=== PATIENT | female | born 1945 | race Caucasian/White ===

== ENCOUNTER → 2018-09-21 | Outpatient (CLI) | payer MEDICARE ==
--- NOTE | 2018-09-29 08:58 | MM ---
Reason for exam: screening (asymptomatic). Last mammogram was performed 1 year and 4 months ago. History: Patient is postmenopausal. Physical Findings: A clinical breast exam by your physician is recommended on an annual basis and results should be correlated with mammographic findings. MG 3D Screening Mammo W/Cad Bilateral CC and MLO view(s) were taken. Prior study comparison: May 19, 2017, mammogram, performed at [facility]. May 27, 2016, mammogram, performed at [facility]. The breast tissue is heterogeneously dense. This may lower the sensitivity of mammography. There are benign appearing round linear calcifications bilaterally, greater in the left breast. There is chronic nodularity in the left breast. There is no discrete abnormality. ASSESSMENT: Benign, BI-RAD 2 RECOMMENDATION: Routine screening mammogram of both breasts in 1 year.
== END ==
LOC: RADMAMWWP 13:20
PROVIDERS: ATTEND Family Medicine
DX: Z12.31 Encounter for screening mammogram for malignant neoplasm of breast (principal)
CPT/HCPCS: 77063; 77067

== ENCOUNTER 2020-05-10 08:02 | Inpatient (IN) | payer MEDICARE ==
[2020-05-10] MEDS ORDERED: KETOROLAC 15 MG/ML 1 ML VIAL IVP STA (08:22)
[2020-05-10] MEDS ORDERED: SODIUM CHLORIDE 0.9% 1,000 ML IV STA ×2 (08:22→11:04)
--- NOTE | 2020-05-10 08:40 | ED ---
Abdominal Pain HPI - General Chief Complaint: Abdominal Pain Stated Complaint: Abd pain,kidney stone, UTI Time Seen by Provider: 05/10/20 08:02 Source: patient, EMS, RN notes reviewed, old records reviewed Mode of arrival: EMS Limitations: no limitations - History of Present Illness Initial Comments: This is a 74-year-old female who was transferred from [facility] where she initially presented with complaints of severe abdominal pain with nausea and diarrhea after having a colonoscopy done the previous day. Patient states she had crampy pain and may getting intermittently worse since the procedure. She has had nausea vomiting states the cramps are all over her abdomen. She did have workup here was consistent with a CAT scan lab work. She did have evidence of dehydration leukocytosis also CAT scan showed evidence of a kidney stone in the renal pelvis on the left which appears be nonobstructing there was however left-sided hydronephrosis also some thinning of the upper pole left kidney consistent with either scarring or chronic pyelonephritis. Additionally the urine was nitrite positive. Patient was given numerous pain medication without success and was transferred here for further evaluation. MD Complaint: abdominal pain - Related Data Home Medications Medication Instructions Recorded Confirmed Cholecalciferol [Vitamin D3 (25 1,000 unit PO DAILY 05/10/20 05/10/20 Mcg = 1000 Iu)] Levothyroxine Sodium [Synthroid] 137 mcg PO DAILY 05/10/20 05/10/20 Lisinopril [Zestril] 10 mg PO DAILY 05/10/20 05/10/20 Simvastatin 40 mg PO HS 05/10/20 05/10/20 Triamcinolone 0.1% Ointment 1 applic TOPICAL BID PRN 05/10/20 05/10/20 [Kenalog 0.1% Ointment] Venlafaxine HCl ER [Effexor Xr] 150 mg PO DAILY 05/10/20 05/10/20 polyethylene glycoL 3350 [Miralax] 17 gm PO DAILY PRN 05/10/20 05/10/20 Allergies Allergy/AdvReac Type Severity Reaction Status Date / Time Penicillins Allergy Unknown Verified 05/10/20 08:44 Sulfa (Sulfonamide Allergy Unknown Verified 05/10/20 08:44 Antibiotics) Review of Systems ROS Statement: Those systems with pertinent positive or pertinent negative responses have been documented in the HPI. ROS Other: All systems not noted in ROS Statement are negative. Past Medical History Past Medical History: Hyperlipidemia, Hypertension History of Any Multi-Drug Resistant Organisms: None Reported Past Surgical History: Joint Replacement, Orthopedic Surgery Additional Past Surgical History / Comment(s): left overy removed Past Psychological History: Anxiety Smoking Status: Former smoker Past Alcohol Use History: None Reported Past Drug Use History: None Reported General Exam - General Exam Comments Initial Comments: This is a well-developed well-nourished awake alert oriented 3 female Limitations: no limitations General appearance: alert, anxious, in distress Head exam: Present: atraumatic, normocephalic, normal inspection Eye exam: Present: normal appearance, PERRL, EOMI. Absent: scleral icterus, conjunctival injection, periorbital swelling ENT exam: Present: mucous membranes dry Neck exam: Present: normal inspection. Absent: tenderness, meningismus, lymphadenopathy Respiratory exam: Present: normal lung sounds bilaterally. Absent: respiratory distress, wheezes, rales, rhonchi, stridor Cardiovascular Exam: Present: regular rate, normal rhythm, normal heart sounds. Absent: systolic murmur, diastolic murmur, rubs, gallop, clicks GI/Abdominal exam: Present: soft, tenderness (Mild tenderness no guarding rebound masses or bruits), normal bowel sounds. Absent: distended, guarding, rebound, rigid Rectal exam: Present: deferred Extremities exam: Present: normal inspection, full ROM, normal capillary refill. Absent: tenderness, pedal edema, joint swelling, calf tenderness Back exam: Present: normal inspection Neurological exam: Present: alert, oriented X3, CN II-XII intact Psychiatric exam: Present: normal affect, normal mood Skin exam: Present: warm, dry, intact, normal color. Absent: rash Course Vital Signs 05/10/20 05/10/20 05/10/20 08:12 09:10 10:07 Temperature 98.5 F Pulse Rate 88 104 H 99 Respiratory 20 18 18 Rate Blood Pressure 195/99 187/78 176/72 O2 Sat by Pulse 99 98 98 Oximetry 05/10/20 11:03 Temperature Pulse Rate 117 H Respiratory 18 Rate Blood Pressure 148/86 O2 Sat by Pulse 96 Oximetry - Reevaluation(s) Reevaluation #1: 05/10/20 11:33 Reevaluation patient reveals her still have pain no abdominal exam is nonspecific mild tenderness no focal guarding rebound masses or bruits heart and lungs were clear. 05/10/20 11:33 The patient did receive IV antibiotics at the sending facility as well as fluids patient get additional fluids. The lactic acid is improving. Medical Decision Making - Medical Decision Making I did discuss findings with the patient and with Dr. Perkins patient will be admitted with consultation by GI as well as neurology. Dr. Patel is notified - Lab Data Result diagrams: 05/10/20 08:49 05/10/20 08:49 Lab Results 05/10/20 05/10/20 05/10/20 Range/Units 08:49 08:49 08:49 WBC 13.6 H (3.8-10.6) k/uL RBC 4.64 (3.80-5.40) m/uL Hgb 13.8 (11.4-16.0) gm/dL Hct 42.5 (34.0-46.0) % MCV 91.5 (80.0-100.0) fL MCH 29.8 (25.0-35.0) pg MCHC 32.6 (31.0-37.0) g/dL RDW 13.6 (11.5-15.5) % Plt Count 295 (150-450) k/uL Neutrophils % 88 % Lymphocytes % 4 % Monocytes % 5 % Eosinophils % 1 % Basophils % 0 % Neutrophils # 12.1 H (1.3-7.7) k/uL Lymphocytes # 0.6 L (1.0-4.8) k/uL Monocytes # 0.7 (0-1.0) k/uL Eosinophils # 0.2 (0-0.7) k/uL Basophils # 0.0 (0-0.2) k/uL Sodium 137 (137-145) mmol/L Potassium 5.0 (3.5-5.1) mmol/L Chloride 105 (98-107) mmol/L Carbon Dioxide 23 (22-30) mmol/L Anion Gap 9 mmol/L BUN 20 H (7-17) mg/dL Creatinine 0.64 (0.52-1.04) mg/dL Est GFR (CKD-EPI)AfAm >90 (>60 ml/min/1.73 sqM) Est GFR (CKD-EPI)NonAf 90 (>60 ml/min/1.73 sqM) Glucose 159 H (74-99) mg/dL Lactic Ac Sepsis Rflx Plasma Lactic Acid Wes 3.6 H* (0.7-2.0) mmol/L Calcium 8.9 (8.4-10.2) mg/dL Total Bilirubin 0.8 (0.2-1.3) mg/dL AST 63 H (14-36) U/L ALT 24 (4-34) U/L Alkaline Phosphatase 54 (38-126) U/L Creatine Kinase 436 H (30-135) U/L Troponin I (0.000-0.034) ng/mL Total Protein 7.2 (6.3-8.2) g/dL Albumin 3.8 (3.5-5.0) g/dL Lipase 140 (23-300) U/L 05/10/20 05/10/20 Range/Units 08:49 09:32 WBC (3.8-10.6) k/uL RBC (3.80-5.40) m/uL Hgb (11.4-16.0) gm/dL Hct (34.0-46.0) % MCV (80.0-100.0) fL MCH (25.0-35.0) pg MCHC (31.0-37.0) g/dL RDW (11.5-15.5) % Plt Count (150-450) k/uL Neutrophils % % Lymphocytes % % Monocytes % % Eosinophils % % Basophils % % Neutrophils # (1.3-7.7) k/uL Lymphocytes # (1.0-4.8) k/uL Monocytes # (0-1.0) k/uL Eosinophils # (0-0.7) k/uL Basophils # (0-0.2) k/uL Sodium (137-145) mmol/L Potassium (3.5-5.1) mmol/L Chloride (98-107) mmol/L Carbon Dioxide (22-30) mmol/L Anion Gap mmol/L BUN (7-17) mg/dL Creatinine (0.52-1.04) mg/dL Est GFR (CKD-EPI)AfAm (>60 ml/min/1.73 sqM) Est GFR (CKD-EPI)NonAf (>60 ml/min/1.73 sqM) Glucose (74-99) mg/dL Lactic Ac Sepsis Rflx Y Plasma Lactic Acid Wes (0.7-2.0) mmol/L Calcium (8.4-10.2) mg/dL Total Bilirubin (0.2-1.3) mg/dL AST (14-36) U/L ALT (4-34) U/L Alkaline Phosphatase (38-126) U/L Creatine Kinase (30-135) U/L Troponin I <0.012 (0.000-0.034) ng/mL Total Protein (6.3-8.2) g/dL Albumin (3.5-5.0) g/dL Lipase (23-300) U/L - EKG Data -: EKG Interpreted by Me EKG shows normal: sinus rhythm EKG Comments: Says tachycardia rate of 111. Interval 140 QRS duration 74 QT since QTC 340/[address]-T wave changes - Radiology Data Radiology results: report reviewed (Imaging shows evidence of the left renal calculus as well as nonspecific abdominal gas report doesn't suggest ileus), image reviewed Critical Care Time Critical Care Time: Yes Total Critical Care Time: 37 Critical Care Time: The critical care time which included initial presentation with history physical labs x-rays multiple reevaluation patient responsive therapy review of old materials that were present with the patient from the sending facility. Discussed with the admitting physician admission orders and documentation the above Disposition Clinical Impression: Abdominal pain, Urinary tract infection, Sepsis, Dehydration, Ileus, Kidney stone on left side Disposition: ADMITTED IP TO THIS HOSP Condition: Fair Referrals: Dorian Yan MD [Primary Care Provider] - 1-2 days
[2020-05-10] MEDS ORDERED: HYDROmorphone 1 MG/ML 1 ML SYRINGE IVP STA ×2 (09:08→10:58)
[2020-05-10] MEDS ORDERED: LORazepam 2 MG/ML INJ IV STA (09:08)
[2020-05-10 09:11] LABS: Basophils % (A) 0 %; Eosinophils # (A) 0.2 k/uL (0-0.7); Eosinophils % (A) 1 %; HCT 42.5 % (34.0-46.0); HGB 13.8 gm/dL (11.4-16.0); Lymphocytes # (A) 0.6 k/uL (1.0-4.8); Lymphocytes % (A) 4 %; MCH 29.8 pg (25.0-35.0); MCHC 32.6 g/dL (31.0-37.0); MCV 91.5 fL (80.0-100.0); Mean Platelet Volume 6.8; Monocytes # (A) 0.7 k/uL (0-1.0); Monocytes % (A) 5 %; Neutrophils # (A) 12.1 k/uL (1.3-7.7); Neutrophils % (A) 88 %; Platelet Count 295 k/uL (150-450); RBC 4.64 m/uL (3.80-5.40); RDW 13.6 % (11.5-15.5); WBC 13.6 k/uL (3.8-10.6)
--- NOTE | 2020-05-10 09:14 | XR ---
EXAMINATION TYPE: XR KUB DATE OF EXAM: 05/10/2020 COMPARISON: NONE HISTORY: Pain TECHNIQUE: Single supine KUB image of the abdomen is obtained FINDINGS: Distended small bowel left hemiabdomen measuring up to 3 cm with scattered air-fluid levels seen. Gas and fecal material is seen in non-distended colon. No convincing evidence for pneumoperitoneum. Left renal calculus measuring 8.2 mm. The lung bases are clear. The osseous structures are intact. IMPRESSION: 1. Nonspecific nonobstructive bowel gas pattern. 2. Left renal calculus measuring 8.2mm.
[2020-05-10 09:20] LABS: ALT 24 U/L (4-34); AST 63 U/L (14-36); African American GFR (CKD) >90 (>60 ml/min/1.73 sqM); Albumin 3.8 g/dL (3.5-5.0); Alkaline Phosphatase 54 U/L (38-126); Anion Gap 9 mmol/L; Blood Urea Nitrogen 20 mg/dL (7-17); Calcium 8.9 mg/dL (8.4-10.2); Carbon Dioxide 23 mmol/L (22-30); Chloride 105 mmol/L (98-107); Creatine Kinase 436 U/L (30-135); Glucose 159 mg/dL (74-99); Non-African American GFR(CKD) 90 (>60 ml/min/1.73 sqM); Sodium 137 mmol/L (137-145); Total Bilirubin 0.8 mg/dL (0.2-1.3); Total Protein 7.2 g/dL (6.3-8.2)
[2020-05-10] MEDS ORDERED: ONDANSETRON 4 MG/2 ML VIAL IVP PRN (11:53)
[2020-05-10] MEDS ORDERED: NALOXONE 0.4 MG/ML 1 ML VIAL IV PRN (11:53)
[2020-05-10] MEDS: HYDROmorphone 0.5 MG/0.5 ML SYRINGE IVP PRN ×2 (13:41→16:22)
[2020-05-10] MEDS: ENOXAPARIN 40 MG/0.4 ML SYRINGE SQ SCH (13:47)
--- NOTE | 2020-05-10 14:44 | P.HPIM ---
History of Present Illness H&P Date: 05/10/20 Chief Complaint: Abdominal pain History of presenting complaint: This is a pleasant 74-year-old patient of Dr. Dorian Yan. Chronic stable medical conditions include hypertension, hyperlipidemia, depression, hypothyroid. For 3 days patient been having increasing diffuse abdominal pain. Pain started before patient had undergone a scheduled [place] Apparently results unremarkable. Pain continued to get worse. When she got home she is feeling okay she did eat some food pain became worse she stopped eating. She's had nausea vomiting yesterday some diarrhea. No fever no chills. Computed tomography scan of the abdomen showing left hydronephrosis with renal pelvic stone. No dilatation of the ureter. Still having significant pain in the ER. Review of systems: GEN.: Tired EYES: None HEENT: None NECK: None RESPIRATORY: None CARDIOVASCULAR: None GASTROINTESTINAL: As above GENITOURINARY: None MUSCULOSKELETAL: Some joint pains LYMPHATICS: None HEMATOLOGICAL: None PSYCHIATRY: None NEUROLOGICAL: None Past medical history to include: Hypertension, hyperlipidemia, depression, hypothyroid Social history: Lives alone. Smoked for about 30 years stopped in 1999. Was a heavy smoker. Alcohol occasional. Physical examination: VITAL SIGNS: 98.5, 88, 187/78, 98% room air GENERAL:. BMI 40.7, laying in bed a bit uncomfortable. EYES: Pupils equal. Conjunctiva normal. HEENT: External appearance of nose and ears normal, oral cavity grossly normal. NECK: JVD not raised; masses not palpable. HEART: First and second heart sounds are normal; no edema. LUNGS: Respiratory rate normal; clear to auscultation. ABDOMEN: Soft, diffuse tenderness, no guarding rigidity, liver spleen not palpable, no masses palpable. PSYCH: Alert and oriented x3; mood and affect anxiousl. MUSCULAR skeletal: Evidence of OA NEUROLOGICAL: Cranial nerves grossly intact; no facial asymmetry, power and sensation grossly intact. LYMPHATICS: No lymph nodes palpable in the axilla and neck INVESTIGATIONS, reviewed in the clinical context: White count 13.6 hemoglobin 13.8 platelets 295 potassium 5 creatinine 0.64 lactic acid 3.6 Abdominal x-ray film personally reviewed by me shows dilatation of the small bowel with some air-fluid level. No free air noted Investigations from [facility]: Computed tomography scan of the abdomen-fatty liver, hydronephrosis, 1 point to send the stone in the left renal pelvis, sigmoid diverticulosis UA positive for nitrate request his bacteria Assessment: -Acute ileus predominantly appears to be involving the small bowel. Patient's had nausea vomiting at home currently also nauseated also had loose stools. Low-grade ileitis is possible -Left hydronephrosis, could be acute from the renal pelvic stone, no dilatation of ureter -Essential hypertension -Hyperlipidemia -Depression otherwise specified -Hypothyroid -Morbid obesity BMI 40.7 -Acute UTI with cystitis Plan: Patient started on IV ceftriaxone. IV fluids. Made nothing by mouth. Except for by mouth medications. Consultation made to GI, general surgery, urology. Lovenox for DVT prophylaxis. Because patient patient been having nausea vomiting will use a NG tube. 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 History of Any Multi-Drug Resistant Organisms: None Reported Past Surgical History: Joint Replacement Additional Past Surgical History / Comment(s): Colonoscopy with last on 05/08/20, bilateral total knees, left overy removed d/t cyst, bilateral eye cataract remov als/lens implants, R eye multiple surgeries for retinal tears Additional Past Anesthesia/Blood Transfusion Reaction / Comment(s): Difficulty getting to sleep Smoking Status: Former smoker - Past Family History Mother Family Medical History: No Reported History Additional Family Medical History / Comment(s): Mother did not go to the doctor much. Father Family Medical History: Vascular Disorder Additional Family Medical History / Comment(s): Father in his early 50s of a ruptured thoracic aneurysm. Medications and Allergies Home Medications Medication Instructions Recorded Confirmed Type Cholecalciferol [Vitamin D3 (25 1,000 unit PO DAILY 05/10/20 05/10/20 History Mcg = 1000 Iu)] Levothyroxine Sodium [Synthroid] 137 mcg PO DAILY 05/10/20 05/10/20 History Lisinopril [Zestril] 10 mg PO DAILY 05/10/20 05/10/20 History Simvastatin 40 mg PO HS 05/10/20 05/10/20 History Triamcinolone 0.1% Ointment 1 applic TOPICAL BID PRN 05/10/20 05/10/20 History [Kenalog 0.1% Ointment] Venlafaxine HCl ER [Effexor Xr] 150 mg PO DAILY 05/10/20 05/10/20 History polyethylene glycoL 3350 [Miralax] 17 gm PO DAILY PRN 05/10/20 05/10/20 History Allergies Allergy/AdvReac Type Severity Reaction Status Date / Time Penicillins Allergy Unknown Verified 05/10/20 08:44 Sulfa (Sulfonamide Allergy Unknown Verified 05/10/20 08:44 Antibiotics) Physical Exam Vitals: Vital Signs Temp Pulse Resp BP Pulse Ox 05/10/20 12:49 98.3 F 113 H 18 167/86 98 05/10/20 11:03 117 H 18 148/86 96 05/10/20 10:07 99 18 176/72 98 05/10/20 09:10 104 H 18 187/78 98 05/10/20 08:12 98.5 F 88 20 195/99 99 Intake and Output 05/09/20 05/10/20 05/10/20 22:59 06:59 14:59 Other: Weight 104.326 kg Results CBC & Chem 7: 05/10/20 08:49 05/10/20 08:49 Labs: Abnormal Lab Results - Last 24 Hours (Table) 05/10/20 05/10/20 05/10/20 Range/Units 08:49 08:49 08:49 WBC 13.6 H (3.8-10.6) k/uL Neutrophils # 12.1 H (1.3-7.7) k/uL Lymphocytes # 0.6 L (1.0-4.8) k/uL BUN 20 H (7-17) mg/dL Glucose 159 H (74-99) mg/dL Plasma Lactic Acid Wes 3.6 H* (0.7-2.0) mmol/L AST 63 H (14-36) U/L Creatine Kinase 436 H (30-135) U/L Thrombosis Risk Factor Assmnt - Choose All That Apply Any of the Below Risk Factors Present?: Yes Each Factor Represents 1 point: Obesity (BMI >25) Other Risk Factors: Yes Each Risk Factor Represents 2 Points: Age 61-74 years Other congenital or acquired thrombophilia - If yes, enter type in comment: No Thrombosis Risk Factor Assessment Total Risk Factor Score: 3 Thrombosis Risk Factor Assessment Level: Moderate Risk
--- NOTE | 2020-05-10 16:14 | P.GSCN ---
History of Present Illness Consult date: 05/10/20 Reason for Consult: Left renal calculus and hydronephrosis History of present illness: The patient is a 74-year-old female transferred from [facility] earlier today for evaluation of abdominal pain. The patient had undergone elective co lonoscopy on 05/09. She says that immediately following the procedure she developed diffuse abdominal pain coupled with nausea, vomiting and diarrhea. She has had no fever but she says she has had chills. She has not noted any change in her normal voiding pattern which is every 3-4 hours during the day and once at night. She denies any dysuria or gross hematuria. She has no previous history of urolithiasis. She says her pain is present diffusely in the abdomen and is not lateralized to either side. She has no significant flank pain. Computed tomography scan with IV contrast performed at [facility] identified a 13 x 8 mm calculus in the left renal pelvis. There was dilation of the left renal pelvis without dilation of the left ureter. The left kidney functioned promptly. The patient has no previous imaging of her kidneys for comparison. The patient's white blood count upon her arrival to the emergency room today was 13,600. Her lactate was 3.6 and has risen to 4.1. BUN/creatinine were 20/0.64. Urinalysis performed at [facility] apparently suggested a urinary tract infection and the patient is currently receiving Rocephin. Review of Systems - Constitutional Reports anorexia, Reports chills, Denies fever - Cardiovascular Denies chest pain, Denies shortness of breath - Respiratory Denies cough - Gastrointestinal Reports as per HPI - Genitourinary Genitourinary: Reports as per HPI Past Medical History Past Medical History: Eye Disorder, Hyperlipidemia, Hypertension, Thyroid Disorder Additional Past Medical History / Comment(s): Chronic constipation, R eye mutliple surgeries for retinal tears-vision poor, hypothyroid, osteoporosis. History of Any Multi-Drug Resistant Organisms: None Reported Past Surgical History: Joint Replacement ( Bilateral total knee arthroplasty) Additional Past Surgical History / Comment(s): Colonoscopy with last on 05/08/20, bilateral total knees, left overy removed d/t cyst, bilateral eye cataract removals/lens implants, R eye multiple surgeries for retinal tears Additional Past Anesthesia/Blood Transfusion Reaction / Comm: Difficulty getting to sleep Smoking Status: Former smoker - Past Family History Mother Family Medical History: No Reported History Additional Family Medical History / Comment(s): Mother did not go to the doctor much. Father Family Medical History: Vascular Disorder Additional Family Medical History / Comment(s): Father in his early 50s of a ruptured thoracic aneurysm. Medications and Allergies Home Medications Medication Instructions Recorded Confirmed Type Cholecalciferol [Vitamin D3 (25 1,000 unit PO DAILY 05/10/20 05/10/20 History Mcg = 1000 Iu)] Levothyroxine Sodium [Synthroid] 137 mcg PO DAILY 05/10/20 05/10/20 History Lisinopril [Zestril] 10 mg PO DAILY 05/10/20 05/10/20 History Simvastatin 40 mg PO HS 05/10/20 05/10/20 History Triamcinolone 0.1% Ointment 1 applic TOPICAL BID PRN 05/10/20 05/10/20 History [Kenalog 0.1% Ointment] Venlafaxine HCl ER [Effexor Xr] 150 mg PO DAILY 05/10/20 05/10/20 History polyethylene glycoL 3350 [Miralax] 17 gm PO DAILY PRN 05/10/20 05/10/20 History Allergies Allergy/AdvReac Type Severity Reaction Status Date / Time Penicillins Allergy Unknown Verified 05/10/20 08:44 Sulfa (Sulfonamide Allergy Unknown Verified 05/10/20 08:44 Antibiotics) Surgical - Exam Vital Signs Temp Pulse Resp BP Pulse Ox 98.5 F 88 20 195/99 99 05/10/20 08:12 05/10/20 08:12 05/10/20 08:12 05/10/20 08:12 05/10/20 08:12 - General well developed, well nourished, moderate pain, obese - ENT no hearing loss - Neck no masses, no lymphadectomy - Respiratory normal respiratory effort - Abdomen Abdomen: tender (Diffuse), no organomegaly Hernia: none Results - Labs 05/10/20 08:49 05/10/20 08:49 Abnormal Lab Results - Last 24 Hours (Table) 05/10/20 05/10/20 05/10/20 Range/Units 08:49 08:49 08:49 WBC 13.6 H (3.8-10.6) k/uL Neutrophils # 12.1 H (1.3-7.7) k/uL Lymphocytes # 0.6 L (1.0-4.8) k/uL BUN 20 H (7-17) mg/dL Glucose 159 H (74-99) mg/dL Plasma Lactic Acid Wes 3.6 H* (0.7-2.0) mmol/L AST 63 H (14-36) U/L Creatine Kinase 436 H (30-135) U/L 05/10/20 Range/Units 14:28 WBC (3.8-10.6) k/uL Neutrophils # (1.3-7.7) k/uL Lymphocytes # (1.0-4.8) k/uL BUN (7-17) mg/dL Glucose (74-99) mg/dL Plasma Lactic Acid Wes 4.1 H* (0.7-2.0) mmol/L AST (14-36) U/L Creatine Kinase (30-135) U/L Diabetes panel 05/10/20 Range/Units 08:49 Sodium 137 (137-145) mmol/L Potassium 5.0 (3.5-5.1) mmol/L Chloride 105 (98-107) mmol/L Carbon Dioxide 23 (22-30) mmol/L BUN 20 H (7-17) mg/dL Creatinine 0.64 (0.52-1.04) mg/dL Glucose 159 H (74-99) mg/dL Calcium 8.9 (8.4-10.2) mg/dL AST 63 H (14-36) U/L ALT 24 (4-34) U/L Alkaline Phosphatase 54 (38-126) U/L Total Protein 7.2 (6.3-8.2) g/dL Albumin 3.8 (3.5-5.0) g/dL Calcium panel 05/10/20 Range/Units 08:49 Calcium 8.9 (8.4-10.2) mg/dL Albumin 3.8 (3.5-5.0) g/dL Pituitary panel 05/10/20 Range/Units 08:49 Sodium 137 (137-145) mmol/L Potassium 5.0 (3.5-5.1) mmol/L Chloride 105 (98-107) mmol/L Carbon Dioxide 23 (22-30) mmol/L BUN 20 H (7-17) mg/dL Creatinine 0.64 (0.52-1.04) mg/dL Glucose 159 H (74-99) mg/dL Calcium 8.9 (8.4-10.2) mg/dL Adrenal panel 05/10/20 Range/Units 08:49 Sodium 137 (137-145) mmol/L Potassium 5.0 (3.5-5.1) mmol/L Chloride 105 (98-107) mmol/L Carbon Dioxide 23 (22-30) mmol/L BUN 20 H (7-17) mg/dL Creatinine 0.64 (0.52-1.04) mg/dL Glucose 159 H (74-99) mg/dL Calcium 8.9 (8.4-10.2) mg/dL Total Bilirubin 0.8 (0.2-1.3) mg/dL AST 63 H (14-36) U/L ALT 24 (4-34) U/L Alkaline Phosphatase 54 (38-126) U/L Total Protein 7.2 (6.3-8.2) g/dL Albumin 3.8 (3.5-5.0) g/dL - Imaging CT scan - abdomen: image reviewed Assessment and Plan (1) Kidney stone on left side Narrative/Plan: I personally reviewed the patient's computed tomography scan. She has a 13 x 8 mm calculus present in the left renal pelvis but the calculus is not located at the ureteropelvic junction and the kidney appears to function promptly. It is unlikely that the calculus or the hydronephrosis is the source of her diffuse abdominal pain. The patient does not have symptoms of a urinary tract infection and it would be unlikely that a urinary tract infection would cause her diffuse abdominal pain. The patient recently underwent colonoscopy and it is possible that she could have had a microperforation during the colonoscopy however no gross intra-abdominal air was noted on the computed tomography scan. General surgery consultation is pending. Treatment of the patient's left renal calculus is elective and will be deferred until the source for her abdominal pain has been clarified. Current Visit: Yes Status: Acute Code(s): N20.0 - CALCULUS OF KIDNEY SNOMED Code(s): 26713628
[2020-05-10] MEDS: HYDROmorphone 1 MG/ML 1 ML SYRINGE IVP PRN ×2 (17:54→21:43)
[2020-05-10] MEDS: KETOROLAC 15 MG/ML 1 ML VIAL IVP SCH (17:55)
[2020-05-10] MEDS: SODIUM CHLORIDE 0.9% 1,000 ML IV SCH (19:10)
[2020-05-10] MEDS: ACETAMINOPHEN IV (For NPO) 1,000 MG in EMPTY BAG 1 BAG IVPB SCH (19:11)
--- NOTE | 2020-05-10 20:34 | CT ---
EXAMINATION TYPE: CT abdomen pelvis w con DATE OF EXAM: 05/10/2020 COMPARISON: [facility] CT abdomen pelvis 05/09/2020. HISTORY: abdominal pain post colonoscopy. Colonoscopy 05/08/2020. Patient reports no biopsies were kayden en. CT DLP: 1437.4 mGycm Automated exposure control for dose reduction was used. TECHNIQUE: Helical acquisition of images was performed from the lung bases through the pelvis. CONTRAST: Performed with rectal contrast and with IV Contrast, patient injected with 100 mL of Isovue 300. FINDINGS: LUNG BASES: Bibasilar airspace opacities and paraseptal emphysematous change. LIVER: Fatty liver. BILIARY SYSTEM: Excreted layering contrast within the gallbladder. No intrahepatic or extrahepatic bi liary ductal dilatation. PANCREAS: Normal. SPLEEN: Too small to characterize hypodensity of the spleen, and redemonstrated hyperdensity near the splenic hilum which may represent tiny hemangioma. ADRENALS: Normal. KIDNEYS: Normal right kidney. Left kidney demonstrates a 14 mm stone within the renal pelvis, with ob struction and dilatation of the lower pole collecting system, redemonstrated from 05/09/2020. Left ruth al upper pole cortical scarring. There is a left upper pole perinephric simple fluid collection versu s cyst also redemonstrated from 05/09/2020. BOWEL: Rectal tube, with rectal contrast seen throughout the colon. There are diverticular changes o f the rectosigmoid colon, with a small amount of right pelvic free fluid adjacent to the distal sigmo id colon (201:79). There is no evidence of bowel obstruction. Within the mid upper abdomen there is a short segment of small bowel with minimal wall thickening (202:39, 201:47). No significant adjacent inflammatory change. PERITONEUM: No free air is visualized. Small right pelvic free fluid adjacent to the distal sigmoid colon. ADENOPATHY: No lymphadenopathy. PELVIS: Nondistended urinary bladder. Uterus and adnexa unremarkable. VASCULATURE: No abdominal aortic aneurysm. There is moderate calcified atherosclerotic disease. Ther e is eccentric mural thrombus versus noncalcified atherosclerotic disease of the upper abdominal aort a above the origin of the celiac axis. Portal venous phase of contrast limits arterial evaluation. Th e origins of the celiac artery, superior mesenteric artery, and inferior mesenteric artery are patent with contrast opacification. There is somewhat abrupt cut off of contrast opacification of the proxi mal to mid superior mesenteric artery (201:39-42), which appears similar to 05/09/2020 CT comparison. MUSCULOSKELETAL: Degenerative changes of the spine. Thoracic spine hemangioma incompletely visualize d. IMPRESSION: 1. Rectosigmoid colon diverticulosis, with small amount of the right pelvic free fluid adjacent to th e distal sigmoid. Findings may represent microperforation or inflammation status post 05/08/2020 colon oscopy. No pneumoperitoneum. 2. Portal venous phase of contrast limits evaluation of the mesenteric arteries. There is a somewhat abrupt cut off of contrast opacification of the proximal to mid superior mesenteric artery which appe ars similar to 05/09/[address] comparison, despite differences in contrast timing. Therefore fin dings may represent thrombus within the superior mesenteric artery. While there is a short segment of small bowel mild wall thickening in the mid upper abdomen, there is not long segment involvement or perienteric inflammatory change within the distribution of the superior mesenteric artery to suggest significant ischemic change. Findings are somewhat discordant. 3. Left renal pelvis 14 mm calculus, with mild obstruction of the lower pole collecting system. 4. Fatty liver. Dr. Maddison Nails discussed findings with Dr. Deniz Amato via the phone on today at 7:40 PM and 8:00 PM, and results were acknowledged.
--- NOTE | 2020-05-10 21:02 | P.GSCN ---
History of Present Illness Consult date: 05/10/20 Reason for Consult: Abdominal pain History of present illness: 74-year-old female presents to the hospital as a transfer from [place] earlier today. Patient apparently had a colonoscopy electively for screening purposes on Friday at [facility]. Patient states she woke up with the pain that she is currently now experiencing. She went back to the emergency department yesterday with this discomfort. Pain is described as diffuse. Crampy at times. Associated with nausea and anorexia. No fevers. She has had some flatus and a small amount of liquid stools. Patient was found to have leukocytosis at [facility]. CAT scan performed showing no obvious perforation. She was transferred here for further evaluation. Consultation to myself, GI, urology was placed. Patient had a left kidney stone with some obstruction of the lower pelvis. Patient was found to have an elevated lactic acid. She is tachycardic. Patient has described her pain as being 10 out of 10. She has not experienced pain like this previously. Patient was initially seen around 5 PM with her family at the bedside. Options were reviewed at that time. We decided to proceed with a repeat CAT scan abdomen and pelvis with rectal contrast and IV contrast. Those films and the films from [facility] have been reviewed with our on-call radiologist. The patient has a small amount of fluid adjacent to the sigmoid colon. No pneumoperitoneum or contrast extravasation is seen. I did question radiology as to the contrast present within the mesenteric vasculature. This was not a angiogram study and therefore the timing of the contrast in the mesenteric vasculature is not optimal. There is an area of the mid to proximal SMA were the enhancement seems somewhat diminished however. There is no significant inflammatory changes in the mesentery or small bowel loops. No pneumatosis is seen. Patient was reexamined 20 minutes ago. Patient says she is having less pain currently. She says she found a comfortable position and is mainly only having pain with movement. Patient's lactic acid is being repeated currently. Review of Systems The patient denies any acute changes in vision or hearing, no dysphagia or odynophagia, no chest pain or shortness of breath, no dysuria or hematuria, no headache, no runny nose, no rectal bleeding or melena, no unexplained weight loss Past Medical History Past Medical History: Eye Disorder, Hyperlipidemia, Hypertension, Thyroid Disorder Additional Past Medical History / Comment(s): Chronic constipation, R eye mutliple surgeries for retinal tears-vision poor, hypothyroid, osteoporosis. History of Any Multi-Drug Resistant Organisms: None Reported Past Surgical History: Joint Replacement ( Bilateral total knee arthroplasty) Additional Past Surgical History / Comment(s): Colonoscopy with last on 05/08/20, bilateral total knees, left overy removed d/t cyst, bilateral eye cataract removals/lens implants, R eye multiple surgeries for retinal tears Additional Past Anesthesia/Blood Transfusion Reaction / Comm: Difficulty getting to sleep Smoking Status: Former smoker - Past Family History Mother Family Medical History: No Reported History Additional Family Medical History / Comment(s): Mother did not go to the doctor much. Father Family Medical History: Vascular Disorder Additional Family Medical History / Comment(s): Father in his early 50s of a ruptured thoracic aneurysm. Medications and Allergies Home Medications Medication Instructions Recorded Confirmed Type Cholecalciferol [Vitamin D3 (25 1,000 unit PO DAILY 05/10/20 05/10/20 History Mcg = 1000 Iu)] Levothyroxine Sodium [Synthroid] 137 mcg PO DAILY 05/10/20 05/10/20 History Lisinopril [Zestril] 10 mg PO DAILY 05/10/20 05/10/20 History Simvastatin 40 mg PO HS 05/10/20 05/10/20 History Triamcinolone 0.1% Ointment 1 applic TOPICAL BID PRN 05/10/20 05/10/20 History [Kenalog 0.1% Ointment] Venlafaxine HCl ER [Effexor Xr] 150 mg PO DAILY 05/10/20 05/10/20 History polyethylene glycoL 3350 [Miralax] 17 gm PO DAILY PRN 05/10/20 05/10/20 History Allergies Allergy/AdvReac Type Severity Reaction Status Date / Time Penicillins Allergy Unknown Verified 05/10/20 08:44 Sulfa (Sulfonamide Allergy Unknown Verified 05/10/20 08:44 Antibiotics) Surgical - Exam Vital Signs Temp Pulse Resp BP Pulse Ox 98.5 F 88 20 195/99 99 05/10/20 08:12 05/10/20 08:12 05/10/20 08:12 05/10/20 08:12 05/10/20 08:12 Physical exam: General: Well-developed, well-nourished in distress related to discomfort HEENT: Normocephalic, sclerae nonicteric Abdomen: Nondistended, mild to moderate diffuse tenderness, no rebound or guarding Extremities: No edema Neuro: Alert and oriented Results - Labs 05/10/20 08:49 05/10/20 08:49 Abnormal Lab Results - Last 24 Hours (Table) 05/10/20 05/10/20 05/10/20 Range/Units 08:49 08:49 08:49 WBC 13.6 H (3.8-10.6) k/uL Neutrophils # 12.1 H (1.3-7.7) k/uL Lymphocytes # 0.6 L (1.0-4.8) k/uL BUN 20 H (7-17) mg/dL Glucose 159 H (74-99) mg/dL Plasma Lactic Acid Wes 3.6 H* (0.7-2.0) mmol/L AST 63 H (14-36) U/L Creatine Kinase 436 H (30-135) U/L 05/10/20 05/10/20 Range/Units 14:28 17:39 WBC (3.8-10.6) k/uL Neutrophils # (1.3-7.7) k/uL Lymphocytes # (1.0-4.8) k/uL BUN (7-17) mg/dL Glucose (74-99) mg/dL Plasma Lactic Acid Wes 4.1 H* 3.8 H* (0.7-2.0) mmol/L AST (14-36) U/L Creatine Kinase (30-135) U/L Diabetes panel 05/10/20 Range/Units 08:49 Sodium 137 (137-145) mmol/L Potassium 5.0 (3.5-5.1) mmol/L Chloride 105 (98-107) mmol/L Carbon Dioxide 23 (22-30) mmol/L BUN 20 H (7-17) mg/dL Creatinine 0.64 (0.52-1.04) mg/dL Glucose 159 H (74-99) mg/dL Calcium 8.9 (8.4-10.2) mg/dL AST 63 H (14-36) U/L ALT 24 (4-34) U/L Alkaline Phosphatase 54 (38-126) U/L Total Protein 7.2 (6.3-8.2) g/dL Albumin 3.8 (3.5-5.0) g/dL Calcium panel 05/10/20 Range/Units 08:49 Calcium 8.9 (8.4-10.2) mg/dL Albumin 3.8 (3.5-5.0) g/dL Pituitary panel 05/10/20 Range/Units 08:49 Sodium 137 (137-145) mmol/L Potassium 5.0 (3.5-5.1) mmol/L Chloride 105 (98-107) mmol/L Carbon Dioxide 23 (22-30) mmol/L BUN 20 H (7-17) mg/dL Creatinine 0.64 (0.52-1.04) mg/dL Glucose 159 H (74-99) mg/dL Calcium 8.9 (8.4-10.2) mg/dL Adrenal panel 05/10/20 Range/Units 08:49 Sodium 137 (137-145) mmol/L Potassium 5.0 (3.5-5.1) mmol/L Chloride 105 (98-107) mmol/L Carbon Dioxide 23 (22-30) mmol/L BUN 20 H (7-17) mg/dL Creatinine 0.64 (0.52-1.04) mg/dL Glucose 159 H (74-99) mg/dL Calcium 8.9 (8.4-10.2) mg/dL Total Bilirubin 0.8 (0.2-1.3) mg/dL AST 63 H (14-36) U/L ALT 24 (4-34) U/L Alkaline Phosphatase 54 (38-126) U/L Total Protein 7.2 (6.3-8.2) g/dL Albumin 3.8 (3.5-5.0) g/dL Assessment and Plan (1) Abdominal pain Narrative/Plan: 74-year-old female with diffuse abdominal pain that was present after colonoscopy performed Friday. 2 separate CAT scans reviewed in detail. Clinical scenario discussed in detail with the patient and her family. I spoke to the patient's daughter twice after she went home. After reviewing films with radiology I did place a consult to vascular surgery. I spoke with the vascular surgeon system consultant. She was able to visualize the patient's films from home. No definite arterial occlusion seen given the contrast phase. Given the patient's history of pain that began over 48 hours ago immediately following colonoscopy and the lack of inflammatory changes of the ileum and cecum SMA occlusion remains quite low. Will treat this patient as a microperforation with close observation, bowel rest, and broad-spectrum antibiotics. If the patient's clinical condition deteriorates would proceed with exploratory laparotomy. Option of exploratory laparotomy or diagnostic laparoscopy was discussed with both the patient and her family even at this time given the pain she was experiencing earlier this afternoon. Overall yield given the second CAT scan results remains low however and they are comfortable with observation at this time. Prognosis remains guarded. Current Visit: Yes Status: Acute Code(s): R10.9 - UNSPECIFIED ABDOMINAL PAIN SNOMED Code(s): 43925411
[2020-05-10 23:12] LABS: Appearance,Urine Clear (Clear); Bilirubin,Urine Negative (Negative); Blood,Urine Moderate (Negative); Color,Urine Yellow; Glucose,Urine (UA) Negative (Negative); Hyaline Casts,Urine 1 /lpf (0-2); Ketones,Urine Negative (Negative); Leukocyte Esterase,Urine Large (Negative); Mucus,Urine Rare /hpf; Nitrite,Urine Negative (Negative); Protein,Urine Trace (Negative); RBC,Urine 21 /hpf (0-5); Specific Gravity,Urine >1.050 (1.001-1.035); Squamous Epithelial Cell,Urine 1 /hpf (0-4); Urobilinogen,Urine <2.0 mg/dL (<2.0); WBC,Urine 52 /hpf (0-5)
[2020-05-11] MEDS: KETOROLAC 15 MG/ML 1 ML VIAL IVP SCH ×4 (00:06→17:56)
[2020-05-11] MEDS: ACETAMINOPHEN IV (For NPO) 1,000 MG in EMPTY BAG 1 BAG IVPB SCH ×3 (00:12→13:00)
[2020-05-11] MEDS: metroNIDAZOLE-NS PMX 500 MG in SALINE 1 100ML.BAG IVPB SCH ×3 (00:34→17:52)
[2020-05-11] MEDS: SODIUM CHLORIDE 0.9% 1,000 ML IV SCH ×3 (01:50→17:54)
[2020-05-11] MEDS: HYDROmorphone 1 MG/ML 1 ML SYRINGE IVP PRN ×4 (01:50→13:03)
[2020-05-11] MEDS: LEVOTHYROXINE 137 MCG TAB PO SCH (05:43)
[2020-05-11 06:53] LABS: HCT 39.4 % (34.0-46.0); MCH 30.8 pg (25.0-35.0); MCHC 33.1 g/dL (31.0-37.0); MCV 93.3 fL (80.0-100.0); Mean Platelet Volume 6.7; Platelet Count 250 k/uL (150-450); RBC 4.22 m/uL (3.80-5.40); RDW 13.7 % (11.5-15.5); WBC 11.7 k/uL (3.8-10.6)
[2020-05-11 07:19] LABS: Band Neutrophils % 16 %; Lymphocytes # (M) 0.82 k/uL (1.0-4.8); Metamyelocytes # (M) 0.12 k/uL (0); Metamyelocytes % 1 %; Monocytes # (M) 0.59 k/uL (0-1.0); Neutrophils % (M) 72 %; Nucleated Red Blood Cells 0 /100 WBC (0-0); Total Cells Counted 200
[2020-05-11] MEDS: PANTOPRAZOLE 40 MG/10 ML VIAL IV SCH (07:36)
--- NOTE | 2020-05-11 08:00 | P.PN ---
Subjective Progress Note Date: 05/11/20 Principal diagnosis: Abdominal pain Patient's lactic acid went from 2.1-2.7 and then down to normal this morning at 1.9. Her white blood cell count also slightly improved at 11. She does have 16% bands however on the CBC. Patient does state her pain has improved somewhat. Still having difficulty with increased discomfort with any movement. Patient remains slightly tachycardic. No fevers. Blood pressure stable. She did have 1 bloody stool last night. Patient states pain remains diffuse. No appetite. Objective - Vital Signs Vital signs: Vital Signs Temp 99.7 F H 05/11/20 07:00 Pulse 111 H 05/11/20 07:00 Resp 16 05/11/20 07:00 BP 112/63 05/11/20 07:00 Pulse Ox 92 L 05/11/20 07:00 Intake & Output 05/10/20 05/11/20 05/11/20 18:59 06:59 18:59 Intake Total 1040 Balance 1040 Weight 104.326 kg Intake: Intake, IV Titration 1040 Amount Sodium Chloride 0.9% 1, 1040 000 ml @ 130 mls/hr IV . Q7H42M [facility] Rx#:[id number] Other: Voiding Method Bedside Commode # Bowel Movements 1 - Exam Abdomen: Soft, slightly distended, diffuse tenderness noted, voluntary guarding present - Labs CBC & Chem 7: 05/11/20 06:23 05/10/20 08:49 Labs: Abnormal Lab Results - Last 24 Hours (Table) 05/10/20 05/10/20 05/10/20 Range/Units 08:49 08:49 08:49 WBC 13.6 H (3.8-10.6) k/uL Neutrophils # 12.1 H (1.3-7.7) k/uL Neutrophils # (Manual) (1.3-7.7) k/uL Lymphocytes # 0.6 L (1.0-4.8) k/uL Lymphocytes # (Manual) (1.0-4.8) k/uL Metamyelocytes # (Man) (0) k/uL BUN 20 H (7-17) mg/dL Glucose 159 H (74-99) mg/dL Plasma Lactic Acid Wes (0.7-2.0) mmol/L AST 63 H (14-36) U/L Creatine Kinase 436 H (30-135) U/L Ur Specific [place] >1.050 H (1.001-1.035) Urine Protein Trace H (Negative) Urine Blood Moderate H (Negative) Ur Leukocyte Esterase Large H (Negative) Urine RBC 21 H (0-5) /hpf Urine WBC 52 H (0-5) /hpf Urine Mucus Rare H (None) /hpf 05/10/20 05/10/20 05/10/20 Range/Units 08:49 14:28 17:39 WBC (3.8-10.6) k/uL Neutrophils # (1.3-7.7) k/uL Neutrophils # (Manual) (1.3-7.7) k/uL Lymphocytes # (1.0-4.8) k/uL Lymphocytes # (Manual) (1.0-4.8) k/uL Metamyelocytes # (Man) (0) k/uL BUN (7-17) mg/dL Glucose (74-99) mg/dL Plasma Lactic Acid Wes 3.6 H* 4.1 H* 3.8 H* (0.7-2.0) mmol/L AST (14-36) U/L Creatine Kinase (30-135) U/L Ur Specific [place] (1.001-1.035) Urine Protein (Negative) Urine Blood (Negative) Ur Leukocyte Esterase (Negative) Urine RBC (0-5) /hpf Urine WBC (0-5) /hpf Urine Mucus (None) /hpf 05/10/20 05/10/20 05/11/20 Range/Units 20:46 23:38 06:23 WBC 11.7 H (3.8-10.6) k/uL Neutrophils # (1.3-7.7) k/uL Neutrophils # (Manual) 10.20 H (1.3-7.7) k/uL Lymphocytes # (1.0-4.8) k/uL Lymphocytes # (Manual) 0.82 L (1.0-4.8) k/uL Metamyelocytes # (Man) 0.12 H (0) k/uL BUN (7-17) mg/dL Glucose (74-99) mg/dL Plasma Lactic Acid Wes 2.1 H* 2.7 H* (0.7-2.0) mmol/L AST (14-36) U/L Creatine Kinase (30-135) U/L Ur Specific [place] (1.001-1.035) Urine Protein (Negative) Urine Blood (Negative) Ur Leukocyte Esterase (Negative) Urine RBC (0-5) /hpf Urine WBC (0-5) /hpf Urine Mucus (None) /hpf Microbiology - Last 24 Hours (Table) 05/10/20 08:49 Urine Culture - Preliminary Urine,Catheterized Assessment and Plan (1) Abdominal pain Narrative/Plan: 74-year-old female with persistent abdominal pain post-colonoscopy 3 days ago. Options reviewed with the patient and her family. She has improved slightly wit h bowel rest, IV antibiotics and conservative therapy however the patient's pain and tenderness persist. Discuss case in detail with the patient and also her daughter by phone. We'll proceed with diagnostic laparoscopy at this time. Possible need for laparotomy with without bowel resection/ostomy reviewed. Risks of bleeding, infection, conversion, abscess, peritonitis, hernia, respiratory and cardiac failure reviewed. They understand and wish to proceed. Current Visit: Yes Status: Acute Code(s): R10.9 - UNSPECIFIED ABDOMINAL PAIN SNOMED Code(s): 12671461
[2020-05-11] MEDS ORDERED: cefTRIAXone IN SWFI 1,000 MG/10 ML SYRINGE IVP SCH (09:00)
--- NOTE | 2020-05-11 09:34 | P.GSCN ---
History of Present Illness Consult date: 05/11/20 History of present illness: Patient is a 74-year-old female I was initially notified about by Dr. Amato yesterday evening. She presented initially for a screening colonoscopy on Friday and [facility]. At that time she woke up with the pain she continued to have. She was subsequently transferred over to [facility] with this same diffuse discomfort. Crampy with nausea and anorexia. She denies any fevers per review of the records and vitals. At the time of telephone conversation with the general surgeon, I was able to review labs and imaging. The computed tomography scan was performed with IV and rectal contrast although there is some degree of arterial phase noted. I do not see any significant areas of thrombus through the mesenteric vessels. There is a mural thrombus in the proximal portion of the aorta just proximal to the celiac artery that appears smooth in nature without any evidence of ulcerations. There does not appear to be any significant pneumatosis or bowel thickening that would confirm bowel ischemia. Again at this point there is no evidence of thrombus in the large main vessels of the mesentery. It is hard to discern fully if there is any abnormalities distally, but again given the full picture at this time is thought that this would be less likely on the differential diagnosis. At the time of his agreed with the general surgeon that going forward with conservative care, bowel rest, IV fluids and antibiotics with close monitoring would be the best course currently. Discussed that if there was worsening or other issues, a CT angiogram of the abdomen and pelvis would be warranted This morning upon evaluation of the patient, her labs have significantly improved, there are some bands, the white count is almost normal, the lactic acid is normalized. She did have one episode of a bloody bowel movement through the evening. Clinically she still does have abdominal pain although states it is slightly improved from previous. Again she confirms that this is the same pain she has had since waking up from her procedure. Again the patient was discussed with Dr. Amato who is planning using the patient for diagnostic laparoscopy for further evaluation. Review of Systems 14 point review systems performed. Pertinent positives and negatives per the HPI Past Medical History Past Medical History: Eye Disorder, Hyperlipidemia, Hypertension, Thyroid Disorder Additional Past Medical History / Comment(s): Chronic constipation, R eye mutliple surgeries for retinal tears-vision poor, hypothyroid, osteoporosis. History of Any Multi-Drug Resistant Organisms: None Reported Past Surgical History: Joint Replacement ( Bilateral total knee arthroplasty) Additional Past Surgical History / Comment(s): Colonoscopy with last on 05/08/20, bilateral total knees, left overy removed d/t cyst, bilateral eye cataract removals/lens implants, R eye multiple surgeries for retinal tears Additional Past Anesthesia/Blood Transfusion Reaction / Comm: Difficulty getting to sleep Smoking Status: Former smoker - Past Family History Mother Family Medical History: No Reported History Additional Family Medical History / Comment(s): Mother did not go to the doctor much. Father Family Medical History: Vascular Disorder Additional Family Medical History / Comment(s): Father in his early 50s of a ruptured thoracic aneurysm. Medications and Allergies Home Medications Medication Instructions Recorded Confirmed Type Cholecalciferol [Vitamin D3 (25 1,000 unit PO DAILY 05/10/20 05/10/20 History Mcg = 1000 Iu)] Levothyroxine Sodium [Synthroid] 137 mcg PO DAILY 05/10/20 05/10/20 History Lisinopril [Zestril] 10 mg PO DAILY 05/10/20 05/10/20 History Simvastatin 40 mg PO HS 05/10/20 05/10/20 History Triamcinolone 0.1% Ointment 1 applic TOPICAL BID PRN 05/10/20 05/10/20 History [Kenalog 0.1% Ointment] Venlafaxine HCl ER [Effexor Xr] 150 mg PO DAILY 05/10/20 05/10/20 History polyethylene glycoL 3350 [Miralax] 17 gm PO DAILY PRN 05/10/20 05/10/20 History Allergies Allergy/AdvReac Type Severity Reaction Status Date / Time Penicillins Allergy Unknown Verified 05/10/20 08:44 Sulfa (Sulfonamide Allergy Unknown Verified 05/10/20 08:44 Antibiotics) Surgical - Exam Vital Signs Temp Pulse Resp BP Pulse Ox 98.5 F 88 20 195/99 99 05/10/20 08:12 05/10/20 08:12 05/10/20 08:12 05/10/20 08:12 05/10/20 08:12 Gen. is a pleasant and cooperative obese female in mild abdominal distress. HEENT is normocephalic atraumatic. Neck is supple. Trachea is midline. Heart is regular at this time. Lungs are clear bilaterally. Abdomen is distended. Moderate voluntary and involuntary guarding. Positive bowel sounds. Extremities no clubbing, cyanosis or edema. Palpable radial and femoral pulses bilaterally. Anxious. Cranial nerves II through XII grossly intact Results Computed tomography scan labs are reviewed. No obvious area of large mesenteric vessel thrombus, mural thrombus noted in the proximal aorta with smooth edges. No evidence of ulcerations. - Labs 05/11/20 06:23 05/10/20 08:49 Abnormal Lab Results - Last 24 Hours (Table) 05/10/20 05/10/20 05/10/20 Range/Units 08:49 08:49 08:49 WBC (3.8-10.6) k/uL Neutrophils # (Manual) (1.3-7.7) k/uL Lymphocytes # (Manual) (1.0-4.8) k/uL Metamyelocytes # (Man) (0) k/uL BUN 20 H (7-17) mg/dL Glucose 159 H (74-99) mg/dL Plasma Lactic Acid Wes 3.6 H* (0.7-2.0) mmol/L AST 63 H (14-36) U/L Creatine Kinase 436 H (30-135) U/L Ur Specific [place] >1.050 H (1.001-1.035) Urine Protein Trace H (Negative) Urine Blood Moderate H (Negative) Ur Leukocyte Esterase Large H (Negative) Urine RBC 21 H (0-5) /hpf Urine WBC 52 H (0-5) /hpf Urine Mucus Rare H (None) /hpf 05/10/20 05/10/20 05/10/20 Range/Units 14:28 17:39 20:46 WBC (3.8-10.6) k/uL Neutrophils # (Manual) (1.3-7.7) k/uL Lymphocytes # (Manual) (1.0-4.8) k/uL Metamyelocytes # (Man) (0) k/uL BUN (7-17) mg/dL Glucose (74-99) mg/dL Plasma Lactic Acid Wes 4.1 H* 3.8 H* 2.1 H* (0.7-2.0) mmol/L AST (14-36) U/L Creatine Kinase (30-135) U/L Ur Specific [place] (1.001-1.035) Urine Protein (Negative) Urine Blood (Negative) Ur Leukocyte Esterase (Negative) Urine RBC (0-5) /hpf Urine WBC (0-5) /hpf Urine Mucus (None) /hpf 05/10/20 05/11/20 Range/Units 23:38 06:23 WBC 11.7 H (3.8-10.6) k/uL Neutrophils # (Manual) 10.20 H (1.3-7.7) k/uL Lymphocytes # (Manual) 0.82 L (1.0-4.8) k/uL Metamyelocytes # (Man) 0.12 H (0) k/uL BUN (7-17) mg/dL Glucose (74-99) mg/dL Plasma Lactic Acid Wes 2.7 H* (0.7-2.0) mmol/L AST (14-36) U/L Creatine Kinase (30-135) U/L Ur Specific [place] (1.001-1.035) Urine Protein (Negative) Urine Blood (Negative) Ur Leukocyte Esterase (Negative) Urine RBC (0-5) /hpf Urine WBC (0-5) /hpf Urine Mucus (None) /hpf Microbiology - Last 24 Hours (Table) 05/10/20 08:49 Urine Culture - Preliminary Urine,Catheterized Diabetes panel 05/10/20 Range/Units 08:49 Sodium 137 (137-145) mmol/L Potassium 5.0 (3.5-5.1) mmol/L Chloride 105 (98-107) mmol/L Carbon Dioxide 23 (22-30) mmol/L BUN 20 H (7-17) mg/dL Creatinine 0.64 (0.52-1.04) mg/dL Glucose 159 H (74-99) mg/dL Calcium 8.9 (8.4-10.2) mg/dL AST 63 H (14-36) U/L ALT 24 (4-34) U/L Alkaline Phosphatase 54 (38-126) U/L Total Protein 7.2 (6.3-8.2) g/dL Albumin 3.8 (3.5-5.0) g/dL Calcium panel 05/10/20 Range/Units 08:49 Calcium 8.9 (8.4-10.2) mg/dL Albumin 3.8 (3.5-5.0) g/dL Pituitary panel 05/10/20 Range/Units 08:49 Sodium 137 (137-145) mmol/L Potassium 5.0 (3.5-5.1) mmol/L Chloride 105 (98-107) mmol/L Carbon Dioxide 23 (22-30) mmol/L BUN 20 H (7-17) mg/dL Creatinine 0.64 (0.52-1.04) mg/dL Glucose 159 H (74-99) mg/dL Calcium 8.9 (8.4-10.2) mg/dL Adrenal panel 05/10/20 Range/Units 08:49 Sodium 137 (137-145) mmol/L Potassium 5.0 (3.5-5.1) mmol/L Chloride 105 (98-107) mmol/L Carbon Dioxide 23 (22-30) mmol/L BUN 20 H (7-17) mg/dL Creatinine 0.64 (0.52-1.04) mg/dL Glucose 159 H (74-99) mg/dL Calcium 8.9 (8.4-10.2) mg/dL Total Bilirubin 0.8 (0.2-1.3) mg/dL AST 63 H (14-36) U/L ALT 24 (4-34) U/L Alkaline Phosphatase 54 (38-126) U/L Total Protein 7.2 (6.3-8.2) g/dL Albumin 3.8 (3.5-5.0) g/dL Assessment and Plan Assessment: #1 abdominal pain #2 recent colonoscopy #3 questionable mesenteric ischemia #4 aortic mural thrombus #5 lactic acidosis resolved Plan: At this point I continue to believe there is no significant mesenteric arterial occlusion, I would question whether the patient had a transient small vessel ischemic colitis following her colonoscopy. Agree with Dr. Amato's plan going forward, we will be available for evaluation intraoperatively if necessary. Continue to trend labs and abdominal exams.
[2020-05-11 09:50] LABS: African American GFR (CKD) 100.3 (60.0-200.0); Anion Gap 10.8 mmol/L (4.00-12.00); Carbon Dioxide 22.2 mmol/L (21.6-31.8); Non-African American GFR(CKD) 86.6 (60.0-200.0); Potassium 4.3 mmol/L (3.5-5.5)
[2020-05-11] MEDS: VENLAFAXINE HCL ER 150 MG CAP PO SCH (11:27)
[2020-05-11] MEDS ORDERED: IV FLUID CONTINUATION 1,000 ML IV ONE (13:20)
[2020-05-11] MEDS ORDERED: ONDANSETRON 4 MG/2 ML VIAL IVP ONE (13:20)
[2020-05-11] MEDS: ENOXAPARIN 40 MG/0.4 ML SYRINGE SQ SCH ×2 (13:59→14:05)
[2020-05-11] MEDS ORDERED: SUCCINYLCHOLINE CHLORIDE VIAL 200 MG/10 ML VIAL IV ONE (14:19)
[2020-05-11] MEDS ORDERED: SODIUM CHLORIDE 0.9% 100 ML BAG ONE (14:19)
[2020-05-11] MEDS ORDERED: PROPOFOL 10 MG/ML 20 ML VIAL IV ONE (14:19)
[2020-05-11] MEDS ORDERED: PHENYLEPHRINE-0.9% NACL SYG 1 MG/10 ML SYRINGE ONE (14:19)
[2020-05-11] MEDS ORDERED: ROCURONIUM 10 MG/ML (10 ML VIAL) IV ONE (14:19)
[2020-05-11] MEDS ORDERED: fentaNYL (PF) 50 MCG/ML 2 ML AMP ONE (14:19)
[2020-05-11] MEDS ORDERED: MIDAZOLAM 2 MG/2 ML VIAL ONE (14:19)
[2020-05-11] MEDS ORDERED: LIDOCAINE 1% INJ 10MG/ML (20 ML MDV) ONE (14:19)
[2020-05-11] MEDS ORDERED: ceFAZolin 1,000 MG VIAL ONE (14:19)
[2020-05-11] MEDS ORDERED: BUPIVACAINE (PF) 0.25% 30 ML VIAL SQ ONE (14:45)
[2020-05-11 16:51] LABS: ABG Base Excess -5.2 mmol/L; ABG HCO3 21 mmol/L (21-25); ABG Oxygen Saturation 93.4 % (94-97); ABG PCO2 40 mmHg (35-45); ABG PH 7.33 (7.35-7.45); ABG PO2 70 mmHg (83-108); ABG TCO2 22 mmol/L (19-24)
[2020-05-11 16:52] LABS: Allen Test Performed? no
[2020-05-11] MEDS ORDERED: HYDROmorphone 0.5 MG/0.5 ML SYRINGE IVP ONE ×2 (16:54→17:09)
[2020-05-11] MEDS ORDERED: ACETAMINOPHEN IV (For NPO) 1,000 MG in EMPTY BAG 1 BAG IVPB ONE (17:00)
--- NOTE | 2020-05-11 17:06 | P.OP ---
Date of Procedure: 05/11/20 Procedure(s) Performed: PREOPERATIVE DIAGNOSIS: Abdominal pain POSTOPERATIVE DIAGNOSIS: Ischemic small bowel PROCEDURE: Diagnostic laparoscopy, small bowel resection SURGEON: Lima EBL: 25 mL ANESTHESIA: General COMPLICATIONS: None OPERATIVE PROCEDURE: Patient place in the operative table in the supine posi tion. The patient was placed under general anesthesia. Newell catheter was placed. Abdomen was prepped and draped sterilely. A 5 mm trocar was used to enter the peritoneal cavity in the left upper quadrant. 2 additional 5 mm trochars were placed under direct visualization in the left mid and left lower quadrant. The patient had omentum that was adherent to the abdominal wall in the pelvis. This was able to be lysed using the LigaSure device. The omentum was then swept superiorly. What I could visualize of the sigmoid colon and cecum appeared viable. There was a cloudy serous fluid in the abdominal cavity. As I inspected the small bowel initially it had a viable appearance however as we started to inspect the bowel proximally I encountered a segment that had ischemic changes. At that point I converted to a laparotomy. A midline incision was created extending from the infra umbilical location superiorly. The subcutaneous fat and fascia was divided using electrocautery. The fluid was evacuated. The small bowel was inspected. The patient had evidence of small bowel ischemia primarily involving a portion of the distal jejunum. There was no gross perforation however there was evidence of full-thickness necrosis in a patchy manner. Proximal and distal to this as we were inspecting the bowel that had a somewhat ischemic appearance. Intraoperatively the Doppler was utilized. There was a pulse proximally in the SMA. It was difficult to identify a transition point along the mesentery. The proximal and mid jejunum loops had audible Doppler signal and the mid to distal ileum likewise had an audible Doppler signal. A site was chosen proximal and distal to the ischemic segment where the bowel clinically appeared pink in color for division. The linear 75 stapler was fired at these 2 sites. The mesentery was divided using the LigaSure device. I measured the piece that was removed. The length of the piece of bowel that was excised was 48 inches. I then measured the length of bowel from the ligament of Treitz to the ileocecal valve that was left in place and this was 58 inches. The duodenum was not measured in length. During the procedure I did review this case with Dr. Newell from vascular surgery. Given the subacute nature it was felt that embolectomy would not have value at this time. The 2 portions of bowel were reexamined and again had a viable appearance. A [id number] anastomosis took place at that time by excising the antimesenteric staple line. The defect was closed using a TX 60 device. A 3-0 GI crotch stitch was placed. A 3-0 GI silk stitch was placed seromuscular over the TX 60 stapler line. The abdomen was copiously irrigated. The midline fascia was then reapproximated using 2 separate double-stranded #1 PDS sutures. The skin was closed with lena leaving 2 gaps for Aquacel silver handy. Sterile dressings were applied. DISPOSITION: Stable to recovery room Following the procedure had a long discussion with the patient's daughter who was present here today. We discussed the intraoperative findings. At this point I favor transfer to a larger hospital where we would have full vascular and interventional radiology support. Further workup as to the etiology is necessary at this time. Patient may benefit from further imaging of the mesenteric vasculature. Transcatheter vasodilator treatment may also be of some benefit. Patient's daughter is agreeable for transfer to or [facility]. The patient's son lives in that area. We will keep the patient's family aware of our transfer plans. High risk nature of these findings reviewed. Guarded prognosis.
[2020-05-11 17:37] LABS: Glucose,Whole Blood 126 mg/dL (75-99)
--- NOTE | 2020-05-11 17:38 | P.PN ---
Progress Note - Text Progress Note Date: 05/11/20 Chief Complaint: Abdominal pain History of presenting complaint: This is a pleasant 74-year-old patient of Dr. Dorian Yan. Chronic stable medical conditions include hypertension, hyperlipidemia, depression, hypothyroid. For 3 days patient been having increasing diffuse abdominal pain. Pain started before patient had undergone a scheduled coloscopy [place]. Apparently results unremarkable. Pain continued to get worse. When she got home she is feeling okay she did eat some food pain became worse she stopped eating. She's had nausea vomiting yesterday some diarrhea. No fever no chills. Computed tomography scan of the abdomen showing left hydronephrosis with renal pelvic stone. No dilatation of the ureter. Still having significant pain in the ER. Today-yesterday evening I spoke to Dr. Brooks, about patient's acute abdomen. So the patient this morning. Going down to the OR. Abdominal pain still present. Significantly tender. Nothing by mouth. Review of systems: Was done for constitutional, cardiovascular, GI, pulmonary. relevant finding as above Active Medications Enoxaparin Sodium (Enoxaparin 40 Mg/0.4 Ml Syringe) 40 mg SQ DAILY [facility] Last Admin: 05/11/20 14:05 Dose: Not Given Documented by: Hydromorphone HCl (Hydromorphone 1 Mg/Ml 1 Ml Syringe) 1 mg IVP Q2H PRN PRN Reason: Pain Last Admin: 05/11/20 13:03 Dose: 1 mg Documented by: Ceftriaxone Sodium 2 gm/ (Sodium Chloride) 50 mls @ 100 mls/hr IVPB Q24HR [facility] Last Admin: 05/11/20 11:40 Dose: 100 mls/hr Documented by: Sodium Chloride (Saline 0.9%) 1,000 mls @ 130 mls/hr IV .Q7H42M [facility] Last Admin: 05/11/20 11:40 Dose: 130 mls/hr Documented by: Metronidazole 500 mg/ IV (Solution) 100 mls @ 100 mls/hr IVPB Q8HR [facility] Last Admin: 05/11/20 07:35 Dose: 100 mls/hr Documented by: Acetaminophen 1,000 mg/ IV (Solution) 100 mls @ 400 mls/hr IVPB ONCE ONE Stop: 05/11/20 17:14 Ketorolac Tromethamine (Ketorolac 15 Mg/Ml 1 Ml Vial) 15 mg IVP Q6HR [facility] Stop: 05/15/20 18:01 Last Admin: 05/11/20 11:39 Dose: 15 mg Documented by: Levothyroxine Sodium (Levothyroxine 137 Mcg Tab) 137 mcg PO 0630 [facility] Last Admin: 05/11/20 05:43 Dose: 137 mcg Documented by: Naloxone HCl (Naloxone 0.4 Mg/Ml 1 Ml Vial) 0.2 mg IV Q2M PRN PRN Reason: Opioid Reversal Ondansetron HCl (Ondansetron 4 Mg/2 Ml Vial) 4 mg IVP Q8HR PRN PRN Reason: Nausea And Vomiting Last Admin: 05/11/20 07:36 Dose: 4 mg Documented by: Pantoprazole Sodium (Pantoprazole 40 Mg/10 Ml Vial) 40 mg IV DAILY [facility] Last Admin: 05/11/20 07:36 Dose: 40 mg Documented by: Venlafaxine HCl (Venlafaxine Hcl Er 150 Mg Cap) 150 mg PO DAILY [facility] Last Admin: 05/11/20 11:27 Dose: Not Given Documented by: Physical examination: VITAL SIGNS: 99.7, 111, 16, 112/63, 92% room air GENERAL:. laying in bed uncomfortable. EYES: Pupils equal. Conjunctiva normal. NECK: JVD not raised; masses not palpable. HEART: First and second heart sounds are normal; no edema. LUNGS: Respiratory rate normal; clear to auscultation. ABDOMEN: Soft, diffuse tenderness, no guarding rigidity, liver spleen not palpable, no masses palpable. PSYCH: Alert and oriented x3; mood and affect anxious MUSCULAR skeletal: Evidence of OA INVESTIGATIONS, reviewed in the clinical context: White count 11.7 hemoglobin 13 potassium 4.3 creatinine 0.7 Previous testing White count 13.6 hemoglobin 13.8 platelets 295 potassium 5 creatinine 0.64 lactic acid 3.6 Abdominal x-ray film personally reviewed by me shows dilatation of the small bowel with some air-fluid level. No free air noted Investigations from [facility]: Computed tomography scan of the abdomen-fatty liver, hydronephrosis, 1 point to send the stone in the left renal pelvis, sigmoid diverticulosis UA positive for nitrate request his bacteria Assessment: -Acute abdomen-tender, no obvious guarding rigidity. Patient going down to the OR this afternoon. -Left hydronephrosis, could be acute from the renal pelvic stone, no dilatation of ureter -Essential hypertension -Hyperlipidemia -Depression otherwise specified -Hypothyroid -Morbid obesity BMI 40.7 -Acute UTI with cystitis Plan: Continue IV ceftriaxone. IV fluids. nothing by mouth. Awaiting surgery to [facility]. Discussed with the patient.
[2020-05-11 18:53] LABS: Basophils % (A) 0 %; Eosinophils # (A) 0.1 k/uL (0-0.7); Eosinophils % (A) 1 %; HCT 40.3 % (34.0-46.0); HGB 12.6 gm/dL (11.4-16.0); Hypochromasia Slight; Lymphocytes # (A) 0.6 k/uL (1.0-4.8); Lymphocytes % (A) 6 %; MCH 29.3 pg (25.0-35.0); MCHC 31.2 g/dL (31.0-37.0); MCV 93.7 fL (80.0-100.0); Mean Platelet Volume 6.6; Monocytes # (A) 0.5 k/uL (0-1.0); Monocytes % (A) 6 %; Neutrophils # (A) 8.2 k/uL (1.3-7.7); Neutrophils % (A) 86 %; Platelet Count 234 k/uL (150-450); RDW 13.9 % (11.5-15.5); WBC 9.5 k/uL (3.8-10.6)
[2020-05-11 18:57] LABS: ALT 23 U/L (4-34); AST 56 U/L (14-36); African American GFR (CKD) >90 (>60 ml/min/1.73 sqM); Albumin 2.6 g/dL (3.5-5.0); Alkaline Phosphatase 44 U/L (38-126); Anion Gap 7 mmol/L; Blood Urea Nitrogen 22 mg/dL (7-17); Calcium 7.5 mg/dL (8.4-10.2); Carbon Dioxide 19 mmol/L (22-30); Chloride 110 mmol/L (98-107); Glucose 116 mg/dL (74-99); Magnesium 1.4 mg/dL (1.6-2.3); Non-African American GFR(CKD) 80 (>60 ml/min/1.73 sqM); Phosphorus 3.8 mg/dL (2.5-4.5); Potassium 4.5 mmol/L (3.5-5.1); Sodium 136 mmol/L (137-145); Total Bilirubin 0.5 mg/dL (0.2-1.3); Total Protein 5.3 g/dL (6.3-8.2)
[2020-05-11] MEDS ORDERED: HEPARIN SODIUM,PORCINE 5,000 UNIT/ML 1 ML VIAL IV PRN (22:24)
[2020-05-11] MEDS ORDERED: HEPARIN SOD,PORK IN 0.45% NACL 25,000 UNIT in 0.45% NACL 1 250ML.BAG IV SCH (22:30)
[2020-05-11 23:36] LABS: Glucose,Whole Blood 95 mg/dL (75-99)
[2020-05-12 00:10] LABS: INR 1.2 (<1.2); Partial Thromboplastin Time 25.4 sec (22.0-30.0); Prothrombin Time 12.2 sec (9.0-12.0)
[2020-05-12] MEDS: KETOROLAC 15 MG/ML 1 ML VIAL IVP SCH ×3 (00:15→11:47)
[2020-05-12] MEDS: HYDROmorphone 1 MG/ML 1 ML SYRINGE IVP PRN ×2 (00:17→05:44)
[2020-05-12] MEDS: metroNIDAZOLE-NS PMX 500 MG in SALINE 1 100ML.BAG IVPB SCH ×2 (00:42→08:09)
[2020-05-12] MEDS: SODIUM CHLORIDE 0.9% 1,000 ML IV SCH ×2 (02:17→08:08)
[2020-05-12 05:32] LABS: HCT 37.6 % (34.0-46.0); HGB 11.7 gm/dL (11.4-16.0); MCH 28.8 pg (25.0-35.0); MCHC 31.1 g/dL (31.0-37.0); MCV 92.5 fL (80.0-100.0); Platelet Count 219 k/uL (150-450); RBC 4.07 m/uL (3.80-5.40); RDW 13.7 % (11.5-15.5); WBC 10.1 k/uL (3.8-10.6)
[2020-05-12 05:41] LABS: ALT 18 U/L (4-34); AST 54 U/L (14-36); African American GFR (CKD) >90 (>60 ml/min/1.73 sqM); Albumin 2.3 g/dL (3.5-5.0); Alkaline Phosphatase 30 U/L (38-126); Anion Gap 8 mmol/L; Blood Urea Nitrogen 23 mg/dL (7-17); Calcium 6.9 mg/dL (8.4-10.2); Carbon Dioxide 22 mmol/L (22-30); Chloride 109 mmol/L (98-107); Glucose 84 mg/dL (74-99); Non-African American GFR(CKD) 88 (>60 ml/min/1.73 sqM); Sodium 139 mmol/L (137-145); Total Bilirubin 0.7 mg/dL (0.2-1.3)
[2020-05-12 05:45] LABS: Potassium 4.9 mmol/L (3.5-5.1)
[2020-05-12 06:02] LABS: Band Neutrophils % 20 %; Lymphocytes # (M) 1.72 k/uL (1.0-4.8); Monocytes # (M) 0.91 k/uL (0-1.0); Neutrophils % (M) 52 %; Nucleated Red Blood Cells 0 /100 WBC (0-0); Total Cells Counted 200
--- NOTE | 2020-05-12 07:10 | XR ---
EXAMINATION TYPE: XR chest 1V portable DATE OF EXAM: 05/12/2020 CLINICAL HISTORY: Status post recent exploratory laparotomy with weakness. TECHNIQUE: Single AP portable upright view of the chest is obtained. COMPARISON: None FINDINGS: Low lung volumes with left greater than right bibasilar opacities and perihilar opacities. Small to tiny left greater than right pleural effusions. Nasogastric tube projects below diaphragm. Osseous structures are intact. Cardiac silhouette size within normal limits. Right-sided tracheal dev iation noted suggesting ectatic aortic knob. IMPRESSION: Low lung volumes with left greater than right bibasilar acute infiltrate and/or atelectas is and small to tiny left greater than right bilateral pleural effusions. Mild to moderate central pe rihilar edema and/or infiltrates. Suspect fluid overload state. Progress study advised.
[2020-05-12] MEDS: LEVOTHYROXINE 137 MCG TAB PO SCH (07:16)
[2020-05-12] MEDS: VENLAFAXINE HCL ER 150 MG CAP PO SCH (08:09)
[2020-05-12] MEDS: PANTOPRAZOLE 40 MG/10 ML VIAL IV SCH (08:09)
[2020-05-12 08:10] VITALS: TEMP 98.2
--- NOTE | 2020-05-12 08:57 | P.PN ---
Subjective Progress Note Date: 05/12/20 Principal diagnosis: Abdominal pain Patient did well overnight. Patient was on a nonrebreather when she went to the ICU yesterday evening. I did speak to the transfer team at [facility] and we decided to postpone transfer until this morning because of her respiratory status. The patient actually was able to get on 10 L last night without difficulty. Pulse ox this morning 98%. Denies shortness of breath. Says her pain from preop is improved. White blood cell count is 10.1. Lactic acid normal. She is on a heparin drip. Her lactic acid was repeated yesterday evening and was normal as well. Objective - Vital Signs Vital signs: Vital Signs Temp 98.2 F 05/12/20 08:00 Pulse 93 05/12/20 08:00 Resp 20 05/12/20 08:00 BP 124/67 05/12/20 08:00 Pulse Ox 98 05/12/20 08:00 Intake & Output 05/11/20 05/12/20 05/12/20 18:59 06:59 18:59 Intake Total 875 1560 342.28 Output Total 200 1095 240 Balance 675 465 102.28 Weight 113.5 kg Intake: IV 875 1560 280 Sodium Chloride 0.9% 1, 1560 130 000 ml @ 130 mls/hr IV . Q7H42M [facility] Rx#:[id number] cefTRIAXone 2 gm In 50 Sodium Chloride 0.9% 50 ml @ 100 mls/hr IVPB Q24HR [facility] Rx#:[id number]-NS PMX 500 100 mg In Saline 1 100ml.bag @ 100 mls/hr IVPB Q8HR [facility] Rx#:[id number] Intake, IV Titration 62.28 Amount Heparin Sod,Pork in 0.45% 62.28 NaCl 25,000 unit In 0.45 % NaCl 1 250ml.bag @ 9 UNITS/KG/HR 9.389 mls/hr IV .Q24H [facility] Rx#: [id number] Output: Gastric Drainage 100 150 Urine 150 995 90 Estimated Blood Loss 50 Other: Voiding Method Indwelling Catheter # Bowel Movements 1 - Exam Abdomen: Soft, mild distention, dressing clean and dry, mild tenderness - Labs CBC & Chem 7: 05/12/20 05:15 05/12/20 05:15 Labs: Abnormal Lab Results - Last 24 Hours (Table) 05/11/20 05/11/20 05/11/20 Range/Units 06:23 16:41 17:35 Neutrophils # (1.3-7.7) k/uL Lymphocytes # (1.0-4.8) k/uL PT (9.0-12.0) sec INR (<1.2) APTT (22.0-30.0) sec ABG pH 7.33 L (7.35-7.45) ABG pO2 70 L (83-108) mmHg ABG O2 Saturation 93.4 L (94-97) % Sodium (137-145) mmol/L Chloride (98-107) mmol/L Carbon Dioxide (22-30) mmol/L BUN (7-17) mg/dL BUN/Creatinine Ratio 30.00 H (12.00-20.00) Ratio Glucose 123 H (70-110) mg/dL POC Glucose (mg/dL) 126 H (75-99) mg/dL Calcium 8.0 L (8.7-10.3) mg/dL Magnesium (1.6-2.3) mg/dL AST (14-36) U/L Alkaline Phosphatase (38-126) U/L Total Protein (6.3-8.2) g/dL Albumin (3.5-5.0) g/dL 05/11/20 05/11/20 05/11/20 Range/Units 18:15 18:16 22:35 Neutrophils # 8.2 H (1.3-7.7) k/uL Lymphocytes # 0.6 L (1.0-4.8) k/uL PT 12.2 H (9.0-12.0) sec INR 1.2 H (<1.2) APTT (22.0-30.0) sec ABG pH (7.35-7.45) ABG pO2 (83-108) mmHg ABG O2 Saturation (94-97) % Sodium 136 L (137-145) mmol/L Chloride 110 H (98-107) mmol/L Carbon Dioxide 19 L (22-30) mmol/L BUN 22 H (7-17) mg/dL BUN/Creatinine Ratio (12.00-20.00) Ratio Glucose 116 H (70-110) mg/dL POC Glucose (mg/dL) (75-99) mg/dL Calcium 7.5 L (8.7-10.3) mg/dL Magnesium 1.4 L (1.6-2.3) mg/dL AST 56 H (14-36) U/L Alkaline Phosphatase (38-126) U/L Total Protein 5.3 L (6.3-8.2) g/dL Albumin 2.6 L (3.5-5.0) g/dL 05/12/20 05/12/20 Range/Units 05:15 05:15 Neutrophils # (1.3-7.7) k/uL Lymphocytes # (1.0-4.8) k/uL PT (9.0-12.0) sec INR (<1.2) APTT 19.6 L (22.0-30.0) sec ABG pH (7.35-7.45) ABG pO2 (83-108) mmHg ABG O2 Saturation (94-97) % Sodium (137-145) mmol/L Chloride 109 H (98-107) mmol/L Carbon Dioxide (22-30) mmol/L BUN 23 H (7-17) mg/dL BUN/Creatinine Ratio (12.00-20.00) Ratio Glucose (70-110) mg/dL POC Glucose (mg/dL) (75-99) mg/dL Calcium 6.9 L (8.7-10.3) mg/dL Magnesium (1.6-2.3) mg/dL AST 54 H (14-36) U/L Alkaline Phosphatase 30 L (38-126) U/L Total Protein 5.0 L (6.3-8.2) g/dL Albumin 2.3 L (3.5-5.0) g/dL Microbiology - Last 24 Hours (Table) 05/10/20 08:49 Urine Culture - Preliminary Urine,Catheterized Assessment and Plan (1) Abdominal pain Narrative/Plan: Patient overall doing well at this time. Need for further workup of the patient's suspected embolic event discussed with patient in detail. She had artery discussed this with her daughter yesterday evening. Patient is agreeable for transfer. Spoke to the transfer team at [facility] who are making appropriate arrangements. Current Visit: Yes Status: Acute Code(s): R10.9 - UNSPECIFIED ABDOMINAL PAIN SNOMED Code(s): 21979995
[2020-05-12 11:50] VITALS: BP 144/82; PULSE 96; RESP 23
--- NOTE | 2020-05-12 21:43 | P.DS ---
Providers Date of admission: 05/10/20 11:53 Expected date of discharge: 05/12/20 Attending physician: Mamadou Perkins Consults: 05/10/20 11:54 Consult Physician Routine Consulting Provider: Keenan Patel Consult Reason/Comments: Kidney stone Do you want consulting provider notified?: Already Contacted Consult Physician Routine Consulting Provider: Dana Patton Consult Reason/Comments: Abdominal pain status post colonoscopy Do you want consulting provider notified?: Yes 05/10/20 14:34 Consult Physician Routine Consulting Provider: Deniz Amato Consult Reason/Comments: Acute abdominal pain Do you want consulting provider notified?: Yes 05/10/20 21:29 Consult Physician Routine Consulting Provider: Luz Marina Newell Consult Reason/Comments: abd pain, r/o ischemic bowel Do you want consulting provider notified?: Already Contacted Primary care physician: Dorian Yan [facility] Hospital Course: Chief Complaint: Abdominal pain History of presenting complaint: This is a pleasant 74-year-old patient of Dr. Dorian Yan. Chronic stable medical conditions include hypertension, hyperlipidemia, depression, hypothyroid. For 3 days patient been having increasing diffuse abdominal pain. Pain started before patient had undergone a scheduled coloscopy up [place]. Apparently results unremarkable. Pain continued to get worse. When she got home she is feeling okay she did eat some food pain became worse she stopped eating. She's had nausea vomiting yesterday some diarrhea. No fever no chills. Computed tomography scan of the abdomen showing left hydronephrosis with renal pelvic stone. No dilatation of the ureter. Still having significant pain in the ER. Patient was taken to the operating room-was found to have small bowel ischemia primarily involving the portion of the distal jejunum. Full-thickness necrosis was noted in a patchy manner. Also area proximal and distal to it also had some ischemic appearance. Small bowel resection was carried out. Initially patient requiring a BiPAP because of hypoxia. Transferred to ICU overnight. Today-patient doing better. Dr. Galdamez spoke to the team at [facility] patient accepted that for further intervention. She may benefit from further mesenteric imaging. - intervention accordingly. Patient be transferred for higher level of care. Consultation: Dr. Galdamez until surgery Dr. Newell from vascular surgery Dr. Patel from urology Physical examination: VITAL SIGNS: 98.2, 93, 20, 124/67, 97% on nasal cannula Resting in bed INVESTIGATIONS, reviewed in the clinical context: White count 10.1 hemoglobin 11.7 creatinine 0.68 Previous testing White count 13.6 hemoglobin 13.8 platelets 295 potassium 5 creatinine 0.64 lactic acid 3.6 Abdominal x-ray film personally reviewed by me shows dilatation of the small bowel with some air-fluid level. No free air noted Investigations from [facility]: Computed tomography scan of the abdomen-fatty liver, hydronephrosis, 1 point to send the stone in the left renal pelvis, sigmoid diverticulosis UA positive for nitrate request his bacteria Assessment: -Small bowel ischemia with resection -Left hydronephrosis, could be acute from the renal pelvic stone, no dilatation of ureter -Essential hypertension -Hyperlipidemia -Depression otherwise specified -Hypothyroid -Morbid obesity BMI 40.7 -Acute UTI with cystitis Disposition [facility], [facility] Patient Condition at Discharge: Undetermined Plan - Discharge Summary Discharge Rx Participant: No New Discharge Prescriptions: No Action Triamcinolone 0.1% Ointment [Kenalog 0.1% Ointment] 1 applic TOPICAL BID PRN PRN Reason: Skin Irritation Cholecalciferol [Vitamin D3 (25 Mcg = 1000 Iu)] 1,000 unit PO DAILY polyethylene glycoL 3350 [Miralax] 17 gm PO DAILY PRN PRN Reason: Constipation Venlafaxine HCl ER [Effexor Xr] 150 mg PO DAILY Simvastatin 40 mg PO HS Lisinopril [Zestril] 10 mg PO DAILY Levothyroxine Sodium [Synthroid] 137 mcg PO DAILY Discharge Medication List Cholecalciferol [Vitamin D3 (25 Mcg = 1000 Iu)] 1,000 unit PO DAILY 05/10/20 [History] Levothyroxine Sodium [Synthroid] 137 mcg PO DAILY 05/10/20 [History] Lisinopril [Zestril] 10 mg PO DAILY 05/10/20 [History] Simvastatin 40 mg PO HS 05/10/20 [History] Triamcinolone 0.1% Ointment [Kenalog 0.1% Ointment] 1 applic TOPICAL BID PRN 05/10/20 [History] Venlafaxine HCl ER [Effexor Xr] 150 mg PO DAILY 05/10/20 [History] polyethylene glycoL 3350 [Miralax] 17 gm PO DAILY PRN 05/10/20 [History] Follow up Appointment(s)/Referral(s): Dorian Yan MD [Primary Care Provider] - 1-2 days Discharge Disposition: OTHER INSTITUTION NOT DEFINED
--- NOTE | 2020-05-14 08:46 | CDI ---
Documentation Clarification Form Date: 05/14/20 From: Anabelle Givens CCS Phone: If you have a question about this query, please contact Teodora Herndon, Oil Distributor at [phone] between 8am and 5pm. Admit Date: 05/10/20 Discharge Date: 05/12/20 Patient Name: Elsa Sylvester Visit Number: [id number] ATTENTION: The Clinical Documentation Specialists (CDI) and [facility] Coding Staff appreciate your assistance in clarifying documentation. Please respond to the clarification below the line at the bottom and electronically sign. The CDI & [facility] Coding staff will review the response and follow-up if needed. Please note: Queries are made part of the Legal Health Record. If you have any questions, please contact the author of this message via ITS. Dear Dr. Perkins, The diagnosis sepsis was documented in the ED notes, but is not noted in subsequent documentation. History/Risk Factors: HTN, Ischemic bowel, Pyonephrosis, Morbid obesity BMI 40 Clinical Indicators: Tachycardia, Elevated WBC, Acidosis Vitals: Temp 98.5 BP 195/99, RR 20, GA 104, O2 Sat 98 Labs: WBC 13.6, 11.7, 9.5- Neutrophils 12.1, 10.2- Lactic Acid 3.6, 4.1, 3.8 Op Note: Ischemic small bowel-Small bowel resection Treatment: Rocephin 2,000 mg IVP Q 24HR, Rocephin 2 gm IVPB Q34hr Please clarify if the sepsis was Present/active this admission Treated and resolved this admission Ruled out Other, please specify Clinically unable to determine sepsis, possibly present, POA MTDD
--- NOTE | 2020-05-17 12:39 | CDI ---
Documentation Clarification Form Date: 05/17/20 From: Anabelle Givens CCS Phone: If you have a question about this query, please contact Teodora Herndon, Agent Broker at [phone] between 8am and 5pm. Admit Date: 05/10/20 Discharge Date:05/12/20 Patient Name: Elsa Sylvester Visit Number: [id number] ATTENTION: The Clinical Documentation Specialists (CDI) and [facility] Coding Staff appreciate your assistance in clarifying documentation. Please respond to the clarification below the line at the bottom and electronically sign. The CDI & [facility] Coding staff will review the response and follow-up if needed. Please note: Queries are made part of the Legal Health Record. If you have any questions, please contact the author of this message via ITS. Dear Dr. Perkins, The patient presented with the sepsis, UTI, ischemic bowel. History/Risk Factors: Cystitis, Morbid obesity BMI 44, HTN Clinical Indicators: Tachycardia, Acidosis, Elevated WBC WBC: 13.6, 11.7 Lactic acid: 3.6, 4.1, 3.8 Blood cultures: None Vitals signs on admission: BP 195/99, RR 20, [place] 104, Temp 98.5, O2 Sat 99 Treatment: Bowel resection, Rocephin 20gm IVPB Q24HR In your professional opinion, please clarify the etiology of sepsis if known: Condition Sepsis due to Cystitis Sepsis due to ischemic bowel Sepsis due to Other, please specify Unable to determine Sepsis due to possible cystitis and ischemic bowel MTDD
== END 2020-05-12 12:16 | disposition short-term general hospital (02) | DRG 853 ==
LOC: EC 08:02 → 4SSUR 11:53 → 2SICU 05-11 17:01
PROVIDERS: ADMIT Hospitalist; ATTEND Hospitalist
PROC: 0D9670Z Drainage of Stomach with Drainage Device, Via Natural or Artificial Opening (ICD-10-PCS; 2020-05-10)
PROC: 0DBA0ZZ Excision of Jejunum, Open Approach (ICD-10-PCS; principal; 2020-05-11 09:40)
DX: A41.9 Sepsis, unspecified organism (principal); K55.021 Focal (segmental) acute infarction of small intestine; E87.2 Acidosis; I74.09 Other arterial embolism and thrombosis of abdominal aorta; N13.6 Pyonephrosis; Z68.41 Body mass index [BMI] 40.0-44.9, adult; Z20.828 Contact with and (suspected) exposure to other viral communicable diseases; E66.01 Morbid (severe) obesity due to excess calories; E86.0 Dehydration; I10 Essential (primary) hypertension; E78.5 Hyperlipidemia, unspecified; F41.9 Anxiety disorder, unspecified; F32.9 Major depressive disorder, single episode, unspecified; E03.9 Hypothyroidism, unspecified; K57.30 Diverticulosis of large intestine without perforation or abscess without bleeding; M81.0 Age-related osteoporosis without current pathological fracture; K59.09 Other constipation; R63.0 Anorexia; R09.02 Hypoxemia; Z79.890 Hormone replacement therapy; Z79.899 Other long term (current) drug therapy; Z96.653 Presence of artificial knee joint, bilateral; Z87.891 Personal history of nicotine dependence; Z90.721 Acquired absence of ovaries, unilateral; Z98.42 Cataract extraction status, left eye; Z98.41 Cataract extraction status, right eye; Z96.1 Presence of intraocular lens; Z98.890 Other specified postprocedural states; Z88.0 Allergy status to penicillin; Z88.2 Allergy status to sulfonamides; Z82.49 Family history of ischemic heart disease and other diseases of the circulatory system
CPT/HCPCS: 36415; 36600; 71045; 74018; 74177; 80048; 80053; 81001; 82550; 82805; 83605; 83690; 83735; 84100; 84484; 85025; 85610; 85730; 87077; 87086; 87186; 87635; 88307; 93005; 96361; 96374; 96375; 96376; 99291

== ENCOUNTER 2020-07-28 14:19 | Inpatient (IN) | payer MEDICARE ==
[2020-07-28] MEDS ORDERED: SODIUM CHLORIDE 0.9% 1,000 ML IV STA ×2 (15:00)
--- NOTE | 2020-07-28 15:07 | ED ---
Dizziness HPI - General Chief Complaint: Dizziness Stated Complaint: Low Blood Pressure Time Seen by Provider: 07/28/20 14:37 Source: patient, RN notes reviewed Mode of arrival: ambulatory Limitations: no limitations - History of Present Illness Initial Comments: This is a 74-year-old female who was brought in by family today because of low blood pressure and weakness. She apparently is been fighting us for last 4 days. Found have blood pressure 60s over 40s today. She's had decreased oral intake. She was admitted to [facility] recently just discharged on the . No reports of fevers chills nausea vomiting sweats no melena. No dysuria hematuria. She did have surgery in May of this year for what sounds to be ischemic bowel her family. She has had decreased appetite since that time the patient was on lisinopril but taken off earlier this week. MD Complaint: dizziness, lightheadedness, other - Related Data Home Medications Medication Instructions Recorded Confirmed Cholecalciferol [Vitamin D3 (25 1,000 unit PO DAILY 05/10/20 07/28/20 Mcg = 1000 Iu)] Levothyroxine Sodium [Synthroid] 137 mcg PO DAILY 05/10/20 07/28/20 Simvastatin 40 mg PO HS 05/10/20 07/28/20 Venlafaxine HCl ER [Effexor Xr] 150 mg PO DAILY 05/10/20 07/28/20 Albuterol Sulfate [Albuterol 1 puff PO RT-Q4H PRN 07/28/20 07/28/20 Sulfate Hfa] Apixaban [Eliquis] 5 mg PO BID 07/28/20 07/28/20 Aspirin EC [Ecotrin Low Dose] 81 mg PO DAILY 07/28/20 07/28/20 Calcium Carbonate 500 mg PO DAILY 07/28/20 07/28/20 Ferrous Sulfate [Feosol] 325 mg PO DAILY 07/28/20 07/28/20 Gabapentin 300 mg PO BID 07/28/20 07/28/20 Loperamide [Imodium] 2 mg PO QID PRN 07/28/20 07/28/20 Loratadine 10 mg PO DAILY 07/28/20 07/28/20 Magnesium Oxide 400 mg PO BID 07/28/20 07/28/20 Melatonin 3 mg PO HS 07/28/20 07/28/20 Pantoprazole Sodium 40 mg PO DAILY 07/28/20 07/28/20 Simethicone Chew [Mylicon Chew] 80 mg PO QID PRN 07/28/20 07/28/20 ondansetron HCL [Zofran] 8 mg PO Q8HR PRN 07/28/20 07/28/20 Allergies Allergy/AdvReac Type Severity Reaction Status Date / Time Penicillins Allergy Unknown Verified 07/28/20 16:04 Sulfa (Sulfonamide Allergy Unknown Verified 07/28/20 16:04 Antibiotics) Review of Systems ROS Statement: Those systems with pertinent positive or pertinent negative responses have been documented in the HPI. ROS Other: All systems not noted in ROS Statement are negative. 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 History of Any Multi-Drug Resistant Organisms: None Reported Past Surgical History: Joint Replacement Additional Past Surgical History / Comment(s): Colonoscopy with last on 05/08/20, bilateral total knees, left overy removed d/t cyst, bilateral eye cataract removals/lens implants, R eye multiple surgeries for retinal tears, bowel resection. Additional Past Anesthesia/Blood Transfusion Reaction / Comment(s): Difficulty getting to sleep Past Psychological History: Anxiety, Depression Smoking Status: Former smoker Past Alcohol Use History: Rare Past Drug Use History: None Reported - Past Family History Mother Family Medical History: No Reported History Additional Family Medical History / Comment(s): Mother did not go to the doctor much. Father Family Medical History: Vascular Disorder Additional Family Medical History / Comment(s): Father in his early 50s of a ruptured thoracic aneurysm. General Exam - General Exam Comments Initial Comments: This a well-developed well-nourished awake alert oriented 3 female Limitations: no limitations General appearance: alert, in no apparent distress Head exam: Present: atraumatic, normocephalic, normal inspection Eye exam: Present: normal appearance, PERRL, EOMI. Absent: scleral icterus, co njunctival injection, periorbital swelling ENT exam: Present: mucous membranes dry Neck exam: Present: normal inspection, full ROM, other (No stridor JVD or bruits). Absent: tenderness, meningismus, lymphadenopathy Respiratory exam: Present: normal lung sounds bilaterally. Absent: respiratory distress, wheezes, rales, rhonchi, stridor Cardiovascular Exam: Present: regular rate, normal rhythm, normal heart sounds. Absent: systolic murmur, diastolic murmur, rubs, gallop, clicks GI/Abdominal exam: Present: soft, normal bowel sounds, other (Well-healed surgical scars). Absent: distended, tenderness, guarding, rebound, rigid, bruit, pulsatile mass Extremities exam: Present: normal inspection, full ROM, normal capillary refill, pedal edema (Peripheral edema noted bilaterally there is ecchymosis seen over the left and right forearms from previous IV starts.). Absent: tenderness, joint swelling, calf tenderness Back exam: Present: normal inspection Neurological exam: Present: alert, oriented X3, CN II-XII intact Psychiatric exam: Present: normal affect, normal mood Skin exam: Present: warm, dry, intact. Absent: rash Course Vital Signs 07/28/20 07/28/20 07/28/20 14:21 15:40 17:00 Temperature 97.8 F Pulse Rate 68 83 96 Respiratory 18 16 16 Rate Blood Pressure 68/47 72/39 74/58 O2 Sat by Pulse 93 L 97 99 Oximetry Procedures - Central Line Placement Right SC Consent Obtained: verbal consent, emergent situation Patient Placed on Monitor/Pulse Ox: Yes MD Prep: mask, gown, gloves Central Line Prep: Chlorhexidine scrub Local Anesthesia Used: Lidocaine 1% Amount of Anesthesia Used (mls): 4 Ultrasound Used for Placement: No Central Line Lumen Inserted: triple Bloods Obtained for Lab: No Central Line Position: good blood return, all ports aspirated, flushed, capped, sutured in place with 3-0 nylon Dressing Applied: Tegaderm, sterile gauze/tape Post Procedure X-Ray: tip of catheter in good position Patient Tolerated Procedure: well Complications: none Medical Decision Making - Medical Decision Making Patient did require central venous access as no peripheral IV was available. He did demonstrate evidence of dehydration and hypotension and symptomatic dizziness. He was gas was elevated likely on the basis of dehydration. - Lab Data Result diagrams: 07/28/20 15:05 07/28/20 15:05 Lab Results 07/28/20 07/28/20 07/28/20 Range/Units 15:05 15:05 15:05 WBC 8.1 (3.8-10.6) k/uL RBC 4.91 (3.80-5.40) m/uL Hgb 13.4 (11.4-16.0) gm/dL Hct 44.2 (34.0-46.0) % MCV 90.1 (80.0-100.0) fL MCH 27.3 (25.0-35.0) pg MCHC 30.3 L (31.0-37.0) g/dL RDW 17.1 H (11.5-15.5) % Plt Count 570 H (150-450) k/uL MPV 7.5 Neutrophils % 60 % Lymphocytes % 34 % Monocytes % 3 % Eosinophils % 2 % Basophils % 0 % Neutrophils # 4.9 (1.3-7.7) k/uL Lymphocytes # 2.8 (1.0-4.8) k/uL Monocytes # 0.2 (0-1.0) k/uL Eosinophils # 0.1 (0-0.7) k/uL Basophils # 0.0 (0-0.2) k/uL Anisocytosis Slight D-Dimer 0.20 (<0.60) mg/L FEU Sodium 130 L (137-145) mmol/L Potassium 4.7 (3.5-5.1) mmol/L Chloride 107 (98-107) mmol/L Carbon Dioxide 19 L (22-30) mmol/L Anion Gap 4 mmol/L BUN 21 H (7-17) mg/dL Creatinine 1.01 (0.52-1.04) mg/dL Est GFR (CKD-EPI)AfAm 64 (>60 ml/min/1.73 sqM) Est GFR (CKD-EPI)NonAf 56 (>60 ml/min/1.73 sqM) Glucose 81 (74-99) mg/dL Plasma Lactic Acid Wes (0.7-2.0) mmol/L Calcium 7.7 L (8.4-10.2) mg/dL Total Bilirubin 0.3 (0.2-1.3) mg/dL AST 38 H (14-36) U/L ALT 32 (4-34) U/L Alkaline Phosphatase 164 H (38-126) U/L Creatine Kinase <20 L (30-135) U/L Total Protein 4.0 L (6.3-8.2) g/dL Albumin 1.5 L (3.5-5.0) g/dL Lipase 15 L (23-300) U/L 12/25/20 Range/Units 15:05 WBC (3.8-10.6) k/uL RBC (3.80-5.40) m/uL Hgb (11.4-16.0) gm/dL Hct (34.0-46.0) % MCV (80.0-100.0) fL MCH (25.0-35.0) pg MCHC (31.0-37.0) g/dL RDW (11.5-15.5) % Plt Count (150-450) k/uL MPV Neutrophils % % Lymphocytes % % Monocytes % % Eosinophils % % Basophils % % Neutrophils # (1.3-7.7) k/uL Lymphocytes # (1.0-4.8) k/uL Monocytes # (0-1.0) k/uL Eosinophils # (0-0.7) k/uL Basophils # (0-0.2) k/uL Anisocytosis D-Dimer (<0.60) mg/L FEU Sodium (137-145) mmol/L Potassium (3.5-5.1) mmol/L Chloride (98-107) mmol/L Carbon Dioxide (22-30) mmol/L Anion Gap mmol/L BUN (7-17) mg/dL Creatinine (0.52-1.04) mg/dL Est GFR (CKD-EPI)AfAm (>60 ml/min/1.73 sqM) Est GFR (CKD-EPI)NonAf (>60 ml/min/1.73 sqM) Glucose (74-99) mg/dL Plasma Lactic Acid Wes 3.2 H* (0.7-2.0) mmol/L Calcium (8.4-10.2) mg/dL Total Bilirubin (0.2-1.3) mg/dL AST (14-36) U/L ALT (4-34) U/L Alkaline Phosphatase (38-126) U/L Creatine Kinase (30-135) U/L Total Protein (6.3-8.2) g/dL Albumin (3.5-5.0) g/dL Lipase (23-300) U/L - EKG Data -: EKG Interpreted by Me EKG shows normal: sinus rhythm EKG Comments: Sinus rhythm 88 appear of 01 48 QRS duration 74 QT since QTC 360/445 nonspecific T-wave configuration - Radiology Data Radiology results: report reviewed (G reviewed no acute findings central line in good edition), image reviewed Critical Care Time Critical Care Time: Yes Total Critical Care Time: 35 Critical Care Time: 35 minutes of critical care time which includes initial presentation with history physical labs x-rays discussed with family and patient several occasions this is not included the time for central venous access. Discussed with the admitting physician admission orders documentation the above Disposition Clinical Impression: Orthostatic hypotension, Dehydration, Hypotensive episode, Failure to thrive Disposition: ADMITTED IP TO THIS [facility] Condition: Fair Referrals: Dorian Yan MD [Primary Care Provider] - 1-2 days
[2020-07-28 15:21] LABS: Anisocytosis Slight; Basophils % (A) 0 %; Eosinophils # (A) 0.1 k/uL (0-0.7); Eosinophils % (A) 2 %; HCT 44.2 % (34.0-46.0); HGB 13.4 gm/dL (11.4-16.0); Lymphocytes # (A) 2.8 k/uL (1.0-4.8); Lymphocytes % (A) 34 %; MCH 27.3 pg (25.0-35.0); MCHC 30.3 g/dL (31.0-37.0); MCV 90.1 fL (80.0-100.0); Mean Platelet Volume 7.5; Monocytes # (A) 0.2 k/uL (0-1.0); Monocytes % (A) 3 %; Neutrophils # (A) 4.9 k/uL (1.3-7.7); Neutrophils % (A) 60 %; Platelet Count 570 k/uL (150-450); RBC 4.91 m/uL (3.80-5.40); RDW 17.1 % (11.5-15.5); WBC 8.1 k/uL (3.8-10.6)
[2020-07-28 15:30] LABS: ALT 32 U/L (4-34); AST 38 U/L (14-36); African American GFR (CKD) 64 (>60 ml/min/1.73 sqM); Albumin 1.5 g/dL (3.5-5.0); Alkaline Phosphatase 164 U/L (38-126); Anion Gap 4 mmol/L; Blood Urea Nitrogen 21 mg/dL (7-17); Calcium 7.7 mg/dL (8.4-10.2); Carbon Dioxide 19 mmol/L (22-30); Chloride 107 mmol/L (98-107); Creatine Kinase <20 U/L (30-135); Glucose 81 mg/dL (74-99); Lipase 15 U/L (23-300); Non-African American GFR(CKD) 56 (>60 ml/min/1.73 sqM); Potassium 4.7 mmol/L (3.5-5.1); Sodium 130 mmol/L (137-145); Total Bilirubin 0.3 mg/dL (0.2-1.3)
[2020-07-28] MEDS ORDERED: LORazepam 1 MG TAB PO STA (15:31)
--- NOTE | 2020-07-28 15:52 | XR ---
EXAM: XR Chest, 1 View CLINICAL HISTORY: ITS.REASON XR Reason: Hypertension TECHNIQUE: Frontal view of the chest. COMPARISON: Chest radiograph on 05/12/2020 FINDINGS: Hardware: None. Lungs/pleura: Elevation of the right hemidiaphragm. Right lower lung opacity likely represents atelectasis. No other focal consolidation. No pleural effusion or pneumothorax. Heart/mediastinum: Normal. No cardiomegaly. Soft tissues: Unremarkable. Bones: No acute fracture. Degenerative changes of the spine. Upper abdomen: Normal. IMPRESSION: Elevation of the right hemidiaphragm with right basilar atelectasis. No other focal consolidation.
[2020-07-28] MEDS ORDERED: NALOXONE 0.4 MG/ML 1 ML VIAL IV PRN (17:07)
--- NOTE | 2020-07-28 17:07 | ED ---
Medical Decision Making - Lab Data Result diagrams: 07/28/20 15:05 07/28/20 15:05 Lab Results 07/28/20 07/28/20 07/28/20 Range/Units 15:05 15:05 15:05 WBC 8.1 (3.8-10.6) k/uL RBC 4.91 (3.80-5.40) m/uL Hgb 13.4 (11.4-16.0) gm/dL Hct 44.2 (34.0-46.0) % MCV 90.1 (80.0-100.0) fL MCH 27.3 (25.0-35.0) pg MCHC 30.3 L (31.0-37.0) g/dL RDW 17.1 H (11.5-15.5) % Plt Count 570 H (150-450) k/uL MPV 7.5 Neutrophils % 60 % Lymphocytes % 34 % Monocytes % 3 % Eosinophils % 2 % Basophils % 0 % Neutrophils # 4.9 (1.3-7.7) k/uL Lymphocytes # 2.8 (1.0-4.8) k/uL Monocytes # 0.2 (0-1.0) k/uL Eosinophils # 0.1 (0-0.7) k/uL Basophils # 0.0 (0-0.2) k/uL Anisocytosis Slight D-Dimer 0.20 (<0.60) mg/L FEU Sodium 130 L (137-145) mmol/L Potassium 4.7 (3.5-5.1) mmol/L Chloride 107 (98-107) mmol/L Carbon Dioxide 19 L (22-30) mmol/L Anion Gap 4 mmol/L BUN 21 H (7-17) mg/dL Creatinine 1.01 (0.52-1.04) mg/dL Est GFR (CKD-EPI)AfAm 64 (>60 ml/min/1.73 sqM) Est GFR (CKD-EPI)NonAf 56 (>60 ml/min/1.73 sqM) Glucose 81 (74-99) mg/dL Plasma Lactic Acid Wes (0.7-2.0) mmol/L Calcium 7.7 L (8.4-10.2) mg/dL Total Bilirubin 0.3 (0.2-1.3) mg/dL AST 38 H (14-36) U/L ALT 32 (4-34) U/L Alkaline Phosphatase 164 H (38-126) U/L Creatine Kinase <20 L (30-135) U/L Total Protein 4.0 L (6.3-8.2) g/dL Albumin 1.5 L (3.5-5.0) g/dL Lipase 15 L (23-300) U/L 12/25/20 Range/Units 15:05 WBC (3.8-10.6) k/uL RBC (3.80-5.40) m/uL Hgb (11.4-16.0) gm/dL Hct (34.0-46.0) % MCV (80.0-100.0) fL MCH (25.0-35.0) pg MCHC (31.0-37.0) g/dL RDW (11.5-15.5) % Plt Count (150-450) k/uL MPV Neutrophils % % Lymphocytes % % Monocytes % % Eosinophils % % Basophils % % Neutrophils # (1.3-7.7) k/uL Lymphocytes # (1.0-4.8) k/uL Monocytes # (0-1.0) k/uL Eosinophils # (0-0.7) k/uL Basophils # (0-0.2) k/uL Anisocytosis D-Dimer (<0.60) mg/L FEU Sodium (137-145) mmol/L Potassium (3.5-5.1) mmol/L Chloride (98-107) mmol/L Carbon Dioxide (22-30) mmol/L Anion Gap mmol/L BUN (7-17) mg/dL Creatinine (0.52-1.04) mg/dL Est GFR (CKD-EPI)AfAm (>60 ml/min/1.73 sqM) Est GFR (CKD-EPI)NonAf (>60 ml/min/1.73 sqM) Glucose (74-99) mg/dL Plasma Lactic Acid Wes 3.2 H* (0.7-2.0) mmol/L Calcium (8.4-10.2) mg/dL Total Bilirubin (0.2-1.3) mg/dL AST (14-36) U/L ALT (4-34) U/L Alkaline Phosphatase (38-126) U/L Creatine Kinase (30-135) U/L Total Protein (6.3-8.2) g/dL Albumin (3.5-5.0) g/dL Lipase (23-300) U/L Disposition Clinical Impression: Orthostatic hypotension, Dehydration, Hypotensive episode, Failure to thrive, Lactic acidosis Disposition: ADMITTED IP TO THIS [facility] Condition: Fair Referrals: Dorian Yan MD [Primary Care Provider] - 1-2 days
[2020-07-28] MEDS ORDERED: ALBUTEROL NEBULIZED 2.5 MG/3 ML INHALATION PRN (17:09)
[2020-07-28] MEDS ORDERED: SIMETHICONE 80 MG CHEWABLE PO PRN (17:09)
--- NOTE | 2020-07-28 17:17 | XR ---
EXAM: XR Chest, 1 View CLINICAL HISTORY: ITS.REASON XR Reason: Right subclavian TECHNIQUE: Frontal view of the chest. COMPARISON: Chest radiograph on 07/28/2020 at 1534 hrs. FINDINGS: Hardware: Right subclavian central venous catheter terminates in the region of the SVC. Lungs/pleura: Elevation of the right hemidiaphragm. Right basilar opacity likely represents atelectasis. Prominent lung markings in the right lung may be secondary to technique versus crowding of bronchovascular structures. No focal consolidation. No pleural effusion or pneumothorax. Heart/mediastinum: Normal. No cardiomegaly. Soft tissues: Unremarkable. Bones: No acute fracture. Degenerative changes of the spine. Upper abdomen: Normal. IMPRESSION: 1. Right subclavian central venous catheter terminates in the region of the SVC. 2. Elevation of the right hemidiaphragm. Right basilar opacity likely represents atelectasis. Prominent lung markings in the right lung may be secondary to technique versus crowding of bronchovascular structures. No focal consolidation.
[2020-07-28 19:58] LABS: Appearance,Urine Cloudy (Clear); Bacteria,Urine Rare /hpf; Bilirubin,Urine Negative (Negative); Blood,Urine Moderate (Negative); Color,Urine Yellow; Glucose,Urine (UA) Negative (Negative); Hyaline Casts,Urine 4 /lpf (0-2); Ketones,Urine Negative (Negative); Leukocyte Esterase,Urine Negative (Negative); Mucus,Urine Rare /hpf; Nitrite,Urine Negative (Negative); Protein,Urine Trace (Negative); RBC,Urine >182 /hpf (0-5); Specific Gravity,Urine 1.024 (1.001-1.035); Squamous Epithelial Cell,Urine 6 /hpf (0-4); Urobilinogen,Urine <2.0 mg/dL (<2.0); WBC,Urine 5 /hpf (0-5)
[2020-07-28] MEDS: GABAPENTIN 300 MG CAP PO SCH (20:07)
[2020-07-28] MEDS: MAGNESIUM OXIDE 400 MG TAB PO SCH (20:07)
[2020-07-28] MEDS: MELATONIN 3 MG TABLET PO SCH (20:07)
[2020-07-28] MEDS: APIXABAN 5 MG TAB PO SCH (20:07)
[2020-07-28] MEDS: ATORVASTATIN 20 MG TAB PO SCH (20:07)
[2020-07-29] MEDS: PANTOPRAZOLE 40 MG TABLET PO SCH (06:12)
[2020-07-29] MEDS: LEVOTHYROXINE 137 MCG TAB PO SCH (06:12)
[2020-07-29] MEDS: FERROUS SULFATE 325 MG TAB PO SCH (08:20)
[2020-07-29] MEDS: MAGNESIUM OXIDE 400 MG TAB PO SCH ×2 (08:20→21:15)
[2020-07-29] MEDS: APIXABAN 5 MG TAB PO SCH ×2 (08:20→21:16)
[2020-07-29] MEDS: LORATADINE 10 MG TAB PO SCH (08:20)
[2020-07-29] MEDS: CHOLECALCIFEROL 1,000 UNIT TAB PO SCH (08:20)
[2020-07-29] MEDS: GABAPENTIN 300 MG CAP PO SCH ×2 (08:20→21:15)
[2020-07-29] MEDS: ASPIRIN 81 MG PO SCH (08:20)
[2020-07-29] MEDS: CALCIUM CARB-VIT D 500MG-200UN 1 EACH TAB PO SCH (08:20)
[2020-07-29] MEDS: LOPERAMIDE 2 MG CAP PO PRN ×4 (10:12→23:03)
[2020-07-29] MEDS: VENLAFAXINE HCL ER 150 MG CAP PO SCH (10:12)
[2020-07-29] MEDS: ATORVASTATIN 20 MG TAB PO SCH (21:15)
[2020-07-29] MEDS: MELATONIN 3 MG TABLET PO SCH (21:15)
[2020-07-30] MEDS: LEVOTHYROXINE 137 MCG TAB PO SCH (06:45)
[2020-07-30] MEDS: PANTOPRAZOLE 40 MG TABLET PO SCH (06:45)
[2020-07-30] MEDS: LOPERAMIDE 2 MG CAP PO PRN ×4 (08:35→20:31)
[2020-07-30] MEDS: CHOLECALCIFEROL 1,000 UNIT TAB PO SCH (08:35)
[2020-07-30] MEDS: ASPIRIN 81 MG PO SCH (08:35)
[2020-07-30] MEDS: APIXABAN 5 MG TAB PO SCH ×2 (08:35→20:31)
[2020-07-30] MEDS: LORATADINE 10 MG TAB PO SCH (08:36)
[2020-07-30] MEDS: VENLAFAXINE HCL ER 150 MG CAP PO SCH (08:36)
[2020-07-30] MEDS: CALCIUM CARB-VIT D 500MG-200UN 1 EACH TAB PO SCH (08:36)
[2020-07-30] MEDS: MAGNESIUM OXIDE 400 MG TAB PO SCH ×2 (08:36→20:31)
[2020-07-30] MEDS: FERROUS SULFATE 325 MG TAB PO SCH (08:36)
[2020-07-30] MEDS: GABAPENTIN 300 MG CAP PO SCH ×2 (08:36→20:31)
[2020-07-30 12:21] LABS: Anisocytosis Slight; HCT 37.7 % (34.0-46.0); HGB 12.2 gm/dL (11.4-16.0); MCH 28.9 pg (25.0-35.0); MCHC 32.4 g/dL (31.0-37.0); MCV 89.1 fL (80.0-100.0); Mean Platelet Volume 6.6; Platelet Count 468 k/uL (150-450); RBC 4.23 m/uL (3.80-5.40); RDW 17.1 % (11.5-15.5); WBC 7.7 k/uL (3.8-10.6)
[2020-07-30 12:29] LABS: ALT 29 U/L (4-34); AST 35 U/L (14-36); African American GFR (CKD) >90 (>60 ml/min/1.73 sqM); Albumin 1.2 g/dL (3.5-5.0); Alkaline Phosphatase 131 U/L (38-126); Anion Gap 2 mmol/L; Blood Urea Nitrogen 14 mg/dL (7-17); Calcium 6.9 mg/dL (8.4-10.2); Carbon Dioxide 18 mmol/L (22-30); Chloride 112 mmol/L (98-107); Glucose 115 mg/dL (74-99); Magnesium 1.7 mg/dL (1.6-2.3); Non-African American GFR(CKD) 82 (>60 ml/min/1.73 sqM); Potassium 3.9 mmol/L (3.5-5.1); Sodium 132 mmol/L (137-145); Total Bilirubin 0.2 mg/dL (0.2-1.3); Total Protein 3.2 g/dL (6.3-8.2)
--- NOTE | 2020-07-30 19:40 | CONS ---
CONSULTATION DATE OF SERVICE: July 30, 2020. REASON FOR CONSULTATION: Acute diarrhea and abdominal pain. HISTORY OF PRESENT ILLNESS: The patient is a 74-year-old pleasant white female who came to the emergency room because of fatigue, weakness, hypertension apparently, for the last 3 or 4 days duration. Reason we are consulted because of severe diarrhea that started yesterday morning. The patient states that she had at least 10 episodes of loose watery bowel movements with no blood or mucus in the stool. She had some cramping lower abdominal pain. She reports no nausea, vomiting. No fever, chills, or night sweats. She was recently diagnosed with upper respiratory infection and was treated with Zithromax 5 days ago. She had prolonged hospitalization in May of this year at which time she had acute small-bowel ischemia for which she underwent small bowel resection by Dr. Amato on May 10. Following that, she was transferred to [facility] and subsequently to rehab therapy. The patient also history of atrial fibrillation on Eliquis. She normally has 1 or 2 bowel movements daily. No blood or mucus in the stool. No rectal bleeding. PAST MEDICAL HISTORY: Significant for hypertension, hyperlipidemia, atrial fibrillation, on Eliquis, hypothyroidism, COPD, anxiety and depression. MEDICATIONS: Medications at home include: Vitamin D3, Eliquis, Synthroid, Effexor, simvastatin, albuterol, aspirin, calcium carbonate, Feosol, gabapentin, Imodium, loratadine, magnesium oxide, pantoprazole, and Zofran. ALLERGIES: To PENICILLIN AND SULFA. PAST SURGICAL HISTORY: Small bowel resection in May of 2020, bilateral total knee arthroscopies, left ovary surgery, right eye surgery. FAMILY HISTORY: Unremarkable. REVIEW OF SYSTEMS: CARDIOPULMONARY: No chest pain or shortness of breath. GENITOURINARY: No dysuria or hematuria. MUSCULOSKELETAL unremarkable. Skin unremarkable. Endocrine unremarkable. Psychiatric unremarkable. NEUROLOGY: Unremarkable. ENT/VISION: Unremarkable. CONSTITUTIONAL: No recent weight loss. No fever, chills, night sweats. FAMILY HISTORY: Mother unremarkable. Father diagnosed ruptured abdominal aortic aneurysm. PHYSICAL EXAMINATION: She appears comfortable. No apparent distress. Vital signs stable. Blood pressure is 133/82, pulse rate 86 per minute and afebrile. HEENT examination unremarkable. Conjunctivae pink. Sclerae anicteric. Oral cavity no lesions. Neck no JVD. No lymph node enlargement. CHEST was clear to auscultation. HEART: Regular rate and rhythm. ABDOMEN: Soft, it was nontender, nondistended. Bowel sounds are positive. No organomegaly. Extremities: No pedal edema. Skin: No rashes. Neuro: She is alert and oriented x3. No focal deficits. LABS: Done yesterday WBC 8.1, hemoglobin 13.4, platelets 570. Today hemoglobin is 12.2. AST and ALT are 38 and 32 respectively. T-bilirubin normal. Alkaline phosphatase 164. Lipase is normal. C-difficile toxin pending. IMPRESSION: 1. Acute onset of diarrhea for the last 24 hours duration. The patient recently took antibiotics with Zithromax a week ago. She had a prolonged hospitalization for 6 weeks in May of this year at which time she had a small bowel resection for acute small-bowel ischemia. Subsequently underwent rehab therapy. At this time possibility of infectious colitis needs to be considered. Rule out C difficile colitis. 2. History of hypertension and hyperlipidemia. 3. Atrial fibrillation on Eliquis. 4. History of anxiety and depression. 5. History of hypothyroidism. RECOMMENDATIONS: 1. Obtain stool studies for C difficile toxin and cultures. 2. Start on clear liquid diet and advance as tolerated. 3. Repeat labs in the morning. 4. Symptomatic supportive care. 5. We will follow with you closely. Thank you for this consultation. MMJUNIORL / JULIANNEN: [id number] /
[2020-07-30] MEDS: ATORVASTATIN 20 MG TAB PO SCH (20:31)
[2020-07-30] MEDS: MELATONIN 3 MG TABLET PO SCH (20:31)
[2020-07-31] MEDS: LEVOTHYROXINE 137 MCG TAB PO SCH (06:58)
[2020-07-31] MEDS: PANTOPRAZOLE 40 MG TABLET PO SCH (06:59)
[2020-07-31] MEDS: APIXABAN 5 MG TAB PO SCH ×2 (08:14→20:43)
[2020-07-31] MEDS: MAGNESIUM OXIDE 400 MG TAB PO SCH ×2 (08:14→20:44)
[2020-07-31] MEDS: LOPERAMIDE 2 MG CAP PO PRN ×4 (08:14→17:16)
[2020-07-31] MEDS: CALCIUM CARB-VIT D 500MG-200UN 1 EACH TAB PO SCH (08:14)
[2020-07-31] MEDS: ASPIRIN 81 MG PO SCH (08:14)
[2020-07-31] MEDS: VENLAFAXINE HCL ER 150 MG CAP PO SCH (08:14)
[2020-07-31] MEDS: GABAPENTIN 300 MG CAP PO SCH ×2 (08:14→20:44)
[2020-07-31] MEDS: CHOLECALCIFEROL 1,000 UNIT TAB PO SCH (08:14)
[2020-07-31] MEDS: FERROUS SULFATE 325 MG TAB PO SCH (08:14)
[2020-07-31] MEDS: LORATADINE 10 MG TAB PO SCH (08:14)
[2020-07-31] MEDS: IOPAMIDOL CONTRAST (ORAL USE) VIAL PO PRN ×2 (14:00→14:55)
--- NOTE | 2020-07-31 16:07 | P.PN ---
Subjective Progress Note Date: 07/31/20 Principal diagnosis: Acute diarrhea Patient is seen lying in bed reporting that her bowel movements are improving with less diarrhea today. She feels that Imodium is helping. No abdominal pain, and patient is tolerating a diet. Objective - Vital Signs Vital signs: Vital Signs Temp 97.6 F 07/31/20 11:16 Pulse 98 07/31/20 11:16 Resp 18 07/31/20 11:16 BP 123/76 07/31/20 11:16 Pulse Ox 99 07/31/20 11:16 Intake & Output 07/30/20 07/31/20 07/31/20 18:59 06:59 18:59 Intake Total 1200 480 Output Total 300 Balance 900 480 Weight 108 kg Intake: Oral 1200 480 Output: Urine 300 Other: Voiding Method Bedside Commode Bedside Commode Bedside Commode # Voids 1 1 # Bowel Movements 3 1 10 - Exam On physical examination, patient appears comfortable in no apparent distress. HEAD: Normocephalic, atraumatic. EYES: No scleral icterus. No conjunctival injection. MOUTH: No lesions, tongue midline. NECK: Trachea midline, no gross abnormalities. ABDOMEN: Soft, obese and nontender. Bowel sounds are positive. No organomegaly. No guarding or rigidity. EXTREMITIES: No pedal edema. SKIN: No rashes, no jaundice. NEUROLOGIC: Alert and oriented x3. No focal deficits. - Labs CBC & Chem 7: 07/30/20 12:14 07/30/20 12:14 Labs: Abnormal Lab Results - Last 24 Hours (Table) 07/30/20 Range/Units 13:20 Stool Lactoferrin POSITIVE A (NEGATIVE) Microbiology - Last 24 Hours (Table) 07/30/20 13:20 Stool Culture - Preliminary Stool Assessment and Plan (1) Diarrhea Narrative/Plan: 74-year-old female with multiple medical comorbidities who presented to the hospital with complaints of diarrhea. She had reported recent use of malinda thromycin and a prolonged hospitalization in May at which time she had a small bowel resection due to ischemia. Testing for Clostridium difficile has been negative with stool cultures pending. All movements improved with antidiarrheal. Current Visit: Yes Status: Acute Code(s): R19.7 - DIARRHEA, UNSPECIFIED SNOMED Code(s): 23832757 Plan: Supportive care EIA testing for Clostridium difficile toxin negative Stool cultures pending Okay to advance diet to low fiber, low lactose as tolerated Continue to monitor CBC, BMP Continue treatment with Imodium, if diarrhea persists can consider addition of cholestyramine Thank you for allowing us to participate in the care of the patient
--- NOTE | 2020-07-31 16:39 | CT ---
EXAMINATION TYPE: CT abdomen pelvis wo/w con DATE OF EXAM: 07/31/2020 COMPARISON: 05/10/2020 HISTORY: 74-year-old female unspecified anemia TECHNIQUE: Contiguous axial scanning of the abdomen and pelvis before and after administration of 100 ml Isovue 300 IV contrast. Delayed images through the kidneys and coronal/sagittal reconstructions performed. CT DLP: 3200.8 mGycm Automated exposure control for dose reduction was used. FINDINGS: Heart normal size with LAD coronary artery calcifications. Small 1.1 cm anterior pericardial effusion new from 05/10/2020. Small right and trace left pleural effusions are also new. Prominent volume loss and consolidation po sterior basilar right lower lobe. Correlation should be made to exclude pneumonia. Liver borderline enlarged at 17.7 cm with severe hepatic steatosis. Portal venous system is patent. N o biliary ductal dilatation. Gallbladder is collapsed. Adrenal glands, right kidney, and pancreas appear within normal limits. 1.2 cm calculus remains within the left renal pelvis. Exophytic cyst lateral upper pole left kidney m easures 4.8 x 2.8 cm. Multiple cortical defects in the upper pole suggests sequela of prior vascular or infectious insults. New linear to wedge-shaped hypoenhancement within the upper pole of the spleen measuring 2.9 x 1.0 cm could reflect splenic injury versus area of splenic infarct and should be correlated clinically. Anasarca change with flank edema. Trace ascites along the left paracolic gutter. No free air. Stable 7 mm rich hepatic lymph node. No mesenteric or retroperitoneal lymphadenopathy seen. Numerous soft tissue nodules within the anterior subcutaneous adipose of the mid and lower abdomen gagnon ggesting subcutaneous injections. There seems to be a staple line involving the ileum along the mid lower abdomen. Small bowel is patul ous at this level, likely surgical sequela. However, there is approximately 20 cm long segment of ter марина ileum that shows moderate circumferential wall thickening and adjacent mesenteric edema. Appendix not discretely visualized. Oral contrast progressed to the rectum. Sigmoid diverticulosis wi thout pericolic inflammatory change. Bladder is collapsed. Uterus anteverted. Right ovary is visualized. Left ovary not clearly seen. Mild to moderate cul-de-sac free fluid. Additional presacral edema. Bones: Degenerative change of the hips. Hypertrophic facet arthropathy mid to lower lumbar spine. Sup erior endplate Schmorl's node of L1. Fatty matrix hemangioma within T7 vertebral body. IMPRESSION: 1. THERE SEEMS TO BE A STAPLE LINE FROM INTERVAL RESECTION AND REANASTOMOSIS OF THE ILEUM AT THE MID LOWER ABDOMEN. THE SMALL BOWEL CALIBER IS DILATED HERE, LIKELY CHRONIC POSTSURGICAL SEQUELA. NO EVIDE NCE FOR BOWEL OBSTRUCTION. 2. HOWEVER, THE DISTAL 20 CM OF TERMINAL ILEUM WHICH EXTENDS FROM THIS LEVEL SHOWS MODERATE CIRCUMFER ENTIAL WALL THICKENING WITH ADJACENT MESENTERIC EDEMA. NONSPECIFIC INFECTIOUS, INFLAMMATORY, OR ISCHE JAYRO ENTERITIS IS SUGGESTED. NO PNEUMATOSIS OR FREE AIR. 3. FLUID OVERLOAD STATE/THIRD SPACING WITH A SMALL RIGHT AND TRACE LEFT EFFUSIONS, SMALL PERICARDIAL EFFUSION, TRACE ABDOMINAL ASCITES, AND MILD TO MODERATE PELVIC ASCITES. GENERALIZED ANASARCA CHANGE. ALL NEW FROM 05/10/2020. 4. POSTERIOR RIGHT BASILAR OPACITY LIKELY ATELECTASIS. CORRELATE TO EXCLUDE UNDERLYING PNEUMONIA. 5. NEW WEDGE-SHAPED DEFECT WITHIN THE POSTERIOR ASPECT OF THE SPLEEN. FINDINGS SUGGEST AN AREA OF SPL ENIC INFARCT. SPLENIC INJURY/LACERATION UNLIKELY IN THE ABSENCE OF TRAUMA. CLINICALLY CORRELATE. 6. SEVERE HEPATIC STEATOSIS. SIGMOID DIVERTICULOSIS.
--- NOTE | 2020-07-31 19:22 | P.HPIM ---
History of Present Illness H&P Date: 07/29/20 Chief Complaint: Generalized weakness along with hypertension This is a 74-year-old morbidly obese female patient was brought into emergency department due to progressive generalized weakness also hypertension the symptoms have been going on for 45 days, lately her blood pressure was in 60s, she has poor appetite, by mouth intake was minimal, it appears that patient was at [facility] discharge in July 26, family noted no significant improvement is slow progressive worsening along with lower extremity edema, she is status post surgery for ischemic bowel in May, her past medical history significant for hypothyroidism, dyslipidemia, COPD, chronic anemia, neuropathy, peptic ulcer disease, her labs were significant for hyponatremia with a sodium of 1:30, CO2 is low at 19, BUN/creatinine normal, lactic acid is 1, she has moderate blood with RBCs WBC however leukocyte history is negative along with nitrate, C. difficile is negative, a shunt admitted into the hospital with consultation from GI, her chest x-ray unremarkable, stable right-sided subclavia n central venous catheter, elevated right hemidiaphragm noted, Review of Systems All systems: negative Past Medical History Past Medical History: Eye Disorder, Hyperlipidemia, Hypertension, Thyroid Disorder Additional Past Medical History / Comment(s): Chronic constipation, R eye mutliple surgeries for retinal tears-vision poor, hypothyroid, osteoporosis. Pt reports blood clot in bowel after surgery History of Any Multi-Drug Resistant Organisms: None Reported Past Surgical History: Joint Replacement Additional Past Surgical History / Comment(s): Colonoscopy with last on 05/08/20, bilateral total knees, left overy removed d/t cyst, bilateral eye cataract removals/lens implants, R eye multiple surgeries for retinal tears, bowel resection. Additional Past Anesthesia/Blood Transfusion Reaction / Comment(s): Difficulty getting to sleep, states she can be combative after surgery Past Psychological History: Anxiety, Depression Additional Psychological History / Comment(s): Pt resides alone. She is independent. Smoking Status: Former smoker Past Alcohol Use History: Rare Additional Past Alcohol Use History / Comment(s): Pt started smoking as a teen and quit in 1999. She was a heavy smoker. Past Drug Use History: None Reported - Past Family History Mother Family Medical History: No Reported History Additional Family Medical History / Comment(s): Mother did not go to the doctor much. Father Family Medical History: Vascular Disorder Additional Family Medical History / Comment(s): Father in his early 50s of a ruptured thoracic aneurysm. Medications and Allergies Home Medications Medication Instructions Recorded Confirmed Type Cholecalciferol [Vitamin D3 (25 1,000 unit PO DAILY 05/10/20 07/28/20 History Mcg = 1000 Iu)] Levothyroxine Sodium [Synthroid] 137 mcg PO DAILY 05/10/20 07/28/20 History Simvastatin 40 mg PO HS 05/10/20 07/28/20 History Venlafaxine HCl ER [Effexor Xr] 150 mg PO DAILY 05/10/20 07/28/20 History Albuterol Sulfate [Albuterol 1 puff PO RT-Q4H PRN 07/28/20 07/28/20 History Sulfate Hfa] Apixaban [Eliquis] 5 mg PO BID 07/28/20 07/28/20 History Aspirin EC [Ecotrin Low Dose] 81 mg PO DAILY 07/28/20 07/28/20 History Calcium Carbonate 500 mg PO DAILY 07/28/20 07/28/20 History Ferrous Sulfate [Feosol] 325 mg PO DAILY 07/28/20 07/28/20 History Gabapentin 300 mg PO BID 07/28/20 07/28/20 History Loperamide [Imodium] 2 mg PO QID PRN 07/28/20 07/28/20 History Loratadine 10 mg PO DAILY 07/28/20 07/28/20 History Magnesium Oxide 400 mg PO BID 07/28/20 07/28/20 History Melatonin 3 mg PO HS 07/28/20 07/28/20 History Pantoprazole Sodium 40 mg PO DAILY 07/28/20 07/28/20 History Simethicone Chew [Mylicon Chew] 80 mg PO QID PRN 07/28/20 07/28/20 History ondansetron HCL [Zofran] 8 mg PO Q8HR PRN 07/28/20 07/28/20 History Allergies Allergy/AdvReac Type Severity Reaction Status Date / Time Penicillins Allergy Unknown Verified 07/28/20 16:04 Sulfa (Sulfonamide Allergy Unknown Verified 07/28/20 16:04 Antibiotics) Physical Exam Vitals: Vital Signs Temp Pulse Pulse Resp BP BP Pulse Ox 07/29/20 11:00 97.3 F L 77 18 125/86 98 07/29/20 08:14 97.6 F 92 16 91/64 98 07/29/20 03:22 98.2 F 87 18 86/64 97 07/29/20 01:54 18 07/28/20 23:23 97.8 F 86 18 91/64 95 07/28/20 21:09 90/60 07/28/20 19:30 97.5 F L 87 18 96/58 96 07/28/20 19:06 91/61 07/28/20 19:03 91 20 124/80 93 L 07/28/20 18:31 97.8 F 83 18 82/47 97 07/28/20 18:30 83 18 82/47 97 07/28/20 17:39 80 18 88/47 95 07/28/20 17:00 96 16 74/58 99 07/28/20 15:40 83 16 72/39 97 07/28/20 14:21 97.8 F 68 18 68/47 93 L Intake and Output 07/28/20 07/29/20 07/29/20 22:59 06:59 14:59 Intake Total 420 Balance 420 Intake: Oral 420 Other: Voiding Method Bedside Commode # Voids 1 1 # Bowel Movements 1 Weight 96.162 kg 104 kg - Constitutional General appearance: disheveled, morbidly obese - EENT Eyes: PERRLA Ears: bilateral: normal - Neck Carotids: bilateral: upstroke normal Thyroid: bilateral: normal size - Respiratory Respiratory: bilateral: diminished - Cardiovascular Rhythm: regular Heart sounds: normal: S1, S2 - Gastrointestinal General gastrointestinal: normal bowel sounds, soft - Musculoskeletal Musculoskeletal: gait normal, generalized weakness, strength equal bilaterally - Psychiatric Psychiatric: appropriate affect Results CBC & Chem 7: 07/30/20 12:14 07/30/20 12:14 Labs: Abnormal Lab Results - Last 24 Hours (Table) 07/28/20 07/28/20 07/28/20 Range/Units 15:05 15:05 15:05 MCHC 30.3 L (31.0-37.0) g/dL RDW 17.1 H (11.5-15.5) % Plt Count 570 H (150-450) k/uL Sodium 130 L (137-145) mmol/L Carbon Dioxide 19 L (22-30) mmol/L BUN 21 H (7-17) mg/dL Plasma Lactic Acid Wes 3.2 H* (0.7-2.0) mmol/L Calcium 7.7 L (8.4-10.2) mg/dL AST 38 H (14-36) U/L Alkaline Phosphatase 164 H (38-126) U/L Creatine Kinase <20 L (30-135) U/L Total Protein 4.0 L (6.3-8.2) g/dL Albumin 1.5 L (3.5-5.0) g/dL Lipase 15 L (23-300) U/L Urine Appearance (Clear) Urine Protein (Negative) Urine Blood (Negative) Urine RBC (0-5) /hpf Ur Squamous Epith Cells (0-4) /hpf Urine Bacteria (None) /hpf Hyaline Casts (0-2) /lpf Urine Mucus (None) /hpf 12/25/20 Range/Units 19:39 MCHC (31.0-37.0) g/dL RDW (11.5-15.5) % Plt Count (150-450) k/uL Sodium (137-145) mmol/L Carbon Dioxide (22-30) mmol/L BUN (7-17) mg/dL Plasma Lactic Acid Wes (0.7-2.0) mmol/L Calcium (8.4-10.2) mg/dL AST (14-36) U/L Alkaline Phosphatase (38-126) U/L Creatine Kinase (30-135) U/L Total Protein (6.3-8.2) g/dL Albumin (3.5-5.0) g/dL Lipase (23-300) U/L Urine Appearance Cloudy H (Clear) Urine Protein Trace H (Negative) Urine Blood Moderate H (Negative) Urine RBC >182 H (0-5) /hpf Ur Squamous Epith Cells 6 H (0-4) /hpf Urine Bacteria Rare H (None) /hpf Hyaline Casts 4 H (0-2) /lpf Urine Mucus Rare H (None) /hpf Chest x-ray: report reviewed, image reviewed Thrombosis Risk Factor Assmnt - Choose All That Apply Any of the Below Risk Factors Present?: Yes Each Factor Represents 1 point: Medical pt on bed rest, Obesity (BMI >25) Other Risk Factors: Yes Each Risk Factor Represents 2 Points: Age 61-74 years Each Risk Factor Represents 3 Points: History of DVT/PE Other congenital or acquired thrombophilia - If yes, enter type in comment: No Thrombosis Risk Factor Assessment Total Risk Factor Score: 7 Thrombosis Risk Factor Assessment Level: High Risk Assessment and Plan Assessment: Orthostatic hypotension with failure to thrive Ongoing diarrhea Dehydration and volume depleted status Hyponatremia Plan: Overall plan includes gently rehydrate the patient Resume home medications DVT and peptic ulcer disease prophylaxis Consult GI Further recommendations pending plan of care as per clinical response of the patient Time with Patient: Greater than 30
--- NOTE | 2020-07-31 19:28 | P.PN ---
Subjective Progress Note Date: 07/30/20 Principal diagnosis: Orthostatic hypotension with failure to thrive Ongoing diarrhea Dehydration and volume depleted status Hyponatremia Morbid obesity Anasarca Lower extremity edema 07/30/2020, patient seen eval examined during the rounds labs reviewed medications reviewed, denies any chest pain, continued to complain of generalized weakness, GI service has been following, labs reviewed white cell count is stable with hemoglobin and hematocrit, sodium is slightly improved to 132, GI services have evaluated the patient and recommended for infectious colitis C. difficile colitis, This is a 74-year-old morbidly obese female patient was brought into emergency department due to progressive generalized weakness also hypertension the symptoms have been going on for 45 days, lately her blood pressure was in 60s, she has poor appetite, by mouth intake was minimal, it appears that patient was at [facility] discharge in July 26, family noted no significant improvement is slow progressive worsening along with lower extremity edema, she is status post surgery for ischemic bowel in May, her past medical history significant for hypothyroidism, dyslipidemia, COPD, chronic anemia, neuropathy, peptic ulcer disease, her labs were significant for hyponatremia with a sodium of 1:30, CO2 is low at 19, BUN/creatinine normal, lactic acid is 1, she has moderate blood with RBCs WBC however leukocyte history is negative along with nitrate, C. difficile is negative, a shunt admitted into the hospital with consultation from GI, her chest x-ray unremarkable, stable right-sided subclavian central venous catheter, elevated right hemidiaphragm noted Objective - Vital Signs Vital signs: Vital Signs Temp 96.9 F L 07/30/20 11:27 Pulse 77 07/30/20 14:00 Resp 16 07/30/20 14:00 BP 122/82 07/30/20 11:27 Pulse Ox 99 07/30/20 11:27 Intake & Output 07/29/20 07/30/20 07/30/20 18:59 06:59 18:59 Intake Total 900 1080 Output Total 300 Balance 900 780 Weight 107 kg Intake: Oral 900 1080 Output: Urine 300 Other: Voiding Method Bedside Commode Bedside Commode Bedside Commode # Voids 1 1 1 # Bowel Movements 5 1 3 - Exam - Constitutional General appearance: disheveled, morbidly obese - EENT Eyes: PERRLA Ears: bilateral: normal - Neck Carotids: bilateral: upstroke normal Thyroid: bilateral: normal size - Respiratory Respiratory: bilateral: diminished - Cardiovascular Rhythm: regular Heart sounds: normal: S1, S2 - Gastrointestinal General gastrointestinal: normal bowel sounds, soft - Musculoskeletal Musculoskeletal: gait normal, generalized weakness, strength equal bilaterally - Psychiatric Psychiatric: appropriate affect - Labs CBC & Chem 7: 07/30/20 12:14 07/30/20 12:14 Labs: Abnormal Lab Results - Last 24 Hours (Table) 07/30/20 07/30/20 Range/Units 12:14 12:14 RDW 17.1 H (11.5-15.5) % Plt Count 468 H (150-450) k/uL Sodium 132 L (137-145) mmol/L Chloride 112 H (98-107) mmol/L Carbon Dioxide 18 L (22-30) mmol/L Glucose 115 H (74-99) mg/dL Calcium 6.9 L (8.4-10.2) mg/dL Alkaline Phosphatase 131 H (38-126) U/L Total Protein 3.2 L (6.3-8.2) g/dL Albumin 1.2 L (3.5-5.0) g/dL Assessment and Plan Assessment: Orthostatic hypotension with failure to thrive Ongoing diarrhea Dehydration and volume depleted status Hyponatremia Morbid obesity Anasarca Lower extremity edema Plan: Overall plan includes gently rehydrate the patient Continue home medications and requests on hold for now DVT and peptic ulcer disease prophylaxis Consult GI recommendation appreciated and noted Further recommendations pending plan of care as per clinical response of the patient Time with Patient: Greater than 30
--- NOTE | 2020-07-31 19:35 | P.PN ---
Subjective Progress Note Date: 07/31/20 Principal diagnosis: Orthostatic hypotension with failure to thrive Ongoing diarrhea Dehydration and volume depleted status Hyponatremia Morbid obesity Anasarca Lower extremity edema 07/31/2020, patient remains awake and alert, overall blood pressure slightly better, however diarrhea still going on, patient underwent computed tomography scan of the abdominal and pelvis, bilateral atelectasis of the lower lobes noted, thickening of terminal ileum noted with mesenteric edema, ileus-like Petrin 07/30/2020, patient seen eval examined during the rounds labs reviewed medi cations reviewed, denies any chest pain, continued to complain of generalized weakness, GI service has been following, labs reviewed white cell count is stable with hemoglobin and hematocrit, sodium is slightly improved to 132, GI services have evaluated the patient and recommended for infectious colitis C. difficile colitis, This is a 74-year-old morbidly obese female patient was brought into emergency department due to progressive generalized weakness also hypertension the symptoms have been going on for 45 days, lately her blood pressure was in 60s, she has poor appetite, by mouth intake was minimal, it appears that patient was at [facility] discharge in July 26, family noted no significant improvement is slow progressive worsening along with lower extremity edema, she is status post surgery for ischemic bowel in May, her past medical history significant for hypothyroidism, dyslipidemia, COPD, chronic anemia, neuropathy, peptic ulcer disease, her labs were significant for hyponatremia with a sodium of 1:30, CO2 is low at 19, BUN/creatinine normal, lactic acid is 1, she has moderate blood with RBCs WBC however leukocyte history is negative along with nitrate, C. difficile is negative, a shunt admitted into the hospital with consultation from GI, her chest x-ray unremarkable, stable right-sided subclavian central venous catheter, elevated right hemidiaphragm noted Objective - Vital Signs Vital signs: Vital Signs Temp 97.6 F 07/31/20 15:00 Pulse 93 07/31/20 15:00 Resp 16 07/31/20 15:00 BP 136/68 07/31/20 15:00 Pulse Ox 99 07/31/20 15:00 Intake & Output 07/31/20 07/31/20 08/01/20 06:59 18:59 06:59 Intake Total 1196 Balance 1196 Weight 108 kg Intake: Oral 1196 Other: Voiding Method Bedside Commode Bedside Commode # Voids 1 2 # Bowel Movements 1 2 - Exam - Constitutional General appearance: disheveled, morbidly obese - EENT Eyes: PERRLA Ears: bilateral: normal - Neck Carotids: bilateral: upstroke normal Thyroid: bilateral: normal size - Respiratory Respiratory: bilateral: diminished - Cardiovascular Rhythm: regular Heart sounds: normal: S1, S2 - Gastrointestinal General gastrointestinal: normal bowel sounds, soft - Musculoskeletal Musculoskeletal: gait normal, generalized weakness, strength equal bilaterally - Psychiatric Psychiatric: appropriate affect - Labs CBC & Chem 7: 07/30/20 12:14 07/30/20 12:14 Labs: Abnormal Lab Results - Last 24 Hours (Table) 07/30/20 Range/Units 13:20 Stool Lactoferrin POSITIVE A (NEGATIVE) Microbiology - Last 24 Hours (Table) 07/30/20 13:20 Stool Culture - Preliminary Stool Assessment and Plan Assessment: Ileus postoperative Ongoing diarrhea Dehydration and volume depleted status Hyponatremia Morbid obesity Anasarca Lower extremity edema Plan: Consults surgery Overall plan includes gently rehydrate the patient Continue home medications and Eliquis on hold for now DVT and peptic ulcer disease prophylaxis Consult GI recommendation appreciated and noted Further recommendations pending plan of care as per clinical response of the patient Time with Patient: Greater than 30
[2020-07-31] MEDS: ATORVASTATIN 20 MG TAB PO SCH (20:43)
[2020-07-31] MEDS: MELATONIN 3 MG TABLET PO SCH (20:43)
[2020-07-31 21:31] LABS: T4, Free (Free Thyroxine) 0.52 ng/dL (0.78-2.19)
[2020-08-01 06:46] LABS: Albumin 1.2 g/dL (3.5-5.0); Calcium 7.2 mg/dL (8.4-10.2); Potassium 4.3 mmol/L (3.5-5.1); Total Bilirubin 0.2 mg/dL (0.2-1.3); Total Protein 3.2 g/dL (6.3-8.2)
[2020-08-01] MEDS: LEVOTHYROXINE 137 MCG TAB PO SCH (06:51)
[2020-08-01] MEDS: PANTOPRAZOLE 40 MG TABLET PO SCH (06:51)
[2020-08-01 08:23] LABS: Anisocytosis Slight; Basophils # (A) 0.1 k/uL (0-0.2); Basophils % (A) 1 %; Eosinophils # (A) 0.1 k/uL (0-0.7); Eosinophils % (A) 1 %; HCT 40.9 % (34.0-46.0); HGB 12.4 gm/dL (11.4-16.0); Lymphocytes # (A) 3.3 k/uL (1.0-4.8); Lymphocytes % (A) 38 %; MCH 27.6 pg (25.0-35.0); MCHC 30.4 g/dL (31.0-37.0); MCV 90.8 fL (80.0-100.0); Mean Platelet Volume 7.5; Monocytes # (A) 0.4 k/uL (0-1.0); Monocytes % (A) 4 %; Neutrophils # (A) 4.8 k/uL (1.3-7.7); Neutrophils % (A) 56 %; Platelet Count 470 k/uL (150-450); RDW 17.4 % (11.5-15.5); WBC 8.6 k/uL (3.8-10.6)
[2020-08-01] MEDS: GABAPENTIN 300 MG CAP PO SCH ×2 (08:35→20:36)
[2020-08-01] MEDS: CHOLECALCIFEROL 1,000 UNIT TAB PO SCH (08:35)
[2020-08-01] MEDS: VENLAFAXINE HCL ER 150 MG CAP PO SCH (08:35)
[2020-08-01] MEDS: ASPIRIN 81 MG PO SCH (08:35)
[2020-08-01] MEDS: LOPERAMIDE 2 MG CAP PO PRN ×3 (08:35→18:55)
[2020-08-01] MEDS: CALCIUM CARB-VIT D 500MG-200UN 1 EACH TAB PO SCH (08:35)
[2020-08-01] MEDS: MAGNESIUM OXIDE 400 MG TAB PO SCH ×2 (08:35→20:36)
[2020-08-01] MEDS: APIXABAN 5 MG TAB PO SCH ×2 (08:35→20:36)
[2020-08-01] MEDS: LORATADINE 10 MG TAB PO SCH (08:35)
[2020-08-01] MEDS: FERROUS SULFATE 325 MG TAB PO SCH (08:35)
[2020-08-01 10:51] LABS: Poikilocytosis (M) Present
[2020-08-01] MEDS: CHOLESTYRAMINE (WITH SUGAR) 4 GM PACKET PO SCH ×2 (13:36→18:55)
--- NOTE | 2020-08-01 14:08 | P.PN ---
Subjective Progress Note Date: 08/01/20 Principal diagnosis: Orthostatic hypotension with failure to thrive Ongoing diarrhea Dehydration and volume depleted status Hyponatremia Morbid obesity Anasarca Lower extremity edema 08/01/2020, patient seen eval examined during the rounds labs reviewed medications reviewed, care plan discussed, patient is still having intermittent diarrhea, GI service has been following, Imodium is not helping will start Questran 07/31/2020, patient remains awake and alert, overall blood pressure slightly better, however diarrhea still going on, patient underwent computed tomography scan of the abdominal and pelvis, bilateral atelectasis of the lower lobes noted, thickening of terminal ileum noted with mesenteric edema, ileus-like Petrin 07/30/2020, patient seen eval examined during the rounds labs reviewed medications reviewed, denies any chest pain, continued to complain of generalized weakness, GI service has been following, labs reviewed white cell count is stable with hemoglobin and hematocrit, sodium is slightly improved to 132, GI services have evaluated the patient and recommended for infectious colitis C. difficile colitis, This is a 74-year-old morbidly obese female patient was brought into emergency department due to progressive generalized weakness also hypertension the symptoms have been going on for 45 days, lately her blood pressure was in 60s, she has poor appetite, by mouth intake was minimal, it appears that patient was at [facility] discharge in July 26, family noted no significant improvement is slow progressive worsening along with lower extremity edema, she is status post surgery for ischemic bowel in May, her past medical history significant for hypothyroidism, dyslipidemia, COPD, chronic anemia, neuropathy, peptic ulcer disease, her labs were significant for hyponatremia with a sodium of 1:30, CO2 is low at 19, BUN/creatinine normal, lactic acid is 1, she has moderate blood with RBCs WBC however leukocyte history is negative along with nitrate, C. difficile is negative, a shunt admitted into the hospital with co nsultation from GI, her chest x-ray unremarkable, stable right-sided subclavian central venous catheter, elevated right hemidiaphragm noted Objective - Vital Signs Vital signs: Vital Signs Temp 97.9 F 08/01/20 12:00 Pulse 92 08/01/20 12:00 Resp 18 08/01/20 12:00 BP 105/72 08/01/20 12:00 Pulse Ox 99 08/01/20 12:00 Intake & Output 1208/01/20 08/01/20 18:59 06:59 18:59 Intake Total 1196 240 Output Total 760 Balance 1196 -760 240 Weight 114.7 kg Intake: Oral 1196 240 Output: Urine 760 Other: Voiding Method Bedside Commode Bedside Commode # Voids 2 0 # Bowel Movements 2 1 5 - Exam - Constitutional General appearance: disheveled, morbidly obese - EENT Eyes: PERRLA Ears: bilateral: normal - Neck Carotids: bilateral: upstroke normal Thyroid: bilateral: normal size - Respiratory Respiratory: bilateral: diminished - Cardiovascular Rhythm: regular Heart sounds: normal: S1, S2 - Gastrointestinal General gastrointestinal: normal bowel sounds, soft - Musculoskeletal Musculoskeletal: gait normal, generalized weakness, strength equal bilaterally - Psychiatric Psychiatric: appropriate affect - Labs CBC & Chem 7: 08/01/20 05:45 08/01/20 05:45 Labs: Abnormal Lab Results - Last 24 Hours (Table) 07/30/20 08/01/20 08/01/20 Range/Units 12:14 05:45 05:45 MCHC 30.4 L (31.0-37.0) g/dL RDW 17.4 H (11.5-15.5) % Plt Count 470 H (150-450) k/uL Sodium 129 L (137-145) mmol/L Chloride 109 H (98-107) mmol/L Carbon Dioxide 19 L (22-30) mmol/L Calcium 7.2 L (8.4-10.2) mg/dL Alkaline Phosphatase 152 H (38-126) U/L Total Protein 3.2 L (6.3-8.2) g/dL Albumin 1.2 L (3.5-5.0) g/dL TSH 53.100 H (0.465-4.680) mIU/L Free T4 0.52 L (0.78-2.19) ng/dL Assessment and Plan Assessment: Ileus postoperative Ongoing diarrhea Dehydration and volume depleted status Hyponatremia Morbid obesity Anasarca Lower extremity edema Plan: Consider Questran it's okay with GI and surgical services Consults surgery Overall plan includes gently rehydrate the patient Continue home medications and Eliquis on hold for now DVT and peptic ulcer disease prophylaxis Consult GI recommendation appreciated and noted Further recommendations pending plan of care as per clinical response of the patient Time with Patient: Greater than 30
--- NOTE | 2020-08-01 15:00 | P.GSCN ---
History of Present Illness Consult date: 08/01/20 Reason for Consult: Enteritis History of present illness: 74-year-old female known to our service. Patient was hospitalized in May. Underwent exploratory laparotomy and found to have ischemic small bowel. Patient was transferred to [facility]. Vascular surgery took the patient to the operating room and performed an embolectomy. She was hospitalized at [facility] for 6 weeks. She has been back there on 2 separate occasions since discharge. Patient has had issues with intractable diarrhea and subsequent dehydration. Came to the hospital here because of persistent hypotension. GI was consulted. We were also consulted see her. Denies abdominal pain. CAT scan was obtained which demonstrates thickening of the terminal ileum between the ileocecal valve and the anastomotic site. This is likely subacute in nature and probably related to the previous ischemic insult. Patient states her bowel movements can be 10-20 times daily. Often times dark bilious in appearance. Patient is only really been trying Imodium to control her diarrhea. Review of Systems The patient denies any acute changes in vision or hearing, no dysphagia or odynophagia, no chest pain or shortness of breath, no dysuria or hematuria, no headache, no runny nose, no rectal bleeding or melena, no unexplained weight loss Past Medical History Past Medical History: Eye Disorder, Hyperlipidemia, Hypertension, Thyroid Disorder Additional Past Medical History / Comment(s): Chronic constipation, R eye mutliple surgeries for retinal tears-vision poor, hypothyroid, osteoporosis. Pt reports blood clot in bowel after surgery History of Any Multi-Drug Resistant Organisms: None Reported Past Surgical History: Joint Replacement Additional Past Surgical History / Comment(s): Colonoscopy with last on 05/08/20, bilateral total knees, left overy removed d/t cyst, bilateral eye cataract removals/lens implants, R eye multiple surgeries for retinal tears, bowel resection. Additional Past Anesthesia/Blood Transfusion Reaction / Comm: Difficulty getting to sleep, states she can be combative after surgery Past Psychological History: Anxiety, Depression Additional Psychological History / Comment(s): Pt resides alone. She is independent. Smoking Status: Former smoker Past Alcohol Use History: Rare Additional Past Alcohol Use History / Comment(s): Pt started smoking as a teen and quit in 1999. She was a heavy smoker. Past Drug Use History: None Reported - Past Family History Mother Family Medical History: No Reported History Additional Family Medical History / Comment(s): Mother did not go to the doctor much. Father Family Medical History: Vascular Disorder Additional Family Medical History / Comment(s): Father in his early 50s of a ruptured thoracic aneurysm. Medications and Allergies Home Medications Medication Instructions Recorded Confirmed Type Cholecalciferol [Vitamin D3 (25 1,000 unit PO DAILY 05/10/20 07/28/20 History Mcg = 1000 Iu)] Levothyroxine Sodium [Synthroid] 137 mcg PO DAILY 05/10/20 07/28/20 History Simvastatin 40 mg PO HS 05/10/20 07/28/20 History Venlafaxine HCl ER [Effexor Xr] 150 mg PO DAILY 05/10/20 07/28/20 History Albuterol Sulfate [Albuterol 1 puff PO RT-Q4H PRN 07/28/20 07/28/20 History Sulfate Hfa] Apixaban [Eliquis] 5 mg PO BID 07/28/20 07/28/20 History Aspirin EC [Ecotrin Low Dose] 81 mg PO DAILY 07/28/20 07/28/20 History Calcium Carbonate 500 mg PO DAILY 07/28/20 07/28/20 History Ferrous Sulfate [Feosol] 325 mg PO DAILY 07/28/20 07/28/20 History Gabapentin 300 mg PO BID 07/28/20 07/28/20 History Loperamide [Imodium] 2 mg PO QID PRN 07/28/20 07/28/20 History Loratadine 10 mg PO DAILY 07/28/20 07/28/20 History Magnesium Oxide 400 mg PO BID 07/28/20 07/28/20 History Melatonin 3 mg PO HS 07/28/20 07/28/20 History Pantoprazole Sodium 40 mg PO DAILY 07/28/20 07/28/20 History Simethicone Chew [Mylicon Chew] 80 mg PO QID PRN 07/28/20 07/28/20 History ondansetron HCL [Zofran] 8 mg PO Q8HR PRN 07/28/20 07/28/20 History Allergies Allergy/AdvReac Type Severity Reaction Status Date / Time Penicillins Allergy Unknown Verified 07/28/20 16:04 Sulfa (Sulfonamide Allergy Unknown Verified 07/28/20 16:04 Antibiotics) Surgical - Exam Vital Signs Temp Pulse Resp BP Pulse Ox 97.8 F 68 18 68/47 93 L 07/28/20 14:21 07/28/20 14:21 07/28/20 14:21 07/28/20 14:21 07/28/20 14:21 Physical exam: General: Well-developed, well-nourished HEENT: Normocephalic, sclerae nonicteric Abdomen: Nontender, nondistended, incision well healed Extremities: No edema Neuro: Alert and oriented Results - Labs 08/01/20 05:45 08/01/20 05:45 Abnormal Lab Results - Last 24 Hours (Table) 07/30/20 08/01/20 08/01/20 Range/Units 12:14 05:45 05:45 MCHC 30.4 L (31.0-37.0) g/dL RDW 17.4 H (11.5-15.5) % Plt Count 470 H (150-450) k/uL Sodium 129 L (137-145) mmol/L Chloride 109 H (98-107) mmol/L Carbon Dioxide 19 L (22-30) mmol/L Calcium 7.2 L (8.4-10.2) mg/dL Alkaline Phosphatase 152 H (38-126) U/L Total Protein 3.2 L (6.3-8.2) g/dL Albumin 1.2 L (3.5-5.0) g/dL TSH 53.100 H (0.465-4.680) mIU/L Free T4 0.52 L (0.78-2.19) ng/dL Diabetes panel 08/01/20 Range/Units 05:45 Sodium 129 L (137-145) mmol/L Potassium 4.3 (3.5-5.1) mmol/L Chloride 109 H (98-107) mmol/L Carbon Dioxide 19 L (22-30) mmol/L BUN 14 (7-17) mg/dL Creatinine 0.79 (0.52-1.04) mg/dL Glucose 75 (74-99) mg/dL Calcium 7.2 L (8.4-10.2) mg/dL AST 35 (14-36) U/L ALT 27 (4-34) U/L Alkaline Phosphatase 152 H (38-126) U/L Total Protein 3.2 L (6.3-8.2) g/dL Albumin 1.2 L (3.5-5.0) g/dL Thyroid panel 07/30/20 Range/Units 12:14 TSH 53.100 H (0.465-4.680) mIU/L Calcium panel 08/01/20 Range/Units 05:45 Calcium 7.2 L (8.4-10.2) mg/dL Albumin 1.2 L (3.5-5.0) g/dL Pituitary panel 07/30/20 08/01/20 Range/Units 12:14 05:45 Sodium 129 L (137-145) mmol/L Potassium 4.3 (3.5-5.1) mmol/L Chloride 109 H (98-107) mmol/L Carbon Dioxide 19 L (22-30) mmol/L BUN 14 (7-17) mg/dL Creatinine 0.79 (0.52-1.04) mg/dL Glucose 75 (74-99) mg/dL Calcium 7.2 L (8.4-10.2) mg/dL TSH 53.100 H (0.465-4.680) mIU/L Adrenal panel 08/01/20 Range/Units 05:45 Sodium 129 L (137-145) mmol/L Potassium 4.3 (3.5-5.1) mmol/L Chloride 109 H (98-107) mmol/L Carbon Dioxide 19 L (22-30) mmol/L BUN 14 (7-17) mg/dL Creatinine 0.79 (0.52-1.04) mg/dL Glucose 75 (74-99) mg/dL Calcium 7.2 L (8.4-10.2) mg/dL Total Bilirubin 0.2 (0.2-1.3) mg/dL AST 35 (14-36) U/L ALT 27 (4-34) U/L Alkaline Phosphatase 152 H (38-126) U/L Total Protein 3.2 L (6.3-8.2) g/dL Albumin 1.2 L (3.5-5.0) g/dL Assessment and Plan (1) Enteritis Narrative/Plan: 74-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 Recent CAT scan noted. Patient remains on anticoagulation. Doubt new episode of ischemia currently. CAT scan findings likely subacute. Will try to obtain previous CAT scan reports from [facility]. Patient states she has had numerous CAT scans at [facility] in the last few months. We will add codeine 15 mg every 8 hours orally to try to decreased nohemi l motility. Will follow. Current Visit: Yes Status: Acute Code(s): K52.9 - NONINFECTIVE GASTROENTERITIS AND COLITIS, UNSPECIFIED SNOMED Code(s): 34869402
[2020-08-01 15:15] LABS: Cholesterol 53 mg/dL (<200); Creatine Kinase <20 U/L (30-135); HDL Cholesterol 28 mg/dL (40-60); LDL Cholesterol,Calculated 9 mg/dL (0-99); Triglycerides 81 mg/dL (<150)
[2020-08-01 15:33] LABS: T4, Free (Free Thyroxine) 0.52 ng/dL (0.78-2.19)
--- NOTE | 2020-08-01 15:59 | P.PN ---
Subjective Progress Note Date: 08/01/20 Principal diagnosis: Acute diarrhea Patient is seen lying in bed reporting that bowel movements were more frequent today and loose. She is otherwise tolerated diet with no abdominal pain. Objective - Vital Signs Vital signs: Vital Signs Temp 97.9 F 08/01/20 12:00 Pulse 92 08/01/20 12:00 Resp 18 08/01/20 12:00 BP 105/72 08/01/20 12:00 Pulse Ox 99 08/01/20 12:00 Intake & Output 07/31/20 08/01/20 08/01/20 18:59 06:59 18:59 Intake Total 1196 240 Output Total 760 Balance 1196 -760 240 Weight 114.7 kg Intake: Oral 1196 240 Output: Urine 760 Other: Voiding Method Bedside Commode Bedside Commode # Voids 2 0 # Bowel Movements 2 1 5 - Exam On physical examination, patient appears comfortable in no apparent distress. HEAD: Normocephalic, atraumatic. EYES: No scleral icterus. No conjunctival injection. MOUTH: No lesions, tongue midline. NECK: Trachea midline, no gross abnormalities. ABDOMEN: Soft, obese and nontender. Bowel sounds are positive. No organomegaly. No guarding or rigidity. EXTREMITIES: No pedal edema. SKIN: No rashes, no jaundice. NEUROLOGIC: Alert and oriented x3. No focal deficits. - Labs CBC & Chem 7: 08/01/20 05:45 08/01/20 05:45 Labs: Abnormal Lab Results - Last 24 Hours (Table) 07/30/20 08/01/20 08/01/20 Range/Units 12:14 05:45 05:45 MCHC 30.4 L (31.0-37.0) g/dL RDW 17.4 H (11.5-15.5) % Plt Count 470 H (150-450) k/uL Sodium 129 L (137-145) mmol/L Chloride 109 H (98-107) mmol/L Carbon Dioxide 19 L (22-30) mmol/L Calcium 7.2 L (8.4-10.2) mg/dL Alkaline Phosphatase 152 H (38-126) U/L Total Protein 3.2 L (6.3-8.2) g/dL Albumin 1.2 L (3.5-5.0) g/dL TSH 53.100 H (0.465-4.680) mIU/L Free T4 0.52 L (0.78-2.19) ng/dL Assessment and Plan (1) Diarrhea Narrative/Plan: 74-year-old female with multiple medical comorbidities who presented to the hospital with complaints of diarrhea. She had reported recent use of azithromycin and a prolonged hospitalization in May at which time she had a small bowel resection due to ischemia. Testing for Clostridium difficile has been negative with stool cultures pending. Patient was seen today and again is reporting diarrhea, surgical service evaluated the patient didn't feel that this is likely secondary to short gut syndrome and hematocrit codeine. Current Visit: Yes Status: Acute Code(s): R19.7 - DIARRHEA, UNSPECIFIED SNOMED Code(s): 03014583 Plan: Supportive care EIA testing for Clostridium difficile toxin negative Stool cultures pending Okay to advance diet to low fiber, low lactose as tolerated Continue to monitor CBC, BMP Surgical service consulted, recommendation is for codeine with suspected short gut syndrome Continue other treatment with Imodium and cholestyramine Thank you for allowing us to participate in the care of the patient
[2020-08-01] MEDS: CODEINE 30 MG TAB PO SCH ×2 (16:31→23:29)
[2020-08-01] MEDS: ATORVASTATIN 20 MG TAB PO SCH (20:36)
[2020-08-01] MEDS: MELATONIN 3 MG TABLET PO SCH (20:36)
[2020-08-02 06:14] LABS: ALT 28 U/L (4-34); AST 35 U/L (14-36); African American GFR (CKD) >90 (>60 ml/min/1.73 sqM); Albumin 1.2 g/dL (3.5-5.0); Alkaline Phosphatase 158 U/L (38-126); Anion Gap -1 mmol/L; Blood Urea Nitrogen 14 mg/dL (7-17); Calcium 6.9 mg/dL (8.4-10.2); Carbon Dioxide 21 mmol/L (22-30); Chloride 108 mmol/L (98-107); Glucose 76 mg/dL (74-99); Non-African American GFR(CKD) 88 (>60 ml/min/1.73 sqM); Potassium 4.3 mmol/L (3.5-5.1); Sodium 128 mmol/L (137-145); Total Bilirubin 0.3 mg/dL (0.2-1.3); Total Protein 3.1 g/dL (6.3-8.2)
[2020-08-02] MEDS: LEVOTHYROXINE 137 MCG TAB PO SCH (06:59)
[2020-08-02] MEDS: PANTOPRAZOLE 40 MG TABLET PO SCH (06:59)
[2020-08-02] MEDS: CALCIUM CARB-VIT D 500MG-200UN 1 EACH TAB PO SCH (07:50)
[2020-08-02] MEDS: CHOLESTYRAMINE (WITH SUGAR) 4 GM PACKET PO SCH ×2 (07:50→14:49)
[2020-08-02] MEDS: GABAPENTIN 300 MG CAP PO SCH ×2 (07:57→21:27)
[2020-08-02] MEDS: LORATADINE 10 MG TAB PO SCH (07:57)
[2020-08-02] MEDS: ASPIRIN 81 MG PO SCH (07:57)
[2020-08-02] MEDS: CODEINE 30 MG TAB PO SCH ×2 (07:57→15:18)
[2020-08-02] MEDS: APIXABAN 5 MG TAB PO SCH ×2 (07:58→21:27)
[2020-08-02] MEDS: MAGNESIUM OXIDE 400 MG TAB PO SCH ×2 (07:58→21:27)
[2020-08-02] MEDS: CHOLECALCIFEROL 1,000 UNIT TAB PO SCH (07:58)
[2020-08-02] MEDS: FERROUS SULFATE 325 MG TAB PO SCH (07:58)
[2020-08-02] MEDS: LOPERAMIDE 2 MG CAP PO PRN ×2 (08:01→15:19)
[2020-08-02] MEDS: VENLAFAXINE HCL ER 150 MG CAP PO SCH (08:01)
[2020-08-02 10:20] LABS: % Iron Saturation 38.68 (12.00-45.00); Iron 41 ug/dL (50-170); Total Iron Binding Capacity 106 ug/dL (228-460)
--- NOTE | 2020-08-02 12:19 | CDI ---
Documentation Clarification Form Date: 08/02/2020 12:07:54 PM From: Fatoumata Ward CCS, CCDS Admit Date: 07/28/2020 05:07:00 PM Patient Name: Elsa Sylvester Visit Number: [id number] Discharge Date: ATTENTION: The Clinical Documentation Specialists (CDI) and [facility] Coding Staff appreciate your assistance in clarifying documentation. Please respond to the clarification below the line at the bottom and electronically sign. The CDI & [facility] Coding staff will review the response and follow-up if needed. Please note: Queries are made part of the Legal Health Record. If you have any questions, please contact the author of this message via ITS. Dr. Dana Patton: Atrial Fibrillation is documented in the GI consult: "Atrial fibrillation on Eliquis." Cardiology is not consulted and Atrial Fibrillation is not documented elsewhere in the record. History/Risk Factors: Bowel resection for ischemic bowel in May, Chronic Constipation, Hypertension, Hypothyroidism, Hyperlipidemia, COPD, Chronic anemia nos, Peptic Ulcer Disease, Osteoarthritis, Former Smoker. Clinical Indicators: Presented to the ED on 07/28 with Dizziness, weakness & low BP (60s over 40s), decreased oral intake. Recently discharged on 07/26 from [facility]. Admitted with Dehydration & Orthostatic hypotension & Failure to Thrive. 07/28 VS: T 97.8, P 68 - 83 - 96 - 83; R 18, BP 68/47 - 88/47; PO 93 RA - 97 RA BMI: 44.7 07/28 EKG: R 88 nsr, nonspecific T wave abnormality Treatment 07/28: Central Line placed in ED, IV fluid bolus 1,000 mls @ 999 mls/hr q1, IV fluid 1,000 mls @ 130 mls/hr q7, po Eliquis. Cardiology is not consulted. In your professional opinion, can you please clarify the type of Atrial Fibrillation, if known? Atrial Fibrillation is ruled out Atrial Fibrillation specified as: Chronic/Permanent Paroxysmal Persistent Other, please specify Unable to determine (Last Revision: November 2017) A fib was ruled out Nayely MTDD
[2020-08-02 13:27] VITALS: BMI 44.7
--- NOTE | 2020-08-02 15:16 | P.PN ---
Subjective Progress Note Date: 08/02/20 Principal diagnosis: Orthostatic hypotension with failure to thrive Ongoing diarrhea Dehydration and volume depleted status Hyponatremia Morbid obesity Anasarca Lower extremity edema 08/02/2020, patient seen eval examined during the rounds diarrhea slightly better now, Questran has been refused by the patient, as it was causing some abdominal discomfort surgical services and evaluated the patient GI has been following, 08/01/2020, patient seen eval examined during the rounds labs reviewed medications reviewed, care plan discussed, patient is still having intermittent diarrhea, GI service has been following, Imodium is not helping will start Questran 07/31/2020, patient remains awake and alert, overall blood pressure slightly better, however diarrhea still going on, patient underwent computed tomography scan of the abdominal and pelvis, bilateral atelectasis of the lower lobes noted, thickening of terminal ileum noted with mesenteric edema, ileus-like Petrin 07/30/2020, patient seen eval examined during the rounds labs reviewed medications reviewed, denies any chest pain, continued to complain of generalized weakness, GI service has been following, labs reviewed white cell count is stable with hemoglobin and hematocrit, sodium is slightly improved to 132, GI services have evaluated the patient and recommended for infectious colitis C. 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 difficile is negative, a shunt admitted into the hospital with consultation from GI, her chest x-ray unremarkable, stable right-sided subclavian central venous catheter, elevated right hemidiaphragm noted Objective - Vital Signs Vital signs: Vital Signs Temp 96.9 F L 08/02/20 12:00 Pulse 89 08/02/20 12:00 Resp 18 12/30/20 12:00 BP 106/75 08/02/20 12:00 Pulse Ox 96 08/02/20 12:00 Intake & Output 08/01/20 08/02/20 08/02/20 18:59 06:59 18:59 Intake Total 480 Balance 480 Weight 114.5 kg 114.5 kg Intake: Oral 480 Other: Voiding Method Bedside Commode # Voids 1 # Bowel Movements 5 1 - Exam - Constitutional General appearance: disheveled, morbidly obese - EENT Eyes: PERRLA Ears: bilateral: normal - Neck Carotids: bilateral: upstroke normal Thyroid: bilateral: normal size - Respiratory Respiratory: bilateral: diminished - Cardiovascular Rhythm: regular Heart sounds: normal: S1, S2 - Gastrointestinal General gastrointestinal: normal bowel sounds, soft - Musculoskeletal Musculoskeletal: gait normal, generalized weakness, strength equal bilaterally - Psychiatric Psychiatric: appropriate affect - Labs CBC & Chem 7: 08/01/20 05:45 08/02/20 05:50 Labs: Abnormal Lab Results - Last 24 Hours (Table) 08/01/20 08/02/20 Range/Units 05:45 05:50 Sodium 128 L (137-145) mmol/L Chloride 108 H (98-107) mmol/L Carbon Dioxide 21 L (22-30) mmol/L Calcium 6.9 L (8.4-10.2) mg/dL Iron 41 L (50-170) ug/dL TIBC 106 L (228-460) ug/dL Alkaline Phosphatase 158 H (38-126) U/L Creatine Kinase <20 L (30-135) U/L Total Protein 3.1 L (6.3-8.2) g/dL Albumin 1.2 L (3.5-5.0) g/dL HDL Cholesterol 28 L (40-60) mg/dL TSH 47.500 H (0.465-4.680) mIU/L Free T4 0.52 L (0.78-2.19) ng/dL Microbiology - Last 24 Hours (Table) 07/30/20 13:20 Stool Culture - Preliminary Stool Assessment and Plan Assessment: Ileus postoperative Ongoing diarrhea Dehydration and volume depleted status Hyponatremia Morbid obesity Anasarca Lower extremity edema Plan: Observe off of Questran Consults surgery Overall plan includes gently rehydrate the patient Continue home medications and Eliquis on hold for now DVT and peptic ulcer disease prophylaxis Consult GI recommendation appreciated and noted Further recommendations pending plan of care as per clinical response of the patient Time with Patient: Greater than 30
--- NOTE | 2020-08-02 18:50 | P.PN ---
Subjective Progress Note Date: 08/02/20 Principal diagnosis: Enteritis Patient doing well today. Has only had 1 bowel movement that she says appeared more firm. No abdominal pain. Tolerating diet. Objective - Vital Signs Vital signs: Vital Signs Temp 97.7 F 08/02/20 15:25 Pulse 90 08/02/20 15:25 Resp 18 08/02/20 15:25 BP 107/66 08/02/20 15:25 Pulse Ox 96 08/02/20 15:25 Intake & Output 08/01/20 08/02/20 08/02/20 18:59 06:59 18:59 Intake Total 480 458 Balance 480 458 Weight 114.5 kg 114.5 kg Intake: Oral 480 458 Other: Voiding Method Bedside Commode # Voids 2 # Bowel Movements 5 1 - Exam Abdomen: Soft, nondistended, nontender, incision clean and dry - Labs CBC & Chem 7: 08/01/20 05:45 08/02/20 05:50 Labs: Abnormal Lab Results - Last 24 Hours (Table) 08/01/20 08/02/20 Range/Units 05:45 05:50 Sodium 128 L (137-145) mmol/L Chloride 108 H (98-107) mmol/L Carbon Dioxide 21 L (22-30) mmol/L Calcium 6.9 L (8.4-10.2) mg/dL Iron 41 L (50-170) ug/dL TIBC 106 L (228-460) ug/dL Alkaline Phosphatase 158 H (38-126) U/L Total Protein 3.1 L (6.3-8.2) g/dL Albumin 1.2 L (3.5-5.0) g/dL Microbiology - Last 24 Hours (Table) 07/30/20 13:20 Stool Culture - Final Stool Assessment and Plan (1) Enteritis Narrative/Plan: Overall patient seems improved at this time. I reviewed the recent CAT scan reports from which were actually from May. Even at that time localized enteritis involving the terminal ileum was appreciated. This is not in acute enteritis. Will review recent CAT scan findings from [place]. Continue oral codeine to slow intestinal flow. Current Visit: Yes Status: Acute Code(s): K52.9 - NONINFECTIVE GASTROENTERITIS AND COLITIS, UNSPECIFIED SNOMED Code(s): 56082575
[2020-08-02] MEDS: ATORVASTATIN 20 MG TAB PO SCH (21:27)
[2020-08-02] MEDS: MELATONIN 3 MG TABLET PO SCH (21:27)
[2020-08-03] MEDS: CODEINE 30 MG TAB PO SCH ×4 (00:09→23:06)
[2020-08-03] MEDS: LEVOTHYROXINE 137 MCG TAB PO SCH (06:37)
[2020-08-03] MEDS: PANTOPRAZOLE 40 MG TABLET PO SCH (06:37)
[2020-08-03] MEDS: ASPIRIN 81 MG PO SCH (08:12)
[2020-08-03] MEDS: FERROUS SULFATE 325 MG TAB PO SCH (08:12)
[2020-08-03] MEDS: LORATADINE 10 MG TAB PO SCH (08:12)
[2020-08-03] MEDS: VENLAFAXINE HCL ER 150 MG CAP PO SCH (08:12)
[2020-08-03] MEDS: MAGNESIUM OXIDE 400 MG TAB PO SCH ×2 (08:12→20:15)
[2020-08-03] MEDS: CHOLECALCIFEROL 1,000 UNIT TAB PO SCH (08:12)
[2020-08-03] MEDS: APIXABAN 5 MG TAB PO SCH ×2 (08:12→20:15)
[2020-08-03] MEDS: GABAPENTIN 300 MG CAP PO SCH ×2 (08:12→20:15)
[2020-08-03] MEDS: CHOLESTYRAMINE (WITH SUGAR) 4 GM PACKET PO SCH ×2 (08:13→17:21)
--- NOTE | 2020-08-03 10:42 | P.PN ---
Subjective Progress Note Date: 08/03/20 Principal diagnosis: Enteritis Patient doing well today. Denies pain. Tolerating diet. No diarrhea at this time. Objective - Vital Signs Vital signs: Vital Signs Temp 97.8 F 08/03/20 08:00 Pulse 95 08/03/20 08:00 Resp 18 08/03/20 08:00 BP 119/86 08/03/20 08:00 Pulse Ox 97 08/03/20 08:00 Intake & Output 08/02/20 08/03/20 08/03/20 18:59 06:59 18:59 Intake Total 458 120 Balance 458 120 Weight 114.5 kg 109.5 kg Intake: Oral 458 120 Other: Voiding Method Bedside Commode # Voids 2 1 # Bowel Movements 1 - Exam Abdomen: Soft, nontender, nondistended, incision clean and dry - Labs CBC & Chem 7: 08/01/20 05:45 08/02/20 05:50 Labs: Microbiology - Last 24 Hours (Table) 07/30/20 13:20 Stool Culture - Final Stool Assessment and Plan (1) Enteritis Narrative/Plan: Patient doing fairly well. Continue diet as tolerated. Will review CAT scan from [place] once obtained. Patient doing well enough for discharge from my point of view at this point. Continue codeine post-discharge. Current Visit: Yes Status: Acute Code(s): K52.9 - NONINFECTIVE GASTROENTERITIS AND COLITIS, UNSPECIFIED SNOMED Code(s): 66233977
--- NOTE | 2020-08-03 13:16 | P.PN ---
Subjective Progress Note Date: 08/02/20 Principal diagnosis: Acute diarrhea Patient is seen lying in bed today reporting that bowel movements are much improved. Only one bowel movement today. She denies any signs or symptoms of bleeding. She is tolerating a diet. Objective - Vital Signs Vital signs: Vital Signs Temp 97.7 F 08/02/20 15:25 Pulse 90 08/02/20 15:25 Resp 18 08/02/20 15:25 BP 107/66 08/02/20 15:25 Pulse Ox 96 08/02/20 15:25 Intake & Output 08/02/20 08/02/20 08/03/20 06:59 18:59 06:59 Intake Total 458 Balance 458 Weight 114.5 kg 114.5 kg Intake: Oral 458 Other: Voiding Method Bedside Commode # Voids 2 # Bowel Movements 1 - Exam On physical examination, patient appears comfortable in no apparent distress. HEAD: Normocephalic, atraumatic. EYES: No scleral icterus. No conjunctival injection. MOUTH: No lesions, tongue midline. NECK: Trachea midline, no gross abnormalities. ABDOMEN: Soft, obese and nontender. Bowel sounds are positive. No organomegaly. No guarding or rigidity. EXTREMITIES: No pedal edema. SKIN: No rashes, no jaundice. NEUROLOGIC: Alert and oriented x3. No focal deficits. - Labs CBC & Chem 7: 08/01/20 05:45 08/02/20 05:50 Labs: Abnormal Lab Results - Last 24 Hours (Table) 08/01/20 08/02/20 Range/Units 05:45 05:50 Sodium 128 L (137-145) mmol/L Chloride 108 H (98-107) mmol/L Carbon Dioxide 21 L (22-30) mmol/L Calcium 6.9 L (8.4-10.2) mg/dL Iron 41 L (50-170) ug/dL TIBC 106 L (228-460) ug/dL Alkaline Phosphatase 158 H (38-126) U/L Total Protein 3.1 L (6.3-8.2) g/dL Albumin 1.2 L (3.5-5.0) g/dL Microbiology - Last 24 Hours (Table) 07/30/20 13:20 Stool Culture - Final Stool Assessment and Plan (1) Diarrhea Narrative/Plan: 74-year-old female with multiple medical comorbidities who presented to the hospital with complaints of diarrhea. She had reported recent use of azithromycin and a prolonged hospitalization in May at which time she had a small bowel resection due to ischemia. Testing for Clostridium difficile has been negative with stool cultures pending. Patient was seen today and again is reporting diarrhea, surgical service evaluated the patient didn't feel that this is likely secondary to short gut syndrome and hematocrit codeine. Current Visit: Yes Status: Acute Code(s): R19.7 - DIARRHEA, UNSPECIFIED SNOMED Code(s): 31926463 Plan: Supportive care EIA testing for Clostridium difficile toxin negative Okay to advance diet to low fiber, low lactose as tolerated Continue to monitor CBC, BMP Surgical service consulted, recommendation is for codeine with suspected short gut syndrome, with patient subsequently reporting improvement bowel movements Continue other treatment with Imodium and cholestyramine Thank you for allowing us to participate in the care of the patient
--- NOTE | 2020-08-03 15:23 | P.DS ---
Providers Date of admission: 07/28/20 17:07 Expected date of discharge: 08/03/20 Attending physician: Alex Davila Consults: 07/30/20 00:10 Consult Physician Routine Consulting Provider: Gallito Che Consult Reason/Comments: Diarrhea, hx of ischemic bowel with resection Do you want consulting provider notified?: Yes, Notify in am 07/31/20 19:58 Consult Physician Routine Consulting Provider: Sandoval Boggs Consult Reason/Comments: Ileus Do you want consulting provider notified?: Yes Primary care physician: Dorian Yan [facility] Course: 08/03/2020, patient's diarrhea significantly improved, no more loose stool has been noted, patient has been tolerating well sitting upright no more dizziness lightheadedness have been seen, hemodynamic status stable, swelling in the lower extremity is present discussed with her at length about keeping the legs up sooner gravity not cause accumulation of fluids in the legs, patient has been advised to follow with primary care provider and wishes to go home she has plenty of help available at home 08/02/2020, patient seen eval examined during the rounds diarrhea slightly better now, Questran has been refused by the patient, as it was causing some abdominal discomfort surgical services and evaluated the patient GI has been following, 08/01/2020, patient seen eval examined during the rounds labs reviewed medications reviewed, care plan discussed, patient is still having intermittent diarrhea, GI service has been following, Imodium is not helping will start Questran 07/31/2020, patient remains awake and alert, overall blood pressure slightly better, however diarrhea still going on, patient underwent computed tomography scan of the abdominal and pelvis, bilateral atelectasis of the lower lobes noted, thickening of terminal ileum noted with mesenteric edema, ileus-like Petrin 07/30/2020, patient seen eval examined during the rounds labs reviewed medications reviewed, denies any chest pain, continued to complain of generalized weakness, GI service has been following, labs reviewed white cell count is stable with hemoglobin and hematocrit, sodium is slightly improved to 132, GI services have evaluated the patient and recommended for infectious colitis C. difficile colitis, This is a 74-year-old morbidly obese female patient was brought into emergency department due to progressive generalized weakness also hypertension the symptoms have been going on for 45 days, lately her blood pressure was in 60s, she has poor appetite, by mouth intake was minimal, it appears that patient was at [facility] discharge in July 26, family noted no significant improvement is slow progressive worsening along with lower extremity edema, she is status post surgery for ischemic bowel in May, her past medical history significant for hypothyroidism, dyslipidemia, COPD, chronic anemia, neuropathy, peptic ulcer disease, her labs were significant for hyponatremia with a sodium of 1:30, CO2 is low at 19, BUN/creatinine normal, lactic acid is 1, she has moderate blood with RBCs WBC however leukocyte history is negative along with nitrate, C. difficile is negative, a shunt admitted into the hospital with con sultation from GI, her chest x-ray unremarkable, stable right-sided subclavian central venous catheter, elevated right hemidiaphragm noted Assessment: Ileus postoperative Ongoing diarrhea Dehydration and volume depleted status Hyponatremia Morbid obesity Anasarca Lower extremity edema Patient Condition at Discharge: Fair Plan - Discharge Summary Discharge Rx Participant: No New Discharge Prescriptions: Continue Cholecalciferol [Vitamin D3 (25 Mcg = 1000 Iu)] 1,000 unit PO DAILY Venlafaxine HCl ER [Effexor XR] 150 mg PO DAILY Simvastatin 40 mg PO HS Levothyroxine Sodium [Synthroid] 137 mcg PO DAILY ondansetron HCL [Zofran] 8 mg PO Q8HR PRN PRN Reason: Nausea And Vomiting Simethicone Chew [Mylicon Chew] 80 mg PO QID PRN PRN Reason: Gi Upset Pantoprazole Sodium 40 mg PO DAILY Melatonin 3 mg PO HS Magnesium Oxide 400 mg PO BID Loratadine 10 mg PO DAILY Loperamide [Imodium] 2 mg PO QID PRN PRN Reason: Diarrhea Gabapentin 300 mg PO BID Ferrous Sulfate [Iron (65 MG Elemental)] 325 mg PO DAILY Calcium Carbonate 500 mg PO DAILY Apixaban [Eliquis] 5 mg PO BID Aspirin EC [Ecotrin Low Dose] 81 mg PO DAILY Albuterol Sulfate [Albuterol Sulfate Hfa] 1 puff PO RT-Q4H PRN PRN Reason: Shortness Of Breath Discharge Medication List Cholecalciferol [Vitamin D3 (25 Mcg = 1000 Iu)] 1,000 unit PO DAILY 05/10/20 [History] Levothyroxine Sodium [Synthroid] 137 mcg PO DAILY 05/10/20 [History] Simvastatin 40 mg PO HS 05/10/20 [History] Venlafaxine HCl ER [Effexor XR] 150 mg PO DAILY 05/10/20 [History] Albuterol Sulfate [Albuterol Sulfate Hfa] 1 puff PO RT-Q4H PRN 07/28/20 [History] Apixaban [Eliquis] 5 mg PO BID 07/28/20 [History] Aspirin EC [Ecotrin Low Dose] 81 mg PO DAILY 07/28/20 [History] Calcium Carbonate 500 mg PO DAILY 07/28/20 [History] Ferrous Sulfate [Iron (65 MG Elemental)] 325 mg PO DAILY 07/28/20 [History] Gabapentin 300 mg PO BID 07/28/20 [History] Loperamide [Imodium] 2 mg PO QID PRN 07/28/20 [History] Loratadine 10 mg PO DAILY 07/28/20 [History] Magnesium Oxide 400 mg PO BID 07/28/20 [History] Melatonin 3 mg PO HS 07/28/20 [History] Pantoprazole Sodium 40 mg PO DAILY 07/28/20 [History] Simethicone Chew [Mylicon Chew] 80 mg PO QID PRN 07/28/20 [History] ondansetron HCL [Zofran] 8 mg PO Q8HR PRN 07/28/20 [History] Follow up Appointment(s)/Referral(s): Dorian Yan MD [Primary Care Provider] - 1-2 days [facility] [NON-STAFF] - Patient Instructions/Handouts: Dehydration (DC) Discharge Disposition: HOME SELF-CARE
[2020-08-03] MEDS: MELATONIN 3 MG TABLET PO SCH (20:15)
[2020-08-03] MEDS: ATORVASTATIN 20 MG TAB PO SCH (20:15)
--- NOTE | 2020-08-03 22:02 | P.PN ---
Subjective Progress Note Date: 08/03/20 Principal diagnosis: Acute diarrhea Patient is seen sitting bedside today. She continues to report bowel movements are improved with no bowel movements yet today. She is tolerating diet. No abdominal pain.. Objective - Vital Signs Vital signs: Vital Signs Temp 97.9 F 08/03/20 12:00 Pulse 79 08/03/20 12:00 Resp 18 08/03/20 12:00 BP 105/78 08/03/20 12:00 Pulse Ox 99 08/03/20 12:00 Intake & Output 08/02/20 08/03/20 08/03/20 18:59 06:59 18:59 Intake Total 458 120 Balance 458 120 Weight 114.5 kg 109.5 kg Intake: Oral 458 120 Other: Voiding Method Bedside Commode # Voids 2 1 # Bowel Movements 1 - Exam On physical examination, patient appears comfortable in no apparent distress. HEAD: Normocephalic, atraumatic. EYES: No scleral icterus. No conjunctival injection. MOUTH: No lesions, tongue midline. NECK: Trachea midline, no gross abnormalities. ABDOMEN: Soft, obese and nontender. Bowel sounds are positive. No organomegaly. No guarding or rigidity. EXTREMITIES: No pedal edema. SKIN: No rashes, no jaundice. NEUROLOGIC: Alert and oriented x3. No focal deficits. - Labs CBC & Chem 7: 08/01/20 05:45 08/02/20 05:50 Labs: Microbiology - Last 24 Hours (Table) 07/30/20 13:20 Stool Culture - Final Stool Assessment and Plan (1) Diarrhea Narrative/Plan: 74-year-old female with multiple medical comorbidities who presented to the hospital with complaints of diarrhea. She had reported recent use of azithromycin and a prolonged hospitalization in May at which time she had a small bowel resection due to ischemia. Testing for Clostridium difficile has b een negative with stool cultures pending. Patient was seen today and again is reporting diarrhea, surgical service evaluated the patient didn't feel that this is likely secondary to short gut syndrome and added codeine which has been successful in improving diarrhea. Current Visit: Yes Status: Acute Code(s): R19.7 - DIARRHEA, UNSPECIFIED SNOMED Code(s): 88932663 Plan: Supportive care EIA testing for Clostridium difficile toxin negative Okay to advance diet to low fiber, low lactose as tolerated Continue to monitor CBC, BMP Surgical service consulted, recommendation is for codeine with suspected short gut syndrome, with patient subsequently reporting improvement bowel movements Continue other treatment with Imodium and cholestyramine Thank you for allowing us to participate in the care of the patient
[2020-08-04] MEDS: LEVOTHYROXINE 137 MCG TAB PO SCH (06:34)
[2020-08-04] MEDS: PANTOPRAZOLE 40 MG TABLET PO SCH (06:34)
[2020-08-04] MEDS: APIXABAN 5 MG TAB PO SCH ×2 (08:59→20:40)
[2020-08-04] MEDS: VENLAFAXINE HCL ER 150 MG CAP PO SCH (08:59)
[2020-08-04] MEDS: ONDANSETRON 4 MG TAB PO PRN (08:59)
[2020-08-04] MEDS: LORATADINE 10 MG TAB PO SCH (08:59)
[2020-08-04] MEDS: FERROUS SULFATE 325 MG TAB PO SCH ×2 (08:59→12:19)
[2020-08-04] MEDS: ASPIRIN 81 MG PO SCH (08:59)
[2020-08-04] MEDS: GABAPENTIN 300 MG CAP PO SCH ×2 (09:00→20:40)
[2020-08-04] MEDS: CODEINE 30 MG TAB PO SCH ×3 (09:00→23:36)
[2020-08-04] MEDS: MAGNESIUM OXIDE 400 MG TAB PO SCH ×3 (09:00→20:40)
[2020-08-04] MEDS: CHOLECALCIFEROL 1,000 UNIT TAB PO SCH ×2 (09:00→12:19)
[2020-08-04] MEDS: CHOLESTYRAMINE (WITH SUGAR) 4 GM PACKET PO SCH ×2 (09:10→16:48)
--- NOTE | 2020-08-04 09:47 | P.PN ---
Subjective Progress Note Date: 08/04/20 Principal diagnosis: Enteritis Patient doing well today. No bowel movement today. Tolerating diet. No pain. Patient states she is going home. Objective - Vital Signs Vital signs: Vital Signs Temp 98.3 F 08/04/20 08:56 Pulse 98 08/04/20 08:56 Resp 16 08/04/20 08:56 BP 135/85 08/04/20 08:56 Pulse Ox 96 08/04/20 08:56 Intake & Output 08/03/20 08/04/20 08/04/20 18:59 06:59 18:59 Intake Total 120 540 236 Output Total 750 Balance 120 -210 236 Weight 114.6 kg Intake: Oral 120 540 236 Output: Urine 750 Other: Voiding Method Bedside Commode # Voids 1 1 # Bowel Movements 1 - Exam Abdomen: Soft, nondistended, nontender - Labs CBC & Chem 7: 08/01/20 05:45 08/02/20 05:50 Labs: Microbiology - Last 24 Hours (Table) 07/30/20 13:20 Stool Culture - Final Stool Assessment and Plan (1) Enteritis Narrative/Plan: Overall patient improving. Continue codeine post discharge for decreasing bowel transit. Recommend follow-up with her [facility] surgeon post discharge. Current Visit: Yes Status: Acute Code(s): K52.9 - NONINFECTIVE GASTROENTERITIS AND COLITIS, UNSPECIFIED SNOMED Code(s): 14081978
--- NOTE | 2020-08-04 16:02 | P.PN ---
Subjective Progress Note Date: 08/04/20 Principal diagnosis: Orthostatic hypotension with failure to thrive Ongoing diarrhea Dehydration and volume depleted status Hyponatremia Morbid obesity Anasarca Lower extremity edema 08/04/2019, patient seen and evaluated examined during the rounds labs reviewed medications reviewed patient was discharged yesterday but family did not take home as they are uncomfortable and refused, patient resting comfortably hemodynamic status stable, she is on room air afebrile saturation 96% last checked blood pressure 135/85, labs are not done today last were stable renal functions slight upper natremia has been noted, C. diff was negative GI and general surgery has signed off, we'll discuss with the family 08/03/2020, referred to discharge note and evaluation 08/02/2020, patient seen eval examined during the rounds diarrhea slightly better now, Questran has been refused by the patient, as it was causing some abdominal discomfort surgical services and evaluated the patient GI has been following, 08/01/2020, patient seen eval examined during the rounds labs reviewed m edications reviewed, care plan discussed, patient is still having intermittent diarrhea, GI service has been following, Imodium is not helping will start Questran 07/31/2020, patient remains awake and alert, overall blood pressure slightly better, however diarrhea still going on, patient underwent computed tomography scan of the abdominal and pelvis, bilateral atelectasis of the lower lobes noted , thickening of terminal ileum noted with mesenteric edema, ileus-like Petrin 07/30/2020, patient seen eval examined during the rounds labs reviewed medications reviewed, denies any chest pain, continued to complain of generalized weakness, GI service has been following, labs reviewed white cell co unt is stable with hemoglobin and hematocrit, sodium is slightly improved to 132, GI services have evaluated the patient and recommended for infectious colitis C. 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 difficile is negative, a shunt admitted into the hospital with consultation from GI, her chest x-ray unremarkable, stable right-sided subclavian central venous catheter, elevated right hemidiaphragm noted Objective - Vital Signs Vital signs: Vital Signs Temp 97.7 F 08/04/20 15:17 Pulse 98 08/04/20 15:17 Resp 16 08/04/20 15:17 BP 135/79 08/04/20 15:17 Pulse Ox 96 08/04/20 15:17 Intake & Output 08/03/20 08/04/20 08/04/20 18:59 06:59 18:59 Intake Total 120 540 476 Output Total 750 Balance 120 -210 476 Weight 114.6 kg Intake: Oral 120 540 476 Output: Urine 750 Other: Voiding Method Bedside Commode Bedside Commode # Voids 1 1 # Bowel Movements 1 - Exam - Constitutional General appearance: disheveled, morbidly obese - EENT Eyes: PERRLA Ears: bilateral: normal - Neck Carotids: bilateral: upstroke normal Thyroid: bilateral: normal size - Respiratory Respiratory: bilateral: diminished - Cardiovascular Rhythm: regular Heart sounds: normal: S1, S2 - Gastrointestinal General gastrointestinal: normal bowel sounds, soft - Musculoskeletal Musculoskeletal: gait normal, generalized weakness, strength equal bilaterally - Psychiatric Psychiatric: appropriate affect - Labs CBC & Chem 7: 08/01/20 05:45 08/02/20 05:50 Assessment and Plan Assessment: Ileus postoperative Ongoing diarrhea, resolved Dehydration and volume depleted status Hyponatremia, stable, repeat labs tomorrow Morbid obesity Anasarca Lower extremity edema Plan: Observe off of Questran Continue codeine Appreciated input from surgery Overall plan includes gently rehydrate the patient Continue home medications and Eliquis, we'll resume DVT and peptic ulcer disease prophylaxis Consult GI recommendation appreciated and noted Further recommendations pending plan of care as per clinical response of the patient Time with Patient: Greater than 30
[2020-08-04] MEDS: MELATONIN 3 MG TABLET PO SCH (20:40)
[2020-08-04] MEDS: ATORVASTATIN 20 MG TAB PO SCH (20:40)
[2020-08-05] MEDS: LEVOTHYROXINE 137 MCG TAB PO SCH (06:35)
[2020-08-05] MEDS: PANTOPRAZOLE 40 MG TABLET PO SCH (06:35)
[2020-08-05 06:59] LABS: Anisocytosis Slight; Basophils % (A) 1 %; Eosinophils # (A) 0.1 k/uL (0-0.7); Eosinophils % (A) 2 %; HCT 37.2 % (34.0-46.0); HGB 11.6 gm/dL (11.4-16.0); Lymphocytes # (A) 2.7 k/uL (1.0-4.8); Lymphocytes % (A) 36 %; MCH 27.7 pg (25.0-35.0); MCV 89.3 fL (80.0-100.0); Mean Platelet Volume 6.3; Monocytes # (A) 0.3 k/uL (0-1.0); Monocytes % (A) 4 %; Neutrophils # (A) 4.2 k/uL (1.3-7.7); Neutrophils % (A) 56 %; Platelet Count 392 k/uL (150-450); RBC 4.17 m/uL (3.80-5.40); RDW 17.4 % (11.5-15.5); WBC 7.4 k/uL (3.8-10.6)
[2020-08-05 07:08] LABS: ALT 26 U/L (4-34); AST 34 U/L (14-36); African American GFR (CKD) >90 (>60 ml/min/1.73 sqM); Albumin 1.3 g/dL (3.5-5.0); Alkaline Phosphatase 175 U/L (38-126); Anion Gap -2 mmol/L; Blood Urea Nitrogen 15 mg/dL (7-17); Carbon Dioxide 24 mmol/L (22-30); Chloride 105 mmol/L (98-107); Glucose 79 mg/dL (74-99); Non-African American GFR(CKD) 90 (>60 ml/min/1.73 sqM); Potassium 4.4 mmol/L (3.5-5.1); Sodium 127 mmol/L (137-145); Total Bilirubin 0.2 mg/dL (0.2-1.3); Total Protein 3.2 g/dL (6.3-8.2)
[2020-08-05] MEDS: GABAPENTIN 300 MG CAP PO SCH ×2 (08:14→20:24)
[2020-08-05] MEDS: ASPIRIN 81 MG PO SCH (08:14)
[2020-08-05] MEDS: APIXABAN 5 MG TAB PO SCH ×2 (08:14→20:24)
[2020-08-05] MEDS: VENLAFAXINE HCL ER 150 MG CAP PO SCH (08:14)
[2020-08-05] MEDS: LORATADINE 10 MG TAB PO SCH (08:14)
[2020-08-05] MEDS: CHOLESTYRAMINE (WITH SUGAR) 4 GM PACKET PO SCH ×2 (08:15→15:47)
--- NOTE | 2020-08-05 08:34 | P.PN ---
Subjective Progress Note Date: 08/05/20 Principal diagnosis: Enteritis Patient is still hospitalized. Apparently the family was encouraging her to go to rehab but the patient refuses. She was stating she may be going home today. Ironically the patient now has not had a bowel movement in the last 3 days. She is having some crampy abdominal discomfort. She still would like to go home. No nausea or vomiting. Tolerating diet. Objective - Vital Signs Vital signs: Vital Signs Temp 97.5 F L 08/05/20 08:04 Pulse 85 08/05/20 08:04 Resp 16 08/05/20 08:04 BP 109/52 08/05/20 08:04 Pulse Ox 95 08/05/20 08:04 Intake & Output 08/04/20 08/05/20 08/05/20 18:59 06:59 18:59 Intake Total 726 240 Balance 726 240 Weight 110.6 kg Intake: Oral 726 240 Other: Voiding Method Bedside Commode Toilet # Voids 1 2 - Exam Abdomen: Soft, nondistended, nontender - Labs CBC & Chem 7: 08/05/20 06:53 08/05/20 06:53 Labs: Abnormal Lab Results - Last 24 Hours (Table) 08/05/20 08/05/20 Range/Units 06:53 06:53 RDW 17.4 H (11.5-15.5) % Sodium 127 L (137-145) mmol/L Calcium 7.0 L (8.4-10.2) mg/dL Alkaline Phosphatase 175 H (38-126) U/L Total Protein 3.2 L (6.3-8.2) g/dL Albumin 1.3 L (3.5-5.0) g/dL Assessment and Plan (1) Enteritis Narrative/Plan: Patient having decreased bowel function. Possibly related to codeine. We will hold the codeine for now. Ambulate in the halls. Possible discharge later today if bowel function resumes. Current Visit: Yes Status: Acute Code(s): K52.9 - NONINFECTIVE GASTROENTERITIS AND COLITIS, UNSPECIFIED SNOMED Code(s): 68241958
[2020-08-05] MEDS: MAGNESIUM OXIDE 400 MG TAB PO SCH ×2 (13:11→20:24)
[2020-08-05] MEDS: CHOLECALCIFEROL 1,000 UNIT TAB PO SCH (13:11)
[2020-08-05] MEDS: FERROUS SULFATE 325 MG TAB PO SCH (13:11)
--- NOTE | 2020-08-05 14:34 | P.PN ---
Subjective Progress Note Date: 08/05/20 Principal diagnosis: Orthostatic hypotension with failure to thrive Ongoing diarrhea Dehydration and volume depleted status Hyponatremia Morbid obesity Anasarca Lower extremity edema 08/05/2019, patient has constipation, overall doing well denies any chest pain hemodynamics is stable, patient likely will be discharged home as not a considered for rehab placement 08/04/2019, patient seen and evaluated examined during the rounds labs reviewed medications reviewed patient was discharged yesterday but family did not take home as they are uncomfortable and refused, patient resting comfortably hemodynamic status stable, she is on room air afebrile saturation 96% last ch ecked blood pressure 135/85, labs are not done today last were stable renal functions slight upper natremia has been noted, C. diff was negative GI and general surgery has signed off, we'll discuss with the family 08/03/2020, referred to discharge note and evaluation 08/02/2020, patient seen eval examined during the rounds diarrhea slightly better now, Questran has been refused by the patient, as it was causing some abdominal discomfort surgical services and evaluated the patient GI has been kristin jiménez, 08/01/2020, patient seen eval examined during the rounds labs reviewed medications reviewed, care plan discussed, patient is still having intermittent diarrhea, GI service has been following, Imodium is not helping will start Questran 07/31/2020, patient remains awake and alert, overall blood pressure slightly better, however diarrhea still going on, patient underwent computed tomography scan of the abdominal and pelvis, bilateral atelectasis of the lower lobes noted, thickening of terminal ileum noted with mesenteric edema, ileus-like Petrin 07/30/2020, patient seen eval examined during the rounds labs reviewed medications reviewed, denies any chest pain, continued to complain of generalized weakness, GI service has been following, labs reviewed white cell count is stable with hemoglobin and hematocrit, sodium is slightly improved to 132, GI services have evaluated the patient and recommended for infectious colitis C. 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 difficile is negative, a shunt admitted into the hospital with c onsultation from GI, her chest x-ray unremarkable, stable right-sided subclavian central venous catheter, elevated right hemidiaphragm noted Objective - Vital Signs Vital signs: Vital Signs Temp 97.5 F L 08/05/20 08:04 Pulse 98 08/05/20 11:30 Resp 16 08/05/20 11:30 BP 125/78 08/05/20 11:30 Pulse Ox 99 08/05/20 11:30 Intake & Output 08/04/20 08/05/20 08/05/20 18:59 06:59 18:59 Intake Total 726 360 Balance 726 360 Weight 110.6 kg Intake: Oral 726 360 Other: Voiding Method Bedside Commode Toilet Toilet # Voids 1 2 2 - Exam - Constitutional General appearance: disheveled, morbidly obese - EENT Eyes: PERRLA Ears: bilateral: normal - Neck Carotids: bilateral: upstroke normal Thyroid: bilateral: normal size - Respiratory Respiratory: bilateral: diminished - Cardiovascular Rhythm: regular Heart sounds: normal: S1, S2 - Gastrointestinal General gastrointestinal: normal bowel sounds, soft - Musculoskeletal Musculoskeletal: gait normal, generalized weakness, strength equal bilaterally - Psychiatric Psychiatric: appropriate affect - Labs CBC & Chem 7: 08/05/20 06:53 08/05/20 06:53 Labs: Abnormal Lab Results - Last 24 Hours (Table) 08/05/20 08/05/20 Range/Units 06:53 06:53 RDW 17.4 H (11.5-15.5) % Sodium 127 L (137-145) mmol/L Calcium 7.0 L (8.4-10.2) mg/dL Alkaline Phosphatase 175 H (38-126) U/L Total Protein 3.2 L (6.3-8.2) g/dL Albumin 1.3 L (3.5-5.0) g/dL Assessment and Plan Assessment: Ileus postoperative Ongoing diarrhea, resolved Dehydration and volume depleted status Hyponatremia, stable, repeat labs tomorrow Morbid obesity Anasarca Lower extremity edema Plan: Observe off of Questran Continue codeine Appreciated input from surgery Overall plan includes gently rehydrate the patient Continue home medications and Eliquis, we'll resume DVT and peptic ulcer disease prophylaxis Consult GI recommendation appreciated and noted Further recommendations pending plan of care as per clinical response of the patient Time with Patient: Greater than 30
[2020-08-05] MEDS: LOPERAMIDE 2 MG CAP PO PRN ×2 (14:48→22:12)
[2020-08-05] MEDS: MELATONIN 3 MG TABLET PO SCH (20:24)
[2020-08-05] MEDS: ATORVASTATIN 20 MG TAB PO SCH (20:24)
[2020-08-06] MEDS: LEVOTHYROXINE 137 MCG TAB PO SCH (06:31)
[2020-08-06] MEDS: ASPIRIN 81 MG PO SCH (07:49)
[2020-08-06] MEDS: GABAPENTIN 300 MG CAP PO SCH ×2 (07:49→20:25)
[2020-08-06] MEDS: VENLAFAXINE HCL ER 150 MG CAP PO SCH (07:49)
[2020-08-06] MEDS: FERROUS SULFATE 325 MG TAB PO SCH (07:50)
[2020-08-06] MEDS: MAGNESIUM OXIDE 400 MG TAB PO SCH ×2 (07:50→20:25)
[2020-08-06] MEDS: PANTOPRAZOLE 40 MG TABLET PO SCH (07:50)
[2020-08-06] MEDS: LORATADINE 10 MG TAB PO SCH (07:50)
[2020-08-06] MEDS: APIXABAN 5 MG TAB PO SCH ×2 (07:50→20:25)
[2020-08-06] MEDS: CHOLECALCIFEROL 1,000 UNIT TAB PO SCH (07:50)
[2020-08-06 09:46] LABS: Anisocytosis Slight; Basophils % (A) 0 %; Eosinophils # (A) 0.1 k/uL (0-0.7); Eosinophils % (A) 1 %; HCT 36.8 % (34.0-46.0); HGB 11.1 gm/dL (11.4-16.0); Lymphocytes % (A) 26 %; MCH 26.9 pg (25.0-35.0); MCHC 30.1 g/dL (31.0-37.0); MCV 89.4 fL (80.0-100.0); Mean Platelet Volume 6.7; Monocytes # (A) 0.3 k/uL (0-1.0); Monocytes % (A) 4 %; Neutrophils # (A) 5.2 k/uL (1.3-7.7); Neutrophils % (A) 68 %; Platelet Count 387 k/uL (150-450); RBC 4.11 m/uL (3.80-5.40); RDW 17.6 % (11.5-15.5); WBC 7.6 k/uL (3.8-10.6)
--- NOTE | 2020-08-06 10:57 | P.PN ---
Subjective Progress Note Date: 08/06/20 Principal diagnosis: Enteritis Patient had return of bowel function yesterday with multiple loose stools in the afternoon. More formed bowel movement this morning. Patient more concerned about swelling in the upper extremities and lower extremities with some weeping of serous fluid from previous IV sites in her arm. Objective - Vital Signs Vital signs: Vital Signs Temp 97.5 F L 08/06/20 08:00 Pulse 78 08/06/20 08:00 Resp 16 08/06/20 08:00 BP 90/73 08/06/20 08:00 Pulse Ox 98 08/06/20 08:00 Intake & Output 08/05/20 08/06/20 08/06/20 18:59 06:59 18:59 Intake Total 730 Balance 730 Intake: Oral 730 Other: Voiding Method Toilet Toilet # Voids 2 1 1 # Bowel Movements 4 1 1 - Exam Abdomen: Soft, nondistended, nontender - Labs CBC & Chem 7: 08/06/20 07:53 08/05/20 06:53 Labs: Abnormal Lab Results - Last 24 Hours (Table) 08/06/20 Range/Units 07:53 Hgb 11.1 L (11.4-16.0) gm/dL MCHC 30.1 L (31.0-37.0) g/dL RDW 17.6 H (11.5-15.5) % Assessment and Plan (1) Enteritis Narrative/Plan: Patient doing better at this time. Continue diet as tolerated. May resume codeine on an as-needed basis for short gut syndrome. Discharge per primary service once edema improved. I will be out of town after today. We will sign off at this point. Please consult service if necessary. Current Visit: Yes Status: Acute Code(s): K52.9 - NONINFECTIVE GASTROENTERITIS AND COLITIS, UNSPECIFIED SNOMED Code(s): 14337316
--- NOTE | 2020-08-06 15:39 | P.PN ---
Subjective Progress Note Date: 08/06/20 Principal diagnosis: Orthostatic hypotension with failure to thrive Ongoing diarrhea Dehydration and volume depleted status Hyponatremia Morbid obesity Anasarca Lower extremity edema 08/06/2020, patient seen eval examined during the rounds labs reviewed medications reviewed, patient continued to have significant edematous status, we'll consult nephrology for diuresis, 08/05/2020, patient has constipation, overall doing well denies any chest pain hemodynamics is stable, patient likely will be discharged home as not a considered for rehab placement 08/04/2020, patient seen and evaluated examined during the rounds labs reviewed medications reviewed patient was discharged yesterday but family did not take home as they are uncomfortable and refused, patient resting comfortably hemodynamic status stable, she is on room air afebrile saturation 96% last checked blood pressure 135/85, labs are not done today last were stable renal functions slight upper natremia has been noted, C. diff was negative GI and general surgery has signed off, we'll discuss with the family 08/03/2020, referred to discharge note and evaluation 08/02/2020, patient seen eval examined during the rounds diarrhea slightly better now, Questran has been refused by the patient, as it was causing some abdominal discomfort surgical services and evaluated the patient GI has been following, 08/01/2020, patient seen eval examined during the rounds labs reviewed medications reviewed, care plan discussed, patient is still having intermittent diarrhea, GI service has been following, Imodium is not helping will start Questran 07/31/2020, patient remains awake and alert, overall blood pressure slightly better, however diarrhea still going on, patient underwent computed tomography scan of the abdominal and pelvis, bilateral atelectasis of the lower lobes noted, thickening of terminal ileum noted with mesenteric edema, ileus-like Petrin 07/30/2020, patient seen eval examined during the rounds labs reviewed medications reviewed, denies any chest pain, continued to complain of generali zed weakness, GI service has been following, labs reviewed white cell count is stable with hemoglobin and hematocrit, sodium is slightly improved to 132, GI services have evaluated the patient and recommended for infectious colitis C. 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 difficile is negative, a shunt admitted into the hospital with consultation from GI, her chest x-ray unremarkable, stable right-sided subclavian central venous catheter, elevated right hemidiaphragm noted Objective - Vital Signs Vital signs: Vital Signs Temp 97.9 F 08/06/20 15:20 Pulse 95 08/06/20 15:20 Resp 18 08/06/20 15:20 BP 109/78 08/06/20 15:20 Pulse Ox 98 08/06/20 15:20 Intake & Output 08/05/20 08/06/20 08/06/20 18:59 06:59 18:59 Intake Total 730 Balance 730 Intake: Oral 730 Other: Voiding Method Toilet Toilet Toilet # Voids 2 1 1 # Bowel Movements 4 1 1 - Exam - Constitutional General appearance: disheveled, morbidly obese - EENT Eyes: PERRLA Ears: bilateral: normal - Neck Carotids: bilateral: upstroke normal Thyroid: bilateral: normal size - Respiratory Respiratory: bilateral: diminished - Cardiovascular Rhythm: regular Heart sounds: normal: S1, S2 - Gastrointestinal General gastrointestinal: normal bowel sounds, soft - Musculoskeletal Musculoskeletal: gait normal, generalized weakness, strength equal bilaterally - Psychiatric Psychiatric: appropriate affect - Labs CBC & Chem 7: 08/06/20 07:53 08/05/20 06:53 Labs: Abnormal Lab Results - Last 24 Hours (Table) 08/06/20 Range/Units 07:53 Hgb 11.1 L (11.4-16.0) gm/dL MCHC 30.1 L (31.0-37.0) g/dL RDW 17.6 H (11.5-15.5) % Assessment and Plan Assessment: Anasarca and diffuse edematous status Ileus postoperative Ongoing diarrhea, resolved Dehydration and volume depleted status Hyponatremia, stable, repeat labs tomorrow Morbid obesity Anasarca Lower extremity edema Plan: Observe off of Questran Consult nephrology for possibly Zaroxolyn trial or Lasix strip Continue codeine Appreciated input from surgery Overall plan includes gently rehydrate the patient Continue home medications and Eliquis, we'll resume DVT and peptic ulcer disease prophylaxis Consult GI recommendation appreciated and noted Further recommendations pending plan of care as per clinical response of the patient Time with Patient: Greater than 30
[2020-08-06] MEDS: CHOLESTYRAMINE (WITH SUGAR) 4 GM PACKET PO SCH (16:24)
[2020-08-06 17:24] LABS: African American GFR (CKD) 112.1 (60.0-200.0); Non-African American GFR(CKD) 96.7 (60.0-200.0); Potassium 3.9 mmol/L (3.5-5.5)
[2020-08-06] MEDS: MELATONIN 3 MG TABLET PO SCH (20:25)
[2020-08-06] MEDS: ATORVASTATIN 20 MG TAB PO SCH (20:25)
[2020-08-07] MEDS: LEVOTHYROXINE 137 MCG TAB PO SCH (06:56)
[2020-08-07] MEDS: FERROUS SULFATE 325 MG TAB PO SCH (08:21)
[2020-08-07] MEDS: MAGNESIUM OXIDE 400 MG TAB PO SCH ×2 (08:21→21:06)
[2020-08-07] MEDS: PANTOPRAZOLE 40 MG TABLET PO SCH (08:21)
[2020-08-07] MEDS: ASPIRIN 81 MG PO SCH (08:21)
[2020-08-07] MEDS: VENLAFAXINE HCL ER 150 MG CAP PO SCH (08:21)
[2020-08-07] MEDS: LORATADINE 10 MG TAB PO SCH (08:22)
[2020-08-07] MEDS: CHOLECALCIFEROL 1,000 UNIT TAB PO SCH (08:22)
[2020-08-07] MEDS: APIXABAN 5 MG TAB PO SCH ×2 (08:22→21:06)
[2020-08-07] MEDS: CHOLESTYRAMINE (WITH SUGAR) 4 GM PACKET PO SCH ×2 (08:22→17:13)
[2020-08-07] MEDS: GABAPENTIN 300 MG CAP PO SCH ×2 (08:22→21:07)
[2020-08-07] MEDS: CODEINE 30 MG TAB PO SCH (08:27)
[2020-08-07 09:09] LABS: Calcium 6.1 mg/dL (8.7-10.3)
--- NOTE | 2020-08-07 12:09 | P.PN ---
Subjective Progress Note Date: 08/07/20 CHIEF COMPLAINT: Enteritis HISTORY OF PRESENT ILLNESS: Patient reports that she is having bowel movements. They are more formed. She denies any abdominal pain. Patient has had swelling in the upper and lower extremities. Nephrology currently on consult regarding patient's edema. She is afebrile. She is tolerating carb consistent diet PHYSICAL EXAM: VITAL SIGNS: Reviewed. GENERAL: Well-developed in no acute distress. HEENT: No sclera icterus. Extraocular movements grossly intact. Moist buccal mucosa. Head is atraumatic, normocephalic. ABDOMEN: Soft. Nondistended. Nontender. NEUROLOGIC: Alert and oriented. Cranial nerves II through XII grossly intact. ASSESSMENT: 1. Enteritis improving PLAN: -No surgical intervention planned -Continue current diet -May resume codeine on an as-needed basis for short gut syndrome [employer] note has been reviewed by physician. Signing provider agrees with the documented findings, assessment, and plan of care. Objective - Vital Signs Vital signs: Vital Signs Temp 98.4 F 08/07/20 08:00 Pulse 97 08/07/20 08:00 Resp 16 08/07/20 08:00 BP 131/84 08/07/20 08:00 Pulse Ox 97 08/07/20 08:00 Intake & Output 08/06/20 08/07/20 08/07/20 18:59 06:59 18:59 Intake Total 240 Balance 240 Intake: Oral 240 Other: Voiding Method Toilet Toilet # Voids 4 2 # Bowel Movements 1 2 - Labs CBC & Chem 7: 08/06/20 07:53 08/06/20 09:30 Labs: Abnormal Lab Results - Last 24 Hours (Table) 08/06/20 Range/Units 09:30 Chloride 110 H (96-109) mmol/L Carbon Dioxide 21.0 L (21.6-31.8) mmol/L Creatinine 0.5 L (0.6-1.5) mg/dL BUN/Creatinine Ratio 30.00 H (12.00-20.00) Ratio Calcium 6.1 L* (8.7-10.3) mg/dL
--- NOTE | 2020-08-07 13:05 | P.NPCON ---
History of Present Illness - Reason for Consult hyponatremia - History of Present Illness Reason for consultation: Hyponatremia History of present illness: Patient is a 74-year-old female seen in renal consultation for hyponatremia. Patient's sodium level has been in the range of 120 732 this admission. Today it is up to 135. Patient presented to the hospital on 07/28/2020 due to low blood pressure and weakness. Her blood pressure was in the systolic 60s initially on admission. Her oral intake was poor prior to admission. Prior to this admission she was admitted at [facility] and was discharged on 07/26/2020. Patient did undergo partial bowel resection in May 2020 at [facility]. Patient's albumin level is noted to be severely low at 1.3 as of 08/05/2020. Renal function is at baseline. She denies any history of renal disease. Denies chest pain or shortness of breath. Oral intake is slowly improving. She has been voiding. No hematuria or dysuria. Denies regular use of nonsteroidals. Trace proteinuria on UA. Vital signs are stable. General: The patient appeared well nourished and normally developed. HEENT: Head exam is unremarkable. Neck is without jugular venous distension. LUNGS: Breath sounds decreased. HEART: Rate and Rhythm are regular. ABDOMEN: Soft, nontender. Obese. EXTREMITITES: 2+ edema. 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 Pt reports blood clot in bowel after surgery History of Any Multi-Drug Resistant Organisms: None Reported Past Surgical History: Joint Replacement Additional Past Surgical History / Comment(s): Colonoscopy with last on 05/08/20, bilateral total knees, left overy removed d/t cyst, bilateral eye cataract removals/lens implants, R eye multiple surgeries for retinal tears, bowel resection. Additional Past Anesthesia/Blood Transfusion Reaction / Comment(s): Difficulty getting to sleep, states she can be combative after surgery Past Psychological History: Anxiety, Depression Additional Psychological History / Comment(s): Pt resides alone. She is independent. Smoking Status: Former smoker Past Alcohol Use History: Rare Additional Past Alcohol Use History / Comment(s): Pt started smoking as a teen and quit in 1999. She was a heavy smoker. Past Drug Use History: None Reported - Past Family History Mother Family Medical History: No Reported History Additional Family Medical History / Comment(s): Mother did not go to the doctor much. Father Family Medical History: Vascular Disorder Additional Family Medical History / Comment(s): Father in his early 50s of a ruptured thoracic aneurysm. Medications and Allergies Home Medications Medication Instructions Recorded Confirmed Type Cholecalciferol [Vitamin D3 (25 1,000 unit PO DAILY 05/10/20 07/28/20 History Mcg = 1000 Iu)] Levothyroxine Sodium [Synthroid] 137 mcg PO DAILY 05/10/20 07/28/20 History Simvastatin 40 mg PO HS 05/10/20 07/28/20 History Venlafaxine HCl ER [Effexor XR] 150 mg PO DAILY 05/10/20 07/28/20 History Albuterol Sulfate [Albuterol 1 puff PO RT-Q4H PRN 07/28/20 07/28/20 History Sulfate Hfa] Apixaban [Eliquis] 5 mg PO BID 07/28/20 07/28/20 History Aspirin EC [Ecotrin Low Dose] 81 mg PO DAILY 07/28/20 07/28/20 History Calcium Carbonate 500 mg PO DAILY 07/28/20 07/28/20 History Ferrous Sulfate [Iron (65 MG 325 mg PO DAILY 07/28/20 07/28/20 History Elemental)] Gabapentin 300 mg PO BID 07/28/20 07/28/20 History Loperamide [Imodium] 2 mg PO QID PRN 07/28/20 07/28/20 History Loratadine 10 mg PO DAILY 07/28/20 07/28/20 History Magnesium Oxide 400 mg PO BID 07/28/20 07/28/20 History Melatonin 3 mg PO HS 07/28/20 07/28/20 History Pantoprazole Sodium 40 mg PO DAILY 07/28/20 07/28/20 History Simethicone Chew [Mylicon Chew] 80 mg PO QID PRN 07/28/20 07/28/20 History ondansetron HCL [Zofran] 8 mg PO Q8HR PRN 07/28/20 07/28/20 History Codeine Sulfate 15 mg PO Q8HR PRN 30 Days #90 tab 08/04/20 Rx Allergies Allergy/AdvReac Type Severity Reaction Status Date / Time Penicillins Allergy Unknown Verified 07/28/20 16:04 Sulfa (Sulfonamide Allergy Unknown Verified 07/28/20 16:04 Antibiotics) Physical Exam Vitals: Vital Signs Temp Pulse Resp BP Pulse Ox 08/07/20 08:00 98.4 F 97 16 131/84 97 08/07/20 01:55 98.5 F 103 H 18 110/71 97 08/06/20 20:00 18 08/06/20 19:08 98.3 F 88 18 147/80 93 L 08/06/20 15:20 97.9 F 95 18 109/78 98 Intake and Output 08/06/20 08/07/20 08/07/20 22:59 06:59 14:59 Intake Total 240 Balance 240 Intake: Oral 240 Other: Voiding Method Toilet # Voids 1 2 # Bowel Movements 2 Results - Lab Results Most recent lab results Calcium 6.1 mg/dL (8.7-10.3) L* 08/06/20 09:30 Magnesium 1.7 mg/dL (1.6-2.3) 07/30/20 12:14 08/06/20 07:53 08/06/20 09:30 Assessment and Plan Plan: Assessment: 1. Hypervolemic hyponatremia. Better. 2. Volume overload with severe hypoalbuminemia leading to third spacing. 3. Hypocalcemia secondary to hypoalbuminemia. Corrected calcium near normal. Ionized calcium normal. 4. Status post partial bowel resection and May 2020 at [facility]. Plan: 25 g IV albumin twice a day x 4 total doses. Lasix 60 mg twice a day to be given 1 hour after albumin infusion. 1200 mL fluid restriction. Encouraged oral intake, particularly protein. Ensure 3 times a day. Quantify proteinuria. Check serologies. Thank you for the consultation. I will continue to follow the patient with you during her hospital stay.
[2020-08-07 13:15] LABS: ALT 26 U/L (4-34); AST 35 U/L (14-36); African American GFR (CKD) >90 (>60 ml/min/1.73 sqM); Albumin 1.3 g/dL (3.5-5.0); Albumin/Globulin Ratio 0.7; Alkaline Phosphatase 175 U/L (38-126); Anion Gap -2 mmol/L; Blood Urea Nitrogen 16 mg/dL (7-17); Calcium 7.1 mg/dL (8.4-10.2); Carbon Dioxide 23 mmol/L (22-30); Chloride 107 mmol/L (98-107); Glucose 98 mg/dL (74-99); Magnesium 1.7 mg/dL (1.6-2.3); Non-African American GFR(CKD) 90 (>60 ml/min/1.73 sqM); Potassium 4.5 mmol/L (3.5-5.1); Sodium 128 mmol/L (137-145); Total Bilirubin 0.3 mg/dL (0.2-1.3); Total Protein 3.3 g/dL (6.3-8.2)
[2020-08-07] MEDS: ALBUMIN HUMAN 25% 50 ML in EMPTY BAG 1 BAG IVPB SCH ×2 (14:08→15:13)
--- NOTE | 2020-08-07 16:28 | P.PN ---
Subjective Progress Note Date: 08/07/20 Principal diagnosis: Orthostatic hypotension with failure to thrive Ongoing diarrhea Dehydration and volume depleted status Hyponatremia Morbid obesity Anasarca Lower extremity edema 08/07/2020, patient seen eval examined during the rounds labs reviewed medications reviewed care plan discussed, patient has been doing well remains on room air breathing comfortably does have generalized anasarca renal services has been consulted for noncirrhotic ascites and anasarca so diuresis can be achieved, they recommended albumin with Lasix now 08/06/2020, patient seen eval examined during the rounds labs reviewed medications reviewed, patient continued to have significant edematous status, we'll consult nephrology for diuresis, 08/05/2020, patient has constipation, overall doing well denies any chest pain hemodynamics is stable, patient likely will be discharged home as not a considered for rehab placement 08/04/2020, patient seen and evaluated examined during the rounds labs reviewed medications reviewed patient was discharged yesterday but family did not take home as they are uncomfortable and refused, patient resting comfortably hemodynamic status stable, she is on room air afebrile saturation 96% last checked blood pressure 135/85, labs are not done today last were stable renal functions slight upper natremia has been noted, C. diff was negative GI and gen eral surgery has signed off, we'll discuss with the family 08/03/2020, referred to discharge note and evaluation 08/02/2020, patient seen eval examined during the rounds diarrhea slightly better now, Questran has been refused by the patient, as it was causing some abdominal discomfort surgical services and evaluated the patient GI has been following, 08/01/2020, patient seen eval examined during the rounds labs reviewed medications reviewed, care plan discussed, patient is still having intermittent diarrhea, GI service has been following, Imodium is not helping will start Questran 07/31/2020, patient remains awake and alert, overall blood pressure slightly better, however diarrhea still going on, patient underwent computed tomography scan of the abdominal and pelvis, bilateral atelectasis of the lower lobes noted, thickening of terminal ileum noted with mesenteric edema, ileus-like P etrin 07/30/2020, patient seen eval examined during the rounds labs reviewed medications reviewed, denies any chest pain, continued to complain of generalized weakness, GI service has been following, labs reviewed white cell count is stable with hemoglobin and hematocrit, sodium is slightly improved to 132, GI services have evaluated the patient and recommended for infectious colitis C. difficile colitis, This is a 74-year-old morbidly obese female patient was brought into emergency department due to progressive generalized weakness also hypertension the symptoms have been going on for 45 days, lately her blood pressure was in 60s, she has poor appetite, by mouth intake was minimal, it appears that patient was at [facility] discharge in July 26, family noted no significant imp rovement is slow progressive worsening along with lower extremity edema, she is status post surgery for ischemic bowel in May, her past medical history significant for hypothyroidism, dyslipidemia, COPD, chronic anemia, neuropathy, peptic ulcer disease, her labs were significant for hyponatremia with a sodium of 1:30, CO2 is low at 19, BUN/creatinine normal, lactic acid is 1, she has moderate blood with RBCs WBC however leukocyte history is negative along with nitrate, C. difficile is negative, a shunt admitted into the hospital with consultation from GI, her chest x-ray unremarkable, stable right-sided subclavian central venous catheter, elevated right hemidiaphragm noted Objective - Vital Signs Vital signs: Vital Signs Temp 98.1 F 08/07/20 14:00 Pulse 94 08/07/20 14:00 Resp 16 08/07/20 14:00 BP 122/83 08/07/20 14:00 Pulse Ox 98 08/07/20 14:00 Intake & Output 08/06/20 08/07/20 08/07/20 18:59 06:59 18:59 Intake Total 240 Balance 240 Intake: Oral 240 Other: Voiding Method Toilet Toilet # Voids 4 2 # Bowel Movements 1 2 - Exam - Constitutional General appearance: disheveled, morbidly obese - EENT Eyes: PERRLA Ears: bilateral: normal - Neck Carotids: bilateral: upstroke normal Thyroid: bilateral: normal size - Respiratory Respiratory: bilateral: diminished - Cardiovascular Rhythm: regular Heart sounds: normal: S1, S2 - Gastrointestinal General gastrointestinal: normal bowel sounds, soft - Musculoskeletal Musculoskeletal: gait normal, generalized weakness, strength equal bilaterally - Psychiatric Psychiatric: appropriate affect - Labs CBC & Chem 7: 08/06/20 07:53 08/07/20 12:38 Labs: Abnormal Lab Results - Last 24 Hours (Table) 08/06/20 08/07/20 Range/Units 09:30 12:38 Sodium 128 L (137-145) mmol/L Chloride 110 H (96-109) mmol/L Carbon Dioxide 21.0 L (21.6-31.8) mmol/L Creatinine 0.5 L (0.6-1.5) mg/dL BUN/Creatinine Ratio 30.00 H (12.00-20.00) Ratio Calcium 6.1 L* 7.1 L (8.7-10.3) mg/dL Alkaline Phosphatase 175 H (38-126) U/L Total Protein 3.3 L (6.3-8.2) g/dL Albumin 1.3 L (3.5-5.0) g/dL Assessment and Plan Assessment: Anasarca and diffuse edematous status Ileus postoperative Ongoing diarrhea, resolved Dehydration and volume depleted status Hyponatremia, stable, repeat labs tomorrow Morbid obesity Anasarca Lower extremity edema Plan: Observe off of Questran Consult nephrology recommendation appreciated Continue codeine Appreciated input from surgery Overall plan includes gently rehydrate the patient Continue home medications and Eliquis, we'll resume DVT and peptic ulcer disease prophylaxis Consult GI recommendation appreciated and noted Further recommendations pending plan of care as per clinical response of the patient Time with Patient: Greater than 30
[2020-08-07] MEDS ORDERED: FUROSEMIDE 10 MG/ML 10 ML VIAL IV ONE (17:00)
[2020-08-07 18:37] LABS: Protein/Creatinine Ratio,Urine 0.208
[2020-08-07] MEDS: MELATONIN 3 MG TABLET PO SCH (21:06)
[2020-08-07] MEDS: ATORVASTATIN 20 MG TAB PO SCH (21:06)
[2020-08-07 23:10] LABS: Hepatitis A Antibody IgM Non-Reactive (Non-Reactive); Hepatitis B Core IgM Non-Reactive (Non-Reactive); Hepatitis B Surface Antigen Non-Reactive (Non-Reactive); Hepatitis C IgG Antibody Non-Reactive (Non-Reactive)
[2020-08-08] MEDS: ALBUMIN HUMAN 25% 50 ML in EMPTY BAG 1 BAG IVPB SCH ×7 (00:08→23:54)
[2020-08-08 00:36] LABS: Anti-DNA, DS unit <1.0 IU/mL; DNA Double-Stranded NEGATIVE (NEGATIVE)
[2020-08-08 02:32] LABS: Creatinine,Urine Random 51.8 mg/dL
[2020-08-08 02:35] LABS: Total Protein,Urine Random 5.1 mg/dL (0.0-13.5)
[2020-08-08] MEDS ORDERED: FUROSEMIDE 10 MG/ML 10 ML VIAL IV ONE ×2 (03:00→12:00)
[2020-08-08] MEDS: LEVOTHYROXINE 137 MCG TAB PO SCH (04:47)
[2020-08-08] MEDS: LORATADINE 10 MG TAB PO SCH (08:23)
[2020-08-08] MEDS: PANTOPRAZOLE 40 MG TABLET PO SCH (08:23)
[2020-08-08] MEDS: CHOLECALCIFEROL 1,000 UNIT TAB PO SCH (08:23)
[2020-08-08] MEDS: GABAPENTIN 300 MG CAP PO SCH ×2 (08:23→21:52)
[2020-08-08] MEDS: VENLAFAXINE HCL ER 150 MG CAP PO SCH (08:23)
[2020-08-08] MEDS: ASPIRIN 81 MG PO SCH (08:23)
[2020-08-08] MEDS: MAGNESIUM OXIDE 400 MG TAB PO SCH ×2 (08:23→21:51)
[2020-08-08] MEDS: FERROUS SULFATE 325 MG TAB PO SCH (08:24)
[2020-08-08] MEDS: APIXABAN 5 MG TAB PO SCH ×2 (08:31→21:51)
[2020-08-08] MEDS: CHOLESTYRAMINE (WITH SUGAR) 4 GM PACKET PO SCH ×2 (08:31→16:37)
--- NOTE | 2020-08-08 10:54 | P.PN ---
Subjective Progress Note Date: 08/08/20 CHIEF COMPLAINT: Enteritis HISTORY OF PRESENT ILLNESS: Patient reports that she is having formed bowel m ovements. She did have some nausea and dizziness yesterday evening. Again reports some nausea this morning. No vomiting. She feels that her overall edema is improving. She was seen by nephrology they have ordered IV Lasix and IV albumin. Patient had volume overload with severe hypoalbuminemia dipping to third spacing. Patient is afebrile. PHYSICAL EXAM: VITAL SIGNS: Reviewed. GENERAL: Well-developed in no acute distress. HEENT: No sclera icterus. Extraocular movements grossly intact. Moist buccal mucosa. Head is atraumatic, normocephalic. ABDOMEN: Soft. Nondistended. Nontender. NEUROLOGIC: Alert and oriented. Cranial nerves II through XII grossly intact. ASSESSMENT: 1. Enteritis improving 2. 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 Signing provider agrees with the documented findings, assessment, and plan of care. Objective - Vital Signs Vital signs: Vital Signs Temp 97.6 F 08/08/20 07:49 Pulse 88 08/08/20 07:49 Resp 16 08/08/20 07:49 BP 120/73 08/08/20 07:49 Pulse Ox 97 08/08/20 07:49 Intake & Output 08/07/20 08/08/20 08/08/20 18:59 06:59 18:59 Output Total 1800 1650 Balance -1800 -1650 Output: Urine 1800 1650 Other: Voiding Method External Catheter External Catheter # Voids 6 2 # Bowel Movements 2 1 - Labs CBC & Chem 7: 08/06/20 07:53 08/07/20 12:38 Labs: Abnormal Lab Results - Last 24 Hours (Table) 08/07/20 08/07/20 Range/Units 12:38 12:38 Sodium 128 L (137-145) mmol/L Calcium 7.1 L (8.4-10.2) mg/dL Alkaline Phosphatase 175 H (38-126) U/L Total Protein 3.3 L (6.3-8.2) g/dL Total Protein (PEP) 3.0 L (6.2-8.2) g/dL Albumin 1.3 L (3.5-5.0) g/dL
--- NOTE | 2020-08-08 11:57 | P.PN ---
Subjective Progress Note Date: 08/08/20 Principal diagnosis: Orthostatic hypotension with failure to thrive Ongoing diarrhea Dehydration and volume depleted status Hyponatremia Morbid obesity Anasarca Lower extremity edema 08/08/2020, patient seen eval examined during the rounds labs reviewed medications reviewed care plan discussed, patient's respiratory status remains stable, diarrhea has improved, however lower extremity edema still there but severity has improved, renal services are following, labs reviewed sodium is 128, renal functions and normal calcium improved to 7.1 now, check another set of labs tomorrow likely will be discharged continue physical therapy 08/07/2020, patient seen eval examined during the rounds labs reviewed medications reviewed care plan discussed, patient has been doing well remains on room air breathing comfortably does have generalized anasarca renal services has been consulted for noncirrhotic ascites and anasarca so diuresis can be achieved, they recommended albumin with Lasix now 08/06/2020, patient seen eval examined during the rounds labs reviewed medications reviewed, patient continued to have significant edematous status, we'll consult nephrology for diuresis, 08/05/2020, patient has constipation, overall doing well denies any chest pain hemodynamics is stable, patient likely will be discharged home as not a considered for rehab placement 08/04/2020, patient seen and evaluated examined during the rounds labs reviewed medications reviewed patient was discharged yesterday but family did not take home as they are uncomfortable and refused, patient resting comfortably hemodynamic status stable, she is on room air afebrile saturation 96% last chec ked blood pressure 135/85, labs are not done today last were stable renal functions slight upper natremia has been noted, C. diff was negative GI and general surgery has signed off, we'll discuss with the family 08/03/2020, referred to discharge note and evaluation 08/02/2020, patient seen eval examined during the rounds diarrhea slightly better now, Questran has been refused by the patient, as it was causing some abdominal discomfort surgical services and evaluated the patient GI has been fol lowing, 08/01/2020, patient seen eval examined during the rounds labs reviewed medications reviewed, care plan discussed, patient is still having intermittent diarrhea, GI service has been following, Imodium is not helping will start Questran 07/31/2020, patient remains awake and alert, overall blood pressure slightly better, however diarrhea still going on, patient underwent computed tomography scan of the abdominal and pelvis, bilateral atelectasis of the lower lobes noted, thickening of terminal ileum noted with mesenteric edema, ileus-like Petrin 07/30/2020, patient seen eval examined during the rounds labs reviewed medications reviewed, denies any chest pain, continued to complain of generalized weakness, GI service has been following, labs reviewed white cell count is stable with hemoglobin and hematocrit, sodium is slightly improved to 132, GI services have evaluated the patient and recommended for infectious colitis C. difficile colitis, This is a 74-year-old morbidly obese female patient was brought into emergency department due to progressive generalized weakness also hypertension the symptoms have been going on for 45 days, lately her blood pressure was in 60s, she has poor appetite, by mouth intake was minimal, it appears that patient was at [facility] discharge in July 26, family noted no significant improvement is slow progressive worsening along with lower extremity edema, she is status post surgery for ischemic bowel in May, her past medical history significant for hypothyroidism, dyslipidemia, COPD, chronic anemia, neuropathy, peptic ulcer disease, her labs were significant for hyponatremia with a sodium of 1:30, CO2 is low at 19, BUN/creatinine normal, lactic acid is 1, she has moderate blood with RBCs WBC however leukocyte history is negative along with nitrate, C. difficile is negative, a shunt admitted into the hospital with con sultation from GI, her chest x-ray unremarkable, stable right-sided subclavian central venous catheter, elevated right hemidiaphragm noted Objective - Vital Signs Vital signs: Vital Signs Temp 97.6 F 08/08/20 07:49 Pulse 88 08/08/20 07:49 Resp 16 08/08/20 07:49 BP 120/73 08/08/20 07:49 Pulse Ox 97 08/08/20 07:49 Intake & Output 08/07/20 08/08/20 08/08/20 18:59 06:59 18:59 Output Total 1800 1650 Balance -1800 -1650 Output: Urine 1800 1650 Other: Voiding Method External Catheter External Catheter # Voids 6 2 # Bowel Movements 2 1 - Exam - Constitutional General appearance: disheveled, morbidly obese - EENT Eyes: PERRLA Ears: bilateral: normal - Neck Carotids: bilateral: upstroke normal Thyroid: bilateral: normal size - Respiratory Respiratory: bilateral: diminished - Cardiovascular Rhythm: regular Heart sounds: normal: S1, S2 - Gastrointestinal General gastrointestinal: normal bowel sounds, soft - Musculoskeletal Musculoskeletal: gait normal, generalized weakness, strength equal bilaterally - Psychiatric Psychiatric: appropriate affect - Labs CBC & Chem 7: 08/06/20 07:53 08/07/20 12:38 Labs: Abnormal Lab Results - Last 24 Hours (Table) 08/07/20 08/07/20 Range/Units 12:38 12:38 Sodium 128 L (137-145) mmol/L Calcium 7.1 L (8.4-10.2) mg/dL Alkaline Phosphatase 175 H (38-126) U/L Total Protein 3.3 L (6.3-8.2) g/dL Total Protein (PEP) 3.0 L (6.2-8.2) g/dL Albumin 1.3 L (3.5-5.0) g/dL Assessment and Plan Assessment: Anasarca and diffuse edematous status Ileus postoperative Ongoing diarrhea, resolved Dehydration and volume depleted status Hyponatremia, stable, repeat labs tomorrow Morbid obesity Anasarca Lower extremity edema Plan: Observe off of Questran Consult nephrology recommendation appreciated Continue codeine as needed Appreciated input from surgery Overall plan includes gently diuresis the patient Continue home medications and Eliquis, DVT and peptic ulcer disease prophylaxis Consult GI recommendation appreciated and noted Further recommendations pending plan of care as per clinical response of the pat ient Time with Patient: Greater than 30
[2020-08-08 13:02] LABS: African American GFR (CKD) 105.5 (60.0-200.0); Albumin 2.3 g/dL (3.80-4.90); Albumin/Globulin Ratio 1.92 (1.60-3.17); Anion Gap 7.5 mmol/L (4.00-12.00); Calcium 7.3 mg/dL (8.7-10.3); Carbon Dioxide 26.5 mmol/L (21.6-31.8); Globulin 1.2 g/dL (1.6-3.3); Magnesium 1.6 mg/dL (1.5-2.4); Non-African American GFR(CKD) 91.1 (60.0-200.0); Phosphorus 4.2 mg/dL (2.4-5.1); Potassium 3.3 mmol/L (3.5-5.5); Total Bilirubin 0.5 mg/dL (0.2-1.2); Total Protein 3.5 g/dL (6.2-8.2)
[2020-08-08 13:49] LABS: Complement C3 82.9 mg/dL (80.0-207.0)
[2020-08-08] MEDS: LOPERAMIDE 2 MG CAP PO PRN (14:15)
--- NOTE | 2020-08-08 14:30 | P.PN ---
Subjective Patient is seen in follow-up for hyponatremia. Sodium level normal today. She is receiving IV albumin and also received IV Lasix the past 3 days. Edema has significantly improved. She's had over 1 L of urine output so far this morning. No chest pain or shortness of breath. Vital signs are stable. General: The patient appeared well nourished and normally developed. HEENT: Head exam is unremarkable. Neck is without jugular venous distension. LUNGS: Breath sounds decreased. HEART: Rate and Rhythm are regular. ABDOMEN: Soft, nontender. EXTREMITITES: 1+ edema. Objective - Vital Signs Vital signs: Vital Signs Temp 97.6 F 08/08/20 07:49 Pulse 88 08/08/20 07:49 Resp 16 08/08/20 07:49 BP 120/73 08/08/20 07:49 Pulse Ox 97 08/08/20 07:49 Intake & Output 08/07/20 08/08/20 08/08/20 18:59 06:59 18:59 Output Total 1800 2450 Balance -1800 -2450 Output: Urine 1800 2450 Other: Voiding Method External Catheter External Catheter # Voids 6 2 # Bowel Movements 2 1 3 - Labs CBC & Chem 7: 08/06/20 07:53 08/08/20 07:00 Labs: Abnormal Lab Results - Last 24 Hours (Table) 08/07/20 08/08/20 Range/Units 12:38 07:00 Potassium 3.3 L (3.5-5.5) mmol/L BUN/Creatinine Ratio 25.00 H (12.00-20.00) Ratio Calcium 7.3 L (8.7-10.3) mg/dL Alkaline Phosphatase 144 H (41-126) U/L Total Protein 3.5 L (6.2-8.2) g/dL Total Protein (PEP) 3.0 L (6.2-8.2) g/dL Albumin 2.30 L (3.80-4.90) g/dL Globulin 1.2 L (1.6-3.3) g/dL Assessment and Plan Plan: Assessment: 1. Hypervolemic hyponatremia. Better. 2. Volume overload with severe hypoalbuminemia leading to third spacing. Better with diuresis. UPC 0.2. 3. Hypocalcemia secondary to hypoalbuminemia. Corrected calcium near normal. Ionized calcium normal. 4. Status post partial bowel resection and May 2020 at [facility]. Plan: 25 g IV albumin twice a day x 4 total doses. improved with diuresis - last dose tonight. S/p IV lasix this morning - hold off on further diuretics today. 1200 mL fluid restriction. Encouraged oral intake, particularly protein. Ensure 3 times a day. F/u pending serologies.
[2020-08-08 14:32] LABS: Albumin 1.08 g/dL (3.80-4.90); Gamma Globulin 0.56 g/dL (0.70-1.50)
[2020-08-08] MEDS ORDERED: ACETAMINOPHEN TAB 325 MG TAB PO PRN (18:47)
[2020-08-08] MEDS: MELATONIN 3 MG TABLET PO SCH (21:51)
[2020-08-08] MEDS: ATORVASTATIN 20 MG TAB PO SCH (21:52)
[2020-08-08] MEDS ORDERED: POTASSIUM CHLORIDE ER 20 MEQ TAB.ER PO STA (23:05)
[2020-08-09] MEDS ORDERED: FUROSEMIDE 10 MG/ML 10 ML VIAL IV ONE
[2020-08-09] MEDS: LEVOTHYROXINE 137 MCG TAB PO SCH (05:46)
[2020-08-09] MEDS: PANTOPRAZOLE 40 MG TABLET PO SCH (08:30)
[2020-08-09] MEDS: ASPIRIN 81 MG PO SCH (08:30)
[2020-08-09] MEDS: CHOLECALCIFEROL 1,000 UNIT TAB PO SCH (08:30)
[2020-08-09] MEDS: GABAPENTIN 300 MG CAP PO SCH ×2 (08:30→20:20)
[2020-08-09] MEDS: APIXABAN 5 MG TAB PO SCH ×2 (08:30→20:20)
[2020-08-09] MEDS: MAGNESIUM OXIDE 400 MG TAB PO SCH ×2 (08:30→20:20)
[2020-08-09] MEDS: VENLAFAXINE HCL ER 150 MG CAP PO SCH (08:31)
[2020-08-09] MEDS: FERROUS SULFATE 325 MG TAB PO SCH (08:31)
[2020-08-09] MEDS: LORATADINE 10 MG TAB PO SCH (08:31)
[2020-08-09] MEDS: ALBUMIN HUMAN 25% 50 ML in EMPTY BAG 1 BAG IVPB SCH (08:31)
--- NOTE | 2020-08-09 10:05 | P.DS ---
Providers Date of admission: 07/28/20 17:07 Expected date of discharge: 08/09/20 Attending physician: Alex Davila Consults: 07/31/20 19:58 Consult Physician Routine Consulting Provider: Sandoval Boggs Consult Reason/Comments: Ileus Do you want consulting provider notified?: Yes 08/06/20 14:24 Consult Physician Routine Consulting Provider: Shima Lovelace Consult Reason/Comments: hyponatremia hypotension edema Do you want consulting provider notified?: Yes Primary care physician: Dorian Yan [facility] Course: 08/09/2020, patient seen eval examined during the rounds labs reviewed medications reviewed care plan discussed, patient has been doing well sitting upright on the bed breathing comfortably swelling has improved significantly patient has received. Days of IV albumin with Lasix as per recommendation of nephrology service she diuresis very well, labs from yesterday is stable except mild hypokalemia she has been given oral potassium due to excessive diuresis, patient diarrhea has improved significantly, reviewed test results of the compliments and hepatitis panel are negative, patient will be discharged home 08/08/2020, patient seen eval examined during the rounds labs reviewed medications reviewed care plan discussed, patient's respiratory status remains stable, diarrhea has improved, however lower extremity edema still there but severity has improved, renal services are following, labs reviewed sodium is 128, renal functions and normal calcium improved to 7.1 now, check another set of labs tomorrow likely will be discharged continue physical therapy 08/07/2020, patient seen eval examined during the rounds labs reviewed medications reviewed care plan discussed, patient has been doing well remains on room air breathing comfortably does have generalized anasarca renal services has been consulted for noncirrhotic ascites and anasarca so diuresis can be achieved, they recommended albumin with Lasix now 08/06/2020, patient seen eval examined during the rounds labs reviewed medications reviewed, patient continued to have significant edematous status, we'll consult nephrology for diuresis, 08/05/2020, patient has constipation, overall doing well denies any chest pain hemodynamics is stable, patient likely will be discharged home as not a considered for rehab placement 08/04/2020, patient seen and evaluated examined during the rounds labs reviewed medications reviewed patient was discharged yesterday but family did not take home as they are uncomfortable and refused, patient resting comfortably hemodynamic status stable, she is on room air afebrile saturation 96% last checked blood pressure 135/85, labs are not done today last were stable renal functions slight upper natremia has been noted, C. diff was negative GI and general surgery has signed off, we'll discuss with the family 08/03/2020, referred to discharge note and evaluation 08/02/2020, patient seen eval examined during the rounds diarrhea slightly better now, Questran has been refused by the patient, as it was causing some abdominal discomfort surgical services and evaluated the patient GI has been following, 08/01/2020, patient seen eval examined during the rounds labs reviewed medications reviewed, care plan discussed, patient is still having intermittent diarrhea, GI service has been following, Imodium is not helping will start Questran 07/31/2020, patient remains awake and alert, overall blood pressure slightly better, however diarrhea still going on, patient underwent computed tomography scan of the abdominal and pelvis, bilateral atelectasis of the lower lobes noted, thickening of terminal ileum noted with mesenteric edema, ileus-like Petrin 07/30/2020, patient seen eval examined during the rounds labs reviewed medications reviewed, denies any chest pain, continued to complain of generalized weakness, GI service has been following, labs reviewed white cell count is stable with hemoglobin and hematocrit, sodium is slightly improved to 132, GI services have evaluated the patient and recommended for infectious colitis C. difficile colitis, This is a 74-year-old morbidly obese female patient was brought into emergency department due to progressive generalized weakness also hypertension the symptoms have been going on for 45 days, lately her blood pressure was in 60s, she has poor appetite, by mouth intake was minimal, it appears that patient was at [facility] discharge in July 26, family noted no significant improvement is slow progressive worsening along with lower extremity edema, she is status post surgery for ischemic bowel in May, her past medical history significant for hypothyroidism, dyslipidemia, COPD, chronic anemia, neuropathy, peptic ulcer disease, her labs were significant for hyponatremia with a sodium of 1:30, CO2 is low at 19, BUN/creatinine normal, lactic acid is 1, she has moderate blood with RBCs WBC however leukocyte history is negative along with nitrate, C. difficile is negative, a shunt admitted into the hospital with consultation from GI, her chest x-ray unremarkable, stable right-sided subclavian central venous catheter, elevated right hemidiaphragm noted Exam - Constitutional General appearance: disheveled, morbidly obese - EENT Eyes: PERRLA Ears: bilateral: normal - Neck Carotids: bilateral: upstroke normal Thyroid: bilateral: normal size - Respiratory Respiratory: bilateral: diminished - Cardiovascular Rhythm: regular Heart sounds: normal: S1, S2 - Gastrointestinal General gastrointestinal: normal bowel sounds, soft - Musculoskeletal Musculoskeletal: gait normal, generalized weakness, strength equal bilaterally - Psychiatric Psychiatric: appropriate affect Assessment: Anasarca and diffuse edematous status Hypokalemia due to diuresis Protein calorie malnourishment Ileus postoperative Ongoing diarrhea, resolved Dehydration and volume depleted status Hyponatremia, stable, repeat labs tomorrow Morbid obesity Anasarca Lower extremity edema Health Concerns: Discharged home with home health to follow Patient Condition at Discharge: Fair Plan - Discharge Summary Discharge Rx Participant: No New Discharge Prescriptions: New Codeine Sulfate 15 mg PO Q8HR PRN 30 Days #90 tab PRN Reason: Pain Continue Cholecalciferol [Vitamin D3 (25 Mcg = 1000 Iu)] 1,000 unit PO DAILY Venlafaxine HCl ER [Effexor XR] 150 mg PO DAILY Simvastatin 40 mg PO HS Levothyroxine Sodium [Synthroid] 137 mcg PO DAILY ondansetron HCL [Zofran] 8 mg PO Q8HR PRN PRN Reason: Nausea And Vomiting Simethicone Chew [Mylicon Chew] 80 mg PO QID PRN PRN Reason: Gi Upset Pantoprazole Sodium 40 mg PO DAILY Melatonin 3 mg PO HS Magnesium Oxide 400 mg PO BID Loratadine 10 mg PO DAILY Loperamide [Imodium] 2 mg PO QID PRN PRN Reason: Diarrhea Gabapentin 300 mg PO BID Ferrous Sulfate [Iron (65 MG Elemental)] 325 mg PO DAILY Calcium Carbonate 500 mg PO DAILY Apixaban [Eliquis] 5 mg PO BID Aspirin EC [Ecotrin Low Dose] 81 mg PO DAILY Albuterol Sulfate [Albuterol Sulfate Hfa] 1 puff PO RT-Q4H PRN PRN Reason: Shortness Of Breath Discharge Medication List Cholecalciferol [Vitamin D3 (25 Mcg = 1000 Iu)] 1,000 unit PO DAILY 05/10/20 [History] Levothyroxine Sodium [Synthroid] 137 mcg PO DAILY 05/10/20 [History] Simvastatin 40 mg PO HS 05/10/20 [History] Venlafaxine HCl ER [Effexor XR] 150 mg PO DAILY 05/10/20 [History] Albuterol Sulfate [Albuterol Sulfate Hfa] 1 puff PO RT-Q4H PRN 07/28/20 [History] Apixaban [Eliquis] 5 mg PO BID 07/28/20 [History] Aspirin EC [Ecotrin Low Dose] 81 mg PO DAILY 07/28/20 [History] Calcium Carbonate 500 mg PO DAILY 07/28/20 [History] Ferrous Sulfate [Iron (65 MG Elemental)] 325 mg PO DAILY 07/28/20 [History] Gabapentin 300 mg PO BID 07/28/20 [History] Loperamide [Imodium] 2 mg PO QID PRN 07/28/20 [History] Loratadine 10 mg PO DAILY 07/28/20 [History] Magnesium Oxide 400 mg PO BID 07/28/20 [History] Melatonin 3 mg PO HS 07/28/20 [History] Pantoprazole Sodium 40 mg PO DAILY 07/28/20 [History] Simethicone Chew [Mylicon Chew] 80 mg PO QID PRN 07/28/20 [History] ondansetron HCL [Zofran] 8 mg PO Q8HR PRN 07/28/20 [History] Codeine Sulfate 15 mg PO Q8HR PRN 30 Days #90 tab 08/04/20 [Rx] Follow up Appointment(s)/Referral(s): Dorian Yan MD [Primary Care Provider] - 1-2 days Residential Home,Health [NON-STAFF] - Patient Instructions/Handouts: Dehydration (DC) Discharge Disposition: HOME SELF-CARE
--- NOTE | 2020-08-09 10:31 | P.PN ---
Subjective Progress Note Date: 08/09/20 CHIEF COMPLAINT: Enteritis HISTORY OF PRESENT ILLNESS: Patient reports that she had for loose bowel move ments yesterday. She denies any nausea or vomiting. She reports that her edema is improving She feels that her overall edema is improving after Lasix and albumin. Patient is afebrile. PHYSICAL EXAM: VITAL SIGNS: Reviewed. GENERAL: Well-developed in no acute distress. HEENT: No sclera icterus. Extraocular movements grossly intact. Moist buccal mucosa. Head is atraumatic, normocephalic. ABDOMEN: Soft. Nondistended. Nontender. NEUROLOGIC: Alert and oriented. Cranial nerves II through XII grossly intact. ASSESSMENT: 1. Enteritis improving 2. 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 Signing provider agrees with the documented findings, assessment, and plan of care. Objective - Vital Signs Vital signs: Vital Signs Temp 97.8 F 08/09/20 08:00 Pulse 88 08/09/20 08:00 Resp 18 08/09/20 08:00 BP 95/59 08/09/20 08:00 Pulse Ox 98 08/09/20 08:00 Intake & Output 08/08/20 08/09/20 08/09/20 18:59 06:59 18:59 Output Total 2450 400 Balance -2450 -400 Output: Urine 2450 400 Other: Voiding Method External Catheter External Catheter # Voids 3 3 # Bowel Movements 3 - Labs CBC & Chem 7: 08/06/20 07:53 08/08/20 07:00 Labs: Abnormal Lab Results - Last 24 Hours (Table) 08/07/20 08/08/20 Range/Units 12:38 07:00 Potassium 3.3 L (3.5-5.5) mmol/L BUN/Creatinine Ratio 25.00 H (12.00-20.00) Ratio Calcium 7.3 L (8.7-10.3) mg/dL Alkaline Phosphatase 144 H (41-126) U/L Total Protein 3.5 L (6.2-8.2) g/dL Albumin 2.30 L (3.80-4.90) g/dL Albumin (PEP) 1.08 L (3.80-4.90) g/dL Globulin 1.2 L (1.6-3.3) g/dL Zqrhf-6-Pbypeoney 0.46 L (0.60-1.00) g/dL Beta Globulins 0.50 L (0.60-1.30) g/dL Gamma Globulins 0.56 L (0.70-1.50) g/dL
--- NOTE | 2020-08-09 10:36 | CDI ---
Documentation Clarification Form Date: 08/09/2020 10:21:26 AM From: Fatoumata Ward CCS, CCDS Admit Date: 07/28/2020 05:07:00 PM Patient Name: Elsa Sylvester Visit Number: [id number] Discharge Date: ATTENTION: The Clinical Documentation Specialists (CDI) and [facility] Coding Staff appreciate your assistance in clarifying documentation. Please respond to the clarification below the line at the bottom and electronically sign. The CDI & [facility] Coding staff will review the response and follow-up if needed. Please note: Queries are made part of the Legal Health Record. If you have any questions, please contact the author of this message via ITS. Dr. Alex Davila: Protein Calorie Malnourishment is documented in the Discharge Summary without further specificity. History/Risk Factors: Morbid Obesity, Hypertension, Hyperlipidemia, Chronic Constipation, Hypothyroid, Osteoporosis, Anxiety, Depression, Bilateral Total Knee Replacements, Bowel Resection May 2020 for bowel ischemia, former smoker. Clinical Indicators: Presented to the ED on 07/28 with Dizziness & low BP. Recently discharged from [facility]. Has had decreased appetite since bowel resection in May this year. Admitted with Orthostatic Hypotension, Dehydration, Hypotensive episode & Failure to Thrive. Labs 07/28: Pl Ct 570^, Na 130*, BUN 21^, Lactic Acid 3.2^^, Calcium 7.7*, AST 38^, Alk Phos 164^, Cr Kinase <20*, Total Protein 4.0*, Albumin 1.5*, Lipase 15*. Nutrition Assessment 07/28: Current BMI: 43.2 Overweight @ 220% IBW Admission Weight 07/28: 104 kg, Weight 1/: 110.6 kg Height: 5 ft 3 in. Nutrition intake: Good, consumed 50-75%. Traffic Or System Dispatcher was not consulted. Treatment 07/28: IV fluid 1,000 mls @ 999 mls/hr q1H, IV fluid 1,000 mls @ 130 mls/hr q7H, po Zofran, Diet: Ensure TID w/meals, Fluid Restriction 1200 mL. In your professional opinion, can you please clarify if these findings signify one of the following conditions? Moderate Protein-Calorie Malnutrition (Last Revision: February 2019) MTDD
[2020-08-09] MEDS: LOPERAMIDE 2 MG CAP PO PRN ×2 (11:44→17:42)
[2020-08-09 11:52] LABS: African American GFR (CKD) 105.5 (60.0-200.0); Albumin 2.6 g/dL (3.80-4.90); Albumin/Globulin Ratio 2.6 (1.60-3.17); Calcium 7.4 mg/dL (8.7-10.3); Magnesium 1.7 mg/dL (1.5-2.4); Non-African American GFR(CKD) 91.1 (60.0-200.0); Potassium 3.4 mmol/L (3.5-5.5); Total Bilirubin 0.6 mg/dL (0.3-1.2); Total Protein 3.6 g/dL (6.2-8.2)
[2020-08-09] MEDS: CHOLESTYRAMINE (WITH SUGAR) 4 GM PACKET PO SCH ×2 (12:32→17:43)
[2020-08-09] MEDS ORDERED: POTASSIUM CHLORIDE ER 20 MEQ TAB.ER PO STA (13:32)
[2020-08-09] MEDS ORDERED: MAGNESIUM SULFATE-D5W PMX 1 GM in DEXTROSE/WATER 1 100ML.BAG IVPB ONE (13:32)
--- NOTE | 2020-08-09 13:33 | P.PN ---
Subjective Patient is seen in follow-up for hyponatremia. Sodium level 143. She has received IV albumin as well as IV Lasix the last 2 days with improvement in her volume status. Edema has significantly improved. Urine output near 3 L in the last 24 hours. She is having loose bowel movements. Vital signs are stable. General: The patient appeared well nourished and normally developed. HEENT: Head exam is unremarkable. Neck is without jugular venous distension. LUNGS: Breath sounds decreased. HEART: Rate and Rhythm are regular. ABDOMEN: Soft, nontender. EXTREMITITES: 1+ edema. Objective - Vital Signs Vital signs: Vital Signs Temp 97.8 F 08/09/20 08:00 Pulse 88 08/09/20 08:00 Resp 18 08/09/20 08:00 BP 95/59 08/09/20 08:00 Pulse Ox 98 08/09/20 08:00 Intake & Output 08/08/20 08/09/20 08/09/20 18:59 06:59 18:59 Output Total 2450 400 Balance -2450 -400 Output: Urine 2450 400 Other: Voiding Method External Catheter External Catheter # Voids 3 3 # Bowel Movements 3 1 - Labs CBC & Chem 7: 08/06/20 07:53 08/09/20 06:40 Labs: Abnormal Lab Results - Last 24 Hours (Table) 08/07/20 08/09/20 Range/Units 12:38 06:40 Potassium 3.4 L (3.5-5.5) mmol/L BUN/Creatinine Ratio 25.00 H (12.00-20.00) Ratio Calcium 7.4 L (8.7-10.3) mg/dL Alkaline Phosphatase 132 H (41-126) U/L Total Protein 3.6 L (6.2-8.2) g/dL Albumin 2.60 L (3.80-4.90) g/dL Albumin (PEP) 1.08 L (3.80-4.90) g/dL Globulin 1.0 L (1.6-3.3) g/dL Qqpvb-6-Vzsrhtlmi 0.46 L (0.60-1.00) g/dL Beta Globulins 0.50 L (0.60-1.30) g/dL Gamma Globulins 0.56 L (0.70-1.50) g/dL Assessment and Plan Plan: Assessment: 1. Hypervolemic hyponatremia. Better. 2. Volume overload with severe hypoalbuminemia leading to third spacing. Better with diuresis. UPC 0.2. Serologies negative so far. 3. Hypocalcemia secondary to hypoalbuminemia. Corrected calcium near normal. Ionized calcium normal. 4. Status post partial bowel resection and May 2020 at [facility]. 5. Diarrhea. Rule out C. diff. 6. Hypokalemia from poor intake and diuresis. Plan: Status post 4 doses of IV albumin. Add Lasix 40 mg IV once daily. Check stool for C. diff. Replace potassium. 40 mEq today. Replace magnesium. 1 g IV today. 1200 mL fluid restriction. Encouraged oral intake, particularly protein. Ensure 3 times a day. F/u pending serologies.
[2020-08-09] MEDS: CODEINE 30 MG TAB PO SCH (15:37)
[2020-08-09] MEDS: FUROSEMIDE 10 MG/ML 4 ML VIAL IV SCH (15:38)
[2020-08-09] MEDS: MELATONIN 3 MG TABLET PO SCH (20:20)
[2020-08-09] MEDS: ATORVASTATIN 20 MG TAB PO SCH (20:20)
[2020-08-10] MEDS: CODEINE 30 MG TAB PO SCH ×3 (00:30→15:15)
[2020-08-10] MEDS: LEVOTHYROXINE 137 MCG TAB PO SCH (05:46)
[2020-08-10 07:19] LABS: African American GFR (CKD) >90 (>60 ml/min/1.73 sqM); Anion Gap 2 mmol/L; Blood Urea Nitrogen 14 mg/dL (7-17); Calcium 7.5 mg/dL (8.4-10.2); Carbon Dioxide 30 mmol/L (22-30); Chloride 105 mmol/L (98-107); Glucose 84 mg/dL (74-99); Magnesium 1.9 mg/dL (1.6-2.3); Non-African American GFR(CKD) >90 (>60 ml/min/1.73 sqM); Potassium 3.2 mmol/L (3.5-5.1); Sodium 137 mmol/L (137-145)
[2020-08-10] MEDS: ALBUMIN HUMAN 25% 50 ML in EMPTY BAG 1 BAG IVPB SCH ×2 (07:36→08:19)
[2020-08-10] MEDS: VENLAFAXINE HCL ER 150 MG CAP PO SCH (07:43)
[2020-08-10] MEDS: GABAPENTIN 300 MG CAP PO SCH ×2 (07:43→21:23)
[2020-08-10] MEDS: LORATADINE 10 MG TAB PO SCH (07:43)
[2020-08-10] MEDS: ASPIRIN 81 MG PO SCH (07:43)
[2020-08-10] MEDS: APIXABAN 5 MG TAB PO SCH ×2 (07:43→21:23)
[2020-08-10] MEDS: CHOLECALCIFEROL 1,000 UNIT TAB PO SCH (07:43)
[2020-08-10] MEDS: PANTOPRAZOLE 40 MG TABLET PO SCH (07:43)
[2020-08-10] MEDS: FUROSEMIDE 10 MG/ML 4 ML VIAL IV SCH (07:43)
[2020-08-10] MEDS: MAGNESIUM OXIDE 400 MG TAB PO SCH ×2 (07:43→21:23)
[2020-08-10] MEDS: FERROUS SULFATE 325 MG TAB PO SCH (07:44)
[2020-08-10] MEDS ORDERED: POTASSIUM CHLORIDE ER 20 MEQ TAB.ER PO STA (08:24)
[2020-08-10] MEDS: CHOLESTYRAMINE (WITH SUGAR) 4 GM PACKET PO SCH ×2 (08:55→17:30)
--- NOTE | 2020-08-10 12:59 | P.PN ---
Subjective Patient is seen in follow-up for hyponatremia and volume overload. Sodium level normal. She has received IV albumin and is also on IV Lasix with improvement in her volume status. Edema has significantly improved. Diarrhea improved. Vital signs are stable. General: The patient appeared well nourished and normally developed. HEENT: Head exam is unremarkable. Neck is without jugular venous distension. LUNGS: Breath sounds decreased. HEART: Rate and Rhythm are regular. ABDOMEN: Soft, nontender. EXTREMITITES: 1+ edema. Objective - Vital Signs Vital signs: Vital Signs Temp 98.4 F 08/10/20 07:39 Pulse 98 08/10/20 07:39 Resp 18 08/10/20 07:39 BP 101/60 08/10/20 07:39 Pulse Ox 97 08/10/20 07:39 Intake & Output 08/09/20 08/10/20 08/10/20 18:59 06:59 18:59 Intake Total 150 120 Output Total 900 1050 1100 Balance -526 -8433 -230 Intake: Intake, IV Titration 150 Amount Albumin Human 25% 50 ml 50 In Empty Bag 1 bag @ 50 mls/hr IVPB Q12HR [facility] Rx# :[id number] Magnesium Sulfate-D5w Pmx 100 1 gm In Dextrose/Water 1 100ml.bag @ 100 mls/hr IVPB ONCE ONE Rx#: [id number] Oral 120 Output: Urine 900 1050 1100 Other: Voiding Method External Catheter External Catheter # Bowel Movements 1 - Labs CBC & Chem 7: 08/06/20 07:53 08/10/20 05:47 Labs: Abnormal Lab Results - Last 24 Hours (Table) 08/10/20 Range/Units 05:47 Potassium 3.2 L (3.5-5.1) mmol/L Calcium 7.5 L (8.4-10.2) mg/dL Assessment and Plan Plan: Assessment: 1. Hypervolemic hyponatremia. Better. 2. Volume overload with severe hypoalbuminemia leading to third spacing. Better with diuresis. UPC 0.2. Serologies negative so far. 3. Hypocalcemia secondary to hypoalbuminemia. Corrected calcium near normal. Ionized calcium normal. 4. Status post partial bowel resection and May 2020 at [facility]. 5. Diarrhea. C. diff negative. 6. Hypokalemia from poor intake and diuresis. Replaced. Plan: Status post 4 doses of IV albumin. Maintain Lasix 40 mg IV once daily. 1200 mL fluid restriction. Encouraged oral intake, particularly protein. Ensure 3 times a day. F/u pending serologies.
--- NOTE | 2020-08-10 13:47 | P.PN ---
Subjective Progress Note Date: 08/10/20 CHIEF COMPLAINT: Enteritis HISTORY OF PRESENT ILLNESS: Patient reports improvement in her diarrhea. Tete reis was started back on her codeine yesterday to help with her diarrhea. Patient has noted improvement. She denies any nausea or vomiting. She reports that her edema is improving She feels that her overall edema is improving after Lasix and albumin. Patient is afebrile. PHYSICAL EXAM: VITAL SIGNS: Reviewed. GENERAL: Well-developed in no acute distress. HEENT: No sclera icterus. Extraocular movements grossly intact. Moist buccal mucosa. Head is atraumatic, normocephalic. ABDOMEN: Soft. Nondistended. Nontender. NEUROLOGIC: Alert and oriented. Cranial nerves II through XII grossly intact. ASSESSMENT: 1. Enteritis improving 2. 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 Signing provider agrees with the documented findings, assessment, and plan of care. Objective - Vital Signs Vital signs: Vital Signs Temp 98.4 F 08/10/20 07:39 Pulse 98 08/10/20 07:39 Resp 18 08/10/20 07:39 BP 101/60 08/10/20 07:39 Pulse Ox 97 08/10/20 07:39 Intake & Output 08/09/20 08/10/20 08/10/20 18:59 06:59 18:59 Intake Total 150 220 Output Total 900 1050 1100 Balance -750 -1050 -880 Intake: Intake, IV Titration 150 Amount Albumin Human 25% 50 ml 50 In Empty Bag 1 bag @ 50 mls/hr IVPB Q12HR [facility] Rx# :[id number] Magnesium Sulfate-D5w Pmx 100 1 gm In Dextrose/Water 1 100ml.bag @ 100 mls/hr IVPB ONCE ONE Rx#: [id number] Oral 220 Output: Urine 900 1050 1100 Other: Voiding Method External Catheter External Catheter # Bowel Movements 1 - Labs CBC & Chem 7: 08/06/20 07:53 08/10/20 05:47 Labs: Abnormal Lab Results - Last 24 Hours (Table) 08/10/20 Range/Units 05:47 Potassium 3.2 L (3.5-5.1) mmol/L Calcium 7.5 L (8.4-10.2) mg/dL
--- NOTE | 2020-08-10 16:29 | P.PN ---
Subjective Progress Note Date: 08/10/20 Principal diagnosis: Orthostatic hypotension with failure to thrive Ongoing diarrhea Dehydration and volume depleted status Hyponatremia Morbid obesity Anasarca Lower extremity edema 08/10/2020, patient seen eval examined during the rounds overall patient has been doing good somewhat frustrated and depressed about the liquid stools patient has been reassured, patient has to liquid stools today noted a significant diarrhea, we'll continue codeine continued to increase activity patient definitely will benefit from ECF placement 08/09/2020, patient seen eval examined during the rounds labs reviewed medications reviewed care plan discussed, patient has been doing well sitting upright on the bed breathing comfortably swelling has improved significantly patient has received. Days of IV albumin with Lasix as per recommendation of nephrology service she diuresis very well, labs from yesterday is stable except mild hypokalemia she has been given oral potassium due to excessive diuresis, patient diarrhea has improved significantly, reviewed test results of the com pliments and hepatitis panel are negative, patient will be discharged home 08/08/2020, patient seen eval examined during the rounds labs reviewed medications reviewed care plan discussed, patient's respiratory status remains stable, diarrhea has improved, however lower extremity edema still there but severity has improved, renal services are following, labs reviewed sodium is 128, renal functions and normal calcium improved to 7.1 now, check another set of labs tomorrow likely will be discharged continue physical therapy 08/07/2020, patient seen eval examined during the rounds labs reviewed medications reviewed care plan discussed, patient has been doing well remains on room air breathing comfortably does have generalized anasarca renal services has been consulted for noncirrhotic ascites and anasarca so diuresis can be achieved, they recommended albumin with Lasix now 08/06/2020, patient seen eval examined during the rounds labs reviewed medications reviewed, patient continued to have significant edematous status, we'll consult nephrology for diuresis, 08/05/2020, patient has constipation, overall doing well denies any chest pain hemodynamics is stable, patient likely will be discharged home as not a considered for rehab placement 08/04/2020, patient seen and evaluated examined during the rounds labs reviewed medications reviewed patient was discharged yesterday but family did not take home as they are uncomfortable and refused, patient resting comfortably hemodynamic status stable, she is on room air afebrile saturation 96% last checked blood pressure 135/85, labs are not done today last were stable renal functions slight upper natremia has been noted, C. diff was negative GI and general surgery has signed off, we'll discuss with the family 08/03/2020, referred to discharge note and evaluation 08/02/2020, patient seen eval examined during the rounds diarrhea slightly better now, Questran has been refused by the patient, as it was causing some abdominal discomfort surgical services and evaluated the patient GI has been following, 08/01/2020, patient seen eval examined during the rounds labs reviewed medications reviewed, care plan discussed, patient is still having intermittent diarrhea, GI service has been following, Imodium is not helping will start Questran 07/31/2020, patient remains awake and alert, overall blood pressure slightly better, however diarrhea still going on, patient underwent computed tomography scan of the abdominal and pelvis, bilateral atelectasis of the lower lobes noted, thickening of terminal ileum noted with mesenteric edema, ileus-like Petrin 07/30/2020, patient seen eval examined during the rounds labs reviewed med ications reviewed, denies any chest pain, continued to complain of generalized weakness, GI service has been following, labs reviewed white cell count is stable with hemoglobin and hematocrit, sodium is slightly improved to 132, GI services have evaluated the patient and recommended for infectious colitis C. 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 difficile is negative, a shunt admitted into the hospital with consultation from GI, her chest x-ray unremarkable, stable right-sided subclavian central venous catheter, elevated right hemidiaphragm noted Objective - Vital Signs Vital signs: Vital Signs Temp 97.5 F L 08/10/20 14:00 Pulse 98 08/10/20 14:00 Resp 18 08/10/20 14:00 BP 132/85 08/10/20 14:00 Pulse Ox 97 08/10/20 14:00 Intake & Output 08/09/20 08/10/20 08/10/20 18:59 06:59 18:59 Intake Total 150 220 Output Total 900 1050 1100 Balance -750 -1050 -880 Intake: Intake, IV Titration 150 Amount Albumin Human 25% 50 ml 50 In Empty Bag 1 bag @ 50 mls/hr IVPB Q12HR RUDOLPH Rx# :[id number] Magnesium Sulfate-D5w Pmx 100 1 gm In Dextrose/Water 1 100ml.bag @ 100 mls/hr IVPB ONCE ONE Rx#: [id number] Oral 220 Output: Urine 900 1050 1100 Other: Voiding Method External Catheter External Catheter # Bowel Movements 1 1 - Exam - Constitutional General appearance: disheveled, morbidly obese - EENT Eyes: PERRLA Ears: bilateral: normal - Neck Carotids: bilateral: upstroke normal Thyroid: bilateral: normal size - Respiratory Respiratory: bilateral: diminished - Cardiovascular Rhythm: regular Heart sounds: normal: S1, S2 - Gastrointestinal General gastrointestinal: normal bowel sounds, soft - Musculoskeletal Musculoskeletal: gait normal, generalized weakness, strength equal bilaterally - Psychiatric Psychiatric: appropriate affect - Labs CBC & Chem 7: 08/06/20 07:53 08/10/20 05:47 Labs: Abnormal Lab Results - Last 24 Hours (Table) 08/10/20 Range/Units 05:47 Potassium 3.2 L (3.5-5.1) mmol/L Calcium 7.5 L (8.4-10.2) mg/dL Assessment and Plan Assessment: Anasarca and diffuse edematous status Ileus postoperative Ongoing diarrhea, resolved Dehydration and volume depleted status Hyponatremia, stable, repeat labs tomorrow Morbid obesity Anasarca Lower extremity edema Plan: Observe off of Questran likely discharge in next 24 hours to ECF Consult nephrology recommendation appreciated Continue codeine as needed Appreciated input from surgery Overall plan includes gently diuresis the patient Continue home medications and Eliquis, DVT and peptic ulcer disease prophylaxis Consult GI recommendation appreciated and noted Further recommendations pending plan of care as per clinical response of the patient Time with Patient: Greater than 30
[2020-08-10 21:22] VITALS: TEMP 97.9
[2020-08-10] MEDS: MELATONIN 3 MG TABLET PO SCH (21:23)
[2020-08-10] MEDS: ATORVASTATIN 20 MG TAB PO SCH (21:23)
[2020-08-11] MEDS: CODEINE 30 MG TAB PO SCH ×3 (00:45→15:31)
[2020-08-11] MEDS: LEVOTHYROXINE 137 MCG TAB PO SCH (05:45)
[2020-08-11 07:56] VITALS: BP 112/75; PULSE 100; RESP 18
[2020-08-11] MEDS: GABAPENTIN 300 MG CAP PO SCH (08:10)
[2020-08-11] MEDS: FUROSEMIDE 10 MG/ML 4 ML VIAL IV SCH (08:10)
[2020-08-11] MEDS: CHOLESTYRAMINE (WITH SUGAR) 4 GM PACKET PO SCH (08:10)
[2020-08-11] MEDS: LORATADINE 10 MG TAB PO SCH (08:10)
[2020-08-11] MEDS: PANTOPRAZOLE 40 MG TABLET PO SCH (08:10)
[2020-08-11] MEDS: CHOLECALCIFEROL 1,000 UNIT TAB PO SCH (08:10)
[2020-08-11] MEDS: ASPIRIN 81 MG PO SCH (08:10)
[2020-08-11] MEDS: FERROUS SULFATE 325 MG TAB PO SCH (08:10)
[2020-08-11] MEDS: MAGNESIUM OXIDE 400 MG TAB PO SCH (08:11)
[2020-08-11] MEDS: APIXABAN 5 MG TAB PO SCH (08:11)
[2020-08-11] MEDS: VENLAFAXINE HCL ER 150 MG CAP PO SCH (08:20)
[2020-08-11] MEDS: ONDANSETRON 4 MG TAB PO PRN (09:55)
[2020-08-11 10:10] LABS: African American GFR (CKD) 105.5 (60.0-200.0); Albumin 2.5 g/dL (3.80-4.90); Albumin/Globulin Ratio 1.92 (1.60-3.17); Anion Gap 9.5 mmol/L (4.00-12.00); BUN/Creat Ratio 26.67 Ratio (12.00-20.00); Calcium 7.6 mg/dL (8.7-10.3); Carbon Dioxide 27.5 mmol/L (21.6-31.8); Globulin 1.3 g/dL (1.6-3.3); Magnesium 1.7 mg/dL (1.5-2.4); Non-African American GFR(CKD) 91.1 (60.0-200.0); Potassium 4.1 mmol/L (3.5-5.5); Total Bilirubin 0.4 mg/dL (0.2-1.2); Total Protein 3.8 g/dL (6.2-8.2)
--- NOTE | 2020-08-11 10:42 | P.DS ---
Providers Date of admission: 07/28/20 17:07 Expected date of discharge: 08/11/20 Attending physician: Alex Davila Consults: 07/31/20 19:58 Consult Physician Routine Consulting Provider: Sandoval Boggs Consult Reason/Comments: Ileus Do you want consulting provider notified?: Yes 08/06/20 14:24 Consult Physician Routine Consulting Provider: Shima Lovelace Consult Reason/Comments: hyponatremia hypotension edema Do you want consulting provider notified?: Yes Primary care physician: Dorian Yan Assessment: Anasarca and diffuse edematous status Hypokalemia due to diuresis Protein calorie malnourishment Ileus postoperative Ongoing diarrhea, resolved Dehydration and volume depleted status Hyponatremia, stable, repeat labs tomorrow Morbid obesity Anasarca Lower extremity edema Health Concerns: Discharged home with home health to follow Patient Condition at Discharge: Fair Plan - Discharge Summary Discharge Rx Participant: No New Discharge Prescriptions: New Codeine Sulfate 15 mg PO Q8HR PRN 30 Days #90 tab PRN Reason: Pain Codeine 15 mg PO Q8HR #14 tab Continue Cholecalciferol [Vitamin D3 (25 Mcg = 1000 Iu)] 1,000 unit PO DAILY Venlafaxine HCl ER [Effexor XR] 150 mg PO DAILY Simvastatin 40 mg PO HS Levothyroxine Sodium [Synthroid] 137 mcg PO DAILY ondansetron HCL [Zofran] 8 mg PO Q8HR PRN PRN Reason: Nausea And Vomiting Simethicone Chew [Mylicon Chew] 80 mg PO QID PRN PRN Reason: Gi Upset Pantoprazole Sodium 40 mg PO DAILY Melatonin 3 mg PO HS Magnesium Oxide 400 mg PO BID Loratadine 10 mg PO DAILY Loperamide [Imodium] 2 mg PO QID PRN PRN Reason: Diarrhea Gabapentin 300 mg PO BID Ferrous Sulfate [Iron (65 MG Elemental)] 325 mg PO DAILY Calcium Carbonate 500 mg PO DAILY Apixaban [Eliquis] 5 mg PO BID Aspirin EC [Ecotrin Low Dose] 81 mg PO DAILY Albuterol Sulfate [Albuterol Sulfate Hfa] 1 puff PO RT-Q4H PRN PRN Reason: Shortness Of Breath Discharge Medication List Cholecalciferol [Vitamin D3 (25 Mcg = 1000 Iu)] 1,000 unit PO DAILY 05/10/20 [History] Levothyroxine Sodium [Synthroid] 137 mcg PO DAILY 10/07/20 [History] Simvastatin 40 mg PO HS 05/10/20 [History] Venlafaxine HCl ER [Effexor XR] 150 mg PO DAILY 05/10/20 [History] Albuterol Sulfate [Albuterol Sulfate Hfa] 1 puff PO RT-Q4H PRN 07/28/20 [History] Apixaban [Eliquis] 5 mg PO BID 07/28/20 [History] Aspirin EC [Ecotrin Low Dose] 81 mg PO DAILY 07/28/20 [History] Calcium Carbonate 500 mg PO DAILY 07/28/20 [History] Ferrous Sulfate [Iron (65 MG Elemental)] 325 mg PO DAILY 07/28/20 [History] Gabapentin 300 mg PO BID 07/28/20 [History] Loperamide [Imodium] 2 mg PO QID PRN 07/28/20 [History] Loratadine 10 mg PO DAILY 07/28/20 [History] Magnesium Oxide 400 mg PO BID 07/28/20 [History] Melatonin 3 mg PO HS 07/28/20 [History] Pantoprazole Sodium 40 mg PO DAILY 07/28/20 [History] Simethicone Chew [Mylicon Chew] 80 mg PO QID PRN 07/28/20 [History] ondansetron HCL [Zofran] 8 mg PO Q8HR PRN 07/28/20 [History] Codeine Sulfate 15 mg PO Q8HR PRN 30 Days #90 tab 08/04/20 [Rx] Codeine 15 mg PO Q8HR #14 tab 08/11/20 [Rx] Follow up Appointment(s)/Referral(s): Dorian Yan MD [Primary Care Provider] - 1-2 days (Please call office to make follow up appointment) [facility] [NON-STAFF] - Patient Instructions/Handouts: Dehydration (DC) Discharge Disposition: HOME WITH HOME HEALTH SERVICES
--- NOTE | 2020-08-11 11:28 | P.PN ---
Subjective Patient is seen in follow-up for hyponatremia and volume overload. Sodium level normal. She has received IV albumin and is also on IV Lasix with improvement in her volume status. Edema has significantly improved. Still has loose stools intermittently. No chest pain or shortness of breath Vital signs are stable. General: The patient appeared well nourished and normally developed. HEENT: Head exam is unremarkable. Neck is without jugular venous distension. LUNGS: Breath sounds decreased. HEART: Rate and Rhythm are regular. ABDOMEN: Soft, nontender. EXTREMITITES: 1+ edema. Objective - Vital Signs Vital signs: Vital Signs Temp 97.9 F 08/11/20 07:55 Pulse 100 08/11/20 07:55 Resp 18 08/11/20 07:55 BP 112/75 08/11/20 07:55 Pulse Ox 97 08/11/20 07:55 Intake & Output 08/10/20 08/11/20 08/11/20 18:59 06:59 18:59 Intake Total 556 Output Total 1100 Balance -544 Intake: Oral 456 Other 100 Output: Urine 1100 Other: Voiding Method External Catheter Toilet # Voids 3 # Bowel Movements 1 - Labs CBC & Chem 7: 08/06/20 07:53 08/11/20 05:30 Labs: Abnormal Lab Results - Last 24 Hours (Table) 08/11/20 Range/Units 05:30 BUN/Creatinine Ratio 26.67 H (12.00-20.00) Ratio Calcium 7.6 L (8.7-10.3) mg/dL Alkaline Phosphatase 147 H (41-126) U/L Total Protein 3.8 L (6.2-8.2) g/dL Albumin 2.50 L (3.80-4.90) g/dL Globulin 1.3 L (1.6-3.3) g/dL Assessment and Plan Plan: Assessment: 1. Hypervolemic hyponatremia. Better. 2. Volume overload with severe hypoalbuminemia leading to third spacing. Better with diuresis. UPC 0.2. Serologies negative so far. 3. Hypocalcemia secondary to hypoalbuminemia. Corrected calcium near normal. Ionized calcium normal. 4. Status post partial bowel resection and May 2020 at [facility]. 5. Diarrhea. C. diff negative. 6. Hypokalemia from poor intake and diuresis. Replaced. Plan: I will change Lasix to torsemide 20 mg once daily upon discharge. Maintenance potassium supplementation. 1200 mL fluid restriction. Encouraged oral intake, particularly protein. Ensure 3 times a day. F/u pending serologies. Plan for discharge today. Patient was advised to monitor her weight closely at home and to call if gains more than 2-3 pounds her edema worsens. Repeat BMP and magnesium level 2-3 days post discharge. She will follow-up with her primary care physician next week and also with us in the next 1 week.
--- NOTE | 2020-08-11 12:22 | P.PN ---
Subjective Progress Note Date: 08/11/20 CHIEF COMPLAINT: Enteritis HISTORY OF PRESENT ILLNESS: Patient reports improvement in her diarrhea. Tete reis was started back on her codeine to help with her diarrhea. Patient has noted improvement. She denies any nausea or vomiting. She reports that her edema is improving She feels that her overall edema is improving after Lasix and albumin. She is up and ambulating the hallway with physical therapy. Patient is afebrile. Potassium 4.1 albumin 2.50 PHYSICAL EXAM: VITAL SIGNS: Reviewed. GENERAL: Well-developed in no acute distress. HEENT: No sclera icterus. Extraocular movements grossly intact. Moist buccal mucosa. Head is atraumatic, normocephalic. ABDOMEN: Soft. Nondistended. Nontender. NEUROLOGIC: Alert and oriented. Cranial nerves II through XII grossly intact. ASSESSMENT: 1. Enteritis improving 2. 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 Signing provider agrees with the documented findings, assessment, and plan of care. Objective - Vital Signs Vital signs: Vital Signs Temp 97.9 F 08/11/20 07:55 Pulse 100 08/11/20 07:55 Resp 18 08/11/20 07:55 BP 112/75 08/11/20 07:55 Pulse Ox 97 08/11/20 07:55 Intake & Output 08/10/20 08/11/20 08/11/20 18:59 06:59 18:59 Intake Total 556 Output Total 1100 Balance -544 Intake: Oral 456 Other 100 Output: Urine 1100 Other: Voiding Method External Catheter Toilet # Voids 3 # Bowel Movements 1 - Labs CBC & Chem 7: 08/06/20 07:53 08/11/20 05:30 Labs: Abnormal Lab Results - Last 24 Hours (Table) 08/11/20 Range/Units 05:30 BUN/Creatinine Ratio 26.67 H (12.00-20.00) Ratio Calcium 7.6 L (8.7-10.3) mg/dL Alkaline Phosphatase 147 H (41-126) U/L Total Protein 3.8 L (6.2-8.2) g/dL Albumin 2.50 L (3.80-4.90) g/dL Globulin 1.3 L (1.6-3.3) g/dL
[2020-08-12] MEDS ORDERED: TORSEMIDE 20 MG TAB PO SCH (09:00)
[2020-08-12] MEDS ORDERED: POTASSIUM CHLORIDE ER 10 MEQ TAB.ER.PRT PO SCH (09:00)
== END 2020-08-11 16:01 | disposition home health service (06) | DRG 392 ==
LOC: EC 14:19 → 3SCARD 17:07 → 4SSUR 08-05 20:37 → 5NMEDONC 08-08 10:33
PROVIDERS: ADMIT Internal Medicine Sleep Medicine; ATTEND Internal Medicine Sleep Medicine
PROC: 02HV33Z Insertion of Infusion Device into Superior Vena Cava, Percutaneous Approach (ICD-10-PCS; principal; 2020-07-28)
DX: K91.2 Postsurgical malabsorption, not elsewhere classified (principal); K56.7 Ileus, unspecified; Z68.41 Body mass index [BMI] 40.0-44.9, adult; E87.1 Hypo-osmolality and hyponatremia; E87.2 Acidosis; J98.11 Atelectasis; K55.9 Vascular disorder of intestine, unspecified; K91.89 Other postprocedural complications and disorders of digestive system; E44.0 Moderate protein-calorie malnutrition; E03.9 Hypothyroidism, unspecified; E66.01 Morbid (severe) obesity due to excess calories; E78.5 Hyperlipidemia, unspecified; E83.51 Hypocalcemia; E86.0 Dehydration; E87.6 Hypokalemia; E87.70 Fluid overload, unspecified; F32.9 Major depressive disorder, single episode, unspecified; F41.9 Anxiety disorder, unspecified; I10 Essential (primary) hypertension; I95.1 Orthostatic hypotension; J44.9 Chronic obstructive pulmonary disease, unspecified; T40.2X5A Adverse effect of other opioids, initial encounter; T50.2X5A Adverse effect of carbonic-anhydrase inhibitors, benzothiadiazides and other diuretics, initial encounter; M81.0 Age-related osteoporosis without current pathological fracture; R62.7 Adult failure to thrive; Z79.01 Long term (current) use of anticoagulants; Z79.82 Long term (current) use of aspirin; Z79.890 Hormone replacement therapy; Z79.899 Other long term (current) drug therapy; Z87.891 Personal history of nicotine dependence; Z98.42 Cataract extraction status, left eye; Z98.41 Cataract extraction status, right eye; Z96.1 Presence of intraocular lens; Z96.653 Presence of artificial knee joint, bilateral; K52.9 Noninfective gastroenteritis and colitis, unspecified; R60.1 Generalized edema; Z60.2 Problems related to living alone; Z90.49 Acquired absence of other specified parts of digestive tract; E88.09 Other disorders of plasma-protein metabolism, not elsewhere classified; Z87.11 Personal history of peptic ulcer disease
CPT/HCPCS: 36415; 36556; 71045; 74178; 80048; 80053; 80061; 80074; 81001; 82330; 82533; 82550; 82570; 82607; 83540; 83550; 83605; 83630; 83690; 83735; 84100; 84156; 84165; 84439; 84443; 85025; 85027; 85379; 86038; 86160; 86162; 86225; 86335; 87045; 87046; 87324; 93005; 96360; 96361; 99291

== ENCOUNTER 2020-08-15 15:20 | Observation (INO) | payer MEDICARE ==
[2020-08-15] MEDS ORDERED: ASPIRIN 325 MG TAB PO STA (15:42)
--- NOTE | 2020-08-15 15:42 | ED ---
General Adult HPI - General Chief complaint: Weakness Stated complaint: CHF Time Seen by Provider: 08/15/20 15:28 Source: patient, family, RN/MD (Dr. Cameron from [facility]), EMS, RN notes reviewed, old records reviewed (Review of records from [facility]) Mode of arrival: EMS Limitations: physical limitation - History of Present Illness Initial comments: Patient is a pleasant 74-year-old female presenting to the emergency department with fatigue and exertional dyspnea. Symptoms have progressively the past few days. Patient saw her doctor and then was transferred to the emergency department and [facility]. Patient there was diagnosed with CHF and also had concern for hypothyroid. TSH was elevated. They did request transfer for cardiology evaluation. Patient states symptoms have been somewhat progressive over the past couple of days. Patient does have leg edema and dyspnea with exertion. Patient has no significant dyspnea at rest. No chest pain. - Related Data Home Medications Medication Instructions Recorded Confirmed Cholecalciferol [Vitamin D3 (25 1,000 unit PO DAILY 05/10/20 07/28/20 Mcg = 1000 Iu)] Levothyroxine Sodium [Synthroid] 137 mcg PO DAILY 05/10/20 07/28/20 Simvastatin 40 mg PO HS 05/10/20 07/28/20 Venlafaxine HCl ER [Effexor XR] 150 mg PO DAILY 05/10/20 07/28/20 Albuterol Sulfate [Albuterol 1 puff PO RT-Q4H PRN 07/28/20 07/28/20 Sulfate Hfa] Apixaban [Eliquis] 5 mg PO BID 07/28/20 07/28/20 Aspirin EC [Ecotrin Low Dose] 81 mg PO DAILY 07/28/20 07/28/20 Calcium Carbonate 500 mg PO DAILY 07/28/20 07/28/20 Ferrous Sulfate [Iron (65 MG 325 mg PO DAILY 07/28/20 07/28/20 Elemental)] Gabapentin 300 mg PO BID 07/28/20 07/28/20 Loperamide [Imodium] 2 mg PO QID PRN 07/28/20 07/28/20 Loratadine 10 mg PO DAILY 07/28/20 07/28/20 Magnesium Oxide 400 mg PO BID 07/28/20 07/28/20 Melatonin 3 mg PO HS 07/28/20 07/28/20 Pantoprazole Sodium 40 mg PO DAILY 07/28/20 07/28/20 Simethicone Chew [Mylicon Chew] 80 mg PO QID PRN 07/28/20 07/28/20 ondansetron HCL [Zofran] 8 mg PO Q8HR PRN 07/28/20 07/28/20 Previous Rx's Medication Instructions Recorded Codeine Sulfate 15 mg PO Q8HR PRN 30 Days #90 tab 08/04/20 Codeine 15 mg PO Q8HR #14 tab 08/11/20 Allergies Allergy/AdvReac Type Severity Reaction Status Date / Time Penicillins Allergy Unknown Verified 08/15/20 15:29 Sulfa (Sulfonamide Allergy Unknown Verified 08/15/20 15:29 Antibiotics) Review of Systems ROS Statement: Those systems with pertinent positive or pertinent negative responses have been documented in the HPI. ROS Other: All systems not noted in ROS Statement are negative. Constitutional: Denies: fever Eyes: Denies: eye pain ENT: Denies: ear pain Respiratory: Reports: as per HPI, dyspnea Cardiovascular: Reports: dyspnea on exertion, edema Endocrine: Reports: fatigue Gastrointestinal: Denies: abdominal pain Genitourinary: Denies: dysuria Musculoskeletal: Denies: back pain Skin: Denies: rash Neurological: Denies: weakness Past Medical History Past Medical History: Eye Disorder, Hyperlipidemia, Hypertension, Thyroid Disorder Additional Past Medical History / Comment(s): Chronic constipation, R eye mutliple surgeries for retinal tears-vision poor, hypothyroid, osteoporosis. Pt reports blood clot in bowel after surgery History of Any Multi-Drug Resistant Organisms: None Reported Past Surgical History: Joint Replacement Additional Past Surgical History / Comment(s): Colonoscopy with last on 05/08/20, bilateral total knees, left overy removed d/t cyst, bilateral eye cataract removals/lens implants, R eye multiple surgeries for retinal tears, bowel resection. Additional Past Anesthesia/Blood Transfusion Reaction / Comment(s): Difficulty getting to sleep, states she can be combative after surgery Past Psychological History: Anxiety, Depression Smoking Status: Former smoker Past Alcohol Use History: Rare Past Drug Use History: None Reported - Past Family History Mother Family Medical History: No Reported History Additional Family Medical History / Comment(s): Mother did not go to the doctor much. Father Family Medical History: Vascular Disorder Additional Family Medical History / Comment(s): Father in his early 50s of a ruptured thoracic aneurysm. General Exam Limitations: physical limitation General appearance: alert, in no apparent distress Head exam: Present: normocephalic Eye exam: Present: normal appearance Neck exam: Present: normal inspection Respiratory exam: Present: normal lung sounds bilaterally Cardiovascular Exam: Present: regular rate, normal rhythm GI/Abdominal exam: Present: soft. Absent: tenderness Extremities exam: Present: pedal edema. Absent: calf tenderness Neurological exam: Present: alert Psychiatric exam: Present: normal affect, normal mood Skin exam: Present: normal color Course Vital Signs 08/15/20 15:22 Temperature 98.5 F Pulse Rate 88 Respiratory 18 Rate Blood Pressure 117/53 O2 Sat by Pulse 96 Oximetry Medical Decision Making - Medical Decision Making Case discussed with Dr. Perkins, who will admit covering for Dr. Yan. Patient aware of plan. Disposition Clinical Impression: CHF (congestive heart failure) Disposition: ADMITTED IP TO THIS HOSP Is patient prescribed a controlled substance at d/c from ED?: No Referrals: Dorian Yan MD [Primary Care Provider] - 1-2 days Decision Time: 15:41
[2020-08-15] MEDS: FUROSEMIDE 10 MG/ML 4 ML VIAL IV SCH (16:01)
[2020-08-15 16:39] LABS: T4, Free (Free Thyroxine) 0.61 ng/dL (0.78-2.19)
[2020-08-15] MEDS: MAGNESIUM OXIDE 400 MG TAB PO SCH (21:47)
[2020-08-15] MEDS: GABAPENTIN 300 MG CAP PO SCH (21:47)
[2020-08-15] MEDS: ATORVASTATIN 20 MG TAB PO SCH (21:47)
[2020-08-15] MEDS: APIXABAN 5 MG TAB PO SCH (21:47)
[2020-08-15] MEDS: MELATONIN 3 MG TABLET PO SCH (21:48)
[2020-08-15] MEDS: LEVOTHYROXINE 137 MCG TAB PO SCH (21:48)
[2020-08-16] MEDS: FUROSEMIDE 10 MG/ML 4 ML VIAL IV SCH ×2 (05:00→16:47)
[2020-08-16] MEDS: LEVOTHYROXINE 137 MCG TAB PO SCH (06:29)
[2020-08-16] MEDS: PANTOPRAZOLE 40 MG TABLET PO SCH (06:30)
[2020-08-16] MEDS: FERROUS SULFATE 325 MG TAB PO SCH (09:16)
[2020-08-16] MEDS: GABAPENTIN 300 MG CAP PO SCH ×2 (09:16→20:10)
[2020-08-16] MEDS: CHOLECALCIFEROL 1,000 UNIT TAB PO SCH (09:16)
[2020-08-16] MEDS: MAGNESIUM OXIDE 400 MG TAB PO SCH ×2 (09:16→20:10)
[2020-08-16] MEDS: APIXABAN 5 MG TAB PO SCH ×2 (09:16→20:10)
[2020-08-16] MEDS: CALCIUM CARBONATE 500 MG CHEWABLE PO SCH (09:16)
[2020-08-16] MEDS: VENLAFAXINE HCL ER 150 MG CAP PO SCH (09:16)
[2020-08-16] MEDS: ASPIRIN 81 MG PO SCH (09:16)
[2020-08-16] MEDS: LORATADINE 10 MG TAB PO SCH (09:16)
[2020-08-16 09:21] LABS: Albumin 2.1 g/dL (3.5-5.0); Calcium 7.6 mg/dL (8.4-10.2); Magnesium 1.7 mg/dL (1.6-2.3); Potassium 3.3 mmol/L (3.5-5.1); Total Bilirubin 0.4 mg/dL (0.2-1.3); Total Protein 4.3 g/dL (6.3-8.2)
[2020-08-16] MEDS ORDERED: POTASSIUM CHLORIDE ER 20 MEQ TAB.ER PO STA (09:35)
--- NOTE | 2020-08-16 09:41 | P.CRDCN ---
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 She does not follow in the office with a inside sales advertising executive. She denies prior history of coronary artery disease. We have been asked to see in consultation for shortness of breath. She was just discharged from the hospital on Friday secondary to his stay for diarrhea and dehydration. She states when she left she was feeling somewhat normal but still had some mild weakness. However in the previous 2 days she has noticed a significant decline in her level of energy. She states just getting dressed in the morning causes her significant shortness of breath and she has to stop frequently times with minor tasks She was following up yesterday with her primary care physician and was noted to be quite short of breath with exertion, significantly fatigued and lower extremity edema. She was sent to the hospital. She initially went to [facility] and was transferred here for further evaluation. Records reviewed from [facility] revealed a chest x-ray r evealing vascular congestion, laboratory data with a white count of 7, hemoglobin 9.9, platelets 410, pro-calcitonin 0.11, sodium 134, potassium 3.6, troponin negative 1, BNP 87 and creatinine 1. Repeat laboratory data obtained this morning reveals a sodium of 135, potassium 3.3, creatinine 0.86, magnesium 1.7 and NT proBNP 332 She was initiated last evening on IV diuretics. She is resting comfortably lying flat in bed. She states she did get up to the restroom twice through the night and does not recall significant dyspnea. She also states she is having ongoing and persistent diarrhea with no real improvement. DIAGNOSTICS EKG reveals sinus mechanism with no acute ST or T wave abnormalities noted. Current cardiac medications include Eliquis 5 mg twice a day, aspirin 81 mg daily and simvastatin 40 mg at bedtime. REVIEW OF SYSTEMS At the time of my exam: CONSTITUTIONAL: Complains of generalized weakness and fatigue. Denies fever or chills. CARDIOVASCULAR: Complains of shortness of breath with activity. Denies chest pain, orthopnea, PND or palpitations. RESPIRATORY: Denies cough. GASTROINTESTINAL: Denies abdominal pain, diarrhea, constipation, nausea or vomiting. MUSCULOSKELETAL: Denies myalgias. NEUROLOGIC: Denies numbness, tingling, headacbe or weakness. ENDOCRINE: Denies fatigue, weight change, polydipsia or polyurina. GENITOURINARY: Denies burning, hematuria or urgency with micturation. HEMATOLOGIC: Denies history of anemia or bleeding. PHYSICAL EXAMINATION Blood pressure 109/77 heart rate 96 afebrile and maintaining oxygen saturation on room air. CONSTITUTIONAL: No apparent distress. HEENT: Head is normocephalic. Pupils are equal, round. Sclerae anicteric. Mucous membranes of the mouth are moist. No JVD. No carotid bruit. CHEST EXAMINATION: Lungs are clear to auscultation. No chest wall tenderness is noted on palpation or with deep breathing. HEART EXAMINATION: Regular rate and rhythm. S1, S2 heard. No murmurs, gallops or rub. ABDOMEN: Soft, nontender. Positive bowel sounds. EXTREMITIES: 2+ peripheral pulses, no lower extremity edema and no calf tenderness. NEUROLOGIC EXAMINATION: Patient is awake, alert and oriented x3. 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 Replace potassium. Obtain 2D echocardiogram and doppler study to assess cardiac structure and function. Increase activity and ambulation as tolerated. Request physical therapy to evaluated and treat. Further recommendations to follow based on clinical course. Nurse Practitioner note has been reviewed, I agree with a documented findings and plan of care. Patient was seen and examined. 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 Pt reports blood clot in bowel after surgery History of Any Multi-Drug Resistant Organisms: None Reported Past Surgical History: Joint Replacement Additional Past Surgical History / Comment(s): Colonoscopy with last on 05/08/20, bilateral total knees, left overy removed d/t cyst, bilateral eye cataract removals/lens implants, R eye multiple surgeries for retinal tears, bowel resection. Additional Past Anesthesia/Blood Transfusion Reaction / Comment(s): Difficulty getting to sleep, states she can be combative after surgery Past Psychological History: Anxiety, Depression Additional Psychological History / Comment(s): Pt resides alone. She is independent. Smoking Status: Former smoker Past Alcohol Use History: Rare Additional Past Alcohol Use History / Comment(s): Pt started smoking as a teen and quit in 1999. She was a heavy smoker. Past Drug Use History: None Reported - Past Family History Mother Family Medical History: No Reported History Additional Family Medical History / Comment(s): Mother did not go to the doctor much. Father Family Medical History: Vascular Disorder Additional Family Medical History / Comment(s): Father in his early 50s of a ruptured thoracic aneurysm. Medications and Allergies Home Medications Medication Instructions Recorded Confirmed Type Cholecalciferol [Vitamin D3 (25 1,000 unit PO DAILY 05/10/20 08/15/20 History Mcg = 1000 Iu)] Levothyroxine Sodium [Synthroid] 137 mcg PO DAILY 05/10/20 08/15/20 History Simvastatin 40 mg PO HS 05/10/20 08/15/20 History Venlafaxine HCl ER [Effexor XR] 150 mg PO DAILY 05/10/20 08/15/20 History Albuterol Sulfate [Albuterol 1 puff PO RT-Q4H PRN 07/28/20 08/15/20 History Sulfate Hfa] Apixaban [Eliquis] 5 mg PO BID 07/28/20 08/15/20 History Aspirin EC [Ecotrin Low Dose] 81 mg PO DAILY 07/28/20 08/15/20 History Calcium Carbonate 500 mg PO DAILY 07/28/20 08/15/20 History Ferrous Sulfate [Iron (65 MG 325 mg PO DAILY 07/28/20 08/15/20 History Elemental)] Gabapentin 300 mg PO BID 07/28/20 08/15/20 History Loperamide [Imodium] 2 mg PO QID PRN 07/28/20 08/15/20 History Loratadine 10 mg PO DAILY 07/28/20 08/15/20 History Magnesium Oxide 400 mg PO BID 07/28/20 08/15/20 History Melatonin 3 mg PO HS 07/28/20 08/15/20 History Pantoprazole Sodium 40 mg PO DAILY 07/28/20 08/15/20 History Simethicone Chew [Mylicon Chew] 80 mg PO QID PRN 07/28/20 08/15/20 History ondansetron HCL [Zofran] 8 mg PO Q8HR PRN 07/28/20 08/15/20 History Allergies Allergy/AdvReac Type Severity Reaction Status Date / Time Penicillins Allergy Unknown Verified 08/15/20 16:13 Sulfa (Sulfonamide Allergy Unknown Verified 08/15/20 16:13 Antibiotics) Physical Exam Vitals: Vital Signs Temp Pulse Pulse Resp BP BP Pulse Ox 08/16/20 08:14 98 F 95 16 96/67 95 08/16/20 02:15 97.3 F L 96 17 109/77 96 08/15/20 21:18 98.2 F 75 18 106/70 97 08/15/20 19:08 85 18 99/67 100 08/15/20 18:02 88 18 101/57 100 08/15/20 16:11 86 18 115/69 100 08/15/20 15:22 98.5 F 88 18 117/53 96 Intake and Output 08/15/20 08/16/20 08/16/20 22:59 06:59 14:59 Output Total 1150 175 Balance -1150 -175 Output: Urine 1150 175 Other: Voiding Method Toilet Toilet Toilet Weight 94.801 kg Results 08/16/20 08:58 Cardiac Enzymes 08/16/20 Range/Units 08:58 AST 34 (14-36) U/L Comprehensive Metabolic Panel 08/16/20 Range/Units 08:58 Sodium 135 L (137-145) mmol/L Potassium 3.3 L (3.5-5.1) mmol/L Chloride 102 (98-107) mmol/L Carbon Dioxide 29 (22-30) mmol/L BUN 25 H (7-17) mg/dL Creatinine 0.86 (0.52-1.04) mg/dL Glucose 120 H (74-99) mg/dL Calcium 7.6 L (8.4-10.2) mg/dL AST 34 (14-36) U/L ALT 29 (4-34) U/L Alkaline Phosphatase 155 H (38-126) U/L Total Protein 4.3 L (6.3-8.2) g/dL Albumin 2.1 L (3.5-5.0) g/dL Current Medications Generic Name Dose Route Start Last Admin Trade Name Freq PRN Reason Stop Dose Admin Apixaban 5 mg 08/15/20 21:00 08/16/20 09:16 Apixaban 5 Mg Tab PO 5 mg BID RUDOLPH Administration Aspirin 81 mg 08/16/20 09:00 08/16/20 09:16 Aspirin 81 Mg PO 81 mg DAILY RUDOLPH Administration Atorvastatin Calcium 20 mg 08/15/20 21:00 08/15/20 21:47 Atorvastatin 20 Mg Tab PO 20 mg HS RUDOLPH Administration Calcium Carbonate/Glycine 500 mg 08/16/20 09:00 08/16/20 09:16 Calcium Carbonate 500 Mg Chewable PO 500 mg DAILY RUDOLPH Administration Cholecalciferol 1,000 unit 08/16/20 09:00 08/16/20 09:16 Cholecalciferol 1,000 Unit Tab PO 1,000 unit DAILY RUDOLPH Administration Ferrous Sulfate 325 mg 08/16/20 09:00 08/16/20 09:16 Ferrous Sulfate 325 Mg Tab PO 325 mg DAILY RUDOLPH Administration Furosemide 40 mg 08/15/20 16:00 08/16/20 05:00 Furosemide 10 Mg/Ml 4 Ml Vial IV 40 mg Q12H RUDOLPH Administration Gabapentin 300 mg 08/15/20 21:00 08/16/20 09:16 Gabapentin 300 Mg Cap PO 300 mg BID RUDOLPH Administration Levothyroxine Sodium 137 mcg 08/15/20 20:30 08/16/20 06:29 Levothyroxine 137 Mcg Tab PO 137 mcg DAILY@0630 RUDOLPH Administration Loratadine 10 mg 08/16/20 09:00 08/16/20 09:16 Loratadine 10 Mg Tab PO 10 mg DAILY RUDOLPH Administration Magnesium Oxide 400 mg 08/15/20 21:00 08/16/20 09:16 Magnesium Oxide 400 Mg Tab PO 400 mg BID RUDOLPH Administration Melatonin 3 mg 08/15/20 21:00 08/15/20 21:48 Melatonin 3 Mg Tablet PO 3 mg HS RUDOLPH Administration Pantoprazole Sodium 40 mg 08/16/20 07:30 08/16/20 06:30 Pantoprazole 40 Mg Tablet PO 40 mg [id number] RUDOLPH Administration Sodium Chloride 10 ml 08/15/20 21:00 08/15/20 21:48 Sodium Chloride 0.9% Flush 10 Ml Syringe IV 10 ml BID RUDOLPH Administration Venlafaxine HCl 150 mg 08/16/20 09:00 08/16/20 09:16 Venlafaxine Hcl Er 150 Mg Cap PO 150 mg DAILY RUDOLPH Administration Intake and Output 08/15/20 08/16/2021 22:59 06:59 14:59 Output Total 1150 175 Balance -1150 -175 Output: Urine 1150 175 Other: Voiding Method Toilet Toilet Toilet Weight 94.801 kg 08/16/20 08:58
--- NOTE | 2020-08-16 10:13 | XR ---
EXAMINATION TYPE: XR chest 2V DATE OF EXAM: 08/16/2020 COMPARISON: 07/28/2020, 08/15/2020 HISTORY: 74-year-old female follow-up diuresis TECHNIQUE: PA and lateral views FINDINGS: The cardiomediastinal silhouette, aorta, and pulmonary vasculature are within normal limits. Some str latisha atelectasis in the lower lungs. No kimberly consolidation or pleural effusion. IMPRESSION: Strandy bibasilar atelectasis.
[2020-08-16] MEDS ORDERED: SIMETHICONE 80 MG CHEWABLE PO PRN (11:02)
[2020-08-16] MEDS ORDERED: ALBUTEROL NEBULIZED 2.5 MG/3 ML INHALATION PRN (11:02)
[2020-08-16] MEDS ORDERED: LOPERAMIDE 2 MG CAP PO PRN (11:02)
[2020-08-16] MEDS ORDERED: ONDANSETRON 4 MG TAB PO PRN (11:02)
[2020-08-16] MEDS ORDERED: ASPIRIN 325 MG TAB PO SCH (12:00)
[2020-08-16] MEDS ORDERED: RX INFO: IV CONTRAST WAS GIVEN 1 EACH MISC MISCELLANE PRN (12:37)
[2020-08-16 13:45] VITALS: BMI 36.5
--- NOTE | 2020-08-16 14:25 | FL ---
EXAMINATION TYPE: FL sniff test without CXR DATE OF EXAM: 08/16/2020 COMPARISON: Radiograph 08/16/2020 HISTORY: 74-year-old female possible right diaphragmatic paralysis, history of bowel resection surger y. TECHNIQUE: Real-time fluoroscopy during quiet breathing, deep inspirations, and sniffing maneuver. Total fluoroscopy time: 1 minute Total images: 8 FINDINGS: There is asymmetric elevation of the right hemidiaphragm. Intermittent slightly delayed movement of t he right hemidiaphragm but with symmetric excursion. Significant maneuver shows no paradoxical moveme nt. IMPRESSION: Elevated right hemidiaphragm with occasional, slightly sluggish movement. However, there is no eviden ce for hemidiaphragmatic paralysis.
--- NOTE | 2020-08-16 15:47 | CT ---
EXAMINATION TYPE: CT angio chest DATE OF EXAM: 08/16/2020 3:41 PM COMPARISON: Chest x-ray earlier today. HISTORY: possible pe CT DLP: 483.2 mGycm Automated exposure control for dose reduction was used. CONTRAST: CTA scan of the thorax is performed with IV Contrast, patient injected with 100 mL of Isovue 370, pul monary embolism protocol. . FINDINGS: LUNGS: Mild dependent atelectasis in the right lower lobe. Mild linear scarring and/or atelectasis in the lower lungs. No suspicious focal consolidation or groundglass opacity. No pleural effusion or pn eumothorax seen bilaterally. No suspicious masses. Elevated right hemidiaphragm redemonstrated. MEDIASTINUM: There is satisfactory enhancement of the pulmonary artery and its branches, there is no CT evidence for pulmonary embolism. There are no greater than 1 cm hilar or mediastinal lymph nodes. Small to tiny pericardial effusion is seen. No cardiomegaly. Satisfactory enhancement of aorta without dissection or aneurysm in the arch or desc ending aorta. Ascending aorta measures up to 3.7 cm in diameter. OTHER: Visualized liver is low dense consistent with diffuse fatty infiltration. Partial visualizati on of low dense lesion laterally at the pole left kidney presumed exophytic thin-walled cyst. IMPRESSION: No CT evidence for acute pulmonary embolism. Chronic changes without suspicious acute pul monary process.
--- NOTE | 2020-08-16 17:00 | ECHOF ---
Referral Reason:sob, weakness MEASUREMENTS -------- HEIGHT: 160.0 cm WEIGHT: 94.8 kg BP: 96/67 RVIDd: 3.8 cm (< 3.3) IVSd: 1.4 cm (0.6 - 1.1) LVIDd: 4.0 cm (3.9 - 5.3) LVPWd: 1.3 cm (0.6 - 1.1) IVSs: 1.7 cm LVIDs: 2.8 cm LVPWs: 1.5 cm LAESV Index (A-L): 25.39 ml/m Ao Diam: 2.9 cm (2.0 - 3.7) AV Cusp: 1.5 cm (1.5 - 2.6) MV EXCURSION: 17.297 mm (> 18.000) MV EF SLOPE: 79 mm/s (70 - 150) EPSS: 0.4 cm MV E Johnny: 0.72 m/s MV DecT: 199 ms MV A Johnny: 1.01 m/s MV E/A Ratio: 0.72 AV maxP.59 mmHg AV meanP.14 mmHg RAP: 5.00 mmHg RVSP: 34.43 mmHg FINDINGS -------- Sinus rhythm. This was a technically adequate study. The left ventricular size is normal. There is moderate concentric left ventricular hypertrophy. O verall left ventricular systolic function is low-normal with, an EF between 50 - 55 %. The right ventricle is mild to moderately enlarged. Normal LA size by volume 22+/-6 ml/m2. The right atrial size is normal. Interatrial and interventricular septum intact. The aortic valve is trileaflet and appears structurally normal. There is no evidence of aortic regu rgitation. There is mild aortic stenosis present. Peak/mean gradient across the Aortic Valve is 2 0.59mmHg / 10.14mmHg. No mitral regurgitation. Mild tricuspid regurgitation present. There is borderline pulmonary artery hypertension. The righ t ventricular systolic pressure, as measured by Doppler, is 34.43mmHg. There is no pulmonic regurgitation present. The aortic root size is normal. IVC Not well visulized. There is no pericardial effusion. CONCLUSIONS -------- 1. The left ventricular size is normal. 2. There is moderate concentric left ventricular hypertrophy. 3. Overall left ventricular systolic function is low-normal with, an EF between 50 - 55 %. 4. The right ventricle is mild to moderately enlarged. 5. There is mild aortic stenosis present. 6. Peak/mean gradient across the Aortic Valve is 20.59mmHg / 10.14mmHg. 7. Mild tricuspid regurgitation present. 8. There is borderline pulmonary artery hypertension. 9. The right ventricular systolic pressure, as measured by Doppler, is 34.43mmHg. [employer] CUTTER: Marlen Mcneil RDCS
[2020-08-16] MEDS: MELATONIN 3 MG TABLET PO SCH (20:10)
[2020-08-16] MEDS: ATORVASTATIN 20 MG TAB PO SCH (20:10)
--- NOTE | 2020-08-16 22:59 | P.HPIM ---
History of Present Illness H&P Date: 08/16/20 Chief Complaint: Tired History of presenting complaint: This is a pleasant 74-year-old patient of Dr. Dorian Yan. Chronic stable medical conditions include hypertension, hyperlipidemia, depression, hypothyroid. Patient is here in April 2020 was found to have small bowel ischemia primarily involving the portion of the distal jejunum. Full-thickness necrosis noted in a patchy manner. Area proximal distal to that also ischemic appearance-small bowel resection was carried out. Patient was then transferred out to [facility]. Dr. Galdamez with the surgical nicotine. Patient thinks a blood clot was removed from the blood supply to the bowels. Patient now presents with progressive no energy for a few days. Last 3 days becoming worse. She is totally depleted. No fever no chills. Decreased appetite. Gets intermittent diarrhea. No bowel pain. No urinary symptoms. Gets short of breath with exertion. Only uses one pillow able to lie flat. Slight edema. Patient initially presented to [facility]. Check stat x- rays showed a very mild congestion. TSH was elevated at 36.8 Review of systems: GEN.: Tired, decreased appetite EYES: None HEENT: None NECK: None RESPIRATORY: Short of breath with exertion CARDIOVASCULAR: No orthopnea, no PND GASTROINTESTINAL: As above GENITOURINARY: None MUSCULOSKELETAL: joint pains LYMPHATICS: None HEMATOLOGICAL: None PSYCHIATRY: None NEUROLOGICAL: None Past medical history to include: Hypertension, hyperlipidemia, depression, hypothyroid, small bowel ischemia, with resection and blood clots removed from blood supply to the small bowel at [facility] Social history: Lives alone. Smoked for about 30 years stopped in 1999. Was a heavy smoker. Alcohol occasional. Physical examination: VITAL SIGNS: 98, 95, 16, 96/67, 95% room air GENERAL:. BMI 36.5, laying in bed, awake. EYES: Pupils equal. Conjunctiva normal. HEENT: External appearance of nose and ears normal, oral cavity grossly normal. NECK: JVD not raised; masses not palpable. HEART: First and second heart sounds are normal; mild edema. LUNGS: Respiratory rate normal; clear to auscultation. ABDOMEN: Soft, no tenderness, no guarding rigidity, liver spleen not palpable, no masses palpable. PSYCH: Alert and oriented x3; mood and affect anxiousl. MUSCULAR skeletal: Evidence of OA INVESTIGATIONS, reviewed in the clinical context: Potassium 3.3 bun 25 creatinine 0.86 free T4 decreased at 0.61, free T3 decr eased at 1.6 TSH [[facility]] equals 36.8 EKG tracing personally reviewed by me-from [facility]: Sinus rhythm, slight T waves and ST segment abnormality 2-D echocardiogram-EF 50-55%, moderate concentric LVH, right ventricle mildly to moderately enlarged, borderline Laura arterial hypertension Chest x-ray film personally reviewed by me-elevated right diaphragm Chest CTA-negative for PE Assessment: -This is a patient has been feeling weak diet panic for a few days. No orthopnea. Slight edema. Short of breath with exertion. Patient checks to x- ray does not show any pulmonary edema. BNP is only 332. Patient to have mild cor pulmonale. -Symptomatic hypothyroid patient is under replaced -Essential hypertension -Hyperlipidemia -Depression otherwise specified -obesity BMI 36.5 -Elevated right diaphragm-SNIFF test was carried out. No paradoxical movement noted. -Pulmonary embolism-ruled out Plan: Patient was placed on IV Lasix in the ER. Has received at least couple doses. . Change to by mouth Lasix in the morning. Repeat BMP, BNP in the morning. Use Mauricio wrap for pulmonary edema. Patient does of Synthroid increased. Care was discussed with the patient. Cardiology was consulted. 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 Pt reports blood clot in bowel after surgery History of Any Multi-Drug Resistant Organisms: None Reported Past Surgical History: Joint Replacement Additional Past Surgical History / Comment(s): Colonoscopy with last on 05/08/20, bilateral total knees, left overy removed d/t cyst, bilateral eye cataract removals/lens implants, R eye multiple surgeries for retinal tears, bowel resec tion. Additional Past Anesthesia/Blood Transfusion Reaction / Comment(s): Difficulty getting to sleep, states she can be combative after surgery Past Psychological History: Anxiety, Depression Additional Psychological History / Comment(s): Pt resides alone. She is independent. Smoking Status: Former smoker Past Alcohol Use History: Rare Additional Past Alcohol Use History / Comment(s): Pt started smoking as a teen and quit in 1999. She was a heavy smoker. Past Drug Use History: None Reported - Past Family History Mother Family Medical History: No Reported History Additional Family Medical History / Comment(s): Mother did not go to the doctor much. Father Family Medical History: Vascular Disorder Additional Family Medical History / Comment(s): Father in his early 50s of a ruptured thoracic aneurysm. Medications and Allergies Home Medications Medication Instructions Recorded Confirmed Type Cholecalciferol [Vitamin D3 (25 1,000 unit PO DAILY 05/10/20 08/15/20 History Mcg = 1000 Iu)] Levothyroxine Sodium [Synthroid] 137 mcg PO DAILY 05/10/20 08/15/20 History Simvastatin 40 mg PO HS 05/10/20 08/15/20 History Venlafaxine HCl ER [Effexor XR] 150 mg PO DAILY 05/10/20 08/15/20 History Albuterol Sulfate [Albuterol 1 puff PO RT-Q4H PRN 07/28/20 08/15/20 History Sulfate Hfa] Apixaban [Eliquis] 5 mg PO BID 07/28/20 08/15/20 History Aspirin EC [Ecotrin Low Dose] 81 mg PO DAILY 07/28/20 08/15/20 History Calcium Carbonate 500 mg PO DAILY 07/28/20 08/15/20 History Ferrous Sulfate [Iron (65 MG 325 mg PO DAILY 07/28/20 08/15/20 History Elemental)] Gabapentin 300 mg PO BID 07/28/20 08/15/20 History Loperamide [Imodium] 2 mg PO QID PRN 07/28/20 08/15/20 History Loratadine 10 mg PO DAILY 07/28/20 08/15/20 History Magnesium Oxide 400 mg PO BID 07/28/20 08/15/20 History Melatonin 3 mg PO HS 07/28/20 08/15/20 History Pantoprazole Sodium 40 mg PO DAILY 07/28/20 08/15/20 History Simethicone Chew [Mylicon Chew] 80 mg PO QID PRN 07/28/20 08/15/20 History ondansetron HCL [Zofran] 8 mg PO Q8HR PRN 07/28/20 08/15/20 History Allergies Allergy/AdvReac Type Severity Reaction Status Date / Time Penicillins Allergy Unknown Verified 08/15/20 16:13 Sulfa (Sulfonamide Allergy Unknown Verified 08/15/20 16:13 Antibiotics) Physical Exam Vitals: Vital Signs Temp Pulse Pulse Resp BP BP Pulse Ox 08/16/20 08:14 98 F 95 16 96/67 95 08/16/20 02:15 97.3 F L 96 17 109/77 96 08/15/20 21:18 98.2 F 75 18 106/70 97 08/15/20 19:08 85 18 99/67 100 08/15/20 18:02 88 18 101/57 100 08/15/20 16:11 86 18 115/69 100 08/15/20 15:22 98.5 F 88 18 117/53 96 Intake and Output 08/15/20 08/16/20 08/16/20 22:59 06:59 14:59 Output Total 1150 175 1 Balance -1150 -175 -1 Output: Urine 1150 175 Urine/Stool Mix 1 Other: Voiding Method Toilet Toilet Toilet Weight 94.801 kg 93.44 kg Results CBC & Chem 7: 08/16/20 08:58 Labs: Abnormal Lab Results - Last 24 Hours (Table) 08/15/20 08/16/20 Range/Units 16:02 08:58 Sodium 135 L (137-145) mmol/L Potassium 3.3 L (3.5-5.1) mmol/L BUN 25 H (7-17) mg/dL Glucose 120 H (74-99) mg/dL Calcium 7.6 L (8.4-10.2) mg/dL Alkaline Phosphatase 155 H (38-126) U/L Total Protein 4.3 L (6.3-8.2) g/dL Albumin 2.1 L (3.5-5.0) g/dL Free T4 0.61 L (0.78-2.19) ng/dL Free T3 pg/mL 1.6 L (2.8-5.3) pg/ml Thrombosis Risk Factor Assmnt - Choose All That Apply Each Factor Represents 1 point: Obesity (BMI >25) Each Risk Factor Represents 2 Points: Age 61-74 years Thrombosis Risk Factor Assessment Total Risk Factor Score: 3 Thrombosis Risk Factor Assessment Level: Moderate Risk
[2020-08-17 00:40] VITALS: RESP 18
[2020-08-17] MEDS ORDERED: LEVOTHYROXINE 75 MCG TAB PO SCH (06:30)
[2020-08-17] MEDS: PANTOPRAZOLE 40 MG TABLET PO SCH (06:33)
[2020-08-17] MEDS ORDERED: FUROSEMIDE 10 MG/ML 10 ML VIAL IV STA (08:13)
[2020-08-17] MEDS ORDERED: FUROSEMIDE 40 MG TAB PO SCH (09:00)
[2020-08-17 09:02] LABS: Calcium 7.8 mg/dL (8.4-10.2); Potassium 4.5 mmol/L (3.5-5.1)
[2020-08-17] MEDS: FERROUS SULFATE 325 MG TAB PO SCH (09:30)
[2020-08-17] MEDS: CHOLECALCIFEROL 1,000 UNIT TAB PO SCH (09:30)
[2020-08-17] MEDS: VENLAFAXINE HCL ER 150 MG CAP PO SCH (09:30)
[2020-08-17] MEDS: ASPIRIN 81 MG PO SCH (09:30)
[2020-08-17] MEDS: CALCIUM CARBONATE 500 MG CHEWABLE PO SCH (09:30)
[2020-08-17] MEDS: LORATADINE 10 MG TAB PO SCH (09:31)
[2020-08-17] MEDS: MAGNESIUM OXIDE 400 MG TAB PO SCH (09:31)
[2020-08-17] MEDS: GABAPENTIN 300 MG CAP PO SCH (09:31)
[2020-08-17] MEDS: APIXABAN 5 MG TAB PO SCH (09:31)
--- NOTE | 2020-08-17 10:20 | P.PN ---
Subjective HISTORY OF PRESENTING ILLNESS This is a pleasant 74-year-old female past medical history significant for skin bowel status post colectomy and embolectomy on long-term anticoagulation, dyslipidemia and obesity. She does not follow in the office with a library associate. She is seen and examined sitting up in bed in no acute distress. She feels better than yesterday in terms of breathing but still weak. She continues to have lower extremity edema. PCP transitioned her to oral diuretics. Echocardiogram reveals preserved LV systolic function with ejection fraction 50-55%, mild to moderate RV enlargement, mild aortic stenosis with a mean gradient of 10 mmHg and mild tricuspid regurgitation. Repeat chest x-ray yesterday revealed strandy bibasilar atelectasis. CT angios of the chest was negative for PE, chronic changes without suspicious acute pulmonary process. Aorta measuring 3.7 cm in diameter with no dissection or aneurysm and the arch or descending aorta. Blood pressure 113/76 heart rate 88 afebrile maintaining oxygen saturation on room air. Laboratory data reviewed, sodium 134, potassium 4.5, creatinine 0.86. 24-hr urine output is 2750 and her weight is down 1 kg since admission. PHYSICAL EXAMINATION CONSTITUTIONAL: No apparent distress. HEENT: Head is normocephalic. Pupils are equal, round. Sclerae anicteric. Mucous membranes of the mouth are moist. No JVD. No carotid bruit. CHEST EXAMINATION: Lungs are clear to auscultation. No chest wall tenderness is noted on palpation or with deep breathing. HEART EXAMINATION: Regular rate and rhythm. S1, S2 heard. No murmurs, gallops or rub. EXTREMITIES: 2+ peripheral pulses, 2+ bilateral lower extremity edema and no calf tenderness. 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 NTproBNP can be falsely decreased in women and obesity. Nurse Practitioner note has been reviewed, I agree with a documented findings and plan of care. Patient was seen and examined. Objective - Vital Signs Vital signs: Vital Signs Temp 97.8 F 08/17/20 04:10 Pulse 88 08/17/20 04:10 Resp 18 08/17/20 04:10 BP 113/76 08/17/20 04:10 Pulse Ox 99 08/17/20 04:10 Intake & Output 08/16/20 08/17/20 08/17/20 18:59 06:59 18:59 Output Total 1 2750 Balance -1 -2750 Weight 93.44 kg 93 kg Output: Urine 2750 Urine/Stool Mix 1 Other: Voiding Method Toilet Toilet # Voids 1 - Labs CBC & Chem 7: 08/17/20 08:32 Labs: Abnormal Lab Results - Last 24 Hours (Table) 08/17/20 Range/Units 08:32 Sodium 134 L (137-145) mmol/L BUN 27 H (7-17) mg/dL Glucose 100 H (74-99) mg/dL Calcium 7.8 L (8.4-10.2) mg/dL
[2020-08-17 11:11] VITALS: BP 124/84; PULSE 98; TEMP 98.5
--- NOTE | 2020-08-17 23:24 | P.DS ---
Providers Date of admission: 08/15/20 16:02 Expected date of discharge: 08/17/20 Attending physician: Mamadou Perkins Consults: 08/15/20 15:42 Consult Physician Routine Consulting Provider: Gasper French Consult Reason/Comments: chf Do you want consulting provider notified?: Yes Primary care physician: Dorian Yan [facility] Course: Chief Complaint: Tired History of presenting complaint: This is a pleasant 74-year-old patient of Dr. Dorian Yan. Chronic stable medical conditions include hypertension, hyperlipidemia, depression, hypothyroid. Patient is here in April 2020 was found to have small bowel ischemia primarily involving the portion of the distal jejunum. Full-thickness necrosis noted in a patchy manner. Area proximal distal to that also ischemic appearance-small bowel resection was carried out. Patient was then transferred out to [facility]. Dr. Galdamez with the surgical nicotine. Patient thinks a blood clot was removed from the blood supply to the bowels. Patient now presents with progressive no energy for a few days. Last 3 days becoming worse. She is totally depleted. No fever no chills. Decreased a ppetite. Gets intermittent diarrhea. No bowel pain. No urinary symptoms. Gets short of breath with exertion. Only uses one pillow able to lie flat. Slight edema. Patient initially presented to [facility]. Check stat x- rays showed a very mild congestion. TSH was elevated at 36.8 Admitted with acute cor pulmonale, uncontrolled hypothyroid, lower extremity edema from Neurontin. Patient was given a trial of Lasix. Not much help. Does of Synthroid was increased. Dose of Neurontin was cutback. Today-care was discussed with Dr. Tovar from cardiology. And the patient. Medication adjusted as above. Patient to repeat TSH in 4 weeks time. Also advised to use Mauricio wraps. Discussion and discharge planning more than 35 minutes Consultation: Dr. Tovar from cardiology Past medical history to include: Hypertension, hyperlipidemia, depression, hypothyroid, small bowel ischemia, with resection and blood clots removed from blood supply to the small bowel at [facility] Social history: Lives alone. Smoked for about 30 years stopped in 1999. Was a heavy smoker. Alcohol occasional. Physical examination: VITAL SIGNS: 98.5, 98, 18, 124/84, 94% room air GENERAL:. BMI 36.5, comfortable EYES: Pupils equal. Conjunctiva normal. HEENT: External appearance of nose and ears normal, oral cavity grossly normal. NECK: JVD not raised; masses not palpable. HEART: First and second heart sounds are normal; edema present LUNGS: Respiratory rate normal; clear to auscultation. ABDOMEN: Soft, no tenderness, no guarding rigidity, liver spleen not palpable, no masses palpable. PSYCH: Alert and oriented x3; mood and affect anxiousl. MUSCULAR skeletal: Evidence of OA INVESTIGATIONS, reviewed in the clinical context: Potassium 3.3 bun 25 creatinine 0.86 free T4 decreased at 0.61, free T3 decreased at 1.6 TSH [[facility]] equals 36.8 EKG tracing personally reviewed by me-from [facility]: Sinus rhythm, slight T waves and ST segment abnormality 2-D echocardiogram-EF 50-55%, moderate concentric LVH, right ventricle mildly to moderately enlarged, borderline pulmonary hypertension Chest x-ray film personally reviewed by me-elevated right diaphragm Chest CTA-negative for PE Assessment: -Acute on chronic cor pulmonale -Symptomatic hypothyroid-under replaced. Dose of Synthroid increased -Lower extremity edema is a combination of cor pulmonale and side effect of Neurontin. Patient advised to use Mauricio wraps, dose of Neurontin cutback. -Essential hypertension -Hyperlipidemia -Depression otherwise specified -obesity BMI 36.5 -Elevated right diaphragm-SNIFF test was negative. No paradoxical movement noted. -Pulmonary embolism-ruled out Disposition: Home Patient Condition at Discharge: Stable Plan - Discharge Summary Discharge Rx Participant: No New Discharge Prescriptions: New Spironolactone [Aldactone] 25 mg PO DAILY #30 tablet Atorvastatin [Lipitor] 20 mg PO HS #30 tab Psyllium Husk 100% [Metamucil Packet] 6 gm PO BID #30 packet Levothyroxine Sodium [Synthroid] 150 mcg PO DAILY #30 tablet Continue Cholecalciferol [Vitamin D3 (25 Mcg = 1000 Iu)] 1,000 unit PO DAILY Venlafaxine HCl ER [Effexor XR] 150 mg PO DAILY ondansetron HCL [Zofran] 8 mg PO Q8HR PRN PRN Reason: Nausea And Vomiting Simethicone Chew [Mylicon Chew] 80 mg PO QID PRN PRN Reason: Gi Upset Pantoprazole Sodium 40 mg PO DAILY Melatonin 3 mg PO HS Magnesium Oxide 400 mg PO BID Loratadine 10 mg PO DAILY Loperamide [Imodium] 2 mg PO QID PRN PRN Reason: Diarrhea Ferrous Sulfate [Iron (65 MG Elemental)] 325 mg PO DAILY Calcium Carbonate 500 mg PO DAILY Apixaban [Eliquis] 5 mg PO BID Aspirin EC [Ecotrin Low Dose] 81 mg PO DAILY Albuterol Sulfate [Albuterol Sulfate Hfa] 1 puff PO RT-Q4H PRN PRN Reason: Shortness Of Breath Changed Gabapentin 300 mg PO HS #0 Discontinued Simvastatin 40 mg PO HS Levothyroxine Sodium [Synthroid] 137 mcg PO DAILY Discharge Medication List Cholecalciferol [Vitamin D3 (25 Mcg = 1000 Iu)] 1,000 unit PO DAILY 05/10/20 [History] Venlafaxine HCl ER [Effexor XR] 150 mg PO DAILY 05/10/20 [History] Albuterol Sulfate [Albuterol Sulfate Hfa] 1 puff PO RT-Q4H PRN 07/28/20 [History] Apixaban [Eliquis] 5 mg PO BID 07/28/20 [History] Aspirin EC [Ecotrin Low Dose] 81 mg PO DAILY 07/28/20 [History] Calcium Carbonate 500 mg PO DAILY 07/28/20 [History] Ferrous Sulfate [Iron (65 MG Elemental)] 325 mg PO DAILY 07/28/20 [History] Loperamide [Imodium] 2 mg PO QID PRN 07/28/20 [History] Loratadine 10 mg PO DAILY 07/28/20 [History] Magnesium Oxide 400 mg PO BID 07/28/20 [History] Melatonin 3 mg PO HS 07/28/20 [History] Pantoprazole Sodium 40 mg PO DAILY 07/28/20 [History] Simethicone Chew [Mylicon Chew] 80 mg PO QID PRN 07/28/20 [History] ondansetron HCL [Zofran] 8 mg PO Q8HR PRN 07/28/20 [History] Atorvastatin [Lipitor] 20 mg PO HS #30 tab 08/17/20 [Rx] Gabapentin 300 mg PO HS #0 08/17/20 [Rx] Levothyroxine Sodium [Synthroid] 150 mcg PO DAILY #30 tablet 08/17/20 [Rx] Psyllium Husk 100% [Metamucil Packet] 6 gm PO BID #30 packet 08/17/20 [Rx] Spironolactone [Aldactone] 25 mg PO DAILY #30 tablet 08/17/20 [Rx] Follow up Appointment(s)/Referral(s): Boubacar Mayers MD [STAFF PHYSICIAN] - 2 Weeks Dorian Yan MD [Primary Care Provider] - 08/21/20 2:30 pm [facility] [NON-STAFF] - 1-2 Days Patient Instructions/Handouts: Heart Failure (DC)
== END 2020-08-17 16:47 ==
LOC: EC 15:20 → 1SOBS 16:02
PROVIDERS: ADMIT Hospitalist; ATTEND Hospitalist
DX: I26.09 Other pulmonary embolism with acute cor pulmonale (principal); I11.0 Hypertensive heart disease with heart failure; I50.31 Acute diastolic (congestive) heart failure; R19.7 Diarrhea, unspecified; E87.6 Hypokalemia; E03.9 Hypothyroidism, unspecified; R60.0 Localized edema; T42.6X5A Adverse effect of other antiepileptic and sedative-hypnotic drugs, initial encounter; E78.5 Hyperlipidemia, unspecified; F32.9 Major depressive disorder, single episode, unspecified; E66.9 Obesity, unspecified; J98.6 Disorders of diaphragm; H54.7 Unspecified visual loss; K59.09 Other constipation; M81.0 Age-related osteoporosis without current pathological fracture; F41.9 Anxiety disorder, unspecified; I08.2 Rheumatic disorders of both aortic and tricuspid valves; J98.11 Atelectasis; Z79.899 Other long term (current) drug therapy; Z79.890 Hormone replacement therapy; Z79.01 Long term (current) use of anticoagulants; Z79.82 Long term (current) use of aspirin; Z88.0 Allergy status to penicillin; Z88.2 Allergy status to sulfonamides; Z98.890 Other specified postprocedural states; Z86.718 Personal history of other venous thrombosis and embolism; Z96.653 Presence of artificial knee joint, bilateral; Z90.721 Acquired absence of ovaries, unilateral; Z98.41 Cataract extraction status, right eye; Z98.42 Cataract extraction status, left eye; Z96.1 Presence of intraocular lens; Z90.49 Acquired absence of other specified parts of digestive tract; Z91.89 Other specified personal risk factors, not elsewhere classified; Z87.891 Personal history of nicotine dependence; Z87.19 Personal history of other diseases of the digestive system; Z68.36 Body mass index [BMI] 36.0-36.9, adult; Z82.49 Family history of ischemic heart disease and other diseases of the circulatory system
CPT/HCPCS: 96376 ×2; 96374; 99285; 36415; 93306; 97116; 97162; 84439; 84481; 83880 ×2; 80053; 80048; 83735; 76000; 71046; 71275; G0378 ×3; J1940 ×3; Q9967

== ENCOUNTER → 2020-09-20 | Outpatient (CLI) | payer MEDICARE ==
--- NOTE | 2020-09-20 21:34 | CT ---
EXAMINATION TYPE: CT angio abdomen pelvis DATE OF EXAM: 09/20/2020 HISTORY: Superior mesenteric artery thrombus COMPARISON: 07/31/2020 CT DLP: 1945.30 mGycm. Automated Exposure Control for Dose Reduction was Utilized. TECHNIQUE: CTA scan of the abdomen and pelvis performed on spiral scan at 5 mm thick sections. Study is performed time for evaluation of the aorta. Three-D reconstructed images from the aorta and [facility] vessels were obtained from the technologist performing a separate computer. Three-D reconstructe d images are reviewed. FINDINGS: CTA: There is some filling defect along the anterior distal descending thoracic aorta. Example image series 5 image 22. The celiac axis is patent and appears abnormal branching. The superior mesenteric artery likewise beth ears normal with contrast into the mesenteric vessels. The inferior mesenteric artery is identified a nd is patent. No thrombus is identified. Small bilateral pleural effusions are present. Some compressive atelectasis present on the right. Harden creas appears with atrophy. There is moderate fatty infiltration of the liver. Spleen appears unremar kable. Adrenal glands are normal. Kidneys are normal without masses or hydronephrosis. There is a esequiel cification within the left renal pelvis. Left renal cyst is present which appears lobulated. The larg er portion has a transverse dimension of 2.7 cm and measures 0 Hounsfield units Inferior vena cava is unremarkable. Vascular calcification is within the aorta and iliac vessels. The re appear be 2 right renal arteries. The left renal artery is patent. Vascular calcifications at the origin of each of these renal vessels. There is prior bowel resection within the mid pelvis. The anastomosis is identified. There is diffuse thickening of the loops of bowel without obvious stenosis. Diverticulosis within the sigmoid colon. Small amount of free fluid is within the pelvis. IMPRESSION: 1. No suspicious superior mesenteric artery thrombus. 2. Diffuse bowel wall thickening near the level of the prior bowel anastomosis. Colitis and ischemic change could be within the differential. Findings were present on 07/31/2020.
== END | disposition home or self-care (01) ==
LOC: RADCTMAIN 14:30
PROVIDERS: ATTEND Surgery Vascular Surgery
DX: R93.3 Abnormal findings on diagnostic imaging of other parts of digestive tract (principal); K55.069 Acute infarction of intestine, part and extent unspecified; Z98.0 Intestinal bypass and anastomosis status
CPT/HCPCS: 74174; Q9967

== ENCOUNTER 2020-09-27 14:35 | Inpatient (IN) | payer MEDICARE ==
[2020-09-27] MEDS ORDERED: IPRATROPIUM 0.5 MG/2.5 ML NEBU INHALATION PRN (20:05)
[2020-09-27] MEDS ORDERED: ALBUTEROL NEBULIZED 2.5 MG/3 ML INHALATION PRN (20:05)
[2020-09-27] MEDS ORDERED: [UNRECOGNIZED DRUG - OTHER] PO SCH (21:00)
[2020-09-27] MEDS: MAGNESIUM OXIDE 400 MG TAB PO SCH (21:33)
[2020-09-27] MEDS: ATORVASTATIN 40 MG TAB PO SCH (21:34)
[2020-09-27] MEDS: MELATONIN 5 MG TABLET PO SCH (21:34)
[2020-09-27] MEDS: APIXABAN 5 MG TAB PO SCH (21:34)
[2020-09-27] MEDS: prednisoLONE ACETATE 1% OPHTH DROPS 5 ML BTL RIGHT EYE SCH (21:34)
[2020-09-27] MEDS: BUMETANIDE 1 MG TAB PO SCH (21:34)
[2020-09-27] MEDS: GABAPENTIN 300 MG CAP PO SCH (21:34)
[2020-09-27] MEDS: CHOLECALCIFEROL 25 MCG (1000 IU) TABLET PO SCH (21:34)
--- NOTE | 2020-09-27 23:20 | P.HPIM ---
History of Present Illness H&P Date: 09/27/20 Chief Complaint: Weak and tired History of presenting complaint: This is a pleasant 74-year-old patient of Dr. Dorian Yan. Resident of [facility]. Chronic stable medical conditions include hypertension, hyperlipidemia, depression, hypothyroid. 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 -small bowel resection was carried out. Patient was then transferred out to [facility]. Patient thinks a blood clot was removed . Readmitted in August of this year, with acute cor pulmonale, uncontrolled hypothyroid. Today patient was sent in from the [facility] following patient having 1 or 2 loose stools a day. Poor appetite. Swelling up. Very weak and tired. Last time patient had walked was about 2 weeks ago. Appetite is rather poor. She is extremely tired. No fever no chills. Review of systems: GEN.: Tired, decreased appetite EYES: None HEENT: None NECK: None RESPIRATORY: None CARDIOVASCULAR: No orthopnea, no PND GASTROINTESTINAL: As above GENITOURINARY: None MUSCULOSKELETAL: Joint and muscle pain LYMPHATICS: None HEMATOLOGICAL: None PSYCHIATRY: None NEUROLOGICAL: None Past medical history to include: Hypertension, hyperlipidemia, depression, hypothyroid, small bowel ischemia, with resection and blood clots removed from blood supply to the small bowel at [facility]. Cor pulmonale. Social history: Currently at [facility]. Smoked for about 30 years stopped in 1999. Was a heavy smok er. Alcohol occasional. Physical examination: VITAL SIGNS: 98.4, 94, 19, 108/75, 100% on 3 L GENERAL:. BMI 37.9, laying in bed, tired, some pitting and some nonpitting edema EYES: Pupils equal. Conjunctiva pale. HEENT: External appearance of nose and ears normal, oral cavity grossly normal. NECK: JVD not raised; masses not palpable. HEART: First and second heart sounds are normal; mild edema. LUNGS: Respiratory rate normal; decreased breath sounds ABDOMEN: Soft, no tenderness, no guarding rigidity, liver spleen not palpable, no masses palpable. PSYCH: Alert and oriented x3; mood and affect tired MUSCULAR skeletal: Evidence of OA INVESTIGATIONS, reviewed in the clinical context: Labs pending 2-D echocardiogram-EF 50-55%, moderate concentric LVH, right ventricle mildly to moderately enlarged, Assessment and plan: -Acute medical debility following her small bowel surgery. Patient having intermittent diarrhea. Poor oral intake. No fever no chills. -chronic cor pulmonale -Hypothyroid, continue Synthroid -Mild malnutrition from decreased oral intake -Essential hypertension -Hyperlipidemia-on Lipitor -Depression otherwise specified, continue Effexor -obesity BMI 37.9 -Chronic Elevated right diaphragm-(SNIFF test was negative. 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 Dietitian. Placed the patient on full liquid diet. Stool for C. diff. Chest x-ray. Stool for ova parasites Past Medical History Past Medical History: Eye Disorder, Hyperlipidemia, Hypertension, Renal Disease, Thyroid Disorder Additional Past Medical History / Comment(s): R eye mutliple surgeries for retinal tears-vision poor, hypothyroid, osteoporosis. Pt reports blood clot in bowel after surgery- received vascular surgical removal at [facility] History of Any Multi-Drug Resistant Organisms: None Reported Past Surgical History: Bowel Resection, Joint Replacement Additional Past Surgical History / Comment(s): Colonoscopy with last on 05/08/20, bilateral total knees, left ovary removed d/t cyst, bilateral eye cataract removals/lens implants, R eye multiple surgeries for retinal tears, bowel resection. Past Anesthesia/Blood Transfusion Reactions: No Reported Reaction Additional Past Anesthesia/Blood Transfusion Reaction / Comment(s): Difficulty getting to sleep, states she can be combative after surgery Past Psychological History: Anxiety, Depression Additional Psychological History / Comment(s): Pt resides alone. She is independent. Smoking Status: Former smoker Past Alcohol Use History: Rare Additional Past Alcohol Use History / Comment(s): Pt started smoking as a teen and quit in 1999. She was a heavy smoker. Past Drug Use History: None Reported - Past Family History Mother Family Medical History: No Reported History Additional Family Medical History / Comment(s): Mother did not go to the doctor much. Father History Unknown: Yes Family Medical History: AFIB, Vascular Disorder Additional Family Medical History / Comment(s): Father in his early 50s of a ruptured thoracic aneurysm. Medications and Allergies Home Medications Medication Instructions Recorded Confirmed Type Cholecalciferol [Vitamin D3 (25 1,000 unit PO BID 05/10/20 09/27/20 History Mcg = 1000 Iu)] Venlafaxine HCl ER [Effexor XR] 150 mg PO DAILY 05/10/20 09/27/20 History Albuterol Sulfate [Albuterol 1 puff PO RT-Q4H PRN 07/28/20 09/27/20 History Sulfate Hfa] Apixaban [Eliquis] 5 mg PO BID 07/28/20 09/27/20 History Aspirin EC [Ecotrin Low Dose] 81 mg PO DAILY 07/28/20 09/27/20 History Calcium Carbonate 500 mg PO DAILY 07/28/20 09/27/20 History Ferrous Sulfate [Iron (65 MG 325 mg PO DAILY 07/28/20 09/27/20 History Elemental)] Loperamide [Imodium] 2 mg PO QID PRN 07/28/20 09/27/20 History Magnesium Oxide 400 mg PO BID 07/28/20 09/27/20 History Pantoprazole Sodium 40 mg PO DAILY 07/28/20 09/27/20 History Simethicone Chew [Mylicon Chew] 80 mg PO Q8H PRN 07/28/20 09/27/20 History ondansetron HCL [Zofran] 8 mg PO Q8HR PRN 07/28/20 09/27/20 History Spironolactone [Aldactone] 25 mg PO DAILY #30 tablet 08/17/20 09/27/20 Rx Acetaminophen [Tylenol Arthritis] 650 mg PO Q4H PRN 09/27/20 09/27/20 History Atorvastatin Calcium [Lipitor] 40 mg PO HS 09/27/20 09/27/20 History Banana Flake Packet 1 packet PO BID 09/27/20 09/27/20 History Bumetanide [Bumex] 1 mg PO BID 09/27/20 09/27/20 History Fluticasone/Vilanterol [Breo 1 puff INHALATION RT-DAILY 09/27/20 09/27/20 History Ellipta 100-25 Mcg Inhaler] Gabapentin 300 mg PO BID 09/27/20 09/27/20 History Ipratropium Nebulized [Atrovent 0.5 mg INHALATION RT-Q6H PRN 09/27/20 09/27/20 History Nebulized 0.2 MG/ML] Levothyroxine Sodium [Synthroid] 200 mcg PO DAILY 09/27/20 09/27/20 History Melatonin 5 mg PO HS 09/27/20 09/27/20 History Multivitamins, Thera [Multivitamin 1 tab PO DAILY 09/27/20 09/27/20 History (formulary)] Potassium Chloride ER [K-Dur 20] 20 meq PO DAILY 09/27/20 09/27/20 History Venlafaxine HCl ER [Effexor Xr] 37.5 mg PO DAILY 09/27/20 09/27/20 History methocarbamoL [Robaxin] 500 mg PO Q6H PRN 09/27/20 09/27/20 History prednisoLONE ACETATE 1% OPHTH 1 drops RIGHT EYE BID 09/27/20 09/27/20 History [Pred Forte 1%] Allergies Allergy/AdvReac Type Severity Reaction Status Date / Time Penicillins Allergy Unknown Verified 09/27/20 18:43 Sulfa (Sulfonamide Allergy Unknown Verified 09/27/20 18:43 Antibiotics) Physical Exam Vitals: Vital Signs Temp Pulse Resp BP Pulse Ox 09/27/20 19:50 98.4 F 94 19 108/75 100 09/27/20 17:26 95 09/27/20 16:56 98 F 81 17 112/71 95 Intake and Output 09/27/20 09/27/20 09/28/20 14:59 22:59 06:59 Other: # Bowel Movements 1 Weight 97.069 kg Thrombosis Risk Factor Assmnt - Choose All That Apply Each Factor Represents 1 point: Hx of IBD, Obesity (BMI >25) Other Risk Factors: Yes Each Risk Factor Represents 2 Points: Age 61-74 years Other congenital or acquired thrombophilia - If yes, enter type in comment: No Thrombosis Risk Factor Assessment Total Risk Factor Score: 4 Thrombosis Risk Factor Assessment Level: Moderate Risk
[2020-09-28] MEDS: LEVOTHYROXINE 100 MCG TAB PO SCH (05:17)
--- NOTE | 2020-09-28 06:59 | XR ---
EXAMINATION TYPE: XR chest 2V DATE OF EXAM: 09/28/2020 COMPARISON: 08/16/2020 HISTORY: Shortness of breath TECHNIQUE: Frontal and lateral views of the chest are obtained. FINDINGS: Scattered senescent parenchymal changes noted. Hyperinflation compatible with COPD. Increased density at the lung bases which may reflect a combination of effusion, atelectasis and/or i nfiltrate. Heart size is stable. Mediastinal structures are stable and grossly unremarkable. No evidence for hilar prominence. Degenerative changes dorsal spine. IMPRESSION: 1. Increased density at the lung bases which may reflect a combination of effusion, atelectasis and/o r infiltrate.
[2020-09-28] MEDS: SYMBICORT 80-4.5 MCG INHALER INHALATION SCH ×2 (07:49→20:57)
[2020-09-28] MEDS: PANTOPRAZOLE 40 MG TABLET PO SCH (08:46)
[2020-09-28] MEDS: FERROUS SULFATE 325 MG TAB PO SCH (08:46)
[2020-09-28] MEDS: VENLAFAXINE HCL ER 37.5 MG CAP PO SCH (08:46)
[2020-09-28] MEDS: MAGNESIUM OXIDE 400 MG TAB PO SCH ×2 (08:46→22:35)
[2020-09-28] MEDS: GABAPENTIN 300 MG CAP PO SCH ×2 (08:46→22:35)
[2020-09-28] MEDS: VENLAFAXINE HCL ER 150 MG CAP PO SCH (08:46)
[2020-09-28] MEDS: POTASSIUM CHLORIDE ER 20 MEQ TAB.ER PO SCH (08:46)
[2020-09-28] MEDS: MULTIVITAMINS, THERA 1 EACH TAB PO SCH (08:46)
[2020-09-28] MEDS: APIXABAN 5 MG TAB PO SCH ×2 (08:46→22:35)
[2020-09-28] MEDS: CHOLECALCIFEROL 25 MCG (1000 IU) TABLET PO SCH ×2 (08:46→22:35)
[2020-09-28] MEDS: CALCIUM CARBONATE 500 MG CHEWABLE PO SCH (08:46)
[2020-09-28] MEDS: ASPIRIN 81 MG PO SCH (08:46)
[2020-09-28] MEDS: SPIRONOLACTONE 25 MG TAB PO SCH (08:46)
[2020-09-28] MEDS: BUMETANIDE 1 MG TAB PO SCH ×2 (08:48→22:35)
[2020-09-28] MEDS: prednisoLONE ACETATE 1% OPHTH DROPS 5 ML BTL RIGHT EYE SCH ×2 (08:57→22:35)
[2020-09-28 13:00] LABS: Anisocytosis Slight; Basophils % (A) 0 %; Eosinophils # (A) 0.1 k/uL (0-0.7); Eosinophils % (A) 1 %; HCT 35.9 % (34.0-46.0); HGB 11.6 gm/dL (11.4-16.0); Lymphocytes # (A) 1.5 k/uL (1.0-4.8); Lymphocytes % (A) 27 %; MCH 30.5 pg (25.0-35.0); MCHC 32.4 g/dL (31.0-37.0); MCV 94.2 fL (80.0-100.0); Mean Platelet Volume 6.7; Monocytes # (A) 0.3 k/uL (0-1.0); Monocytes % (A) 6 %; Neutrophils # (A) 3.7 k/uL (1.3-7.7); Neutrophils % (A) 65 %; Platelet Count 408 k/uL (150-450); RBC 3.82 m/uL (3.80-5.40); RDW 16.5 % (11.5-15.5); WBC 5.7 k/uL (3.8-10.6)
[2020-09-28 13:18] LABS: ALT 53 U/L (4-34); AST 122 U/L (14-36); African American GFR (CKD) >90 (>60 ml/min/1.73 sqM); Albumin 1.3 g/dL (3.5-5.0); Albumin/Globulin Ratio 0.6; Alkaline Phosphatase 348 U/L (38-126); Anion Gap 4 mmol/L; Blood Urea Nitrogen 19 mg/dL (7-17); Calcium 6.8 mg/dL (8.4-10.2); Carbon Dioxide 30 mmol/L (22-30); Chloride 93 mmol/L (98-107); Globulin 2.2 g/dL; Glucose 122 mg/dL (74-99); Non-African American GFR(CKD) 86 (>60 ml/min/1.73 sqM); Potassium 4.3 mmol/L (3.5-5.1); Sodium 127 mmol/L (137-145); Total Bilirubin 0.7 mg/dL (0.2-1.3); Total Protein 3.5 g/dL (6.3-8.2)
--- NOTE | 2020-09-28 19:22 | P.PN ---
Progress Note - Text Progress Note Date: 09/28/20 Chief Complaint: Weak and tired History of presenting complaint: This is a pleasant 74-year-old patient of Dr. Dorian Yan. Resident of [facility]. Chronic stable medical conditions include hypertension, hyperlipidemia, depression, hypothyroid. 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 -small bowel resection was carried out. Patient was then transferred out to [facility]. Patient thinks a blood clot was removed . Readmitted in August of this year, with acute cor pulmonale, uncontrolled hypothyroid. patient was sent in from the [facility] following patient having 1 or 2 loose stools a day. Poor appetite. Swelling up. Very weak and tired. Last time patient had walked was about 2 weeks ago. Appetite is rather poor. She is extremely tired. No fever no chills. Today-oral intake about 75-100% of the full liquid diet. Laying in.. Tired. Review of systems: Was done for constitutional, cardiovascular, GI, pulmonary. relevant finding as above Active Medications Acetaminophen (Acetaminophen Tab 325 Mg Tab) 650 mg PO Q4H PRN PRN Reason: Pain Albuterol Sulfate (Albuterol Nebulized 2.5 Mg/3 Ml) 2.5 mg INHALATION RT-Q4H PRN PRN Reason: Shortness Of Breath Apixaban (Apixaban 5 Mg Tab) 5 mg PO BID [facility] Last Admin: 09/28/20 08:46 Dose: 5 mg Documented by: Aspirin (Aspirin 81 Mg) 81 mg PO DAILY [facility] Last Admin: 09/28/20 08:46 Dose: 81 mg Documented by: Atorvastatin Calcium (Atorvastatin 40 Mg Tab) 40 mg PO HS [facility] Last Admin: 09/27/20 21:34 Dose: 40 mg Documented by: Budesonide/Formoterol Fumarate (Symbicort 80-4.5 Mcg Inhaler) 2 puff INHALATION RT-BID [facility] Last Admin: 09/28/20 07:49 Dose: 2 puff Documented by: Bumetanide (Bumetanide 1 Mg Tab) 1 mg PO BID [facility] Last Admin: 09/28/20 08:48 Dose: 1 mg Documented by: Calcium Carbonate/Glycine (Calcium Carbonate 500 Mg Chewable) 500 mg PO DAILY [facility] Last Admin: 09/28/20 08:46 Dose: 500 mg Documented by: Cholecalciferol (Cholecalciferol 25 Mcg (1000 Iu) Tablet) 25 mcg PO BID [facility] Last Admin: 09/28/20 08:46 Dose: 25 mcg Documented by: Ferrous Sulfate (Ferrous Sulfate 325 Mg Tab) 325 mg PO DAILY [facility] Last Admin: 09/28/20 08:46 Dose: 325 mg Documented by: Gabapentin (Gabapentin 300 Mg Cap) 300 mg PO BID [facility] Last Admin: 09/28/20 08:46 Dose: 300 mg Documented by: Iopamidol (Iopamidol Contrast (Oral Use) Vial) 30 ml PO Q60M PRN PRN Reason: CT Scan Stop: 09/29/20 19:16 Ipratropium [place] (Ipratropium 0.5 Mg/2.5 Ml Nebu) 0.5 mg INHALATION RT-Q6H PRN PRN Reason: Shortness Of Breath Levothyroxine Sodium (Levothyroxine 100 Mcg Tab) 200 mcg PO DAILY@0630 [facility] Last Admin: 09/28/20 05:17 Dose: 200 mcg Documented by: Loperamide HCl (Loperamide 2 Mg Cap) 2 mg PO QID PRN PRN Reason: Diarrhea Magnesium Oxide (Magnesium Oxide 400 Mg Tab) 400 mg PO BID [facility] Last Admin: 09/28/20 08:46 Dose: 400 mg Documented by: Melatonin (Melatonin 5 Mg Tablet) 5 mg PO HS [facility] Last Admin: 09/27/20 21:34 Dose: 5 mg Documented by: Methocarbamol (Methocarbamol 500 Mg Tab) 500 mg PO Q6H PRN PRN Reason: Muscle Spasm Multivitamins (Multivitamins, Thera 1 Each Tab) 1 each PO DAILY [facility] Last Admin: 09/28/20 08:46 Dose: 1 each Documented by: Pantoprazole Sodium (Pantoprazole 40 Mg Tablet) 40 mg PO AC-BRKFST [facility] Last Admin: 09/28/20 08:46 Dose: 40 mg Documented by: Potassium Chloride (Potassium Chloride Er 20 Meq Tab.Er) 20 meq PO DAILY [facility] Last Admin: 09/28/20 08:46 Dose: 20 meq Documented by: Prednisolone Acetate (Prednisolone Acetate 1% Ophth Drops 5 Ml Btl) 1 drops RIGHT EYE BID [facility] Last Admin: 09/28/20 08:57 Dose: 1 drops Documented by: Simethicone (Simethicone 80 Mg Chewable) 80 mg PO Q8H PRN PRN Reason: GAS Spironolactone (Spironolactone 25 Mg Tab) 25 mg PO DAILY [facility] Last Admin: 09/28/20 08:46 Dose: 25 mg Documented by: Venlafaxine HCl (Venlafaxine Hcl Er 37.5 Mg Cap) 37.5 mg PO DAILY [facility] Last Admin: 09/28/20 08:46 Dose: 37.5 mg Documented by: Venlafaxine HCl (Venlafaxine Hcl Er 150 Mg Cap) 150 mg PO DAILY [facility] Last Admin: 09/28/20 08:46 Dose: 150 mg Documented by: Past medical history to include: Hypertension, hyperlipidemia, depression, hypothyroid, small bowel ischemia, with resection and blood clots removed from blood supply to the small bowel at [facility]. Cor pulmonale. Social history: Currently at [facility]. Smoked for about 30 years stopped in 1999. Was a heavy smoker. Alcohol occasional. Physical examination: VITAL SIGNS: 97.1, 97, 16, 103 x 68, 100% on 3 L GENERAL:. BMI 37.9, laying in bed, tired, some pitting and some nonpitting edema EYES: Pupils equal. Conjunctiva pale. HEENT: External appearance of nose and ears normal, oral cavity grossly normal. NECK: JVD not raised; masses not palpable. HEART: First and second heart sounds are normal; mild edema. LUNGS: Respiratory rate normal; decreased breath sounds ABDOMEN: Soft, no tenderness, no guarding rigidity, liver spleen not palpable, no masses palpable. PSYCH: Alert and oriented x3; mood and affect tired MUSCULAR skeletal: Evidence of OA INVESTIGATIONS, reviewed in the clinical context: WBC 5.7 hemoglobin 11.6 platelets. 8 sodium 127 potassium 4.3 creatinine 0.71 AST 122 ALT 53 albumin 1.3 Previous study: [ 08/16/2020] 2-D echocardiogram-EF 50-55%, moderate concentric LVH, right ventricle mildly to moderately enlarged, Assessment and plan: -Acute medical debility following her small bowel surgery. Patient having intermittent diarrhea. Poor oral intake. No fever no chills. -chronic cor pulmonale -Hypothyroid, continue Synthroid -Mild malnutrition from decreased oral intake -Essential hypertension -Hyperlipidemia-on Lipitor -Depression otherwise specified, continue Effexor -obesity BMI 37.9 -Chronic Elevated right diaphragm-(SNIFF test was negative. No paradoxical movement noted.) -COPD in an ex-smoker, continue with bronchodilators GI consultation elevated. Patient has swelling of the upper extremity short of breath, lower extremity. We will do a computed tomography scan of the chest abdomen and pelvis. Also do a liver ultrasound. Patient did tolerate a full liquid diet. Advance to a chopped diet.
[2020-09-28] MEDS: IOPAMIDOL CONTRAST (ORAL USE) VIAL PO PRN ×2 (19:52→20:44)
[2020-09-28] MEDS: LOPERAMIDE 2 MG CAP PO PRN (22:35)
[2020-09-28] MEDS: MELATONIN 5 MG TABLET PO SCH (22:35)
[2020-09-28] MEDS: ATORVASTATIN 40 MG TAB PO SCH (22:35)
--- NOTE | 2020-09-28 23:07 | CT ---
EXAMINATION TYPE: CT ChestAbdPelvis w con DATE OF EXAM: 09/28/2020 COMPARISON: CT abdomen pelvis 09/20/2020. CT chest 08/16/2020 HISTORY: Swelling of arms and legs CT DLP: 1779.4 mGycm Automated exposure control for dose reduction was used. CONTRAST: Performed with IV Contrast, patient injected with 100 mL of Isovue 300. There are moderate bilateral pleural effusions. Heart size is fairly normal. There is mild pericardia l effusion. There is infiltrate and atelectasis at both lung bases. There is no mediastinal adenopath y. Thoracic aorta is intact. The ascending aorta measures 3.7 cm. There is no dissection. There are n o hilar masses. There is diffuse fatty infiltration of the liver. There is a linear defect in the posterior spleen th at could relate to an old injury. Unchanged. There is no evidence of pancreatic mass. The gallbladder is large and measures 4.5 cm. The stomach is intact. The bile ducts are not dilated. There is abdomi nal ascites with fluid accumulation at the spleen and also left paracolic gutter. There is no adrenal mass. Kidneys show satisfactory contrast opacification. There is 1.5 cm calculus in the central left kidney. There is no hydronephrosis. Ureters are not dilated. There is no retroper itoneal adenopathy. Appendix is posterior and medial and appears normal. There are numerous sigmoid d iverticula. There is some presacral edema. There is some retained fecal material in the rectum that m easures 6.2 cm. There is Newell catheter in the bladder. Bladder is almost empty. There is no inguinal hernia. There is no sign of a mechanical bowel obstruction. The thoracic and lumbar vertebra show normal alignment. There is no compression fracture. Bony pelvis is intact. There is T7 hemangioma in the vertebral body. The sternum is intact. The bony pelvis is i ntact. Hip joints are intact. There is subcutaneous edema around the abdomen. IMPRESSION: Bilateral pleural effusions with basilar pulmonary atelectasis and infiltrate. Pleural fluid slightly increased compared to old exam. Pericardial effusion unchanged. Fatty infiltration of the liver unchanged. There is mild abdominal ascites fluid unchanged. Sigmoid diverticulosis without diverticulitis. Recta l fecal impaction is new compared to old exam. No sign of mechanical bowel obstruction. Subcutaneous edema around the abdomen unchanged. Large nonobstructing left renal calculus unchanged.
[2020-09-29] MEDS: LEVOTHYROXINE 100 MCG TAB PO SCH (05:37)
--- NOTE | 2020-09-29 07:02 | P.CONS ---
History of Present Illness - Reason for Consult Consult date: 09/28/20 Diarrhea Requesting physician: Mamadou Perkins - Chief Complaint Not absorbing protein - History of Present Illness 74-year-old female with multiple medical comorbidities including atrial fibrillation on Eliquis, hypothyroidism, depression, hyperlipidemia, hypertension and prior small bowel resection who presented to the hospital due to diarrhea and not absorbing protein as per the patient report. Previously the patient underwent colonoscopy in 05/2020 and subsequently has small bowel ischemia involving the distal jejunum with transferred to [facility] and subsequent small bowel resection. She has been seen in the hospital since that time due to concerns over diarrhea and short bowel syndrome. Previously the patient has been started with Imodium and cholestyramine as well as codeine which is as needed for diarrhea. She underwent CT angiography on 09/20/2020 with no suspicious superior mesenteric artery thrombus noted with diffuse bowel wall thickening near the level of prior bowel anastomosis with findings also present in 07/31/2020. Currently she is reporting loose stools about 1-2 per day but feels that this is improved since presentation to the hospital. No abdominal pain reported. Review of Systems On physical examination, patient appears comfortable in no apparent distress. HEAD: Normocephalic, atraumatic. EYES: No scleral icterus. No conjunctival injection. MOUTH: No lesions, tongue midline. NECK: Trachea midline, no gross abnormalities. CHEST: Clear to auscultation with no wheezing or rhonchi appreciated. HEART: S1-S2 appreciated. ABDOMEN: Soft, obese, nontender. Bowel sounds are positive. No organomegaly. No guarding or rigidity. EXTREMITIES: Bilateral pedal edema. SKIN: No rashes, no jaundice. NEUROLOGIC: Alert and oriented x3. No focal deficits. Past Medical History Past Medical History: Eye Disorder, Hyperlipidemia, Hypertension, Renal Disease, Thyroid Disorder Additional Past Medical History / Comment(s): R eye mutliple surgeries for retinal tears-vision poor, hypothyroid, osteoporosis. Pt reports blood clot in bowel after surgery- received vascular surgical removal at [facility] History of Any Multi-Drug Resistant Organisms: None Reported Past Surgical History: Bowel Resection, Joint Replacement Additional Past Surgical History / Comment(s): Colonoscopy with last on 05/08/20, bilateral total knees, left ovary removed d/t cyst, bilateral eye cataract removals/lens implants, R eye multiple surgeries for retinal tears, bowel resection. Past Anesthesia/Blood Transfusion Reactions: No Reported Reaction Additional Past Anesthesia/Blood Transfusion Reaction / Comm: Difficulty getting to sleep, states she can be combative after surgery Past Psychological History: Anxiety, Depression Additional Psychological History / Comment(s): Pt resides alone. She is independent. Smoking Status: Former smoker Past Alcohol Use History: Rare Additional Past Alcohol Use History / Comment(s): Pt started smoking as a teen and quit in 1999. She was a heavy smoker. Past Drug Use History: None Reported - Past Family History Mother Family Medical History: No Reported History Additional Family Medical History / Comment(s): Mother did not go to the doctor much. Father History Unknown: Yes Family Medical History: AFIB, Vascular Disorder Additional Family Medical History / Comment(s): Father in his early 50s of a ruptured thoracic aneurysm. Medications and Allergies Home Medications Medication Instructions Recorded Confirmed Type Cholecalciferol [Vitamin D3 (25 1,000 unit PO BID 05/10/20 09/27/20 History Mcg = 1000 Iu)] Venlafaxine HCl ER [Effexor XR] 150 mg PO DAILY 05/10/20 09/27/20 History Albuterol Sulfate [Albuterol 1 puff PO RT-Q4H PRN 07/28/20 09/27/20 History Sulfate Hfa] Apixaban [Eliquis] 5 mg PO BID 07/28/20 09/27/20 History Aspirin EC [Ecotrin Low Dose] 81 mg PO DAILY 07/28/20 09/27/20 History Calcium Carbonate 500 mg PO DAILY 07/28/20 09/27/20 History Ferrous Sulfate [Iron (65 MG 325 mg PO DAILY 07/28/20 09/27/20 History Elemental)] Loperamide [Imodium] 2 mg PO QID PRN 07/28/20 09/27/20 History Magnesium Oxide 400 mg PO BID 07/28/20 09/27/20 History Pantoprazole Sodium 40 mg PO DAILY 07/28/20 09/27/20 History Simethicone Chew [Mylicon Chew] 80 mg PO Q8H PRN 07/28/20 09/27/20 History ondansetron HCL [Zofran] 8 mg PO Q8HR PRN 07/28/20 09/27/20 History Spironolactone [Aldactone] 25 mg PO DAILY #30 tablet 08/17/20 09/27/20 Rx Acetaminophen [Tylenol Arthritis] 650 mg PO Q4H PRN 09/27/20 09/27/20 History Atorvastatin Calcium [Lipitor] 40 mg PO HS 09/27/20 09/27/20 History Banana Flake Packet 1 packet PO BID 09/27/20 09/27/20 History Bumetanide [Bumex] 1 mg PO BID 09/27/20 09/27/20 History Fluticasone/Vilanterol [Breo 1 puff INHALATION RT-DAILY 09/27/20 09/27/20 History Ellipta 100-25 Mcg Inhaler] Gabapentin 300 mg PO BID 09/27/20 09/27/20 History Ipratropium Nebulized [Atrovent 0.5 mg INHALATION RT-Q6H PRN 09/27/20 09/27/20 History Nebulized 0.2 MG/ML] Levothyroxine Sodium [Synthroid] 200 mcg PO DAILY 09/27/20 09/27/20 History Melatonin 5 mg PO HS 09/27/20 09/27/20 History Multivitamins, Thera [Multivitamin 1 tab PO DAILY 09/27/20 09/27/20 History (formulary)] Potassium Chloride ER [K-Dur 20] 20 meq PO DAILY 09/27/20 09/27/20 History Venlafaxine HCl ER [Effexor Xr] 37.5 mg PO DAILY 09/27/20 09/27/20 History methocarbamoL [Robaxin] 500 mg PO Q6H PRN 09/27/20 09/27/20 History prednisoLONE ACETATE 1% OPHTH 1 drops RIGHT EYE BID 09/27/20 09/27/20 History [Pred Forte 1%] Allergies Allergy/AdvReac Type Severity Reaction Status Date / Time Penicillins Allergy Unknown Verified 09/27/20 18:43 Sulfa (Sulfonamide Allergy Unknown Verified 09/27/20 18:43 Antibiotics) Physical Exam Vitals: Vital Signs Temp Pulse Resp BP Pulse Ox 09/28/20 14:21 97.5 F L 93 18 105/69 100 09/28/20 07:05 97.1 F L 97 16 103/68 100 09/28/20 02:40 97.5 F L 93 18 112/77 95 09/27/20 19:50 98.4 F 94 19 108/75 100 09/27/20 17:26 95 09/27/20 16:56 98 F 81 17 112/71 95 Intake and Output 09/27/20 09/28/20 09/28/20 22:59 06:59 14:59 Output Total 550 Balance -550 Output: Urine 550 Other: Voiding Method Indwelling Catheter # Bowel Movements 1 Weight 97.069 kg 100.5 kg 100.5 kg On physical examination, patient appears comfortable in no apparent distress. HEAD: Normocephalic, atraumatic. EYES: No scleral icterus. No conjunctival injection. MOUTH: No lesions, tongue midline. NECK: Trachea midline, no gross abnormalities. CHEST: Clear to auscultation with no wheezing or rhonchi appreciated. HEART: Regular rate and rhythm. ABDOMEN: Soft, obese. Bowel sounds are positive. No organomegaly. No guarding or rigidity. EXTREMITIES: Bilateral pedal edema. SKIN: No rashes, no jaundice. NEUROLOGIC: Alert and oriented x3. No focal deficits. Results CBC & Chem 7: 09/28/20 12:49 09/28/20 12:49 Labs: Abnormal Lab Results - Last 24 Hours (Table) 09/28/20 09/28/20 Range/Units 12:49 12:49 RDW 16.5 H (11.5-15.5) % Sodium 127 L (137-145) mmol/L Chloride 93 L (98-107) mmol/L BUN 19 H (7-17) mg/dL Glucose 122 H (74-99) mg/dL Calcium 6.8 L (8.4-10.2) mg/dL AST 122 H (14-36) U/L ALT 53 H (4-34) U/L Alkaline Phosphatase 348 H (38-126) U/L Total Protein 3.5 L (6.3-8.2) g/dL Albumin 1.3 L (3.5-5.0) g/dL CT scan - abdomen: report reviewed Assessment and Plan (1) Diarrhea Narrative/Plan: 74-year-old female with prior small bowel resection secondary to ischemia presenting to the hospital due to diarrhea and "not absorbing high-protein". Patient has been seen for diarrhea in the past and started on treatment with Imodium or Lomotil, Questran and codeine as needed for diarrhea. Currently she is feeling that bowel movements are more formed. Previously she has had stool testing which was always been negative and symptoms of been felt to be secondary to her prior small bowel resection. Current Visit: No Status: Acute Code(s): R19.7 - DIARRHEA, UNSPECIFIED SNOMED Code(s): 46382052 (2) Short bowel syndrome Current Visit: Yes Status: Acute Code(s): K91.2 - POSTSURGICAL MALABSORPTION, NOT ELSEWHERE CLASSIFIED SNOMED Code(s): 48123096 Plan: Supportive care Okay for diet as tolerated Continue Imodium as needed for diarrhea Can reinitiate cholestyramine twice a day or as needed codeine for diarrhea if symptoms persist No plans for endoscopic evaluation at this time Continue other management of medical issues per primary team Thank you for allowing us to participate in the care of the patient
[2020-09-29] MEDS: PANTOPRAZOLE 40 MG TABLET PO SCH (07:36)
[2020-09-29] MEDS: ASPIRIN 81 MG PO SCH (07:36)
[2020-09-29] MEDS: MAGNESIUM OXIDE 400 MG TAB PO SCH ×2 (07:36→20:53)
[2020-09-29] MEDS: VENLAFAXINE HCL ER 150 MG CAP PO SCH (07:36)
[2020-09-29] MEDS: GABAPENTIN 300 MG CAP PO SCH ×2 (07:36→20:53)
[2020-09-29] MEDS: APIXABAN 5 MG TAB PO SCH ×2 (07:36→20:53)
[2020-09-29] MEDS: CHOLECALCIFEROL 25 MCG (1000 IU) TABLET PO SCH ×2 (07:36→20:53)
[2020-09-29] MEDS: SPIRONOLACTONE 25 MG TAB PO SCH (07:36)
[2020-09-29] MEDS: FERROUS SULFATE 325 MG TAB PO SCH (07:37)
[2020-09-29] MEDS: CALCIUM CARBONATE 500 MG CHEWABLE PO SCH (07:37)
[2020-09-29] MEDS: MULTIVITAMINS, THERA 1 EACH TAB PO SCH (07:37)
[2020-09-29] MEDS: POTASSIUM CHLORIDE ER 20 MEQ TAB.ER PO SCH (07:37)
[2020-09-29] MEDS: prednisoLONE ACETATE 1% OPHTH DROPS 5 ML BTL RIGHT EYE SCH ×2 (07:38→20:54)
[2020-09-29] MEDS: VENLAFAXINE HCL ER 37.5 MG CAP PO SCH (07:38)
[2020-09-29] MEDS: BUMETANIDE 1 MG TAB PO SCH ×2 (07:38→20:53)
[2020-09-29] MEDS: SYMBICORT 80-4.5 MCG INHALER INHALATION SCH ×2 (07:43→19:36)
--- NOTE | 2020-09-29 12:14 | P.PN ---
Subjective Progress Note Date: 09/29/20 Principal diagnosis: Diarrhea A 74-year-old female with a prior history of bowel resection who is residing in an [facility] and was sent to the emergency department for concerns for diarrhea and not absorbing protein. The patient is seen and examined lying in bed. She denies any acute changes. She denies any abdominal pain, nausea, or vomiting. States her diarrhea is well controlled. She took Imodium yesterday evening to go for her CAT scan. States at times it is performed, followed by loose stool. Yesterday she underwent a CT of the abdomen which showed bilateral pleural effusion with basilar pulmonary atelectasis and infiltrate. Pleural fluid slightly increased compared to old exam. Pericardial effusion unchanged. Fatty infiltration of the liver unchanged. Mild abdominal ascites fluid unchanged. Sigmoid diverticulosis without diverticulitis. Rectal fecal impaction is new compared to old exam. No sign of mechanical bowel obstruction. Cutaneous edema around the abdomen and a large non-obstructing left renal calculus unchanged. Objective - Vital Signs Vital signs: Vital Signs Temp 97.5 F L 09/29/20 07:48 Pulse 72 09/29/20 08:50 Resp 17 09/29/20 08:50 BP 101/69 09/29/20 07:48 Pulse Ox 98 09/29/20 07:48 Intake & Output 09/28/20 09/29/20 09/29/20 18:59 06:59 18:59 Output Total 450 1200 Balance -450 -1200 Weight 100.5 kg 91.5 kg Output: Urine 450 1200 Other: Voiding Method Indwelling Catheter Indwelling Catheter Indwelling Catheter # Voids 1 - Exam General appearance: The patient is alert, oriented, appears in no acute distress. Obese. HET: Head is normocephalic and atraumatic. Conjunctiva pink. Sclera anicteric. Neck: Supple without lymphadenopathy. Abdomen: Soft, obese, nontender, nondistended with bowel sounds. No guarding or rigidity. Extremities: Normal skin color and turgor. No pedal edema Skin: No rashes, no jaundice Neurological: No focal deficits. Alert and oriented 3. - Labs CBC & Chem 7: 09/28/20 12:49 09/28/20 12:49 Labs: Abnormal Lab Results - Last 24 Hours (Table) 09/28/20 09/28/20 Range/Units 12:49 12:49 RDW 16.5 H (11.5-15.5) % Sodium 127 L (137-145) mmol/L Chloride 93 L (98-107) mmol/L BUN 19 H (7-17) mg/dL Glucose 122 H (74-99) mg/dL Calcium 6.8 L (8.4-10.2) mg/dL AST 122 H (14-36) U/L ALT 53 H (4-34) U/L Alkaline Phosphatase 348 H (38-126) U/L Total Protein 3.5 L (6.3-8.2) g/dL Albumin 1.3 L (3.5-5.0) g/dL Assessment and Plan (1) Diarrhea Narrative/Plan: 74-year-old female with prior small bowel resection secondary to ischemia presenting to the hospital due to diarrhea and "not absorbing high-protein". Patient has been seen for diarrhea in the past and started on treatment with Imodium or Lomotil, Questran and codeine as needed for diarrhea. Currently she is feeling that bowel movements are more formed. Previously she has had stool testing which was always been negative and symptoms of been felt to be secondary to her prior small bowel resection. Current Visit: No Status: Acute Code(s): R19.7 - DIARRHEA, UNSPECIFIED SNOMED Code(s): 12082487 (2) Short bowel syndrome Current Visit: Yes Status: Acute Code(s): K91.2 - POSTSURGICAL MALABSORPTION, NOT ELSEWHERE CLASSIFIED SNOMED Code(s): 33941640 Plan: Supportive care Okay for diet as tolerated Continue Imodium as needed for diarrhea may take 2 tablets at a time, up to 8 tablets a day Can reinitiate cholestyramine twice a day or as needed codeine for diarrhea if symptoms persist No plans for endoscopic evaluation at this time Continue other management of medical issues per primary team Thank you for allowing us to participate in the care of the patient. We'll be no gastroenterology coverage through the weekend, returning on Friday. Dr. Meir Patton I agree with the dictator's note, documented as a scribe by Faith Healy.
[2020-09-29 16:04] LABS: African American GFR (CKD) >90 (>60 ml/min/1.73 sqM); Anion Gap -1 mmol/L; Blood Urea Nitrogen 18 mg/dL (7-17); Calcium 6.6 mg/dL (8.4-10.2); Carbon Dioxide 32 mmol/L (22-30); Chloride 92 mmol/L (98-107); Glucose 85 mg/dL (74-99); Non-African American GFR(CKD) >90 (>60 ml/min/1.73 sqM); Potassium 4.1 mmol/L (3.5-5.1); Sodium 123 mmol/L (137-145)
[2020-09-29] MEDS ORDERED: FUROSEMIDE 10 MG/ML 4 ML VIAL IV STA (16:30)
--- NOTE | 2020-09-29 16:38 | P.PN ---
Subjective Progress Note Date: 09/29/20 History of presenting complaint: This is a pleasant 74-year-old patient of Dr. Dorian Yan. Resident of [facility]. Chronic stable medical conditions include hypertension, hyperlipidemia, depression, hypothyroid. 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 -small bowel resection was carried out. Patient was then transferred out to [facility]. Patient thinks a blood clot was removed . Readmitted in August of this year, with acute cor pulmonale, uncontrolled hypothyroid. patient was sent in from the [facility] following patient having 1 or 2 loose stools a day. Poor appetite. Swelling up. Very weak and tired. Last time patient had walked was about 2 weeks ago. Appetite is rather poor. She is extremely tired. No fever no chills. Today-oral intake about 75-100% of the full liquid diet. Laying in.. Tired. 09/29/2020 Patient is seen and evaluated this morning with no acute overnight issues. Patient continues to eat very little although has been increasing according to per nursing staff. Patient was seen and evaluated by GI recommending continuing with Imodium and Questran as needed if diarrhea persists. Patient has been having less bowel movements per nursing staff and patient. Patient continues to be weak requiring assistance and unable to get up out of the bed with physical therapy today. Patient sodium was found to be 123 today and will be placed on fluid restrictions and given a dose of IV Lasix. Nephrology consulted and pending at this time. Patient continues to have bilateral upper and lower ex tremity swelling and edema noted. Review of systems: Constitutional: Reports fatigue, no reports of fever, or chills Cardiovascular: No reports of chest pain or palpitations Respiratory: No reports of shortness of breath or cough GI: No reports of nausea, vomiting, reports diarrhea, reports poor oral intake : No reports of dysuria or retention, chronic indwelling Newell catheter Neurovascular: reports of weakness All medications have been reviewed Objective - Vital Signs Vital signs: Vital Signs Temp 97.4 F L 09/29/20 13:54 Pulse 84 09/29/20 13:54 Resp 18 09/29/20 13:54 BP 115/78 09/29/20 13:54 Pulse Ox 100 09/29/20 13:54 Intake & Output 09/28/20 09/29/20 09/29/20 18:59 06:59 18:59 Output Total 450 1200 Balance -450 -1200 Weight 100.5 kg 91.5 kg Output: Urine 450 1200 Other: Voiding Method Indwelling Catheter Indwelling Catheter Indwelling Catheter # Voids 1 - Exam GENERAL:. BMI 37.9, laying in bed, tired, pitting edema of lower extremities noted 2+ EYES: Pupils equal. Conjunctiva pale. HEENT: External appearance of nose and ears normal, oral cavity grossly normal. NECK: JVD not raised; masses not palpable. HEART: S1, S2 are muffled LUNGS: Respiratory rate normal; diminished breath sounds bilaterally with some scattered rhonchi noted ABDOMEN: Soft, obese, no tenderness, no guarding rigidity, liver spleen not palpable, no masses palpable. PSYCH: Alert and oriented x3; mood and affect tired MUSCULAR skeletal: Evidence of OA - Labs CBC & Chem 7: 09/28/20 12:49 09/29/20 15:07 Assessment and Plan Assessment: -Acute medical debility following her small bowel surgery. Patient having intermittent diarrhea. Poor oral intake. No fever no chills. -chronic cor pulmonale -Hyponatremia, consult nephrology and patient was given sodium chloride tablets and placed on fluid restrictions and a dose of IV Lasix one-time -Hypothyroid, continue Synthroid -Mild malnutrition from decreased oral intake -Essential hypertension -Hyperlipidemia-on Lipitor -Depression otherwise specified, continue Effexor -obesity BMI 37.9 -Chronic Elevated right diaphragm-(SNIFF test was negative. No paradoxical movement noted.) -COPD in an ex-smoker, continue with bronchodilators Plan: Tinea with current medications. Sodium was 123 and nephrology consult placed. CT chest ordered by Dr. Perkins shows bilateral pleural effusions with basilar pulmonary atelectasis and infiltrate, pleural effusion slightly increased compared to old exam with pre-existing pericardial effusion unchanged, fatty infiltration of the liver unchanged, abdominal ascites unchanged with sigmoid diverticulosis with no evidence of diverticulitis and rectal fecal impaction compared to old exam although patient continues to have bowel movements. No sign of mechanical bowel obstruction, subcutaneous edema around the abdomen unchanged, and continued large nonobstructing left renal calculus also unchanged. Will also consult pulmonary in regards to pleural effusions. Incentive spirometer ordered and will continue to monitor. Will repeat labs.
[2020-09-29] MEDS: ATORVASTATIN 40 MG TAB PO SCH (20:53)
[2020-09-29] MEDS: SODIUM CHLORIDE TAB 1 GM TAB PO SCH (20:53)
[2020-09-29] MEDS: MELATONIN 5 MG TABLET PO SCH (20:53)
[2020-09-29] MEDS ORDERED: SODIUM CHLORIDE 0.9% 1,000 ML IV ONE ×2 (22:00→23:09)
[2020-09-29 22:34] LABS: Anisocytosis Slight; Basophils % (A) 0 %; Eosinophils # (A) 0.1 k/uL (0-0.7); Eosinophils % (A) 2 %; HCT 36.5 % (34.0-46.0); HGB 11.7 gm/dL (11.4-16.0); Lymphocytes # (A) 1.2 k/uL (1.0-4.8); Lymphocytes % (A) 22 %; MCH 30.7 pg (25.0-35.0); MCHC 32.2 g/dL (31.0-37.0); MCV 95.3 fL (80.0-100.0); Mean Platelet Volume 9.2; Monocytes # (A) 0.4 k/uL (0-1.0); Monocytes % (A) 7 %; Neutrophils # (A) 3.8 k/uL (1.3-7.7); Neutrophils % (A) 68 %; Platelet Count 402 k/uL (150-450); RBC 3.83 m/uL (3.80-5.40); RDW 16.6 % (11.5-15.5); WBC 5.6 k/uL (3.8-10.6)
[2020-09-29 23:56] LABS: Anisocytosis Slight; HCT 29.9 % (34.0-46.0); MCH 30.4 pg (25.0-35.0); MCHC 32.7 g/dL (31.0-37.0); MCV 93.2 fL (80.0-100.0); Mean Platelet Volume 6.8; Platelet Count 350 k/uL (150-450); RBC 3.21 m/uL (3.80-5.40); RDW 16.5 % (11.5-15.5); WBC 4.3 k/uL (3.8-10.6)
[2020-09-29] MEDS: ACETAMINOPHEN TAB 325 MG TAB PO PRN (23:57)
[2020-09-30 00:03] LABS: HGB 9.8 gm/dL (11.4-16.0)
[2020-09-30] MEDS: PANTOPRAZOLE 40 MG TABLET PO SCH (06:17)
[2020-09-30] MEDS: LEVOTHYROXINE 100 MCG TAB PO SCH (06:17)
[2020-09-30] MEDS: SYMBICORT 80-4.5 MCG INHALER INHALATION SCH ×2 (07:57→19:18)
--- NOTE | 2020-09-30 09:03 | US ---
EXAMINATION TYPE: US chest DATE OF EXAM: 09/30/2020 COMPARISON: CT 2 days ago CLINICAL HISTORY: Bilateral pleural effusions. TECHNIQUE: Targeted ultrasound of the posterior lower bilateral hemithoraces EXAM MEASUREMENTS: Right Pleural Effusion pocket size: 2.9 cm Not marked due to small size Left Pleural Effusion pocket size: 8.3 cm Left skin surface to fluid distance: 1.9 cm Small to tiny left greater than right pleural effusions seen on images saved correlate with recent CT . Pulmonologists are able to review the images in the patient?s EMR. IMPRESSIONS: As above.
[2020-09-30] MEDS ORDERED: ALBUMIN HUMAN 25% 50 ML in EMPTY BAG 1 BAG IVPB SCH (09:45)
--- NOTE | 2020-09-30 09:47 | P.NPCON ---
History of Present Illness - Reason for Consult hyponatremia - History of Present Illness Reason for consultation: Hyponatremia History of present illness: Patient is a 74-year-old female seen in renal consultation for hyponatremia. Patient's sodium level has a September 28 was 127 and was down to 123 as of yesterday. Patient presented from an extended care facility due to diarrhea and poor oral intake. She is also complaining of swelling in her lower extremities. She feels weak. Oral intake has been poor. Denies drinking excessive amounts of fluids. She is currently maintained on oral Bumex 1 mg twice daily as well as spironolactone. Additionally she is also receiving sodium chloride tablets 1 g twice daily. She denies chest pain or shortness of breath. She is currently on 2 L nasal cannula. Blood pressure is in the systolic 90s to low 100s. She did undergo CAT scan of the chest abdomen and pelvis with IV contrast on September 28 which revealed bilateral pleural effusions as well as pericardial effusion. She was noted to have mild abdominal ascites as well as fatty infiltration of the liver. No hydronephrosis was noted. Chest ultrasound done this morning revealed small pleural effusions. Patient has history of diastolic CHF with mild pulmonary hypertension. Vital signs are stable. General: The patient appeared well nourished and normally developed. HEENT: Head exam is unremarkable. Currently on nasal cannula. LUNGS: Breath sounds decreased. HEART: Rate and Rhythm are regular. ABDOMEN: Soft, nontender. Obese. EXTREMITITES: 2+ edema. Past Medical History Past Medical History: Eye Disorder, Hyperlipidemia, Hypertension, Renal Disease, Thyroid Disorder Additional Past Medical History / Comment(s): R eye mutliple surgeries for retinal tears-vision poor, hypothyroid, osteoporosis. Pt reports blood clot in bowel after surgery- received vascular surgical removal at [facility] History of Any Multi-Drug Resistant Organisms: None Reported Past Surgical History: Bowel Resection, Joint Replacement Additional Past Surgical History / Comment(s): Colonoscopy with last on 05/08/20, bilateral total knees, left ovary removed d/t cyst, bilateral eye cataract removals/lens implants, R eye multiple surgeries for retinal tears, bowel r esection. Past Anesthesia/Blood Transfusion Reactions: No Reported Reaction Additional Past Anesthesia/Blood Transfusion Reaction / Comment(s): Difficulty getting to sleep, states she can be combative after surgery Past Psychological History: Anxiety, Depression Additional Psychological History / Comment(s): Pt resides alone. She is independent. Smoking Status: Former smoker Past Alcohol Use History: Rare Additional Past Alcohol Use History / Comment(s): Pt started smoking as a teen and quit in 1999. She was a heavy smoker. Past Drug Use History: None Reported - Past Family History Mother Family Medical History: No Reported History Additional Family Medical History / Comment(s): Mother did not go to the doctor much. Father History Unknown: Yes Family Medical History: AFIB, Vascular Disorder Additional Family Medical History / Comment(s): Father in his early 50s of a ruptured thoracic aneurysm. Medications and Allergies Home Medications Medication Instructions Recorded Confirmed Type Cholecalciferol [Vitamin D3 (25 1,000 unit PO BID 05/10/20 09/27/20 History Mcg = 1000 Iu)] Albuterol Sulfate [Albuterol 1 puff PO RT-Q4H PRN 07/28/20 09/27/20 History Sulfate Hfa] Apixaban [Eliquis] 5 mg PO BID 07/28/20 09/27/20 History Aspirin EC [Ecotrin Low Dose] 81 mg PO DAILY 07/28/20 09/27/20 History Calcium Carbonate 500 mg PO DAILY 07/28/20 09/27/20 History Ferrous Sulfate [Iron (65 MG 325 mg PO DAILY 07/28/20 09/27/20 History Elemental)] Loperamide [Imodium] 2 mg PO QID PRN 07/28/20 09/27/20 History Magnesium Oxide 400 mg PO BID 07/28/20 09/27/20 History Pantoprazole Sodium 40 mg PO DAILY 07/28/20 09/27/20 History Simethicone Chew [Mylicon Chew] 80 mg PO Q8H PRN 07/28/20 09/27/20 History ondansetron HCL [Zofran] 8 mg PO Q8HR PRN 07/28/20 09/27/20 History Spironolactone [Aldactone] 25 mg PO DAILY #30 tablet 08/17/20 09/27/20 Rx Acetaminophen [Tylenol Arthritis] 650 mg PO Q4H PRN 09/27/20 09/27/20 History Atorvastatin Calcium [Lipitor] 40 mg PO HS 09/27/20 09/27/20 History Banana Flake Packet 1 packet PO BID 09/27/20 09/27/20 History Bumetanide [BUMEX] 1 mg PO BID 09/27/20 09/27/20 History Fluticasone/Vilanterol [Breo 1 puff INHALATION RT-DAILY 09/27/20 09/27/20 History Ellipta 100-25 Mcg Inhaler] Ipratropium Nebulized [Atrovent 0.5 mg INHALATION RT-Q6H PRN 09/27/20 09/27/20 History Nebulized 0.2 MG/ML] Levothyroxine Sodium [Synthroid] 200 mcg PO DAILY 09/27/20 09/27/20 History Melatonin 5 mg PO HS 09/27/20 09/27/20 History Multivitamins, Thera [Multivitamin 1 tab PO DAILY 09/27/20 09/27/20 History (formulary)] Potassium Chloride ER [K-Dur 20] 20 meq PO DAILY 09/27/20 09/27/20 History methocarbamoL [Robaxin] 500 mg PO Q6H PRN 09/27/20 09/27/20 History prednisoLONE ACETATE 1% OPHTH 1 drops RIGHT EYE BID 09/27/20 09/27/20 History [Pred Forte 1%] Gabapentin 300 mg PO BID #12 cap 09/29/20 Rx Venlafaxine HCl ER [Effexor XR] 37.5 mg PO DAILY #10 cap 09/29/20 Rx Venlafaxine HCl ER [Effexor XR] 150 mg PO DAILY #10 cap 09/29/20 Rx Allergies Allergy/AdvReac Type Severity Reaction Status Date / Time Penicillins Allergy Unknown Verified 09/27/20 18:43 Sulfa (Sulfonamide Allergy Unknown Verified 09/27/20 18:43 Antibiotics) Physical Exam Vitals: Vital Signs Temp Pulse Pulse Resp BP BP BP 09/30/20 08:26 97.4 F L 95 18 95/65 09/30/20 05:16 112/60 09/30/20 02:50 97.6 F 91 16 99/57 09/30/20 01:43 85/52 09/30/20 01:05 95/54 09/30/20 00:30 97.4 F L 76 18 88/50 09/30/20 00:24 92 95/57 09/29/20 23:35 91 92/54 09/29/20 22:56 95 85/50 02/26/21 22:25 94/61 09/29/20 22:00 97.3 F L 88 18 85/54 83/54 09/29/20 20:00 98.1 F 97 18 114/78 09/29/20 15:46 09/29/20 13:54 97.4 F L 84 18 115/78 Pulse Ox 09/30/20 08:26 98 09/30/20 05:16 09/30/20 02:50 96 09/30/20 01:43 09/30/20 01:05 09/30/20 00:30 94 L 09/30/20 00:24 09/29/20 23:35 09/29/20 22:56 09/29/20 22:25 09/29/20 22:00 100 09/29/20 20:00 97 09/29/20 15:46 100 09/29/20 13:54 100 Intake and Output 09/29/20 09/30/20 09/30/20 22:59 06:59 14:59 Intake Total 100 Output Total 1900 Balance -1800 Intake: Oral 100 Output: Urine 1900 Other: Voiding Method Indwelling Catheter Indwelling Catheter Weight 83.5 kg Results - Lab Results Most recent lab results Calcium 6.6 mg/dL (8.4-10.2) L 09/29/20 15:07 09/29/20 23:45 09/29/20 15:07 Assessment and Plan Plan: Assessment: 1. Hypervolemic hyponatremia. Sodium level CXXIII as of yesterday. 2. Volume overload. 3. Acute on chronic diastolic CHF. 4. Severe protein calorie malnutrition with albumin of 1.3. 5. Hypocalcemia secondary to hypoalbuminemia. Corrected calcium normal. Plan: Stop sodium chloride tablets due to hypervolemia. 25 g IV albumin twice a day 2 days. 1200 mL fluid restriction. Encouraged oral intake, especially protein. Add ensure 3 times a day. I will change Bumex from oral to IV. Repeat electrolytes in the morning. Check serum and urine osmolality and urine sodium level. Check TSH as well as morning cortisol level. If no improvement in sodium level tomorrow morning, I will give her dose of Samsca. Thank you for the consultation. I will continue to follow the patient with you during her hospital stay.
[2020-09-30] MEDS: GABAPENTIN 300 MG CAP PO SCH ×2 (10:10→20:43)
[2020-09-30] MEDS: ASPIRIN 81 MG PO SCH (10:10)
[2020-09-30] MEDS: CHOLECALCIFEROL 25 MCG (1000 IU) TABLET PO SCH ×2 (10:10→20:43)
[2020-09-30] MEDS: MAGNESIUM OXIDE 400 MG TAB PO SCH ×2 (10:10→20:43)
[2020-09-30] MEDS: FERROUS SULFATE 325 MG TAB PO SCH (10:10)
[2020-09-30] MEDS: CALCIUM CARBONATE 500 MG CHEWABLE PO SCH (10:10)
[2020-09-30] MEDS: prednisoLONE ACETATE 1% OPHTH DROPS 5 ML BTL RIGHT EYE SCH ×2 (10:11→20:54)
[2020-09-30] MEDS: MULTIVITAMINS, THERA 1 EACH TAB PO SCH (10:11)
[2020-09-30 10:44] LABS: African American GFR (CKD) >90 (>60 ml/min/1.73 sqM); Anion Gap 4 mmol/L; Blood Urea Nitrogen 19 mg/dL (7-17); Calcium 6.5 mg/dL (8.4-10.2); Carbon Dioxide 24 mmol/L (22-30); Chloride 97 mmol/L (98-107); Glucose 89 mg/dL (74-99); Magnesium 1.8 mg/dL (1.6-2.3); Non-African American GFR(CKD) >90 (>60 ml/min/1.73 sqM); Potassium 3.9 mmol/L (3.5-5.1); Sodium 125 mmol/L (137-145)
[2020-09-30] MEDS: ALBUMIN HUMAN 25% 50 ML in EMPTY BAG 1 BAG IVPB SCH ×4 (11:29→22:04)
[2020-09-30] MEDS: POTASSIUM CHLORIDE ER 20 MEQ TAB.ER PO SCH (11:31)
[2020-09-30] MEDS: VENLAFAXINE HCL ER 150 MG CAP PO SCH (11:31)
[2020-09-30] MEDS: VENLAFAXINE HCL ER 37.5 MG CAP PO SCH (11:31)
--- NOTE | 2020-09-30 12:29 | P.PN ---
Subjective Progress Note Date: 09/30/20 History of presenting complaint: This is a pleasant 74-year-old patient of Dr. Dorian Yan. Resident of [facility]. Chronic stable medical conditions include hypertension, hyperlipidemia, depression, hypothyroid. 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 -small bowel resection was carried out. Patient was then transferred out to [facility]. Patient thinks a blood clot was removed . Readmitted in August of this year, with acute cor pulmonale, uncontrolled hypothyroid. patient was sent in from the [facility] following patient having 1 or 2 loose stools a day. Poor appetite. Swelling up. Very weak and tired. Last time patient had walked was about 2 weeks ago. Appetite is rather poor. She is extremely tired. No fever no chills. Today-oral intake about 75-100% of the full liquid diet. Laying in.. Tired. 09/29/2020 Patient is seen and evaluated this morning with no acute overnight issues. Patient continues to eat very little although has been increasing according to per nursing staff. Patient was seen and evaluated by GI recommending continuing with Imodium and Questran as needed if diarrhea persists. Patient has been having less bowel movements per nursing staff and patient. Patient continues to be weak requiring assistance and unable to get up out of the bed with physical therapy today. Patient sodium was found to be 123 today and will be placed on fluid restrictions and given a dose of IV Lasix. Nephrology consulted and pending at this time. Patient continues to have bilateral upper and lower ext remity swelling and edema noted. 09/30/2020 Patient is seen this morning and had episodes of hypotension and cold bilateral lower extremities with significant edema noted and was given some fluid boluses with improvement in blood pressure although continues to be volume overload. Patient was maintained on Bumex along with Aldactone and will discontinue at this time. Nephrology consulted and following. Patient receiving a dose of albumin today. Pulmonary also consulted for possible thoracentesis for pleural effusions. Patient had chest ultrasound showing left greater than the right pleural effusions and was marked for possible thoracentesis. Cardiology also consulted and a 2-D echo ordered. Patient denies any further episodes of diarrhea and has not had a bowel movement today. Patient is urinating although appears concentrated and does have an indwelling Newell catheter. Continued bilateral upper and lower extremity swelling and edema is noted. Denies any worsening shortness of breath chest pain or palpitations. Patient is afebrile. Review of systems: Constitutional: Reports fatigue, no reports of fever, or chills Cardiovascular: No reports of chest pain or palpitations Respiratory: No reports of shortness of breath or cough GI: No reports of nausea, vomiting, reports diarrhea, reports poor oral intake : No reports of dysuria or retention, chronic indwelling Newell catheter Neurovascular: reports of weakness All medications have been reviewed Objective - Vital Signs Vital signs: Vital Signs Temp 97.4 F L 09/30/20 08:26 Pulse 95 09/30/20 08:26 Resp 18 09/30/20 08:26 BP 95/65 09/30/20 08:26 Pulse Ox 98 09/30/20 08:26 Intake & Output 09/29/20 09/30/20 09/30/20 18:59 06:59 18:59 Intake Total 100 Output Total 500 1400 Balance -500 -1300 Weight 83.5 kg Intake: Oral 100 Output: Urine 500 1400 Other: Voiding Method Indwelling Catheter Indwelling Catheter - Exam GENERAL:. BMI 37.9, laying in bed, tired, pitting edema of lower extremities noted 2+ EYES: Pupils equal. Conjunctiva pale. HEENT: External appearance of nose and ears normal, oral cavity grossly normal. NECK: JVD not raised; masses not palpable. HEART: S1, S2 are muffled LUNGS: Respiratory rate normal; diminished breath sounds bilaterally with some scattered rhonchi noted ABDOMEN: Soft, obese, no tenderness, no guarding rigidity, liver spleen not palpable, no masses palpable. PSYCH: Alert and oriented x3; mood and affect tired MUSCULAR skeletal: Evidence of OA - Labs CBC & Chem 7: 09/29/20 23:45 09/30/20 10:02 Labs: Abnormal Lab Results - Last 24 Hours (Table) 09/29/20 09/29/20 09/29/20 Range/Units 15:07 22:19 23:45 RBC 3.21 L (3.80-5.40) m/uL Hgb 9.8 L D (11.4-16.0) gm/dL Hct 29.9 L (34.0-46.0) % RDW 16.6 H 16.5 H (11.5-15.5) % Sodium 123 L (137-145) mmol/L Chloride 92 L (98-107) mmol/L Carbon Dioxide 32 H (22-30) mmol/L BUN 18 H (7-17) mg/dL Calcium 6.6 L (8.4-10.2) mg/dL Assessment and Plan Assessment: -Acute medical debility following her small bowel surgery. Patient having intermittent diarrhea. Poor oral intake. No fever no chills. -chronic cor pulmonale -Hyponatremia, consult nephrology and patient was given sodium chloride tablets and placed on fluid restrictions and a dose of IV Lasix one-time -Hypothyroid, continue Synthroid -Mild malnutrition from decreased oral intake -Essential hypertension, currently having episodes of hypotension will consult cardiology and order 2-D echo -Hyperlipidemia-on Lipitor -Depression otherwise specified, continue Effexor -obesity BMI 37.9 -Chronic Elevated right diaphragm-(SNIFF test was negative. No paradoxical movement noted.) -COPD in an ex-smoker, continue with bronchodilators Plan: Continue with current medications. Sodium was 125 and nephrology following. She being given a dose of albumin and being started on IV Bumex. She has significant upper and lower extremity swelling and edema noted generalized. Patient also underwent chest ultrasound for possible thoracentesis on the left for bilateral pleural effusions. Pulmonary has been consulted. 2-D echo ordered and will consult cardiology. Will continue to monitor closely.
--- NOTE | 2020-09-30 12:42 | P.CNPUL ---
History of Present Illness Consult date: 09/30/20 Requesting physician: Julissa Layne Reason for consult: abnormal CXR/CT Chief complaint: Diarrhea, poor appetite, generalized weakness History of present illness: This is a 74-year-old female patient who follows with Dr. Yan as her primary care provider. She is currently residing in an extended care facility. She has a history of hypothyroidism, hypertension, hyperlipidemia, depression, recent small bowel ischemia with bowel resection at [facility]. She is residing in a local half-way and was brought in on 09/27/2020 for complaints of generalized weakness, loose stools, poor appetite. CAT scan of the abdomen revealed fatty infiltration of the liver, unchanged. Mild abdominal ascites, unchanged periods sigmoid diverticulosis without diverticulitis. Rectal fecal impaction which was new. Large nonobstructing left renal calculus. Bilateral pleural effusions were noted and we were consulted for the same. An ultrasound of the chest was ordered. There is a small right-sided pleural effusion measuring 2.9 cm. A larger left pleural effusion measuring 8.3 cm. The patient has been anticoagulated on Eliquis which will be placed on hold. Possible thoracentesis tomorrow. She is seen today in consultation on the regular medical floor. Currently resting flat in bed. Awake and alert in no acute distress. Continue O2 saturations in the high 90s on 2 L/m per nasal cannula. She's afebrile. White count 4.3. Hemoglobin 9.8. Sodium 125. Potassium 3.9. Creatinine 0.56. ProBNP 513. Urine osmolality 353. Coronavirus not detected. She is continued on IV diuretics, albuterol, Symbicort. Albumin has been ordered. Nephrology and GI services are on the case. Review of Systems REVIEW OF SYSTEMS: CONSTITUTIONAL: Generalized weakness, fatigue. Denies any recent significant weight loss or weight gain. EYES: Denies change in vision. EARS, NOSE, MOUTH, THROAT: Denies headaches, denies sore throat. CARDIOVASCULAR: Denies chest pain, palpitations or syncopal episodes. RESPIRATORY: Positive for shortness of breath, cough, congestion no hemoptysis. GASTROINTESTINAL: Positive for change in appetite, positive for abdominal pain GENITOURINARY: Denies hematuria, denies infections. MUSKULOSKELETAL: Denies pain, positive for swelling. INTEGUMENTARY: Denies rash, denies eczema. NEUROLOGICAL: Denies recent memory loss, no recent seizure activity. PSYCHIATRIC: Denies anxiety, denies depression. HEMATOLOGIC/LYMPHATIC: Denies anemia, denies enlarged lymph nodes. Past Medical History Past Medical History: Eye Disorder, Hyperlipidemia, Hypertension, Renal Disease, Thyroid Disorder Additional Past Medical History / Comment(s): R eye mutliple surgeries for retinal tears-vision poor, hypothyroid, osteoporosis. Pt reports blood clot in bowel after surgery- received vascular surgical removal at [facility] History of Any Multi-Drug Resistant Organisms: None Reported Past Surgical History: Bowel Resection, Joint Replacement Additional Past Surgical History / Comment(s): Colonoscopy with last on 05/08/20, bilateral total knees, left ovary removed d/t cyst, bilateral eye cataract removals/lens implants, R eye multiple surgeries for retinal tears, bowel resection. Past Anesthesia/Blood Transfusion Reactions: No Reported Reaction Additional Past Anesthesia/Blood Transfusion Reaction / Comment(s): Difficulty getting to sleep, states she can be combative after surgery Past Psychological History: Anxiety, Depression Additional Psychological History / Comment(s): Pt resides alone. She is independent. Smoking Status: Former smoker Past Alcohol Use History: Rare Additional Past Alcohol Use History / Comment(s): Pt started smoking as a teen and quit in 1999. She was a heavy smoker. Past Drug Use History: None Reported - Past Family History Mother Family Medical History: No Reported History Additional Family Medical History / Comment(s): Mother did not go to the doctor much. Father History Unknown: Yes Family Medical History: AFIB, Vascular Disorder Additional Family Medical History / Comment(s): Father in his early 50s of a ruptured thoracic aneurysm. Medications and Allergies Home Medications Medication Instructions Recorded Confirmed Type Cholecalciferol [Vitamin D3 (25 1,000 unit PO BID 05/10/20 09/27/20 History Mcg = 1000 Iu)] Albuterol Sulfate [Albuterol 1 puff PO RT-Q4H PRN 07/28/20 09/27/20 History Sulfate Hfa] Apixaban [Eliquis] 5 mg PO BID 07/28/20 09/27/20 History Aspirin EC [Ecotrin Low Dose] 81 mg PO DAILY 07/28/20 09/27/20 History Calcium Carbonate 500 mg PO DAILY 07/28/20 09/27/20 History Ferrous Sulfate [Iron (65 MG 325 mg PO DAILY 07/28/20 09/27/20 History Elemental)] Loperamide [Imodium] 2 mg PO QID PRN 07/28/20 09/27/20 History Magnesium Oxide 400 mg PO BID 07/28/20 09/27/20 History Pantoprazole Sodium 40 mg PO DAILY 07/28/20 09/27/20 History Simethicone Chew [Mylicon Chew] 80 mg PO Q8H PRN 07/28/20 09/27/20 History ondansetron HCL [Zofran] 8 mg PO Q8HR PRN 07/28/20 09/27/20 History Spironolactone [Aldactone] 25 mg PO DAILY #30 tablet 08/17/20 09/27/20 Rx Acetaminophen [Tylenol Arthritis] 650 mg PO Q4H PRN 09/27/20 09/27/20 History Atorvastatin Calcium [Lipitor] 40 mg PO HS 09/27/20 09/27/20 History Banana Flake Packet 1 packet PO BID 09/27/20 09/27/20 History Bumetanide [BUMEX] 1 mg PO BID 09/27/20 09/27/20 History Fluticasone/Vilanterol [Breo 1 puff INHALATION RT-DAILY 09/27/20 09/27/20 History Ellipta 100-25 Mcg Inhaler] Ipratropium Nebulized [Atrovent 0.5 mg INHALATION RT-Q6H PRN 09/27/20 09/27/20 History Nebulized 0.2 MG/ML] Levothyroxine Sodium [Synthroid] 200 mcg PO DAILY 09/27/20 09/27/20 History Melatonin 5 mg PO HS 09/27/20 09/27/20 History Multivitamins, Thera [Multivitamin 1 tab PO DAILY 09/27/20 09/27/20 History (formulary)] Potassium Chloride ER [K-Dur 20] 20 meq PO DAILY 09/27/20 09/27/20 History methocarbamoL [Robaxin] 500 mg PO Q6H PRN 09/27/20 09/27/20 History prednisoLONE ACETATE 1% OPHTH 1 drops RIGHT EYE BID 09/27/20 09/27/20 History [Pred Forte 1%] Gabapentin 300 mg PO BID #12 cap 09/29/20 Rx Venlafaxine HCl ER [Effexor XR] 37.5 mg PO DAILY #10 cap 09/29/20 Rx Venlafaxine HCl ER [Effexor XR] 150 mg PO DAILY #10 cap 09/29/20 Rx Allergies Allergy/AdvReac Type Severity Reaction Status Date / Time Penicillins Allergy Unknown Verified 09/27/20 18:43 Sulfa (Sulfonamide Allergy Unknown Verified 09/27/20 18:43 Antibiotics) Physical Exam Vitals: Vital Signs Temp Pulse Pulse Resp BP BP BP 09/30/20 11:27 84 16 96/59 09/30/20 08:26 97.4 F L 95 18 95/65 09/30/20 05:16 112/60 09/30/20 02:50 97.6 F 91 16 99/57 09/30/20 01:43 85/52 09/30/20 01:05 95/54 09/30/20 00:30 97.4 F L 76 18 88/50 09/30/20 00:24 92 95/57 09/29/20 23:35 91 92/54 09/29/20 22:56 95 85/50 09/29/20 22:25 94/61 09/29/20 22:00 97.3 F L 88 18 85/54 83/54 09/29/20 20:00 98.1 F 97 18 114/78 09/29/20 15:46 09/29/20 13:54 97.4 F L 84 18 115/78 Pulse Ox 09/30/20 11:27 98 09/30/20 08:26 98 09/30/20 05:16 09/30/20 02:50 96 09/30/20 01:43 09/30/20 01:05 09/30/20 00:30 94 L 09/30/20 00:24 09/29/20 23:35 09/29/20 22:56 09/29/20 22:25 09/29/20 22:00 100 09/29/20 20:00 97 09/29/20 15:46 100 09/29/20 13:54 100 Intake and Output 09/29/20 09/30/20 09/30/20 22:59 06:59 14:59 Intake Total 100 615 Output Total 1900 150 Balance -1800 465 Intake: Oral 100 615 Output: Urine 1900 150 Other: Voiding Method Indwelling Catheter Indwelling Catheter # Bowel Movements 1 Weight 83.5 kg GENERAL EXAM: Alert, doesn't 74-year-old female patient, on 2 L nasal cannula comfortable in no apparent distress. HEAD: Normocephalic. EYES: Normal reaction of pupils, equal size. NOSE: Clear with pink turbinates. THROAT: No erythema or exudates. NECK: No masses, no JVD. CHEST: No chest wall deformity. LUNGS: Equal air entry with Jimmy in the posterior bases left greater than right CVS: S1 and S2 normal with no audible murmur, regular rhythm. ABDOMEN: No hepatosplenomegaly, normal bowel sounds, no guarding or rigidity. SPINE: No scoliosis or deformity SKIN: No rashes CENTRAL NERVOUS SYSTEM: No focal deficits, tone is normal in all 4 extremities. EXTREMITIES: There is no peripheral edema. No clubbing, no cyanosis. Peripheral pulses are intact. Results - Laboratory Findings CBC and BMP: 09/29/20 23:45 09/30/20 10:02 Abnormal lab findings: Abnormal Labs 09/28/20 09/28/20 09/29/20 12:49 12:49 15:07 RBC Hgb Hct RDW 16.5 H Sodium 127 L 123 L Chloride 93 L 92 L Carbon Dioxide 32 H BUN 19 H 18 H Glucose 122 H Osmolality Calcium 6.8 L 6.6 L AST 122 H ALT 53 H Alkaline Phosphatase 348 H Total Protein 3.5 L Albumin 1.3 L 09/29/20 09/29/20 09/30/20 22:19 23:45 10:02 RBC 3.21 L Hgb 9.8 L D Hct 29.9 L RDW 16.6 H 16.5 H Sodium 125 L Chloride 97 L Carbon Dioxide BUN 19 H Glucose Osmolality 273 L Calcium 6.5 L AST ALT Alkaline Phosphatase Total Protein Albumin Assessment and Plan Assessment: 1 Shortness of breath secondary to bilateral pleural effusions left greater than right 2 Recent small bowel surgery, ischemic, anticoagulated with Eliquis, with intermittent diarrhea and poor appetite 3 Hypertension, history of 4 Hyperlipidemia 5 History of depression 6 Obesity 7 Chronic obstructive pulmonary disease, currently inactive in stable 8 History of chronic tobacco dependence 9 Hypothyroidism 10 Hyponatremia, current sodium 125 Plan: The patient was seen and evaluated by Dr. Farris Chest x-ray, ultrasound reviewed We'll plan for left-sided thoracentesis in the a.m. Hold Eliquis Continue bronchodilators We will continue to follow and make further recommendations based on her clinical status I, the cosigning physician, performed a history & physical examination of the patient. Lungs sounds with bibasilar crackles left greater than right. Maintaining good O2 saturations in the 90s on 2 L/m per nasal cannula. I discussed the assessment and plan of care with my nurse practitioner, Leigh Craig. I attest to the above consultation as dictated by her. Time with Patient: Greater than 30
[2020-09-30] MEDS: ATORVASTATIN 40 MG TAB PO SCH (20:43)
[2020-09-30] MEDS: BUMETANIDE 0.25 MG/ML 4 ML VIAL IVP SCH (20:43)
[2020-09-30] MEDS: MELATONIN 5 MG TABLET PO SCH (20:43)
[2020-10-01] MEDS: LEVOTHYROXINE 100 MCG TAB PO SCH (06:20)
[2020-10-01] MEDS: PANTOPRAZOLE 40 MG TABLET PO SCH (06:20)
[2020-10-01] MEDS: BUMETANIDE 1 MG TAB PO SCH (06:27)
[2020-10-01] MEDS: SODIUM CHLORIDE TAB 1 GM TAB PO SCH (06:27)
[2020-10-01] MEDS: SPIRONOLACTONE 25 MG TAB PO SCH (06:27)
[2020-10-01 07:40] LABS: African American GFR (CKD) >90 (>60 ml/min/1.73 sqM); Anion Gap 2 mmol/L; Blood Urea Nitrogen 17 mg/dL (7-17); Calcium 7.1 mg/dL (8.4-10.2); Carbon Dioxide 28 mmol/L (22-30); Chloride 102 mmol/L (98-107); Glucose 77 mg/dL (74-99); Magnesium 1.9 mg/dL (1.6-2.3); Non-African American GFR(CKD) >90 (>60 ml/min/1.73 sqM); Potassium 3.5 mmol/L (3.5-5.1); Sodium 132 mmol/L (137-145)
[2020-10-01] MEDS: CALCIUM CARBONATE 500 MG CHEWABLE PO SCH (07:58)
[2020-10-01] MEDS: BUMETANIDE 0.25 MG/ML 4 ML VIAL IVP SCH ×2 (07:58→20:12)
[2020-10-01] MEDS: POTASSIUM CHLORIDE ER 20 MEQ TAB.ER PO SCH (07:59)
[2020-10-01] MEDS: prednisoLONE ACETATE 1% OPHTH DROPS 5 ML BTL RIGHT EYE SCH ×2 (07:59→20:12)
[2020-10-01] MEDS: MAGNESIUM OXIDE 400 MG TAB PO SCH ×2 (07:59→20:12)
[2020-10-01] MEDS: GABAPENTIN 300 MG CAP PO SCH ×2 (07:59→20:12)
[2020-10-01] MEDS: FERROUS SULFATE 325 MG TAB PO SCH (07:59)
[2020-10-01] MEDS: VENLAFAXINE HCL ER 37.5 MG CAP PO SCH (07:59)
[2020-10-01] MEDS: VENLAFAXINE HCL ER 150 MG CAP PO SCH (07:59)
[2020-10-01] MEDS: CHOLECALCIFEROL 25 MCG (1000 IU) TABLET PO SCH ×2 (07:59→20:12)
[2020-10-01] MEDS: MULTIVITAMINS, THERA 1 EACH TAB PO SCH (07:59)
[2020-10-01] MEDS: SYMBICORT 80-4.5 MCG INHALER INHALATION SCH ×2 (08:08→20:09)
[2020-10-01 08:35] LABS: T4, Free (Free Thyroxine) 3.46 ng/dL (0.78-2.19)
[2020-10-01] MEDS ORDERED: POTASSIUM CHLORIDE ER 20 MEQ TAB.ER PO STA (10:09)
--- NOTE | 2020-10-01 10:10 | P.PN ---
Subjective Patient is seen in follow-up for hyponatremia. Sodium level 132 this morning. She is maintained on IV Bumex. Also receiving IV albumin. Edema improving. Urine output 2.3 L in the last 24 hours. Vital signs are stable. General: The patient appeared well nourished and normally developed. HEENT: Head exam is unremarkable. Neck is without jugular venous distension. LUNGS: Breath sounds decreased. HEART: Rate and Rhythm are regular. ABDOMEN: Soft, nontender. EXTREMITITES: 1+ edema. Objective - Vital Signs Vital signs: Vital Signs Temp 97.6 F 10/01/20 07:40 Pulse 90 10/01/20 07:40 Resp 18 10/01/20 07:40 BP 87/52 10/01/20 07:40 Pulse Ox 98 10/01/20 07:40 Intake & Output 09/30/20 10/01/20 10/01/20 18:59 06:59 18:59 Intake Total 855 236 Output Total 375 1950 Balance 480 -1950 236 Weight 84.5 kg Intake: Oral 855 236 Output: Urine 375 1950 Other: Voiding Method Indwelling Catheter Indwelling Catheter Indwelling Catheter # Voids 0 # Bowel Movements 1 1 - Labs CBC & Chem 7: 09/29/20 23:45 10/01/20 07:08 Labs: Abnormal Lab Results - Last 24 Hours (Table) 09/30/20 09/30/20 10/01/20 Range/Units 10:02 17:01 07:08 Sodium 125 L 127 L 132 L (137-145) mmol/L Chloride 97 L (98-107) mmol/L BUN 19 H (7-17) mg/dL Creatinine 0.51 L (0.52-1.04) mg/dL Osmolality 273 L (280-301) mosm/kg Calcium 6.5 L 7.1 L (8.4-10.2) mg/dL TSH 0.234 L (0.465-4.680) mIU/L Free T4 3.46 H (0.78-2.19) ng/dL Assessment and Plan Plan: Assessment: 1. Hypervolemic hyponatremia. Sodium level 132 today. Urine sodium 19 and urine osmolality 353. Cortisol level normal. TSH a little on the lower side. 2. Volume overload. Improving with diuresis. 3. Acute on chronic diastolic CHF. 4. Severe protein calorie malnutrition with albumin of 1.3. 5. Hypocalcemia secondary to hypoalbuminemia. Corrected calcium normal. 6. Hypokalemia from diuresis. Magnesium normal. Plan: 25 g IV albumin twice a day 2 days - last 2 doses today. 1200 mL fluid restriction. Encouraged oral intake, especially protein. Added ensure 3 times a day. Maintain IV Bumex. Repeat electrolytes in the morning. Replace potassium. 40 mEq today.
--- NOTE | 2020-10-01 12:09 | P.PN ---
Subjective Progress Note Date: 10/01/20 History of presenting complaint: This is a pleasant 74-year-old patient of Dr. Dorian Yan. Resident of [facility]. Chronic stable medical conditions include hypertension, hyperlipidemia, depression, hypothyroid. 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 -small bowel resection was carried out. Patient was then transferred out to [facility]. Patient thinks a blood clot was removed . Readmitted in August of this year, with acute cor pulmonale, uncontrolled hypothyroid. patient was sent in from the [facility] following patient having 1 or 2 loose stools a day. Poor appetite. Swelling up. Very weak and tired. Last time patient had walked was about 2 weeks ago. Appetite is rather poor. She is extremely tired. No fever no chills. Today-oral intake about 75-100% of the full liquid diet. Laying in.. Tired. 09/29/2020 Patient is seen and evaluated this morning with no acute overnight issues. Patient continues to eat very little although has been increasing according to per nursing staff. Patient was seen and evaluated by GI recommending continuing with Imodium and Questran as needed if diarrhea persists. Patient has been having less bowel movements per nursing staff and patient. Patient continues to be weak requiring assistance and unable to get up out of the bed with physical therapy today. Patient sodium was found to be 123 today and will be placed on fluid restrictions and given a dose of IV Lasix. Nephrology consulted and pending at this time. Patient continues to have bilateral upper and lower ext remity swelling and edema noted. 09/30/2020 Patient is seen this morning and had episodes of hypotension and cold bilateral lower extremities with significant edema noted and was given some fluid boluses with improvement in blood pressure although continues to be volume overload. Patient was maintained on Bumex along with Aldactone and will discontinue at this time. Nephrology consulted and following. Patient receiving a dose of albumin today. Pulmonary also consulted for possible thoracentesis for pleural effusions. Patient had chest ultrasound showing left greater than the right pleural effusions and was marked for possible thoracentesis. Cardiology also consulted and a 2-D echo ordered. Patient denies any further episodes of diarrhea and has not had a bowel movement today. Patient is urinating although appears concentrated and does have an indwelling Newell catheter. Continued bilateral upper and lower extremity swelling and edema is noted. Denies any worsening shortness of breath chest pain or palpitations. Patient is afebrile. 10/01/2020 Patient is seen this morning and nephrology along with pulmonary are following. Patient is maintained on IV Bumex and receiving another dose of albumin today. Sodium is improved at 132 and potassium 3.5 and will replace. Current creatinine is 0.51. Vital signs stable. Blood pressure on the lower side although maintaining. Patient had a chest x-ray this morning which is currently pending with the possibility of thoracentesis on the left side with pulmonary today. Patient swelling slowly improving of the lower extremities and output is adequate. Encouraged oral protein intake with fluid restriction to 1200 mL daily. Ensures added to meals. Patient is having some crampy gas-like pains in the lower abdomen and had a very small semi-formed bowel movement yesterday per nursing staff. She states she feels she needs to go but feels slightly constipated. Will add Senokot. Review of systems: Constitutional: Reports fatigue, no reports of fever, or chills Cardiovascular: No reports of chest pain or palpitations Respiratory: No reports of shortness of breath or cough GI: No reports of nausea, vomiting, reports diarrhea, reports poor oral intake : No reports of dysuria or retention, chronic indwelling Newell catheter Neurovascular: reports of weakness All medications have been reviewed Objective - Vital Signs Vital signs: Vital Signs Temp 97.6 F 10/01/20 07:40 Pulse 90 10/01/20 07:40 Resp 18 10/01/20 07:40 BP 87/52 10/01/20 07:40 Pulse Ox 98 10/01/20 07:40 Intake & Output 09/30/20 10/01/20 10/01/20 18:59 06:59 18:59 Intake Total 855 236 Output Total 375 1950 Balance 480 -1950 236 Weight 84.5 kg Intake: Oral 855 236 Output: Urine 375 1950 Other: Voiding Method Indwelling Catheter Indwelling Catheter # Voids 0 # Bowel Movements 1 1 - Exam GENERAL:. BMI 37.9, laying in bed, awake, alert and oriented 3, pitting edema of lower extremities noted 2+, slightly improved from yesterday EYES: Pupils equal. Conjunctiva pale. HEENT: External appearance of nose and ears normal, oral cavity grossly normal. NECK: JVD not raised; masses not palpable. HEART: S1, S2 are muffled LUNGS: Respiratory rate normal; diminished breath sounds bilaterally with some scattered rhonchi noted ABDOMEN: Soft, obese, no tenderness, no guarding rigidity, liver spleen not palpable, no masses palpable. PSYCH: Alert and oriented x3 MUSCULAR skeletal: Evidence of OA - Labs CBC & Chem 7: 09/29/20 23:45 10/01/20 07:08 Labs: Abnormal Lab Results - Last 24 Hours (Table) 09/30/20 09/30/20 10/01/20 Range/Units 10:02 17:01 07:08 Sodium 125 L 127 L 132 L (137-145) mmol/L Chloride 97 L (98-107) mmol/L BUN 19 H (7-17) mg/dL Creatinine 0.51 L (0.52-1.04) mg/dL Osmolality 273 L (280-301) mosm/kg Calcium 6.5 L 7.1 L (8.4-10.2) mg/dL TSH 0.234 L (0.465-4.680) mIU/L Free T4 3.46 H (0.78-2.19) ng/dL Assessment and Plan Assessment: -Acute medical debility following her small bowel surgery. Patient having intermittent diarrhea. Improved, Poor oral intake. No fever no chills. Encourage increase oral protein intake and ensures added. -chronic cor pulmonale -Hyponatremia, nephrology following, and continue fluid restrictions of 1200 mL's and patient is receiving albumin, improving, sodium today is 132 -Hypothyroidism, continue Synthroid -Mild protein calorie malnutrition from decreased oral intake -Essential hypertension, currently having episodes of hypotension 2-D echo pending -Hyperlipidemia-on Lipitor -Depression otherwise specified, continue Effexor -obesity BMI 37.9 -Chronic Elevated right diaphragm-(SNIFF test was negative. No paradoxical movement noted.) -COPD in an ex-smoker, continue with bronchodilators Plan: Continue with current medications. Sodium improving at 132 today and nephrology following. She being given a dose of albumin today and is continued on IV Bumex. She has significant upper and lower extremity swelling and edema noted generalized but is slowly improving. possible thoracentesis on the left for bi lateral pleural effusions with pulmonary today. repeat chest x-ray this morning is pending. Pulmonary following. 2-D echo ordered and pending. Will continue to monitor closely.
--- NOTE | 2020-10-01 12:17 | PCN ---
PROCEDURE NOTE PROCEDURE: Left thoracentesis. PREOP DIAGNOSIS: Left pleural effusion. POSTOP DIAGNOSIS: Left pleural effusion. OPERATORS: Dr. Farris and Dr. Craig. PROCEDURE IN DETAIL: There was informed consent. There was universal timeout. The left posterior chest was marked by ultrasound. The fluid will be sent for analysis including cytology, microbiology, and chemistry. 550 cc of light yellow fluid was removed from the left pleural space. A chest x-ray was ordered. There was no immediate complication. The patient tolerated the procedure well. Again the fluid was sent for analysis. There was no evident complications from the left-sided thoracentesis. MMODL / IJN: [id number] /
--- NOTE | 2020-10-01 12:28 | XR ---
EXAMINATION TYPE: XR chest 1V portable DATE OF EXAM: 10/01/2020 CLINICAL HISTORY: Left-sided thoracentesis . TECHNIQUE: Single AP portable upright view of the chest is obtained. COMPARISON: Chest x-ray and CT from 3 days earlier FINDINGS: No pneumothorax after left-sided thoracentesis. Right greater than left lower lung opaciti es. Cardiac silhouette size stable and within normal limits. Multilevel spurring in the spine. IMPRESSION: No pneumothorax after left-sided thoracentesis. Persistent small to moderate-sized right pleural effusion. Improved small left pleural effusion. Associated bibasilar atelectasis and/or infil trate.
[2020-10-01 12:59] LABS: Appearance,BF Hazy
[2020-10-01] MEDS: ALBUMIN HUMAN 25% 50 ML in EMPTY BAG 1 BAG IVPB SCH ×6 (13:00→21:29)
[2020-10-01 13:01] LABS: Nucleated Cells, Body Fluid 65 /uL; RBC, Body Fluid 104 /uL
[2020-10-01 13:02] LABS: Mononuclear WBC,Body Fluid 96 %; Polynuclear WBC,Body Fluid 4 %; Total Cells Counted,Body Fluid 100
[2020-10-01] MEDS: SENNOSIDES 8.6 MG TAB PO SCH (13:02)
--- NOTE | 2020-10-01 14:35 | P.PN ---
Subjective Progress Note Date: 10/01/20 Principal diagnosis: Pleural effusion. This is a 74-year-old female patient who follows with Dr. Yan as her primary care provider. She is currently residing in an extended care facility. She has a history of hypothyroidism, hypertension, hyperlipidemia, depression, recent small bowel ischemia with bowel resection at [facility]. She is residing [facility] a local jail and was brought in on 09/27/2020 for complaints of generalized weakness, loose stools, poor appetite. CAT scan of the abdomen revealed fatty infiltration of the liver, unchanged. Mild abdominal ascites, unchanged periods sigmoid diverticulosis without diverticulitis. Rectal fecal impaction which was new. Large nonobstructing left renal calculus. Bilateral pleural effusions were noted and we were consulted for the same. An ultrasound of the chest was ordered. There is a small right-sided pleural effusion measuring 2.9 cm. A larger left pleural effusion measuring 8.3 cm. The patient has been anticoagulated on Eliquis which will be placed on hold. Possible thoracentesis tomorrow. She is seen today in consultation on the regular medical floor. Currently resting flat in bed. Awake and alert in no acute distress. Continue O2 saturations in the high 90s on 2 L/m per nasal cannula. She's afebrile. White count 4.3. Hemoglobin 9.8. Sodium 125. Potassium 3.9. Creatinine 0.56. ProBNP 513. Urine osmolality 353. Coronavirus not detected. She is continued on IV diuretics, albuterol, Symbicort. Albumin has been ordered. Nephrology and GI services are on the case. Progress note dated 10/01/2020. This is a 74-year-old female, who sees Dr. Yan as a primary. She currently resides in an extended care facility. She has a history of hypothyroidism, essential hypertension, hyperlipidemia, depression, recent small bowel ischemia, with bowel resection at [facility]. She is [facility] the emergency department [facility] the jail on 09/27/2020, for complaints of generalized weakness, loose stools, and poor appetite. We were consulted because there is evidence of effusions, and today, we did a left-sided thoracentesis, and removed 550 mL of thin yellow fluid. It looks like heart failure fluid honestly but, the specimens were sent for evaluation. She tolerated the procedure well. The effusion on the right side was relatively small. Current laboratory data includes a sodium 132, potassium 3.5, chlorides 102, CO2 28, anion gap 2, BUN 17 , and creatinine 0.51. TSH is 0.234 and free T4 is 3.46. Cortisol level was 8. The fluid had 104 RBCs, 65 nucleated cells, 4 PMNs, and 96 mononuclear cells. Post thoracentesis chest x-ray showed no pneumothorax, and a persistent small to moderate sized right pleural effusion. The left-sided pleural effusion is much improved. Objective - Vital Signs Vital signs: Vital Signs Temp 97.6 F 10/01/20 07:40 Pulse 87 10/01/20 11:49 Resp 16 10/01/20 14:00 BP 95/53 10/01/20 11:49 Pulse Ox 98 10/01/20 11:49 Intake & Output 09/30/20 10/01/20 10/01/20 18:59 06:59 18:59 Intake Total 855 596 Output Total 375 1950 1200 Balance 480 1950 602 Weight 84.5 kg Intake: Oral 855 596 Output: Urine 375 1950 1200 Other: Voiding Method Indwelling Catheter Indwelling Catheter Indwelling Catheter # Voids 0 # Bowel Movements 1 1 1 - Exam No acute distress, currently on nasal O2 at 2 L. No conversational dyspnea, or use of accessory muscles. HEENT examination is grossly unremarkable. Membranes are moist. Neck supple. Full range of motion. No adenopathy or thyromegaly. Neck veins are flat. Cardiovascular examination reveals regular rhythm rate. S1-S2 normal. No S3-S4 or murmur. Heart rate is 87 bpm. Pulmonary examination reveals some basilar rhonchi and crackles. Dullness at the bases, more so on the left side than on the right. Abdomen soft. Bowel sounds are heard. No masses or tenderness noted. Extremities are intact. No edema. No cyanosis or clubbing. Skin without rash. Neurologic examination is prepared nonfocal. The patient does have diffuse muscle weakness. - Labs CBC & Chem 7: 09/29/20 23:45 10/01/20 07:08 Labs: Abnormal Lab Results - Last 24 Hours (Table) 09/30/20 10/01/20 Range/Units 17:01 07:08 Sodium 127 L 132 L (137-145) mmol/L Creatinine 0.51 L (0.52-1.04) mg/dL Calcium 7.1 L (8.4-10.2) mg/dL TSH 0.234 L (0.465-4.680) mIU/L Free T4 3.46 H (0.78-2.19) ng/dL Assessment and Plan Assessment: Shortness of breath, secondary to bilateral pleural effusions, left greater than right, status post left-sided thoracentesis on 10/01/2020. Recent small bowel surgery, secondary to bowel ischemia, currently on Eliquis. History of hypertension. Hyperlipidemia by history. History of depression. Obesity. Stable COPD. History of chronic tobacco dependence. Hypothyroidism. Hyponatremia. Plan: Plan dated 10/01/2020. The patient can resume her aspirin and her factor X a inhibitor. The patient tolerated the left-sided thoracentesis well. About 550 mL of thin yellow fluid was removed and sent for analysis. The post thoracentesis chest x-ray showed significant improvement in the left-sided pleural effusion, with a residual right-sided effusion. The right-sided effusion by ultrasound was relatively small. We will continue to follow. Prognosis is guarded. No additional recommendations are made at this time. Time with Patient: Less than 30
[2020-10-01 17:34] LABS: Glucose, BF Source Pleural Fluid; Glucose, Body Fluid 93 mg/dL; LDH, Body Fluid Source Pleural Fluid; Total Protein, Body Fluid 332.7 mg/dL
[2020-10-01] MEDS: ACETAMINOPHEN TAB 325 MG TAB PO PRN ×2 (19:01→22:34)
[2020-10-01] MEDS: APIXABAN 5 MG TAB PO SCH (20:12)
[2020-10-01] MEDS: ATORVASTATIN 40 MG TAB PO SCH (20:12)
[2020-10-01] MEDS: MELATONIN 5 MG TABLET PO SCH (20:12)
[2020-10-02] MEDS: ACETAMINOPHEN TAB 325 MG TAB PO PRN ×4 (02:20→21:41)
[2020-10-02] MEDS: PANTOPRAZOLE 40 MG TABLET PO SCH (06:28)
[2020-10-02] MEDS: LEVOTHYROXINE 75 MCG TAB PO SCH (06:28)
[2020-10-02 08:00] LABS: ALT 37 U/L (4-34); AST 104 U/L (14-36); African American GFR (CKD) >90 (>60 ml/min/1.73 sqM); Alkaline Phosphatase 249 U/L (38-126); Anion Gap 2 mmol/L; Blood Urea Nitrogen 14 mg/dL (7-17); Calcium 7.6 mg/dL (8.4-10.2); Carbon Dioxide 32 mmol/L (22-30); Chloride 103 mmol/L (98-107); Glucose 63 mg/dL (74-99); Magnesium 1.9 mg/dL (1.6-2.3); Non-African American GFR(CKD) >90 (>60 ml/min/1.73 sqM); Sodium 137 mmol/L (137-145); Total Bilirubin 1.2 mg/dL (0.2-1.3); Total Protein 3.8 g/dL (6.3-8.2)
[2020-10-02] MEDS: prednisoLONE ACETATE 1% OPHTH DROPS 5 ML BTL RIGHT EYE SCH ×2 (09:00→21:37)
[2020-10-02] MEDS: ASPIRIN 81 MG PO SCH (09:22)
[2020-10-02] MEDS: MAGNESIUM OXIDE 400 MG TAB PO SCH ×2 (09:22→21:36)
[2020-10-02] MEDS: FERROUS SULFATE 325 MG TAB PO SCH (09:22)
[2020-10-02] MEDS: POTASSIUM CHLORIDE ER 20 MEQ TAB.ER PO SCH (09:22)
[2020-10-02] MEDS: MULTIVITAMINS, THERA 1 EACH TAB PO SCH (09:22)
[2020-10-02] MEDS: GABAPENTIN 300 MG CAP PO SCH ×2 (09:22→21:36)
[2020-10-02] MEDS: CHOLECALCIFEROL 25 MCG (1000 IU) TABLET PO SCH ×2 (09:22→21:36)
[2020-10-02] MEDS: VENLAFAXINE HCL ER 150 MG CAP PO SCH (09:22)
[2020-10-02] MEDS: APIXABAN 5 MG TAB PO SCH ×2 (09:22→21:36)
[2020-10-02] MEDS: CALCIUM CARBONATE 500 MG CHEWABLE PO SCH (09:22)
[2020-10-02] MEDS: SENNOSIDES 8.6 MG TAB PO SCH (09:22)
[2020-10-02] MEDS: BUMETANIDE 0.25 MG/ML 4 ML VIAL IVP SCH ×2 (09:23→21:37)
--- NOTE | 2020-10-02 11:14 | P.PN ---
Subjective Patient is seen in follow-up for hyponatremia. Sodium level 137 this morning. She is maintained on IV Bumex. Edema improving. Urine output over 3 L in the last 24 hours. No vomiting or diarrhea. Hemodynamically stable. Vital signs are stable. General: The patient appeared well nourished and normally developed. HEENT: Head exam is unremarkable. Neck is without jugular venous distension. LUNGS: Breath sounds decreased. HEART: Rate and Rhythm are regular. ABDOMEN: Soft, nontender. EXTREMITITES: 1+ edema. Objective - Vital Signs Vital signs: Vital Signs Temp 97.6 F 10/02/20 08:00 Pulse 75 10/02/20 08:00 Resp 17 10/02/20 08:00 BP 109/55 10/02/20 08:00 Pulse Ox 95 10/02/20 08:00 Intake & Output 10/01/20 10/02/20 10/02/20 18:59 06:59 18:59 Intake Total 832 100 Output Total 1200 2450 Balance -368 -2350 Weight 82 kg Intake: Intake, IV Titration 100 Amount Albumin Human 25% 50 ml 100 In Empty Bag 1 bag @ 50 mls/hr IVPB Q1H [facility] Rx#: [id number] Oral 832 Output: Urine 1200 2450 Other: Voiding Method Indwelling Catheter Indwelling Catheter # Voids 0 # Bowel Movements 1 1 - Labs CBC & Chem 7: 09/29/20 23:45 10/02/20 06:45 Labs: Abnormal Lab Results - Last 24 Hours (Table) 10/02/20 Range/Units 06:45 Carbon Dioxide 32 H (22-30) mmol/L Glucose 63 L (74-99) mg/dL Calcium 7.6 L (8.4-10.2) mg/dL AST 104 H (14-36) U/L ALT 37 H (4-34) U/L Alkaline Phosphatase 249 H (38-126) U/L Total Protein 3.8 L (6.3-8.2) g/dL Albumin 2.0 L (3.5-5.0) g/dL Microbiology - Last 24 Hours (Table) 10/01/20 11:20 Gram Stain - Preliminary Pleural Fluid Body Fluid Culture - Preliminary 10/01/20 11:20 Acid Fast Bacilli Culture - Preliminary Pleural Fluid 10/01/20 11:20 Fungal Culture - Preliminary Pleural Fluid Assessment and Plan Plan: Assessment: 1. Hypervolemic hyponatremia. Sodium level 137 today. Urine sodium 19 and urine osmolality 353. Cortisol level normal. TSH a little on the lower side. 2. Volume overload. Improving with diuresis. 3. Acute on chronic diastolic CHF. 4. Severe protein calorie malnutrition with albumin of 1.3. Status post IV albumin. Improved. 5. Hypocalcemia secondary to hypoalbuminemia. Corrected calcium normal. 6. Hypokalemia from diuresis. Magnesium normal. Improved post replacement. Plan: 1200 mL fluid restriction. Encouraged oral intake, especially protein. Added ensure 3 times a day. Maintain IV Bumex. Repeat electrolytes in the morning.
--- NOTE | 2020-10-02 11:27 | P.PN ---
Subjective Progress Note Date: 10/02/20 Principal diagnosis: Diarrhea Patient was seen and examined sitting up in bed. She denies any acute changes through the night. No complaints of abdominal pain, nausea, or vomiting. States she does have a bowel movement after eating, however it does not continue. Eyes any frequency and diarrhea. Objective - Vital Signs Vital signs: Vital Signs Temp 97.6 F 10/02/20 08:00 Pulse 75 10/02/20 08:00 Resp 17 10/02/20 08:00 BP 109/55 10/02/20 08:00 Pulse Ox 95 10/02/20 08:00 Intake & Output 10/01/20 10/02/20 10/02/20 18:59 06:59 18:59 Intake Total 832 100 Output Total 1200 2450 Balance -368 -2350 Weight 82 kg Intake: Intake, IV Titration 100 Amount Albumin Human 25% 50 ml 100 In Empty Bag 1 bag @ 50 mls/hr IVPB Q1H [facility] Rx#: [id number] Oral 832 Output: Urine 1200 2450 Other: Voiding Method Indwelling Catheter Indwelling Catheter # Voids 0 # Bowel Movements 1 1 - Exam General appearance: The patient is alert, oriented, appears in no acute distress. Obese. HET: Head is normocephalic and atraumatic. Conjunctiva pink. Sclera anicteric. Neck: Supple without lymphadenopathy. Abdomen: Soft, obese, nontender, nondistended with bowel sounds. No guarding or rigidity. Extremities: Normal skin color and turgor. No pedal edema Skin: No rashes, no jaundice Neurological: No focal deficits. Alert and oriented 3. - Labs CBC & Chem 7: 09/29/20 23:45 10/02/20 06:45 Labs: Abnormal Lab Results - Last 24 Hours (Table) 10/02/20 Range/Units 06:45 Carbon Dioxide 32 H (22-30) mmol/L Glucose 63 L (74-99) mg/dL Calcium 7.6 L (8.4-10.2) mg/dL AST 104 H (14-36) U/L ALT 37 H (4-34) U/L Alkaline Phosphatase 249 H (38-126) U/L Total Protein 3.8 L (6.3-8.2) g/dL Albumin 2.0 L (3.5-5.0) g/dL Microbiology - Last 24 Hours (Table) 10/01/20 11:20 Gram Stain - Preliminary Pleural Fluid Body Fluid Culture - Preliminary 10/01/20 11:20 Acid Fast Bacilli Culture - Preliminary Pleural Fluid 10/01/20 11:20 Fungal Culture - Preliminary Pleural Fluid Assessment and Plan (1) Diarrhea Narrative/Plan: 74-year-old female with prior small bowel resection secondary to ischemia presenting to the hospital due to diarrhea and "not absorbing high-protein". Patient has been seen for diarrhea in the past and started on treatment with Imodium or Lomotil, Questran and codeine as needed for diarrhea. Currently she is feeling that bowel movements are more formed. Previously she has had stool testing which was always been negative and symptoms of been felt to be secondary to her prior small bowel resection. Current Visit: No Status: Acute Code(s): R19.7 - DIARRHEA, UNSPECIFIED SNOMED Code(s): 58316806 (2) Short bowel syndrome Current Visit: Yes Status: Acute Code(s): K91.2 - POSTSURGICAL MALABSORPTI ON, NOT ELSEWHERE CLASSIFIED SNOMED Code(s): 94474101 Plan: Supportive care Okay for diet as tolerated Continue Imodium as needed for diarrhea may take 2 tablets at a time, up to 8 tablets a day Can reinitiate cholestyramine twice a day or as needed codeine for diarrhea if symptoms persist No plans for endoscopic evaluation at this time Continue other management of medical issues per primary team PICU for this consultation, we will sign off at this time. Dr. Che I agree with the dictator's note, documented as a scribe by Faith Healy.
--- NOTE | 2020-10-02 11:54 | P.PN ---
Subjective Progress Note Date: 10/02/20 This is a 74-year-old female patient who follows with Dr. Yan as her primary care provider. She is currently residing in an extended care facility. She has a history of hypothyroidism, hypertension, hyperlipidemia, depression, recent small bowel ischemia with bowel resection at [facility]. [facility] and was brought in on 09/27/2020 for complaints of generalized weakness, loose stools, poor appetite. CAT scan of the abdomen revealed fatty infiltration of the liver, unchanged. Mild abdominal ascites, unchanged periods sigmoid diverticulosis without diverticulitis. Rectal fecal impaction which was new. Large nonobstructing left renal calculus. Bilateral pleural effusions were noted and we were consulted for the same. An ultrasound of the chest was ordered. There is a small right-sided pleural effusion measuring 2.9 cm. A larger left pleural effusion measuring 8.3 cm. The patient has been anticoagulated on Eliquis which will be placed on hold. Possible thoracentesis tomorrow. She is seen today in consultation on the regular medical floor. Currently resting flat in bed. Awake and alert in no acute distress. Continue O2 saturations in the high 90s on 2 L/m per nasal cannula. She's afebrile. White count 4.3. Hemoglobin 9.8. Sodium 125. Potassium 3.9. Creatinine 0.56. ProBNP 513. Urine osmolality 353. Coronavirus not detected. She is continued on IV diuretics, albuterol, Symbicort. Albumin has been ordered. Nephrology and GI services are on the case. Progress note dated 10/01/2020. This is a 74-year-old female, who sees Dr. Yan as a primary. She currently resides in an extended care facility. She has a history of hypothyroidism, essential hypertension, hyperlipidemia, depression, recent small bowel ischemia, with bowel resection at [facility]. She [facility], for complaints of generalized weakness, loose stools, and poor appetite. We were consulted because there is evidence of effusions, and today, we did a left-sided thoracentesis, and removed 550 mL of thin yellow fluid. It looks like heart failure fluid honestly but, the specimens were sent for evaluation. She tolerated the procedure well. The effusion on the right side was relatively small. Current laboratory data includes a sodium 132, potassium 3.5, chlorides 102, CO2 28, anion gap 2, BUN 17, and creatinine 0.51. TSH is 0.234 and free T4 is 3.46. Cortisol level was 8. The fluid had 104 RBCs, 65 nucleated cells, 4 PMNs, and 96 mononuclear cells. Post thoracentesis chest x-ray showed no pneumothorax, and a persistent small to moderate sized right pleural effusion. The left-sided pleural effusion is much improved. On today's evaluation of the 2020 the patient is being seen for a follow-up. As mentioned earlier, the patient has recent history of small bowel ischemia with bowel resection and the patient also has history of hypothyroidism hyp ertension and hyperlipidemia history of depression. The patient was in an extended care facility. She was having generalized weakness, loose stools and poor appetite. CAT scan of the abdomen revealed fatty infiltration of the liver and mild abdominal ascites and some sigmoid diverticulosis without diverticulitis. She also had rectal fecal impaction. There was large nonobstructing left renal calculus. Bilateral pleural effusion was also seen. The largest was on the left for which a thoracentesis was done and the fluid turned out to be a transudate with a very low fluid protein of 0.3 and the LDH was 48 and the cell count was also low at 65 WBCs. Post thoracentesis, the left-sided pleural effusion had a much diminished in size and there was still some right-sided pleural effusion present. The thyroid function tests were abnormal with a TSH of 0.234 and a TSH of 3.46 consistent with hyper thyroidism. LFTs are slightly abnormal with an AST of 104, ALT of 37 alk phos of 249 and a bilirubin of 1.2. Objective - Vital Signs Vital signs: Vital Signs Temp 97.6 F 10/02/20 08:00 Pulse 75 10/02/20 08:00 Resp 17 10/02/20 08:00 BP 109/55 10/02/20 08:00 Pulse Ox 95 10/02/20 08:00 Intake & Output 10/01/20 10/02/20 10/02/20 18:59 06:59 18:59 Intake Total 832 100 Output Total 1200 4740 Balance -368 -7447 Weight 82 kg Intake: Intake, IV Titration 100 Amount Albumin Human 25% 50 ml 100 In Empty Bag 1 bag @ 50 mls/hr IVPB Q1H [facility] Rx#: [id number] Oral 832 Output: Urine 1200 2450 Other: Voiding Method Indwelling Catheter Indwelling Catheter Indwelling Catheter # Voids 0 0 # Bowel Movements 1 1 - Exam No acute distress, currently on nasal O2 at 3 L. No conversational dyspnea, or use of accessory muscles. HEENT examination is grossly unremarkable. Membranes are moist. Neck supple. Full range of motion. No adenopathy or thyromegaly. Neck veins are flat. Cardiovascular examination reveals regular rhythm rate. S1-S2 normal. No S3-S4 or murmur. Pulmonary examination reveals some basilar rhonchi and crackles. Dullness at the bases, more so on the left side than on the right. Abdomen soft. Bowel sounds are heard. No masses or tenderness noted. Extremities are intact. No edema. No cyanosis or clubbing. Skin without rash. Neurologic examination is prepared nonfocal. The patient does have diffuse muscle weakness. - Labs CBC & Chem 7: 09/29/20 23:45 10/02/20 06:45 Labs: Abnormal Lab Results - Last 24 Hours (Table) 10/02/20 Range/Units 06:45 Carbon Dioxide 32 H (22-30) mmol/L Glucose 63 L (74-99) mg/dL Calcium 7.6 L (8.4-10.2) mg/dL AST 104 H (14-36) U/L ALT 37 H (4-34) U/L Alkaline Phosphatase 249 H (38-126) U/L Total Protein 3.8 L (6.3-8.2) g/dL Albumin 2.0 L (3.5-5.0) g/dL Microbiology - Last 24 Hours (Table) 10/01/20 11:20 Gram Stain - Preliminary Pleural Fluid Body Fluid Culture - Preliminary 10/01/20 11:20 Acid Fast Bacilli Culture - Preliminary Pleural Fluid 10/01/20 11:20 Fungal Culture - Preliminary Pleural Fluid Assessment and Plan Plan: 1 Shortness of breath, secondary to bilateral pleural effusions, left greater than right, status post left-sided thoracentesis on 10/01/2020. The fluid from the left lung was most consistent with a transudate with a low LDH and a low protein. Echocardiogram showed moderate concentric LVH with an ejection fraction of 50-55%, there is mild aortic stenosis with a peak gradient of 20 and no evidence of any significant pulmonary hypertension or any other valvular abnormalities. 2 Recent small bowel surgery, secondary to bowel ischemia, currently on Eliquis. This was an embolic event as the patient had a acute mesenteric ischemia secondary to embolism and the patient is demented on long-term anticoagulation with Eliquis. 3 History of hypertension. 4 Hyperlipidemia by history. 5 History of depression. 6 Obesity. 7 COPD. 8 History of chronic tobacco dependence. 9 Hypothyroidism. 10 Hyponatremia, improved and recovered Plan: No immediate needs to do the right-sided thoracentesis of the amount of fluid a small Subjective patient to diuretics and the patient is getting Bumex at a dose of 1 mg IV every 12 hours and this will be continued. She should achieve a negative fluid balance. The net fluid balance over the past 24 hours has been -2.7 L and the patient has lost considerable out of weight and order of 9 kg over the past 3-4 days. Continue diuretics. Monitor renal function. No need for immediate thoracentesis and the patient is back on Eliquis.
[2020-10-02] MEDS: VENLAFAXINE HCL ER 37.5 MG CAP PO SCH (12:21)
[2020-10-02] MEDS: SYMBICORT 80-4.5 MCG INHALER INHALATION SCH ×2 (12:23→20:21)
--- NOTE | 2020-10-02 12:52 | ECHOF ---
Referral Reason:hypotension/edema MEASUREMENTS -------- HEIGHT: 160.0 cm WEIGHT: 820.5 kg BP: 95/55 RAP: 5.00 mmHg RVSP: 51.87 mmHg FINDINGS -------- Sinus rhythm. Pt had echo 08/24: Limited study for hypotension. LV size, wall thickness and systolic function are normal, with an EF greater than 55%. There is moderate pulmonary hypertension. The right ventricular systolic pressure, as measured by D fouziapler, is 51.87mmHg. There is a trivial pericardial effusion present. CONCLUSIONS -------- 1. Pt had echo 08/24: Limited study for hypotension. 2. LV size, wall thickness and systolic function are normal, with an EF greater than 55%. 3. There is moderate pulmonary hypertension. 4. The right ventricular systolic pressure, as measured by Doppler, is 51.87mmHg. 5. There is a trivial pericardial effusion present. LOWERATOR OPERATOR: Ml Cadena RDCS
--- NOTE | 2020-10-02 15:11 | P.PN ---
Subjective Progress Note Date: 10/02/20 History of presenting complaint: This is a pleasant 74-year-old patient of Dr. Dorian Yan. Resident of [facility]. Chronic stable medical conditions include hypertension, hyperlipidemia, depression, hypothyroid. 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 -small bowel resection was carried out. Patient was then transferred out to [facility]. Patient thinks a blood clot was removed . Readmitted in August of this year, with acute cor pulmonale, uncontrolled hypothyroid. patient was sent in from the [facility] following patient having 1 or 2 loose stools a day. Poor appetite. Swelling up. Very weak and tired. Last time patient had walked was about 2 weeks ago. Appetite is rather poor. She is extremely tired. No fever no chills. Today-oral intake about 75-100% of the full liquid diet. Laying in.. Tired. 09/29/2020 Patient is seen and evaluated this morning with no acute overnight issues. Patient continues to eat very little although has been increasing according to per nursing staff. Patient was seen and evaluated by GI recommending continuing with Imodium and Questran as needed if diarrhea persists. Patient has been having less bowel movements per nursing staff and patient. Patient continues to be weak requiring assistance and unable to get up out of the bed with physical therapy today. Patient sodium was found to be 123 today and will be placed on fluid restrictions and given a dose of IV Lasix. Nephrology consulted and pending at this time. Patient continues to have bilateral upper and lower ext remity swelling and edema noted. 09/30/2020 Patient is seen this morning and had episodes of hypotension and cold bilateral lower extremities with significant edema noted and was given some fluid boluses with improvement in blood pressure although continues to be volume overload. Patient was maintained on Bumex along with Aldactone and will discontinue at this time. Nephrology consulted and following. Patient receiving a dose of albumin today. Pulmonary also consulted for possible thoracentesis for pleural effusions. Patient had chest ultrasound showing left greater than the right pleural effusions and was marked for possible thoracentesis. Cardiology also consulted and a 2-D echo ordered. Patient denies any further episodes of diarrhea and has not had a bowel movement today. Patient is urinating although appears concentrated and does have an indwelling Newell catheter. Continued bilateral upper and lower extremity swelling and edema is noted. Denies any worsening shortness of breath chest pain or palpitations. Patient is afebrile. 10/01/2020 Patient is seen this morning and nephrology along with pulmonary are following. Patient is maintained on IV Bumex and receiving another dose of albumin today. Sodium is improved at 132 and potassium 3.5 and will replace. Current creatinine is 0.51. Vital signs stable. Blood pressure on the lower side although maintaining. Patient had a chest x-ray this morning which is currently pending with the possibility of thoracentesis on the left side with pulmonary today. Patient swelling slowly improving of the lower extremities and output is adequate. Encouraged oral protein intake with fluid restriction to 1200 mL daily. Ensures added to meals. Patient is having some crampy gas-like pains in the lower abdomen and had a very small semi-formed bowel movement yesterday per nursing staff. She states she feels she needs to go but feels slightly constipated. Will add Senokot. 10/02/2020 Patient is seen this morning and continues to be closely monitored. Patient did undergo left-sided thoracentesis with pulmonary with removal of approximately 550 mL's of fluid that was sent and is currently pending. Patient is currently maintained on IV Bumex and nephrology following closely. Anticoagulant has been resumed. Chest x-ray today shows continued effusion on the right with no pneumothorax noted. Patient is currently on 3 L of oxygen via nasal cannula between 95 and 100%. Patient sodium has improved and is currently 137 with a potassium of 4.0, BUN is 14 and creatinine is 0.54. Magnesium is 1.9. Liver fu nctions trending down. Patient is having some right shoulder discomfort today but does have full range of motion and denies any recent injury or trauma noted. Review of systems: Constitutional: Reports fatigue, no reports of fever, or chills Cardiovascular: No reports of chest pain or palpitations Respiratory: No reports of shortness of breath or cough GI: No reports of nausea, vomiting : No reports of dysuria or retention, chronic indwelling Newell catheter Neurovascular: reports of weakness All medications have been reviewed Active Medications Acetaminophen (Acetaminophen Tab 325 Mg Tab) 650 mg PO Q4H PRN PRN Reason: Pain Last Admin: 10/02/20 12:20 Dose: 650 mg Documented by: Hydrocodone Bitart/Acetaminophen (Hydrocodone/Apap 5-325mg 1 Each Tab) 1 each PO Q8H PRN PRN Reason: Pain Albuterol Sulfate (Albuterol Nebulized 2.5 Mg/3 Ml) 2.5 mg INHALATION RT-Q4H PRN PRN Reason: Shortness Of Breath Apixaban (Apixaban 5 Mg Tab) 5 mg PO BID [facility] Last Admin: 10/02/20 09:22 Dose: 5 mg Documented by: Aspirin (Aspirin 81 Mg) 81 mg PO DAILY [facility] Last Admin: 10/02/20 09:22 Dose: 81 mg Documented by: Atorvastatin Calcium (Atorvastatin 40 Mg Tab) 40 mg PO HS [facility] Last Admin: 10/01/20 20:12 Dose: 40 mg Documented by: Budesonide/Formoterol Fumarate (Symbicort 80-4.5 Mcg Inhaler) 2 puff INHALATION RT-BID [facility] Last Admin: 10/02/20 12:23 Dose: 2 puff Documented by: Bumetanide (Bumetanide 0.25 Mg/Ml 4 Ml Vial) 1 mg IVP BID [facility] Last Admin: 10/02/20 09:23 Dose: 1 mg Documented by: Calcium Carbonate/Glycine (Calcium Carbonate 500 Mg Chewable) 500 mg PO DAILY [facility] Last Admin: 10/02/20 09:22 Dose: 500 mg Documented by: Cholecalciferol (Cholecalciferol 25 Mcg (1000 Iu) Tablet) 25 mcg PO BID [facility] Last Admin: 10/02/20 09:22 Dose: 25 mcg Documented by: Ferrous Sulfate (Ferrous Sulfate 325 Mg Tab) 325 mg PO DAILY [facility] Last Admin: 10/02/20 09:22 Dose: 325 mg Documented by: Gabapentin (Gabapentin 300 Mg Cap) 300 mg PO BID [facility] Last Admin: 10/02/20 09:22 Dose: 300 mg Documented by: Ipratropium [place] (Ipratropium 0.5 Mg/2.5 Ml Nebu) 0.5 mg INHALATION RT-Q6H PRN PRN Reason: Shortness Of Breath Levothyroxine Sodium (Levothyroxine 75 Mcg Tab) 150 mcg PO DAILY@0630 [facility] Last Admin: 10/02/20 06:28 Dose: 150 mcg Documented by: Loperamide HCl (Loperamide 2 Mg Cap) 2 mg PO QID PRN PRN Reason: Diarrhea Last Admin: 09/28/20 22:35 Dose: 2 mg Documented by: Magnesium Oxide (Magnesium Oxide 400 Mg Tab) 400 mg PO BID [facility] Last Admin: 10/02/20 09:22 Dose: 400 mg Documented by: Melatonin (Melatonin 5 Mg Tablet) 5 mg PO HS [facility] Last Admin: 10/01/20 20:12 Dose: 5 mg Documented by: Methocarbamol (Methocarbamol 500 Mg Tab) 500 mg PO Q6H PRN PRN Reason: Muscle Spasm Multivitamins (Multivitamins, Thera 1 Each Tab) 1 each PO DAILY [facility] Last Admin: 10/02/20 09:22 Dose: 1 each Documented by: Pantoprazole Sodium (Pantoprazole 40 Mg Tablet) 40 mg PO AC-BRKFST [facility] Last Admin: 10/02/20 06:28 Dose: 40 mg Documented by: Potassium Chloride (Potassium Chloride Er 20 Meq Tab.Er) 20 meq PO DAILY [facility] Last Admin: 10/02/20 09:22 Dose: 20 meq Documented by: Prednisolone Acetate (Prednisolone Acetate 1% Ophth Drops 5 Ml Btl) 1 drops RIGHT EYE BID [facility] Last Admin: 10/01/20 20:12 Dose: 1 drops Documented by: Senna (Sennosides 8.6 Mg Tab) 8.6 mg PO DAILY [facility] Last Admin: 10/02/20 09:22 Dose: 8.6 mg Documented by: Simethicone (Simethicone 80 Mg Chewable) 80 mg PO Q8H PRN PRN Reason: GAS Venlafaxine HCl (Venlafaxine Hcl Er 37.5 Mg Cap) 37.5 mg PO DAILY [facility] Last Admin: 10/02/20 12:21 Dose: 37.5 mg Documented by: Venlafaxine HCl (Venlafaxine Hcl Er 150 Mg Cap) 150 mg PO DAILY [facility] Last Admin: 10/02/20 09:22 Dose: 150 mg Documented by: Objective - Vital Signs Vital signs: Vital Signs Temp 97.7 F 10/02/20 03:16 Pulse 95 10/02/20 03:16 Resp 18 10/02/20 03:16 BP 95/55 10/02/20 03:16 Pulse Ox 100 10/02/20 03:16 Intake & Output 10/01/20 10/02/20 10/02/20 18:59 06:59 18:59 Intake Total 832 100 Output Total 1200 2450 Balance -368 -2350 Weight 82 kg Intake: Intake, IV Titration 100 Amount Albumin Human 25% 50 ml 100 In Empty Bag 1 bag @ 50 mls/hr IVPB Q1H [facility] Rx#: [id number] Oral 832 Output: Urine 1200 2450 Other: Voiding Method Indwelling Catheter Indwelling Catheter # Voids 0 # Bowel Movements 1 1 - Exam GENERAL:. BMI 37.9, laying in bed, awake, alert and oriented 3, pitting edema of lower extremities noted 2+, slightly improved from yesterday. Temp is 97.6F, pulse is 75, respirations are 17, blood pressure is 109/55, oxygen saturation is 95% on 3 L via nasal cannula EYES: Pupils equal. Conjunctiva pale. HEENT: External appearance of nose and ears normal, oral cavity grossly normal. NECK: JVD not raised; masses not palpable. HEART: S1, S2 are muffled LUNGS: Respiratory rate normal; diminished breath sounds bilaterally with some scattered rhonchi noted ABDOMEN: Soft, obese, no tenderness, no guarding rigidity, liver spleen not palpable, no masses palpable. PSYCH: Alert and oriented x3 MUSCULAR skeletal: Evidence of OA - Labs CBC & Chem 7: 09/29/20 23:45 10/02/20 06:45 Labs: Abnormal Lab Results - Last 24 Hours (Table) 10/02/20 Range/Units 06:45 Carbon Dioxide 32 H (22-30) mmol/L Glucose 63 L (74-99) mg/dL Calcium 7.6 L (8.4-10.2) mg/dL AST 104 H (14-36) U/L ALT 37 H (4-34) U/L Alkaline Phosphatase 249 H (38-126) U/L Total Protein 3.8 L (6.3-8.2) g/dL Albumin 2.0 L (3.5-5.0) g/dL Microbiology - Last 24 Hours (Table) 10/01/20 11:20 Gram Stain - Preliminary Pleural Fluid Body Fluid Culture - Preliminary 10/01/20 11:20 Acid Fast Bacilli Culture - Preliminary Pleural Fluid 10/01/20 11:20 Fungal Culture - Preliminary Pleural Fluid Assessment and Plan Assessment: -Acute medical debility following her small bowel surgery. Patient having intermittent diarrhea. Improved. -Bilateral pleural effusions as noted on CT status post left side thoracentesis -chronic cor pulmonale -Hyponatremia, improved -Hypothyroidism -Mild protein calorie malnutrition from decreased oral intake -Essential hypertension -Hyperlipidemia -Depression otherwise specified -obesity BMI 37.9 -Chronic Elevated right diaphragm-(SNIFF test was negative. No paradoxical movement noted.) -COPD in an ex-smoker Recommendations and discussion: Recurrent to continue current medications, management, and symptomatic treatment. Multiple medical consultations following. Patient is status post thoracentesis of the left side with approximately 500 mL's removed. Patient is maintained on IV Bumex and nephrology following closely. Sodium has improved and is currently 137. Will repeat a.m. labs. Encouraged increased oral intake. Patient continues to have significant upper and lowers extremity swelling although has much improved. Patient underwent a limited 2-D echo showing LV systolic functions normal with an ejection fraction of 50-55% with some mild aortic stenosis and some pulmonary hypertension noted. Patient is status post 2 doses of albumin. Due to multiple complex medical issues, prognosis is guarded. Further recommendations to follow. Case management also following as this patient will be returning to [facility] once stabilized and discharged
[2020-10-02] MEDS: methocarbamoL 500 MG TAB PO PRN (16:13)
[2020-10-02] MEDS: HYDROcodone/APAP 5-325MG 1 EACH TAB PO PRN (18:30)
[2020-10-02] MEDS: LOPERAMIDE 2 MG CAP PO PRN (18:34)
[2020-10-02] MEDS: MELATONIN 5 MG TABLET PO SCH (21:36)
[2020-10-02] MEDS: ATORVASTATIN 40 MG TAB PO SCH (21:36)
[2020-10-03] MEDS: HYDROcodone/APAP 5-325MG 1 EACH TAB PO PRN ×3 (04:09→20:04)
[2020-10-03] MEDS: LEVOTHYROXINE 75 MCG TAB PO SCH (06:37)
[2020-10-03] MEDS: PANTOPRAZOLE 40 MG TABLET PO SCH (06:37)
[2020-10-03] MEDS: ACETAMINOPHEN TAB 325 MG TAB PO PRN ×3 (06:37→21:48)
[2020-10-03 07:53] LABS: African American GFR (CKD) >90 (>60 ml/min/1.73 sqM); Anion Gap 2 mmol/L; Blood Urea Nitrogen 14 mg/dL (7-17); Calcium 7.6 mg/dL (8.4-10.2); Carbon Dioxide 30 mmol/L (22-30); Chloride 104 mmol/L (98-107); Glucose 70 mg/dL (74-99); Magnesium 1.8 mg/dL (1.6-2.3); Non-African American GFR(CKD) >90 (>60 ml/min/1.73 sqM); Potassium 4.4 mmol/L (3.5-5.1); Sodium 136 mmol/L (137-145)
[2020-10-03] MEDS: SYMBICORT 80-4.5 MCG INHALER INHALATION SCH ×2 (08:39→19:50)
[2020-10-03] MEDS: CALCIUM CARBONATE 500 MG CHEWABLE PO SCH (09:02)
[2020-10-03] MEDS: ASPIRIN 81 MG PO SCH (09:02)
[2020-10-03] MEDS: CHOLECALCIFEROL 25 MCG (1000 IU) TABLET PO SCH ×2 (09:02→20:05)
[2020-10-03] MEDS: MULTIVITAMINS, THERA 1 EACH TAB PO SCH (09:02)
[2020-10-03] MEDS: VENLAFAXINE HCL ER 150 MG CAP PO SCH (09:02)
[2020-10-03] MEDS: MAGNESIUM OXIDE 400 MG TAB PO SCH ×2 (09:02→20:05)
[2020-10-03] MEDS: GABAPENTIN 300 MG CAP PO SCH ×2 (09:02→20:05)
[2020-10-03] MEDS: APIXABAN 5 MG TAB PO SCH ×2 (09:03→20:05)
[2020-10-03] MEDS: FERROUS SULFATE 325 MG TAB PO SCH (09:03)
[2020-10-03] MEDS: POTASSIUM CHLORIDE ER 20 MEQ TAB.ER PO SCH (09:03)
[2020-10-03] MEDS: SENNOSIDES 8.6 MG TAB PO SCH (09:03)
[2020-10-03] MEDS: BUMETANIDE 0.25 MG/ML 4 ML VIAL IVP SCH (09:04)
[2020-10-03] MEDS: VENLAFAXINE HCL ER 37.5 MG CAP PO SCH (09:06)
[2020-10-03] MEDS: prednisoLONE ACETATE 1% OPHTH DROPS 5 ML BTL RIGHT EYE SCH ×2 (09:06→20:05)
--- NOTE | 2020-10-03 11:17 | P.PN ---
Subjective Patient is seen in follow-up for hyponatremia. Sodium level stable. She is maintained on IV Bumex. Edema improving. Urine output over 4 L in the last 24 hours. No vomiting or diarrhea. Hemodynamically stable. Vital signs are stable. General: The patient appeared well nourished and normally developed. HEENT: Head exam is unremarkable. Neck is without jugular venous distension. LUNGS: Breath sounds decreased. HEART: Rate and Rhythm are regular. ABDOMEN: Soft, nontender. EXTREMITITES: 1+ edema. Objective - Vital Signs Vital signs: Vital Signs Temp 97.8 F 10/03/20 04:00 Pulse 88 10/03/20 04:00 Resp 18 10/03/20 04:00 BP 96/58 10/03/20 04:00 Pulse Ox 100 10/03/20 04:00 Intake & Output 10/02/20 10/03/20 10/03/20 18:59 06:59 18:59 Intake Total 1361 472 Output Total 2500 1650 Balance -2500 -289 472 Weight 82 kg 93 kg Intake: Oral 1361 472 Output: Urine 2500 1650 Other: Voiding Method Indwelling Catheter Indwelling Catheter # Voids 0 # Bowel Movements 5 1 - Labs CBC & Chem 7: 09/29/20 23:45 10/03/20 07:01 Labs: Abnormal Lab Results - Last 24 Hours (Table) 10/03/20 Range/Units 07:01 Sodium 136 L (137-145) mmol/L Creatinine 0.51 L (0.52-1.04) mg/dL Glucose 70 L (74-99) mg/dL Calcium 7.6 L (8.4-10.2) mg/dL Microbiology - Last 24 Hours (Table) 10/01/20 11:20 Acid Fast Bacilli Smear - Final Pleural Fluid Acid Fast Bacilli Culture - Preliminary 10/01/20 11:20 Gram Stain - Preliminary Pleural Fluid Body Fluid Culture - Preliminary Assessment and Plan Plan: Assessment: 1. Hypervolemic hyponatremia. Sodium level 136 today. Urine sodium 19 and urine osmolality 353. Cortisol level normal. TSH a little on the lower side. 2. Volume overload. Improving with diuresis. 3. Acute on chronic diastolic CHF. 4. Severe protein calorie malnutrition with albumin of 1.3. Status post IV albumin. Improved. 5. Hypocalcemia secondary to hypoalbuminemia. Corrected calcium normal. 6. Hypokalemia from diuresis. Magnesium normal. Improved post replacement. Plan: 1200 mL fluid restriction. Encouraged oral intake, especially protein. Added ensure 3 times a day. I will change Bumex to 1 mg orally twice daily. Repeat electrolytes in the morning.
--- NOTE | 2020-10-03 11:22 | P.PN ---
Subjective Progress Note Date: 10/03/20 This is a 74-year-old female patient who follows with Dr. Yan as her primary care provider. She is currently residing in an extended care facility. She has a history of hypothyroidism, hypertension, hyperlipidemia, depression, recent small bowel ischemia with bowel resection at [facility]. She is residing in a local [facility] and was brought in on 09/27/2020 for complaints of generalized weakness, loose stools, poor appetite. CAT scan of the abdomen revealed fatty infiltration of the liver, unchanged. Mild abdominal ascites, unchanged periods sigmoid diverticulosis without diverticulitis. Rectal fecal impaction which was new. Large nonobstructing left renal calculus. Bilateral pleural effusions were noted and we were consulted for the same. An ultrasound of the chest was ordered. There is a small right-sided pleural effusion measuring 2.9 cm. A larger left pleural effusion measuring 8.3 cm. The patient has been anticoagulated on Eliquis which will be placed on hold. Possible thoracentesis tomorrow. She is seen today in consultation on the regular medical floor. Currently resting flat in bed. Awake and alert in no acute distress. Continue O2 saturations in the high 90s on 2 L/m per nasal cannula. She's afebrile. White count 4.3. Hemoglobin 9.8. Sodium 125. Potassium 3.9. Creatinine 0.56. ProBNP 513. Urine osmolality 353. Coronavirus not detected. She is continued on IV diuretics, albuterol, Symbicort. Albumin has been ordered. Nephrology and GI services are on the case. Progress note dated 10/01/2020. This is a 74-year-old female, who sees Dr. Yan as a primary. She currently resides in an extended care facility. She has a history of hypothyroidism, essential hypertension, hyperlipidemia, depression, recent small bowel ischemia, with bowel resection at [facility]. She is brought into the emergency department from the [facility] on 09/27/2020, for complaints of generalized weakness, loose stools, and poor appetite. We were consulted because there is evidence of effusions, and today, we did a left-sided thoracentesis, and removed 550 mL of thin yellow fluid. It looks like heart failure fluid honestly but, the specimens were sent for evaluation. She tolerated the procedure well. The effusion on the right side was relatively small. Current laboratory data includes a sodium 132, potassium 3.5, chlorides 102, CO2 28, anion gap 2, BUN 17, and creatinine 0.51. TSH is 0.234 and free T4 is 3.46. Cortisol level was 8. The fluid had 104 RBCs, 65 nucleated cells, 4 PMNs, and 96 mononuclear cells. Post thoracentesis chest x-ray showed no pneumothorax, and a persistent small to moderate sized right pleural effusion. The left-sided pleural effusion is much improved. On today's evaluation of the 2020 the patient is being seen for a follow-up. As mentioned earlier, the patient has recent history of small bowel ischemia with bowel resection and the patient also has history of hypothyroidism hyp ertension and hyperlipidemia history of depression. The patient was in an extended care facility. She was having generalized weakness, loose stools and poor appetite. CAT scan of the abdomen revealed fatty infiltration of the liver and mild abdominal ascites and some sigmoid diverticulosis without diverticulitis. She also had rectal fecal impaction. There was large nonobstructing left renal calculus. Bilateral pleural effusion was also seen. The largest was on the left for which a thoracentesis was done and the fluid turned out to be a transudate with a very low fluid protein of 0.3 and the LDH was 48 and the cell count was also low at 65 WBCs. Post thoracentesis, the left-sided pleural effusion had a much diminished in size and there was still some right-sided pleural effusion present. The thyroid function tests were abnormal with a TSH of 0.234 and a TSH of 3.46 consistent with hyper thyroidism. LFTs are slightly abnormal with an AST of 104, ALT of 37 alk phos of 249 and a bilirubin of 1.2. On 10/03/2020, seeing the patient for a follow-up. 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 She did have some mild abdominal ascites and diverticulosis without diverticulitis. She also had a nonobstructive left renal calculus. She was found to have bilateral pleural effusion and oriented of draining the left-sided pleural effusion which improved the patient's overall pulmonary status and the fluid was essentially she has this. There is some residual right-sided pleural effusion for now. Her echocardiogram at shown a preserved LV function and the patient does not have any LV dysfunction. This was a limited echocardiogram that was done on 10/02/2020 and the patient a moderate pulmonary hypertension and ejection fraction of 55%. For now, the patient is on oxygen at 2 L per minute nasal cannula with a pulse ox of 99%. Her chest x-ray from 10/01/2020 showed a small to moderate-sized right-sided pleural effusion. Left-sided pleural effusion was adequately drained. The patient is on Bumex 1 mg and this has been switched to by mouth twice a day. She is on long-term articulation with Eliquis 5 mg by mouth twice a day. She is also on aspirin. No new complaints otherwise for now. In terms of her blood work, the patient has a BUN of 14 with a creatinine of 0.5. Sodium is at 136. Objective - Vital Signs Vital signs: Vital Signs Temp 97.5 F L 10/03/20 08:00 Pulse 92 10/03/20 11:15 Resp 16 10/03/20 11:15 BP 76/55 10/03/20 11:15 Pulse Ox 99 10/03/20 11:15 Intake & Output 10/02/20 10/03/20 10/03/20 18:59 06:59 18:59 Intake Total 1361 472 Output Total 2500 1650 Balance -2500 -289 472 Weight 82 kg 93 kg Intake: Oral 1361 472 Output: Urine 2500 1650 Other: Voiding Method Indwelling Catheter Indwelling Catheter # Voids 0 # Bowel Movements 5 1 - Exam No acute distress, currently on nasal O2 at 3 L. No conversational dyspnea, or use of accessory muscles. HEENT examination is grossly unremarkable. Membranes are moist. Neck supple. Full range of motion. No adenopathy or thyromegaly. Neck veins are flat. Cardiovascular examination reveals regular rhythm rate. S1-S2 normal. No S3-S4 or murmur. Pulmonary examination reveals some basilar rhonchi and crackles. Dullness at the bases, more so on the left side than on the right. Abdomen soft. Bowel sounds are heard. No masses or tenderness noted. Extremities are intact. No edema. No cyanosis or clubbing. Skin without rash. Neurologic examination is prepared nonfocal. The patient does have diffuse muscle weakness. - Labs CBC & Chem 7: 09/29/20 23:45 10/03/20 07:01 Labs: Abnormal Lab Results - Last 24 Hours (Table) 10/03/20 Range/Units 07:01 Sodium 136 L (137-145) mmol/L Creatinine 0.51 L (0.52-1.04) mg/dL Glucose 70 L (74-99) mg/dL Calcium 7.6 L (8.4-10.2) mg/dL Microbiology - Last 24 Hours (Table) 10/01/20 11:20 Acid Fast Bacilli Smear - Final Pleural Fluid Acid Fast Bacilli Culture - Preliminary 10/01/20 11:20 Gram Stain - Preliminary Pleural Fluid Body Fluid Culture - Preliminary Assessment and Plan Plan: 1 Shortness of breath, secondary to bilateral pleural effusions, left greater than right, status post left-sided thoracentesis on 10/01/2020. The fluid from the left lung was most consistent with a transudate with a low LDH and a low protein. Echocardiogram showed moderate concentric LVH with an ejection fraction of 50-55%, there is mild aortic stenosis with a peak gradient of 20 and no evidence of any significant pulmonary hypertension or any other valvular abnormalities. 2 Recent small bowel surgery, secondary to bowel ischemia, currently on Eliquis. This was an embolic event as the patient had a acute mesenteric ischemia secondary to embolism and the patient is demented on long-term anticoagulation with Eliquis. 3 History of hypertension. 4 Hyperlipidemia by history. 5 History of depression. 6 Obesity. 7 COPD. 8 History of chronic tobacco dependence. 9 Hypothyroidism. 10 Hyponatremia, improved and recovered Plan: No immediate needs to do the right-sided thoracentesis of the amount of fluid a small The patient is currently on oral Bumex and she was taken off the IV Bumex today Repeat chest x-ray today The patient is only on 2 L about 2 by nasal cannula with a pulse of 99% No need for draining the right side of the lung at this point in time unless her condition changes.
--- NOTE | 2020-10-03 12:05 | XR ---
EXAMINATION TYPE: XR chest 1V portable DATE OF EXAM: 10/03/2020 COMPARISON: 10/01/2020 INDICATION: Pleural effusion TECHNIQUE: Single frontal view of the chest is obtained. FINDINGS: The heart size is normal. The pulmonary vasculature is normal. There is a small to moderate right pleural effusion. Right central venous catheter is present the tip region. Minimal left pleural effusion is present. IMPRESSION: 1. Minimal left and [id number] right pleural effusion, stable
[2020-10-03] MEDS ORDERED: BUMETANIDE 1 MG TAB PO SCH (16:00)
--- NOTE | 2020-10-03 16:52 | P.PN ---
Subjective Progress Note Date: 10/03/20 History of presenting complaint: This is a pleasant 74-year-old patient of Dr. Dorian Yan. Resident of [facility]. Chronic stable medical conditions include hypertension, hyperlipidemia, depression, hypothyroid. 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 -small bowel resection was carried out. Patient was then transferred out to [facility]. Patient thinks a blood clot was removed . Readmitted in August of this year, with acute cor pulmonale, uncontrolled hypothyroid. patient was sent in from the [facility] following patient having 1 or 2 loose stools a day. Poor appetite. Swelling up. Very weak and tired. Last time patient had walked was about 2 weeks ago. Appetite is rather poor. She is extremely tired. No fever no chills. Today-oral intake about 75-100% of the full liquid diet. Laying in.. Tired. 09/29/2020 Patient is seen and evaluated this morning with no acute overnight issues. Patient continues to eat very little although has been increasing according to per nursing staff. Patient was seen and evaluated by GI recommending continuing with Imodium and Questran as needed if diarrhea persists. Patient has been having less bowel movements per nursing staff and patient. Patient continues to be weak requiring assistance and unable to get up out of the bed with physical therapy today. Patient sodium was found to be 123 today and will be placed on fluid restrictions and given a dose of IV Lasix. Nephrology consulted and pending at this time. Patient continues to have bilateral upper and lower ext remity swelling and edema noted. 09/30/2020 Patient is seen this morning and had episodes of hypotension and cold bilateral lower extremities with significant edema noted and was given some fluid boluses with improvement in blood pressure although continues to be volume overload. Patient was maintained on Bumex along with Aldactone and will discontinue at this time. Nephrology consulted and following. Patient receiving a dose of albumin today. Pulmonary also consulted for possible thoracentesis for pleural effusions. Patient had chest ultrasound showing left greater than the right pleural effusions and was marked for possible thoracentesis. Cardiology also consulted and a 2-D echo ordered. Patient denies any further episodes of diarrhea and has not had a bowel movement today. Patient is urinating although appears concentrated and does have an indwelling Newell catheter. Continued bilateral upper and lower extremity swelling and edema is noted. Denies any worsening shortness of breath chest pain or palpitations. Patient is afebrile. 10/01/2020 Patient is seen this morning and nephrology along with pulmonary are following. Patient is maintained on IV Bumex and receiving another dose of albumin today. Sodium is improved at 132 and potassium 3.5 and will replace. Current creatinine is 0.51. Vital signs stable. Blood pressure on the lower side although maintaining. Patient had a chest x-ray this morning which is currently pending with the possibility of thoracentesis on the left side with pulmonary today. Patient swelling slowly improving of the lower extremities and output is adequate. Encouraged oral protein intake with fluid restriction to 1200 mL daily. Ensures added to meals. Patient is having some crampy gas-like pains in the lower abdomen and had a very small semi-formed bowel movement yesterday per nursing staff. She states she feels she needs to go but feels slightly constipated. Will add Senokot. 10/02/2020 Patient is seen this morning and continues to be closely monitored. Patient did undergo left-sided thoracentesis with pulmonary with removal of approximately 550 mL's of fluid that was sent and is currently pending. Patient is currently maintained on IV Bumex and nephrology following closely. Anticoagulant has been resumed. Chest x-ray today shows continued effusion on the right with no pneumothorax noted. Patient is currently on 3 L of oxygen via nasal cannula between 95 and 100%. Patient sodium has improved and is currently 137 with a potassium of 4.0, BUN is 14 and creatinine is 0.54. Magnesium is 1.9. Liver fu nctions trending down. Patient is having some right shoulder discomfort today but does have full range of motion and denies any recent injury or trauma noted. 10/03/2020 Patient is seen this morning in follow-up and is being closely monitored. Multiple medical consultations following including pulmonary and nephrology. Patient recently underwent thoracentesis and analysis of fluids is currently pending. Patient underwent repeat chest x-ray today showing minimal left small to moderate right pleural effusion which is stable. Patient is diuresing and we'll transition to oral Bumex. Patient is to continue with fluid restrictions of 1200 mL's and continue to encourage oral intake and will continue with ensures 3 times daily. Patient needs continued encouragement she continues to have no appetite. Sodium today is 136 with a potassium of 4.4 current creatinine is 0.51 and magnesium is 1.8. Patient continues to have low blood pressures and is being closely monitored. No reports of abdominal discomfort and patient denies a bowel movement today. Review of systems: Constitutional: Reports fatigue, no reports of fever, or chills Cardiovascular: No reports of chest pain or palpitations Respiratory: No reports of shortness of breath or cough GI: No reports of nausea, vomiting : No reports of dysuria or retention, chronic indwelling Newell catheter Neurovascular: reports of weakness All medications have been reviewed Active Medications Acetaminophen (Acetaminophen Tab 325 Mg Tab) 650 mg PO Q4H PRN PRN Reason: Pain Last Admin: 10/03/20 06:37 Dose: 650 mg Documented by: Hydrocodone Bitart/Acetaminophen (Hydrocodone/Apap 5-325mg 1 Each Tab) 1 each PO Q8H PRN PRN Reason: Pain Last Admin: 10/03/20 11:10 Dose: 1 each Documented by: Albuterol Sulfate (Albuterol Nebulized 2.5 Mg/3 Ml) 2.5 mg INHALATION RT-Q4H PRN PRN Reason: Shortness Of Breath Apixaban (Apixaban 5 Mg Tab) 5 mg PO BID [facility] Last Admin: 10/03/20 09:03 Dose: 5 mg Documented by: Aspirin (Aspirin 81 Mg) 81 mg PO DAILY [facility] Last Admin: 10/03/20 09:02 Dose: 81 mg Documented by: Atorvastatin Calcium (Atorvastatin 40 Mg Tab) 40 mg PO HS [facility] Last Admin: 10/02/20 21:36 Dose: 40 mg Documented by: Budesonide/Formoterol Fumarate (Symbicort 80-4.5 Mcg Inhaler) 2 puff INHALATION RT-BID [facility] Last Admin: 10/03/20 08:39 Dose: 2 puff Documented by: Bumetanide (Bumetanide 1 Mg Tab) 1 mg PO DAILY [facility] Calcium Carbonate/Glycine (Calcium Carbonate 500 Mg Chewable) 500 mg PO DAILY [facility] Last Admin: 10/03/20 09:02 Dose: 500 mg Documented by: Cholecalciferol (Cholecalciferol 25 Mcg (1000 Iu) Tablet) 25 mcg PO BID [facility] Last Admin: 10/03/20 09:02 Dose: 25 mcg Documented by: Ferrous Sulfate (Ferrous Sulfate 325 Mg Tab) 325 mg PO DAILY [facility] Last Admin: 10/03/20 09:03 Dose: 325 mg Documented by: Gabapentin (Gabapentin 300 Mg Cap) 300 mg PO BID [facility] Last Admin: 10/03/20 09:02 Dose: 300 mg Documented by: Ipratropium [place] (Ipratropium 0.5 Mg/2.5 Ml Nebu) 0.5 mg INHALATION RT-Q6H PRN PRN Reason: Shortness Of Breath Levothyroxine Sodium (Levothyroxine 75 Mcg Tab) 150 mcg PO DAILY@0630 [facility] Last Admin: 10/03/20 06:37 Dose: 150 mcg Documented by: Loperamide HCl (Loperamide 2 Mg Cap) 2 mg PO QID PRN PRN Reason: Diarrhea Last Admin: 10/02/20 18:34 Dose: 2 mg Documented by: Magnesium Oxide (Magnesium Oxide 400 Mg Tab) 400 mg PO BID [facility] Last Admin: 10/03/20 09:02 Dose: 400 mg Documented by: Melatonin (Melatonin 5 Mg Tablet) 5 mg PO HS [facility] Last Admin: 10/02/20 21:36 Dose: 5 mg Documented by: Methocarbamol (Methocarbamol 500 Mg Tab) 500 mg PO Q6H PRN PRN Reason: Muscle Spasm Last Admin: 10/02/20 16:13 Dose: 500 mg Documented by: Multivitamins (Multivitamins, Thera 1 Each Tab) 1 each PO DAILY [facility] Last Admin: 10/03/20 09:02 Dose: 1 each Documented by: Pantoprazole Sodium (Pantoprazole 40 Mg Tablet) 40 mg PO AC-BRKFST [facility] Last Admin: 10/03/20 06:37 Dose: 40 mg Documented by: Potassium Chloride (Potassium Chloride Er 20 Meq Tab.Er) 20 meq PO DAILY [facility] Last Admin: 10/03/20 09:03 Dose: 20 meq Documented by: Prednisolone Acetate (Prednisolone Acetate 1% Ophth Drops 5 Ml Btl) 1 drops RIGHT EYE BID [facility] Last Admin: 10/03/20 09:06 Dose: 1 drops Documented by: Senna (Sennosides 8.6 Mg Tab) 8.6 mg PO DAILY [facility] Last Admin: 10/03/20 09:03 Dose: 8.6 mg Documented by: Simethicone (Simethicone 80 Mg Chewable) 80 mg PO Q8H PRN PRN Reason: GAS Venlafaxine HCl (Venlafaxine Hcl Er 37.5 Mg Cap) 37.5 mg PO DAILY [facility] Last Admin: 10/03/20 09:06 Dose: 37.5 mg Documented by: Venlafaxine HCl (Venlafaxine Hcl Er 150 Mg Cap) 150 mg PO DAILY [facility] Last Admin: 10/03/20 09:02 Dose: 150 mg Documented by: Objective - Vital Signs Vital signs: Vital Signs Temp 97.5 F L 10/03/20 08:00 Pulse 92 10/03/20 11:15 Resp 16 10/03/20 14:00 BP 76/55 10/03/20 11:15 Pulse Ox 99 10/03/20 11:15 Intake & Output 10/02/20 10/03/20 10/03/20 18:59 06:59 18:59 Intake Total 1361 772 Output Total 2500 1650 Balance -2500 -289 772 Weight 82 kg 93 kg Intake: Oral 1361 772 Output: Urine 2500 1650 Other: Voiding Method Indwelling Catheter Indwelling Catheter Indwelling Catheter # Voids 0 # Bowel Movements 5 1 - Exam GENERAL:. BMI 37.9, laying in bed, awake, alert and oriented 3, pitting edema of lower extremities noted 2+, slightly improved from yesterday. Temp is 97.5F, pulse is 94, respirations are 16, blood pressure is 83/45, oxygen saturation is 100% on 3 L via nasal cannula EYES: Pupils equal. Conjunctiva pale. HEENT: External appearance of nose and ears normal, oral cavity grossly normal. NECK: JVD not raised; masses not palpable. HEART: S1, S2 are muffled LUNGS: Respiratory rate normal; diminished breath sounds bilaterally with some scattered rhonchi noted ABDOMEN: Soft, obese, no tenderness, no guarding rigidity, liver spleen not palpable, no masses palpable. PSYCH: Alert and oriented x3 MUSCULAR skeletal: Evidence of OA - Labs CBC & Chem 7: 09/29/20 23:45 10/03/20 07:01 Labs: Abnormal Lab Results - Last 24 Hours (Table) 10/03/20 Range/Units 07:01 Sodium 136 L (137-145) mmol/L Creatinine 0.51 L (0.52-1.04) mg/dL Glucose 70 L (74-99) mg/dL Calcium 7.6 L (8.4-10.2) mg/dL Microbiology - Last 24 Hours (Table) 10/01/20 11:20 Gram Stain - Preliminary Pleural Fluid Body Fluid Culture - Preliminary 10/01/20 11:20 Acid Fast Bacilli Smear - Final Pleural Fluid Acid Fast Bacilli Culture - Preliminary Assessment and Plan Assessment: -Acute medical debility following her small bowel surgery. Patient having intermittent diarrhea. Improved. -Bilateral pleural effusions as noted on CT status post left side thoracentesis -chronic cor pulmonale -Hyponatremia, improved -Hypothyroidism -Mild protein calorie malnutrition from decreased oral intake -Essential hypertension -Hyperlipidemia -Depression otherwise specified -obesity BMI 37.9 -Chronic Elevated right diaphragm-(SNIFF test was negative. No paradoxical mo vement noted.) -COPD in an ex-smoker Recommendations and discussion: Recurrent to continue current medications, management, and symptomatic treatment. Multiple medical consultations following. Patient is status post thoracentesis of the left side with approximately 500 mL's removed. Cultures fr om analysis currently pending. Patient is maintained on IV Bumex and being transitioned to oral Bumex today. nephrology following closely. Will repeat a.m. labs. Encouraged increased oral intake. Ensures added for protein. Patient continues to have significant upper and lower extremity swelling although has much improved. Due to multiple complex medical issues, prognosis is guarded. Further recommendations to follow. Case management also following as this patient will be returning to [facility] once stabilized and discharged. Possible discharge in 24-48 hours.
[2020-10-03] MEDS: ATORVASTATIN 40 MG TAB PO SCH (20:05)
[2020-10-03] MEDS: MELATONIN 5 MG TABLET PO SCH (20:05)
[2020-10-04] MEDS: ACETAMINOPHEN TAB 325 MG TAB PO PRN (02:42)
[2020-10-04] MEDS: HYDROcodone/APAP 5-325MG 1 EACH TAB PO PRN ×3 (04:59→18:21)
[2020-10-04] MEDS: LEVOTHYROXINE 75 MCG TAB PO SCH (06:29)
[2020-10-04] MEDS: PANTOPRAZOLE 40 MG TABLET PO SCH (06:29)
[2020-10-04] MEDS: SYMBICORT 80-4.5 MCG INHALER INHALATION SCH ×2 (07:22→20:46)
[2020-10-04 07:52] LABS: African American GFR (CKD) >90 (>60 ml/min/1.73 sqM); Anion Gap 3 mmol/L; Blood Urea Nitrogen 15 mg/dL (7-17); Calcium 7.7 mg/dL (8.4-10.2); Carbon Dioxide 29 mmol/L (22-30); Chloride 103 mmol/L (98-107); Glucose 65 mg/dL (74-99); Magnesium 1.8 mg/dL (1.6-2.3); Non-African American GFR(CKD) >90 (>60 ml/min/1.73 sqM); Potassium 4.7 mmol/L (3.5-5.1); Sodium 135 mmol/L (137-145)
[2020-10-04] MEDS ORDERED: BUMETANIDE 1 MG TAB PO SCH (09:00)
[2020-10-04] MEDS: APIXABAN 5 MG TAB PO SCH ×2 (09:46→20:38)
[2020-10-04] MEDS: SENNOSIDES 8.6 MG TAB PO SCH (09:46)
[2020-10-04] MEDS: ASPIRIN 81 MG PO SCH (09:46)
[2020-10-04] MEDS: VENLAFAXINE HCL ER 150 MG CAP PO SCH (09:46)
[2020-10-04] MEDS: POTASSIUM CHLORIDE ER 20 MEQ TAB.ER PO SCH (09:46)
[2020-10-04] MEDS: FERROUS SULFATE 325 MG TAB PO SCH (09:46)
[2020-10-04] MEDS: CALCIUM CARBONATE 500 MG CHEWABLE PO SCH (09:46)
[2020-10-04] MEDS: VENLAFAXINE HCL ER 37.5 MG CAP PO SCH (09:46)
[2020-10-04] MEDS: MAGNESIUM OXIDE 400 MG TAB PO SCH ×2 (09:47→20:39)
[2020-10-04] MEDS: GABAPENTIN 300 MG CAP PO SCH ×2 (09:47→20:39)
[2020-10-04] MEDS: CHOLECALCIFEROL 25 MCG (1000 IU) TABLET PO SCH ×2 (09:47→20:39)
[2020-10-04] MEDS: MULTIVITAMINS, THERA 1 EACH TAB PO SCH (09:47)
[2020-10-04] MEDS: prednisoLONE ACETATE 1% OPHTH DROPS 5 ML BTL RIGHT EYE SCH ×2 (09:49→20:39)
--- NOTE | 2020-10-04 10:43 | P.PN ---
Subjective Progress Note Date: 10/04/20 This is a 74-year-old female patient who follows with Dr. Yan as her primary care provider. She is currently residing in an extended care facility. She has a history of hypothyroidism, hypertension, hyperlipidemia, depression, recent small bowel ischemia with bowel resection at [facility]. She is residing in a local longterm and was brought in on 09/27/2020 for complaints of generalized weakness, loose stools, poor appetite. CAT scan of the abdomen revealed fatty infiltration of the liver, unchanged. Mild abdominal ascites, unchanged periods sigmoid diverticulosis without diverticulitis. Rectal fecal impaction which was new. Large nonobstructing left renal calculus. Bilateral pleural effusions were noted and we were consulted for the same. An ultrasound of the chest was ordered. There is a small right-sided pleural effusion measuring 2.9 cm. A larger left pleural effusion measuring 8.3 cm. The patient has been anticoagulated on Eliquis which will be placed on hold. Possible thoracentesis tomorrow. She is seen today in consultation on the regular medical floor. Currently resting flat in bed. Awake and alert in no acute distress. Continue O2 saturations in the high 90s on 2 L/m per nasal cannula. She's afebrile. White count 4.3. Hemoglobin 9.8. Sodium 125. Potassium 3.9. Creatinine 0.56. ProBNP 513. Urine osmolality 353. Coronavirus not detected. She is continued on IV diuretics, albuterol, Symbicort. Albumin has been ordered. Nephrology and GI services are on the case. Progress note dated 10/01/2020. This is a 74-year-old female, who sees Dr. Yan as a primary. She currently resides in an extended care facility. She has a history of hypothyroidism, essential hypertension, hyperlipidemia, depression, recent small bowel ischemia, with bowel resection at [facility]. She is brought into the emergency department from the longterm on 09/27/2020, for complaints of generalized weakness, loose stools, and poor appetite. We were consulted because there is evidence of effusions, and today, we did a left-sided thoracentesis, and removed 550 mL of thin yellow fluid. It looks like heart failure fluid honestly but, the specimens were sent for evaluation. She tolerated the procedure well. The effusion on the right side was relatively small. Current laboratory data includes a sodium 132, potassium 3.5, chlorides 102, CO2 28, anion gap 2, BUN 17, and creatinine 0.51. TSH is 0.234 and free T4 is 3.46. Cortisol level was 8. The fluid had 104 RBCs, 65 nucleated cells, 4 PMNs, and 96 mononuclear cells. Post thoracentesis chest x-ray showed no pneumothorax, and a persistent small to moderate sized right pleural effusion. The left-sided pleural effusion is much improved. On today's evaluation of the 2020 the patient is being seen for a follow-up. As mentioned earlier, the patient has recent history of small bowel ischemia with bowel resection and the patient also has history of hypothyroidism hyp ertension and hyperlipidemia history of depression. The patient was in an extended care facility. She was having generalized weakness, loose stools and poor appetite. CAT scan of the abdomen revealed fatty infiltration of the liver and mild abdominal ascites and some sigmoid diverticulosis without diverticulitis. She also had rectal fecal impaction. There was large nonobstructing left renal calculus. Bilateral pleural effusion was also seen. The largest was on the left for which a thoracentesis was done and the fluid turned out to be a transudate with a very low fluid protein of 0.3 and the LDH was 48 and the cell count was also low at 65 WBCs. Post thoracentesis, the left-sided pleural effusion had a much diminished in size and there was still some right-sided pleural effusion present. The thyroid function tests were abnormal with a TSH of 0.234 and a TSH of 3.46 consistent with hyper thyroidism. LFTs are slightly abnormal with an AST of 104, ALT of 37 alk phos of 249 and a bilirubin of 1.2. On 10/03/2020, seeing the patient for a follow-up. 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 She did have some mild abdominal ascites and diverticulosis without diverticulitis. She also had a nonobstructive left renal calculus. She was found to have bilateral pleural effusion and oriented of draining the left-sided pleural effusion which improved the patient's overall pulmonary status and the fluid was essentially she has this. There is some residual right-sided pleural effusion for now. Her echocardiogram at shown a preserved LV function and the patient does not have any LV dysfunction. This was a limited echocardiogram that was done on 10/02/2020 and the patient a moderate pulmonary hypertension and ejection fraction of 55%. For now, the patient is on oxygen at 2 L per minute nasal cannula with a pulse ox of 99%. Her chest x-ray from 10/01/2020 showed a small to moderate-sized right-sided pleural effusion. Left-sided pleural effusion was adequately drained. The patient is on Bumex 1 mg and this has been switched to by mouth twice a day. She is on long-term articulation with Eliquis 5 mg by mouth twice a day. She is also on aspirin. No new complaints otherwise for now. In terms of her blood work, the patient has a BUN of 14 with a creatinine of 0.5. Sodium is at 136. On 10/04/2020, patient is being seen for a follow-up. She is resting comfortably in bed. Follow-up chest x-ray from yesterday showed a moderate- sized right-sided pleural effusion. She is post thoracentesis of the left lung. No effusion on the left as seen on the last chest x-ray. The patient is a negative fluid balance of 2.7 L negative for yesterday and she is headed towards a negative balance for today. He is on Bumex and she is receiving Bumex 1 mg by mouth twice a day. She is on anticoagulation with Eliquis 5 mg by mouth twice a day. She denies chest liters per minute nasal cannula. No worsening shortness of breath. She is diuresing well. The rest of the blood work and electrolytes from today are all within normal limits. Sodium is at 135 with potassium level of 4.7 and Lupe 15 and creatinine of 0.5. She is post bowel surgery for ischemia. Objective - Vital Signs Vital signs: Vital Signs Temp 97.7 F 10/04/20 08:00 Pulse 97 10/04/20 08:00 Resp 20 10/04/20 08:00 BP 118/55 10/04/20 08:00 Pulse Ox 97 10/04/20 08:00 Intake & Output 10/03/20 10/04/20 10/04/20 18:59 06:59 18:59 Intake Total 1244 200 236 Output Total 1200 800 Balance 44 -600 236 Weight 91.5 kg Intake: Oral 1244 200 236 Output: Urine 1200 800 Other: Voiding Method Indwelling Catheter Indwelling Catheter - Exam No acute distress, currently on nasal O2 at 3 L. No conversational dyspnea, or use of accessory muscles. HEENT examination is grossly unremarkable. Membranes are moist. Neck supple. Full range of motion. No adenopathy or thyromegaly. Neck veins are flat. Cardiovascular examination reveals regular rhythm rate. S1-S2 normal. No S3-S4 or murmur. Pulmonary examination reveals some basilar rhonchi and crackles. Dullness at the bases, more so on the left side than on the right. Abdomen soft. Bowel sounds are heard. No masses or tenderness noted. Extremities are intact. No edema. No cyanosis or clubbing. Skin without rash. Neurologic examination is prepared nonfocal. The patient does have diffuse muscle weakness. - Labs CBC & Chem 7: 09/29/20 23:45 10/04/20 06:42 Labs: Abnormal Lab Results - Last 24 Hours (Table) 10/04/20 Range/Units 06:42 Sodium 135 L (137-145) mmol/L Glucose 65 L (74-99) mg/dL Calcium 7.7 L (8.4-10.2) mg/dL Microbiology - Last 24 Hours (Table) 10/01/20 11:20 Gram Stain - Preliminary Pleural Fluid Body Fluid Culture - Preliminary Assessment and Plan Plan: 1 Shortness of breath, secondary to bilateral pleural effusions, left greater than right, status post left-sided thoracentesis on 10/01/2020. The fluid from the left lung was most consistent with a transudate with a low LDH and a low protein. Echocardiogram showed moderate concentric LVH with an ejection fraction of 50-55%, there is mild aortic stenosis with a peak gradient of 20 and no evidence of any significant pulmonary hypertension or any other valvular ab normalities. 2 Recent small bowel surgery, secondary to bowel ischemia, currently on Eliquis. This was an embolic event as the patient had a acute mesenteric ischemia secondary to embolism and the patient is demented on long-term anticoagulation with Eliquis. 3 History of hypertension. 4 Hyperlipidemia by history. 5 History of depression. 6 Obesity. 7 COPD. 8 History of chronic tobacco dependence. 9 Hypothyroidism. 10 Hyponatremia, improved and recovered Plan: No immediate needs to do the right-sided thoracentesis of the amount of fluid a small She is headed towards a negative fluid balance and she is currently on oral Bumex 1 mg dq, and I would suggest increasing it up to twice a day as the patient continues to have swelling in lower extremities bilaterally Repeat chest x-ray in am is still in the hospital. There are plans to send the patient out to rehab [facility] Remove the triple-lumen catheter from the right IJ Try to set that up on a chair Provide an incentive spirometer The patient is only on 2 L about 2 by nasal cannula with a pulse of 99% No need for draining the right side of the lung at this point in time unless her condition changes.
--- NOTE | 2020-10-04 11:20 | P.PN ---
Subjective Patient is seen in follow-up for hyponatremia. Sodium level stable. She is maintained on oral Bumex. Edema improving. Nonoliguric. No vomiting or diarrhea. Hemodynamically stable. No active complaints Vital signs are stable. General: The patient appeared well nourished and normally developed. HEENT: Head exam is unremarkable. Neck is without jugular venous distension. LUNGS: Breath sounds decreased. HEART: Rate and Rhythm are regular. ABDOMEN: Soft, nontender. EXTREMITITES: 1+ edema. Objective - Vital Signs Vital signs: Vital Signs Temp 97.7 F 10/04/20 08:00 Pulse 97 10/04/20 08:00 Resp 20 10/04/20 08:00 BP 118/55 10/04/20 08:00 Pulse Ox 97 10/04/20 08:00 Intake & Output 10/03/20 10/04/20 10/04/20 18:59 06:59 18:59 Intake Total 1244 200 236 Output Total 1200 800 Balance 44 -600 236 Weight 91.5 kg Intake: Oral 1244 200 236 Output: Urine 1200 800 Other: Voiding Method Indwelling Catheter Indwelling Catheter Indwelling Catheter - Labs CBC & Chem 7: 09/29/20 23:45 10/04/20 06:42 Labs: Abnormal Lab Results - Last 24 Hours (Table) 10/04/20 Range/Units 06:42 Sodium 135 L (137-145) mmol/L Glucose 65 L (74-99) mg/dL Calcium 7.7 L (8.4-10.2) mg/dL Microbiology - Last 24 Hours (Table) 10/01/20 11:20 Gram Stain - Preliminary Pleural Fluid Body Fluid Culture - Preliminary Assessment and Plan Plan: Assessment: 1. Hypervolemic hyponatremia. Sodium level 135 today. Urine sodium 19 and urine osmolality 353. Cortisol level normal. TSH a little on the lower side. 2. Volume overload. Improving with diuresis. 3. Acute on chronic diastolic CHF. 4. Severe protein calorie malnutrition with albumin of 1.3. Status post IV albumin. Improved. 5. Hypocalcemia secondary to hypoalbuminemia. Corrected calcium normal. 6. Hypokalemia from diuresis. Magnesium normal. Improved post replacement. Plan: 1200 mL fluid restriction. Encouraged oral intake, especially protein. Added ensure 3 times a day. Maintain oral Bumex. Repeat electrolytes in the morning.
[2020-10-04] MEDS ORDERED: ONDANSETRON 4 MG/2 ML VIAL IVP PRN (12:35)
--- NOTE | 2020-10-04 13:09 | XR ---
EXAMINATION TYPE: XR KUB portable DATE OF EXAM: 10/04/2020 COMPARISON: 05/10/2020 HISTORY: 74-year-old female vomiting and abdominal pain FINDINGS: No dilated small bowel. Supine imaging limited for assessment of free air. There seems to be some pat ana density at the left base. A 1.5 cm calcification at the left mid abdomen. Mild overall stool natalya en. There are numerous rounded densities within the pelvis compatible with residual oral contrast mat erial outlining multiple sigmoid diverticula. Vascular calcifications in the pelvis. Some type of abn ormal density projects along the left lateral margin of the upper abdomen, suspect external artifact. IMPRESSION: 1. Nonobstructive bowel gas pattern. Mild stool burden. Extensive sigmoid diverticulosis is outlined by residual oral contrast material. 2. Some type of abnormal density projects along the left lateral margin of the upper abdomen, possibl e external artifact. Clinically correlate. 3. 1.5 cm left renal calculus. 4. Focal left basilar opacity, possible pleural effusion with adjacent atelectasis and/or consolidati on.
[2020-10-04 13:55] LABS: Anisocytosis Slight; Basophils % (A) 1 %; Eosinophils % (A) 1 %; HCT 31.6 % (34.0-46.0); HGB 9.9 gm/dL (11.4-16.0); Hypochromasia Slight; Lymphocytes # (A) 1.4 k/uL (1.0-4.8); Lymphocytes % (A) 31 %; MCH 30.3 pg (25.0-35.0); MCHC 31.2 g/dL (31.0-37.0); MCV 97.2 fL (80.0-100.0); Macrocytosis Slight; Mean Platelet Volume 9.2; Monocytes # (A) 0.3 k/uL (0-1.0); Monocytes % (A) 6 %; Neutrophils # (A) 2.7 k/uL (1.3-7.7); Neutrophils % (A) 61 %; Platelet Count 331 k/uL (150-450); RBC 3.25 m/uL (3.80-5.40); RDW 16.4 % (11.5-15.5); WBC 4.5 k/uL (3.8-10.6)
--- NOTE | 2020-10-04 16:10 | P.PN ---
Subjective Progress Note Date: 10/04/20 History of presenting complaint: This is a pleasant 74-year-old patient of Dr. Dorian Yan. Resident of [facility]. Chronic stable medical conditions include hypertension, hyperlipidemia, depression, hypothyroid. 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 -small bowel resection was carried out. Patient was then transferred out to [facility]. Patient thinks a blood clot was removed . Readmitted in August of this year, with acute cor pulmonale, uncontrolled hypothyroid. patient was sent in from the [facility] following patient having 1 or 2 loose stools a day. Poor appetite. Swelling up. Very weak and tired. Last time patient had walked was about 2 weeks ago. Appetite is rather poor. She is extremely tired. No fever no chills. Today-oral intake about 75-100% of the full liquid diet. Laying in.. Tired. 09/29/2020 Patient is seen and evaluated this morning with no acute overnight issues. Patient continues to eat very little although has been increasing according to per nursing staff. Patient was seen and evaluated by GI recommending continuing with Imodium and Questran as needed if diarrhea persists. Patient has been having less bowel movements per nursing staff and patient. Patient continues to be weak requiring assistance and unable to get up out of the bed with physical therapy today. Patient sodium was found to be 123 today and will be placed on fluid restrictions and given a dose of IV Lasix. Nephrology consulted and pending at this time. Patient continues to have bilateral upper and lower ext remity swelling and edema noted. 09/30/2020 Patient is seen this morning and had episodes of hypotension and cold bilateral lower extremities with significant edema noted and was given some fluid boluses with improvement in blood pressure although continues to be volume overload. Patient was maintained on Bumex along with Aldactone and will discontinue at this time. Nephrology consulted and following. Patient receiving a dose of albumin today. Pulmonary also consulted for possible thoracentesis for pleural effusions. Patient had chest ultrasound showing left greater than the right pleural effusions and was marked for possible thoracentesis. Cardiology also consulted and a 2-D echo ordered. Patient denies any further episodes of diarrhea and has not had a bowel movement today. Patient is urinating although appears concentrated and does have an indwelling Newell catheter. Continued bilateral upper and lower extremity swelling and edema is noted. Denies any worsening shortness of breath chest pain or palpitations. Patient is afebrile. 10/01/2020 Patient is seen this morning and nephrology along with pulmonary are following. Patient is maintained on IV Bumex and receiving another dose of albumin today. Sodium is improved at 132 and potassium 3.5 and will replace. Current creatinine is 0.51. Vital signs stable. Blood pressure on the lower side although maintaining. Patient had a chest x-ray this morning which is currently pending with the possibility of thoracentesis on the left side with pulmonary today. Patient swelling slowly improving of the lower extremities and output is adequate. Encouraged oral protein intake with fluid restriction to 1200 mL daily. Ensures added to meals. Patient is having some crampy gas-like pains in the lower abdomen and had a very small semi-formed bowel movement yesterday per nursing staff. She states she feels she needs to go but feels slightly constipated. Will add Senokot. 10/02/2020 Patient is seen this morning and continues to be closely monitored. Patient did undergo left-sided thoracentesis with pulmonary with removal of approximately 550 mL's of fluid that was sent and is currently pending. Patient is currently maintained on IV Bumex and nephrology following closely. Anticoagulant has been resumed. Chest x-ray today shows continued effusion on the right with no pneumothorax noted. Patient is currently on 3 L of oxygen via nasal cannula between 95 and 100%. Patient sodium has improved and is currently 137 with a potassium of 4.0, BUN is 14 and creatinine is 0.54. Magnesium is 1.9. Liver fu nctions trending down. Patient is having some right shoulder discomfort today but does have full range of motion and denies any recent injury or trauma noted. 10/03/2020 Patient is seen this morning in follow-up and is being closely monitored. Multiple medical consultations following including pulmonary and nephrology. Patient recently underwent thoracentesis and analysis of fluids is currently pending. Patient underwent repeat chest x-ray today showing minimal left small to moderate right pleural effusion which is stable. Patient is diuresing and we'll transition to oral Bumex. Patient is to continue with fluid restrictions of 1200 mL's and continue to encourage oral intake and will continue with ensures 3 times daily. Patient needs continued encouragement she continues to have no appetite. Sodium today is 136 with a potassium of 4.4 current creatinine is 0.51 and magnesium is 1.8. Patient continues to have low blood pressures and is being closely monitored. No reports of abdominal discomfort and patient denies a bowel movement today. 10/04/2020 Patient is seen and evaluated in follow-up this morning and states she is continued to be weak and is in pain requesting something for pain. Patient's have been ordered. Patient was seen and evaluated by pulmonary and recently underwent thoracentesis. Per nursing staff patient had an episode of a small amount of emesis with some abdominal pain and KUB x-ray was ordered showing nonobstructive bowel gas pattern with mild stool burden with extensive sigmoid diverticulosis with residual oral contrast noted, an abnormal density along the left lateral margin of the upper abdomen possibly artifact, continued left renal calculus, focal left basilar obesity possible pleural effusion with adjacent atelectasis and/or consolidation. Patient's oral intake continues to be poor and instructed patient to encourage meals and ensures between meals. Continue with bowel regimen. Will repeat labs and continue to monitor vital signs closely. Case management and social work following as patient will be returning to [facility] once stabilized and discharged. Review of systems: Constitutional: Reports fatigue, no reports of fever, or chills Cardiovascular: No reports of chest pain or palpitations Respiratory: No reports of shortness of breath or cough GI: No reports of nausea, vomiting, reports one episode of a small amount of emesis and mild abdominal discomfort : No reports of dysuria or retention, chronic indwelling Newell catheter Neurovascular: reports of weakness All medications have been reviewed Active Medications Acetaminophen (Acetaminophen Tab 325 Mg Tab) 650 mg PO Q4H PRN PRN Reason: Pain Last Admin: 10/04/20 02:42 Dose: 650 mg Documented by: Hydrocodone Bitart/Acetaminophen (Hydrocodone/Apap 5-325mg 1 Each Tab) 1 each PO Q6HR PRN PRN Reason: Pain Last Admin: 10/04/20 11:53 Dose: 1 each Documented by: Albuterol Sulfate (Albuterol Nebulized 2.5 Mg/3 Ml) 2.5 mg INHALATION RT-Q4H PRN PRN Reason: Shortness Of Breath Apixaban (Apixaban 5 Mg Tab) 5 mg PO BID [facility] Last Admin: 10/04/20 09:46 Dose: 5 mg Documented by: Aspirin (Aspirin 81 Mg) 81 mg PO DAILY [facility] Last Admin: 10/04/20 09:46 Dose: 81 mg Documented by: Atorvastatin Calcium (Atorvastatin 40 Mg Tab) 40 mg PO [facility] Last Admin: 10/03/20 20:05 Dose: 40 mg Documented by: Budesonide/Formoterol Fumarate (Symbicort 80-4.5 Mcg Inhaler) 2 puff INHALATION RT-BID [facility] Last Admin: 10/04/20 07:22 Dose: 2 puff Documented by: Bumetanide (Bumetanide 1 Mg Tab) 1 mg PO BID@0900,1600 [facility] Calcium Carbonate/Glycine (Calcium Carbonate 500 Mg Chewable) 500 mg PO DAILY [facility] Last Admin: 10/04/20 09:46 Dose: 500 mg Documented by: Cholecalciferol (Cholecalciferol 25 Mcg (1000 Iu) Tablet) 25 mcg PO BID [facility] Last Admin: 10/04/20 09:47 Dose: 25 mcg Documented by: Ferrous Sulfate (Ferrous Sulfate 325 Mg Tab) 325 mg PO DAILY [facility] Last Admin: 10/04/20 09:46 Dose: 325 mg Documented by: Gabapentin (Gabapentin 300 Mg Cap) 300 mg PO BID [facility] Last Admin: 10/04/20 09:47 Dose: 300 mg Documented by: Ipratropium [place] (Ipratropium 0.5 Mg/2.5 Ml Nebu) 0.5 mg INHALATION RT-Q6H PRN PRN Reason: Shortness Of Breath Levothyroxine Sodium (Levothyroxine 75 Mcg Tab) 150 mcg PO DAILY@0630 [facility] Last Admin: 10/04/20 06:29 Dose: 150 mcg Documented by: Loperamide HCl (Loperamide 2 Mg Cap) 2 mg PO QID PRN PRN Reason: Diarrhea Last Admin: 10/02/20 18:34 Dose: 2 mg Documented by: Magnesium Oxide (Magnesium Oxide 400 Mg Tab) 400 mg PO BID [facility] Last Admin: 10/04/20 09:47 Dose: 400 mg Documented by: Melatonin (Melatonin 5 Mg Tablet) 5 mg PO [facility] Last Admin: 10/03/20 20:05 Dose: 5 mg Documented by: Methocarbamol (Methocarbamol 500 Mg Tab) 500 mg PO Q6H PRN PRN Reason: Muscle Spasm Last Admin: 10/02/20 16:13 Dose: 500 mg Documented by: Multivitamins (Multivitamins, Thera 1 Each Tab) 1 each PO DAILY [facility] Last Admin: 10/04/20 09:47 Dose: 1 each Documented by: Ondansetron HCl (Ondansetron 4 Mg/2 Ml Vial) 4 mg IVP Q6HR PRN PRN Reason: Nausea And Vomiting Pantoprazole Sodium (Pantoprazole 40 Mg/10 Ml Vial) 40 mg IVP BID [facility] Potassium Chloride (Potassium Chloride Er 20 Meq Tab.Er) 20 meq PO DAILY [facility] Last Admin: 10/04/20 09:46 Dose: 20 meq Documented by: Prednisolone Acetate (Prednisolone Acetate 1% Ophth Drops 5 Ml Btl) 1 drops RIGHT EYE BID [facility] Last Admin: 10/04/20 09:49 Dose: 1 drops Documented by: Senna (Sennosides 8.6 Mg Tab) 8.6 mg PO DAILY [facility] Last Admin: 10/04/20 09:46 Dose: 8.6 mg Documented by: Simethicone (Simethicone 80 Mg Chewable) 80 mg PO Q8H PRN PRN Reason: GAS Venlafaxine HCl (Venlafaxine Hcl Er 37.5 Mg Cap) 37.5 mg PO DAILY [facility] Last Admin: 10/04/20 09:46 Dose: 37.5 mg Documented by: Venlafaxine HCl (Venlafaxine Hcl Er 150 Mg Cap) 150 mg PO DAILY [facility] Last Admin: 10/04/20 09:46 Dose: 150 mg Documented by: Objective - Vital Signs Vital signs: Vital Signs Temp 97.7 F 10/04/20 08:00 Pulse 97 10/04/20 08:00 Resp 20 10/04/20 08:00 BP 118/55 10/04/20 08:00 Pulse Ox 97 10/04/20 08:00 Intake & Output 10/03/20 10/04/20 10/04/20 18:59 06:59 18:59 Intake Total 1244 200 472 Output Total 1200 800 Balance 44 -600 472 Weight 91.5 kg Intake: Oral 1244 200 472 Output: Urine 1200 800 Other: Voiding Method Indwelling Catheter Indwelling Catheter Indwelling Catheter - Exam GENERAL:. BMI 37.9, laying in bed, awake, alert and oriented 3, pitting edema of lower extremities noted 2+, slightly improved from yesterday. Temp is 97.7F, pulse is 97, respirations are 20, blood pressure is 118/55, oxygen saturation is 97% on 1 L via nasal cannula EYES: Pupils equal. Conjunctiva pale. HEENT: External appearance of nose and ears normal, oral cavity grossly normal. NECK: JVD not raised; masses not palpable. HEART: S1, S2 are muffled LUNGS: Respiratory rate normal; diminished breath sounds bilaterally with some scattered rhonchi noted ABDOMEN: Soft, obese, mild tenderness noted of the lower left and right quadrant on exam, no guarding rigidity. PSYCH: Alert and oriented x3 MUSCULAR skeletal: Evidence of OA, moderate diffuse weakness - Labs CBC & Chem 7: 10/04/20 06:42 10/04/20 06:42 Labs: Abnormal Lab Results - Last 24 Hours (Table) 10/04/20 Range/Units 06:42 Sodium 135 L (137-145) mmol/L Glucose 65 L (74-99) mg/dL Calcium 7.7 L (8.4-10.2) mg/dL Microbiology - Last 24 Hours (Table) 10/01/20 11:20 Gram Stain - Preliminary Pleural Fluid Body Fluid Culture - Preliminary Assessment and Plan Assessment: -Acute medical debility following her small bowel surgery. Patient having intermittent diarrhea. Improved. -Bilateral pleural effusions as noted on CT status post left side thoracentesis -chronic cor pulmonale -Hyponatremia, improved -Hypothyroidism -Mild protein calorie malnutrition from decreased oral intake -Essential hypertension -Hyperlipidemia -Depression otherwise specified -obesity BMI 37.9 -Chronic Elevated right diaphragm-(SNIFF test was negative. No paradoxical movement noted.) -COPD in an ex-smoker Recommendations and discussion: Recurrent to continue current medications, management, and symptomatic amanda atment. Multiple medical consultations following. Patient is status post thoracentesis of the left side with approximately 500 mL's removed. Cultures from analysis currently pending. Patient has been transitioned to oral Bumex today. nephrology following closely. Will repeat a.m. labs. Encouraged increased oral intake. Ensures added for protein. Upper and lower extremity swelling has improved. No reported bowel movements lately and patient did have one episode of emesis and KUB was ordered showing some mild stool burden and will continue with bowel regimen. Zofran added. Due to multiple complex medical issues, prognosis is guarded. Further recommendations to follow. Case management also following as this patient will be returning to [facility] once stabilized and discharged. Possible discharge in 24-48 hours.
[2020-10-04] MEDS: BUMETANIDE 1 MG TAB PO SCH (16:55)
[2020-10-04 17:21] LABS: Amorphous Sediment,Urine Rare /hpf; Appearance,Urine Turbid (Clear); Bacteria,Urine Occasional /hpf; Bilirubin,Urine Negative (Negative); Blood,Urine Moderate (Negative); Calcium Oxalate Crystals,Urine Occasional /hpf; Color,Urine Yellow; Glucose,Urine (UA) Negative (Negative); Ketones,Urine Negative (Negative); Leukocyte Esterase,Urine Large (Negative); Mucus,Urine Rare /hpf; Nitrite,Urine Positive (Negative); PH, Urine 7.5 (5.0-8.0); Protein,Urine Negative (Negative); RBC,Urine >182 /hpf (0-5); Specific Gravity,Urine 1.011 (1.001-1.035); Squamous Epithelial Cell,Urine 2 /hpf (0-4); Urobilinogen,Urine <2.0 mg/dL (<2.0); WBC,Urine 70 /hpf (0-5)
[2020-10-04] MEDS: ATORVASTATIN 40 MG TAB PO SCH (20:38)
[2020-10-04] MEDS: MELATONIN 5 MG TABLET PO SCH (20:38)
[2020-10-04] MEDS: PANTOPRAZOLE 40 MG/10 ML VIAL IVP SCH (20:39)
[2020-10-05 06:03] LABS: Glucose,Whole Blood 62 mg/dL (75-99)
[2020-10-05 06:19] LABS: Glucose,Whole Blood 56 mg/dL (75-99)
[2020-10-05] MEDS: LEVOTHYROXINE 75 MCG TAB PO SCH (06:20)
[2020-10-05 06:49] LABS: Glucose,Whole Blood 63 mg/dL (75-99)
[2020-10-05 06:51] LABS: Glucose,Whole Blood 76 mg/dL (75-99)
[2020-10-05] MEDS: SYMBICORT 80-4.5 MCG INHALER INHALATION SCH ×2 (08:16→19:12)
[2020-10-05 08:31] LABS: Anisocytosis Slight; HCT 29.9 % (34.0-46.0); HGB 9.6 gm/dL (11.4-16.0); MCH 30.7 pg (25.0-35.0); MCHC 32.2 g/dL (31.0-37.0); MCV 95.3 fL (80.0-100.0); Platelet Count 347 k/uL (150-450); RBC 3.14 m/uL (3.80-5.40); RDW 16.3 % (11.5-15.5); WBC 5.9 k/uL (3.8-10.6)
[2020-10-05 08:40] LABS: African American GFR (CKD) >90 (>60 ml/min/1.73 sqM); Anion Gap 4 mmol/L; Blood Urea Nitrogen 18 mg/dL (7-17); Calcium 7.6 mg/dL (8.4-10.2); Carbon Dioxide 28 mmol/L (22-30); Chloride 105 mmol/L (98-107); Glucose 95 mg/dL (74-99); Magnesium 1.9 mg/dL (1.6-2.3); Non-African American GFR(CKD) 89 (>60 ml/min/1.73 sqM); Potassium 4.4 mmol/L (3.5-5.1); Sodium 137 mmol/L (137-145)
[2020-10-05] MEDS: CALCIUM CARBONATE 500 MG CHEWABLE PO SCH (09:04)
[2020-10-05] MEDS: ASPIRIN 81 MG PO SCH (09:04)
[2020-10-05] MEDS: APIXABAN 5 MG TAB PO SCH ×2 (09:04→20:14)
[2020-10-05] MEDS: BUMETANIDE 1 MG TAB PO SCH ×2 (09:04→15:24)
[2020-10-05] MEDS: SENNOSIDES 8.6 MG TAB PO SCH (09:05)
[2020-10-05] MEDS: VENLAFAXINE HCL ER 150 MG CAP PO SCH (09:05)
[2020-10-05] MEDS: GABAPENTIN 300 MG CAP PO SCH ×2 (09:05→20:14)
[2020-10-05] MEDS: VENLAFAXINE HCL ER 37.5 MG CAP PO SCH (09:05)
[2020-10-05] MEDS: PANTOPRAZOLE 40 MG/10 ML VIAL IVP SCH ×2 (09:06→20:14)
[2020-10-05] MEDS: HYDROcodone/APAP 5-325MG 1 EACH TAB PO PRN ×3 (09:23→22:22)
--- NOTE | 2020-10-05 10:57 | P.PN ---
Subjective Progress Note Date: 10/05/20 This is a 74-year-old female patient who follows with Dr. Yan as her primary care provider. She is currently residing in an extended care facility. She has a history of hypothyroidism, hypertension, hyperlipidemia, depression, recent small bowel ischemia with bowel resection at [facility]. She is residing in a [facility] and was brought in on 09/27/2020 for complaints of generalized weakness, loose stools, poor appetite. CAT scan of the abdomen revealed fatty infiltration of the liver, unchanged. Mild abdominal ascites, unchanged periods sigmoid diverticulosis without diverticulitis. Rectal fecal impaction which was new. Large nonobstructing left renal calculus. Bilateral pleural effusions were noted and we were consulted for the same. An ultrasound of the chest was ordered. There is a small right-sided pleural effusion measuring 2.9 cm. A larger left pleural effusion measuring 8.3 cm. The patient has been anticoagulated on Eliquis which will be placed on hold. Possible thoracentesis tomorrow. She is seen today in consultation on the regular medical floor. Currently resting flat in bed. Awake and alert in no acute distress. Continue O2 saturations in the high 90s on 2 L/m per nasal cannula. She's afebrile. White count 4.3. Hemoglobin 9.8. Sodium 125. Potassium 3.9. Creatinine 0.56. ProBNP 513. Urine osmolality 353. Coronavirus not detected. She is continued on IV diuretics, albuterol, Symbicort. Albumin has been ordered. Nephrology and GI services are on the case. Progress note dated 10/01/2020. This is a 74-year-old female, who sees Dr. Yan as a primary. She currently resides in an extended care facility. She has a history of hypothyroidism, essential hypertension, hyperlipidemia, depression, recent small bowel ischemia, with bowel resection at [facility]. She is brought into the emergency department from the jail on 09/27/2020, for complaints of generalized weakness, loose stools, and poor appetite. We were consulted because there is evidence of effusions, and today, we did a left-sided thoracentesis, and removed 550 mL of thin yellow fluid. It looks like heart failure fluid honestly but, the specimens were sent for evaluation. She tolerated the procedure well. The effusion on the right side was relatively small. Current laboratory data includes a sodium 132, potassium 3.5, chlorides 102, CO2 28, anion gap 2, BUN 17, and creatinine 0.51. TSH is 0.234 and free T4 is 3.46. Cortisol level was 8. The fluid had 104 RBCs, 65 nucleated cells, 4 PMNs, and 96 mononuclear cells. Post thoracentesis chest x-ray showed no pneumothorax, and a persistent small to moderate sized right pleural effusion. The left-sided pleural effusion is much improved. On today's evaluation of the 2020 the patient is being seen for a follow-up. As mentioned earlier, the patient has recent history of small bowel ischemia with bowel resection and the patient also has history of hypothyroidism hyp ertension and hyperlipidemia history of depression. The patient was in an extended care facility. She was having generalized weakness, loose stools and poor appetite. CAT scan of the abdomen revealed fatty infiltration of the liver and mild abdominal ascites and some sigmoid diverticulosis without diverticulitis. She also had rectal fecal impaction. There was large nonobstructing left renal calculus. Bilateral pleural effusion was also seen. The largest was on the left for which a thoracentesis was done and the fluid turned out to be a transudate with a very low fluid protein of 0.3 and the LDH was 48 and the cell count was also low at 65 WBCs. Post thoracentesis, the left-sided pleural effusion had a much diminished in size and there was still some right-sided pleural effusion present. The thyroid function tests were abnormal with a TSH of 0.234 and a TSH of 3.46 consistent with hyper thyroidism. LFTs are slightly abnormal with an AST of 104, ALT of 37 alk phos of 249 and a bilirubin of 1.2. On 10/03/2020, seeing the patient for a follow-up. 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 She did have some mild abdominal ascites and diverticulosis without diverticulitis. She also had a nonobstructive left renal calculus. She was found to have bilateral pleural effusion and oriented of draining the left-sided pleural effusion which improved the patient's overall pulmonary status and the fluid was essentially she has this. There is some residual right-sided pleural effusion for now. Her echocardiogram at shown a preserved LV function and the patient does not have any LV dysfunction. This was a limited echocardiogram that was done on 10/02/2020 and the patient a moderate pulmonary hypertension and ejection fraction of 55%. For now, the patient is on oxygen at 2 L per minute nasal cannula with a pulse ox of 99%. Her chest x-ray from 10/01/2020 showed a small to moderate-sized right-sided pleural effusion. Left-sided pleural effusion was adequately drained. The patient is on Bumex 1 mg and this has been switched to by mouth twice a day. She is on long-term articulation with Eliquis 5 mg by mouth twice a day. She is also on aspirin. No new complaints otherwise for now. In terms of her blood work, the patient has a BUN of 14 with a creatinine of 0.5. Sodium is at 136. On 10/04/2020, patient is being seen for a follow-up. She is resting comfortably in bed. Follow-up chest x-ray from yesterday showed a moderate- sized right-sided pleural effusion. She is post thoracentesis of the left lung. No effusion on the left as seen on the last chest x-ray. The patient is a negative fluid balance of 2.7 L negative for yesterday and she is headed towards a negative balance for today. He is on Bumex and she is receiving Bumex 1 mg by mouth twice a day. She is on anticoagulation with Eliquis 5 mg by mouth twice a day. She denies chest liters per minute nasal cannula. No worsening shortness of breath. She is diuresing well. The rest of the blood work and electrolytes from today are all within normal limits. Sodium is at 135 with potassium level of 4.7 and Lupe 15 and creatinine of 0.5. She is post bowel surgery for ischemia. On 10/05/2020, the patient is on room air oxygen. Pulse ox is 95% on room air oxygen. She is on Bumex 1 mg by mouth twice a day. Fluid balance has been negative and the patient's weight is down to 87 kg on today's evaluation. No respiratory distress. Her electrolytes show a sodium level of 137 with a potassium of 4.4. BUN and creatinine are both stable 18 and 0.65 respectively and the patient has no significant hypotension. BP is under good control. She is working with physical therapy for now. Objective - Vital Signs Vital signs: Vital Signs Temp 98 F 10/05/20 08:00 Pulse 103 H 10/05/20 08:00 Resp 16 10/05/20 08:00 BP 123/71 10/05/20 08:00 Pulse Ox 91 L 10/05/20 08:00 Intake & Output 10/04/20 10/05/20 10/05/20 18:59 06:59 18:59 Intake Total 944 50 120 Output Total 400 550 Balance 544 -500 120 Weight 87.5 kg Intake: Intake, IV Titration 50 Amount cefTRIAXone 1 gm In 50 Sodium Chloride 0.9% 50 ml @ 100 mls/hr IVPB Q24H [facility] Rx#:[id number] Oral 944 120 Output: Urine 400 550 Other: Voiding Method Indwelling Catheter Indwelling Catheter Indwelling Catheter # Bowel Movements 1 - Exam No acute distress, currently on her oxygen is on room air. No conversational dyspnea, or use of accessory muscles. HEENT examination is grossly unremarkable. Membranes are moist. Neck supple. Full range of motion. No adenopathy or thyromegaly. Neck veins are flat. Cardiovascular examination reveals regular rhythm rate. S1-S2 normal. No S3-S4 or murmur. Pulmonary examination reveals some basilar rhonchi and crackles. Dullness at the bases, more so on the left side than on the right. Abdomen soft. Bowel sounds are heard. No masses or tenderness noted. Extremities are intact. No edema. No cyanosis or clubbing. Skin without rash. Neurologic examination is prepared nonfocal. The patient does have diffuse muscle weakness. - Labs CBC & Chem 7: 10/05/20 08:07 10/05/20 08:07 Labs: Abnormal Lab Results - Last 24 Hours (Table) 10/04/20 10/04/20 10/05/20 Range/Units 06:42 16:00 05:59 RBC 3.25 L (3.80-5.40) m/uL Hgb 9.9 L (11.4-16.0) gm/dL Hct 31.6 L (34.0-46.0) % RDW 16.4 H (11.5-15.5) % BUN (7-17) mg/dL POC Glucose (mg/dL) 62 L (75-99) mg/dL Calcium (8.4-10.2) mg/dL Urine Appearance Turbid H (Clear) Urine Blood Moderate H (Negative) Urine Nitrite Positive H (Negative) Ur Leukocyte Esterase Large H (Negative) Urine RBC >182 H (0-5) /hpf Urine WBC 70 H (0-5) /hpf Urine WBC Clumps Occasional H (None) /hpf Calcium Oxalate Crystal Occasional H (None) /hpf Amorphous Sediment Rare H (None) /hpf Urine Bacteria Occasional H (None) /hpf Urine Mucus Rare H (None) /hpf 10/05/20 10/05/20 10/05/20 Range/Units 06:17 06:32 08:07 RBC (3.80-5.40) m/uL Hgb (11.4-16.0) gm/dL Hct (34.0-46.0) % RDW (11.5-15.5) % BUN 18 H (7-17) mg/dL POC Glucose (mg/dL) 56 L 63 L (75-99) mg/dL Calcium 7.6 L (8.4-10.2) mg/dL Urine Appearance (Clear) Urine Blood (Negative) Urine Nitrite (Negative) Ur Leukocyte Esterase (Negative) Urine RBC (0-5) /hpf Urine WBC (0-5) /hpf Urine WBC Clumps (None) /hpf Calcium Oxalate Crystal (None) /hpf Amorphous Sediment (None) /hpf Urine Bacteria (None) /hpf Urine Mucus (None) /hpf 10/05/20 Range/Units 08:07 RBC 3.14 L (3.80-5.40) m/uL Hgb 9.6 L (11.4-16.0) gm/dL Hct 29.9 L (34.0-46.0) % RDW 16.3 H (11.5-15.5) % BUN (7-17) mg/dL POC Glucose (mg/dL) (75-99) mg/dL Calcium (8.4-10.2) mg/dL Urine Appearance (Clear) Urine Blood (Negative) Urine Nitrite (Negative) Ur Leukocyte Esterase (Negative) Urine RBC (0-5) /hpf Urine WBC (0-5) /hpf Urine WBC Clumps (None) /hpf Calcium Oxalate Crystal (None) /hpf Amorphous Sediment (None) /hpf Urine Bacteria (None) /hpf Urine Mucus (None) /hpf Microbiology - Last 24 Hours (Table) 10/04/20 16:00 Urine Culture - Preliminary Urine,Voided 10/01/20 11:20 Gram Stain - Preliminary Pleural Fluid Body Fluid Culture - Preliminary Assessment and Plan Plan: 1 Shortness of breath, secondary to bilateral pleural effusions, left greater than right, status post left-sided thoracentesis on 10/01/2020. The fluid from the left lung was most consistent with a transudate with a low LDH and a low protein. Echocardiogram showed moderate concentric LVH with an ejection fraction of 50-55%, there is mild aortic stenosis with a peak gradient of 20 and no evidence of any significant pulmonary hypertension or any other valvular abnormalities. 2 Recent small bowel surgery, secondary to bowel ischemia, currently on Eliquis. This was an embolic event as the patient had a acute mesenteric ischemia secondary to embolism and the patient is demented on long-term anticoagulation with Eliquis. 3 History of hypertension. 4 Hyperlipidemia by history. 5 History of depression. 6 Obesity. 7 COPD. 8 History of chronic tobacco dependence. 9 Hypothyroidism. 10 Hyponatremia, improved and recovered 11 bilateral pleural effusion postthoracentesis on the left and the residual effusion on the right Plan: Continue Bumex daily Monitor the fluid balance in the right-sided pleural effusion Remove the triple-lumen catheter in her right IJ She was able to sit up on a chair today Currently on room air oxygen Incentive spirometer We'll follow
[2020-10-05] MEDS: prednisoLONE ACETATE 1% OPHTH DROPS 5 ML BTL RIGHT EYE SCH ×2 (11:07→20:14)
[2020-10-05] MEDS: FERROUS SULFATE 325 MG TAB PO SCH (11:08)
[2020-10-05] MEDS: MULTIVITAMINS, THERA 1 EACH TAB PO SCH (11:08)
[2020-10-05] MEDS: POTASSIUM CHLORIDE ER 20 MEQ TAB.ER PO SCH (11:08)
[2020-10-05] MEDS: CHOLECALCIFEROL 25 MCG (1000 IU) TABLET PO SCH ×2 (11:08→20:14)
[2020-10-05] MEDS: MAGNESIUM OXIDE 400 MG TAB PO SCH ×2 (11:08→20:14)
--- NOTE | 2020-10-05 11:42 | P.PN ---
Subjective Patient is seen in follow-up for hyponatremia. Sodium level stable. She is maintained on oral Bumex. Edema improving. Nonoliguric. No vomiting or diarrhea. Hemodynamically stable. No active complaints. No changes overnight. Vital signs are stable. General: The patient appeared well nourished and normally developed. HEENT: Head exam is unremarkable. Neck is without jugular venous distension. LUNGS: Breath sounds decreased. HEART: Rate and Rhythm are regular. ABDOMEN: Soft, nontender. EXTREMITITES: 1+ edema. Objective - Vital Signs Vital signs: Vital Signs Temp 97.5 F L 10/05/20 11:03 Pulse 99 10/05/20 11:03 Resp 16 10/05/20 11:03 BP 113/68 10/05/20 11:03 Pulse Ox 96 10/05/20 11:03 Intake & Output 10/04/20 10/05/20 10/05/20 18:59 06:59 18:59 Intake Total 944 50 120 Output Total 400 550 Balance 544 -500 120 Weight 87.5 kg Intake: Intake, IV Titration 50 Amount cefTRIAXone 1 gm In 50 Sodium Chloride 0.9% 50 ml @ 100 mls/hr IVPB Q24H [facility] Rx#:[id number] Oral 944 120 Output: Urine 400 550 Other: Voiding Method Indwelling Catheter Indwelling Catheter Indwelling Catheter # Bowel Movements 1 - Labs CBC & Chem 7: 10/05/20 08:07 10/05/20 08:07 Labs: Abnormal Lab Results - Last 24 Hours (Table) 10/04/20 10/04/20 10/05/20 Range/Units 06:42 16:00 05:59 RBC 3.25 L (3.80-5.40) m/uL Hgb 9.9 L (11.4-16.0) gm/dL Hct 31.6 L (34.0-46.0) % RDW 16.4 H (11.5-15.5) % BUN (7-17) mg/dL POC Glucose (mg/dL) 62 L (75-99) mg/dL Calcium (8.4-10.2) mg/dL Urine Appearance Turbid H (Clear) Urine Blood Moderate H (Negative) Urine Nitrite Positive H (Negative) Ur Leukocyte Esterase Large H (Negative) Urine RBC >182 H (0-5) /hpf Urine WBC 70 H (0-5) /hpf Urine WBC Clumps Occasional H (None) /hpf Calcium Oxalate Crystal Occasional H (None) /hpf Amorphous Sediment Rare H (None) /hpf Urine Bacteria Occasional H (None) /hpf Urine Mucus Rare H (None) /hpf 10/05/20 10/05/20 10/05/20 Range/Units 06:17 06:32 08:07 RBC (3.80-5.40) m/uL Hgb (11.4-16.0) gm/dL Hct (34.0-46.0) % RDW (11.5-15.5) % BUN 18 H (7-17) mg/dL POC Glucose (mg/dL) 56 L 63 L (75-99) mg/dL Calcium 7.6 L (8.4-10.2) mg/dL Urine Appearance (Clear) Urine Blood (Negative) Urine Nitrite (Negative) Ur Leukocyte Esterase (Negative) Urine RBC (0-5) /hpf Urine WBC (0-5) /hpf Urine WBC Clumps (None) /hpf Calcium Oxalate Crystal (None) /hpf Amorphous Sediment (None) /hpf Urine Bacteria (None) /hpf Urine Mucus (None) /hpf 10/05/20 Range/Units 08:07 RBC 3.14 L (3.80-5.40) m/uL Hgb 9.6 L (11.4-16.0) gm/dL Hct 29.9 L (34.0-46.0) % RDW 16.3 H (11.5-15.5) % BUN (7-17) mg/dL POC Glucose (mg/dL) (75-99) mg/dL Calcium (8.4-10.2) mg/dL Urine Appearance (Clear) Urine Blood (Negative) Urine Nitrite (Negative) Ur Leukocyte Esterase (Negative) Urine RBC (0-5) /hpf Urine WBC (0-5) /hpf Urine WBC Clumps (None) /hpf Calcium Oxalate Crystal (None) /hpf Amorphous Sediment (None) /hpf Urine Bacteria (None) /hpf Urine Mucus (None) /hpf Microbiology - Last 24 Hours (Table) 10/04/20 16:00 Urine Culture - Preliminary Urine,Voided 10/01/20 11:20 Gram Stain - Preliminary Pleural Fluid Body Fluid Culture - Preliminary Assessment and Plan Plan: Assessment: 1. Hypervolemic hyponatremia. Sodium level 137 today. Urine sodium 19 and urine osmolality 353. Cortisol level normal. TSH a little on the lower side. 2. Volume overload. Improving with diuresis. 3. Acute on chronic diastolic CHF. 4. Severe protein calorie malnutrition with albumin of 1.3. Status post IV albumin. Improved. 5. Hypocalcemia secondary to hypoalbuminemia. Corrected calcium normal. 6. Hypokalemia from diuresis. Magnesium normal. Improved post replacement. Plan: 1200 mL fluid restriction. Encouraged oral intake, especially protein. Added ensure 3 times a day. Maintain oral Bumex. Repeat electrolytes in the morning. No changes from nephrology standpoint.
[2020-10-05 12:00] LABS: Glucose,Whole Blood 104 mg/dL (75-99)
--- NOTE | 2020-10-05 15:17 | P.PN ---
Subjective Progress Note Date: 10/05/20 History of presenting complaint: This is a pleasant 74-year-old patient of Dr. Dorian Yan. Resident of [facility]. Chronic stable medical conditions include hypertension, hyperlipidemia, depression, hypothyroid. 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 -small bowel resection was carried out. Patient was then transferred out to [facility]. Patient thinks a blood clot was removed . Readmitted in August of this year, with acute cor pulmonale, uncontrolled hypothyroid. patient was sent in from the [facility] following patient having 1 or 2 loose stools a day. Poor appetite. Swelling up. Very weak and tired. Last time patient had walked was about 2 weeks ago. Appetite is rather poor. She is extremely tired. No fever no chills. Today-oral intake about 75-100% of the full liquid diet. Laying in.. Tired. 09/29/2020 Patient is seen and evaluated this morning with no acute overnight issues. Patient continues to eat very little although has been increasing according to per nursing staff. Patient was seen and evaluated by GI recommending continuing with Imodium and Questran as needed if diarrhea persists. Patient has been having less bowel movements per nursing staff and patient. Patient continues to be weak requiring assistance and unable to get up out of the bed with physical therapy today. Patient sodium was found to be 123 today and will be placed on fluid restrictions and given a dose of IV Lasix. Nephrology consulted and pending at this time. Patient continues to have bilateral upper and lower ext remity swelling and edema noted. 09/30/2020 Patient is seen this morning and had episodes of hypotension and cold bilateral lower extremities with significant edema noted and was given some fluid boluses with improvement in blood pressure although continues to be volume overload. Patient was maintained on Bumex along with Aldactone and will discontinue at this time. Nephrology consulted and following. Patient receiving a dose of albumin today. Pulmonary also consulted for possible thoracentesis for pleural effusions. Patient had chest ultrasound showing left greater than the right pleural effusions and was marked for possible thoracentesis. Cardiology also consulted and a 2-D echo ordered. Patient denies any further episodes of diarrhea and has not had a bowel movement today. Patient is urinating although appears concentrated and does have an indwelling Newell catheter. Continued bilateral upper and lower extremity swelling and edema is noted. Denies any worsening shortness of breath chest pain or palpitations. Patient is afebrile. 10/01/2020 Patient is seen this morning and nephrology along with pulmonary are following. Patient is maintained on IV Bumex and receiving another dose of albumin today. Sodium is improved at 132 and potassium 3.5 and will replace. Current creatinine is 0.51. Vital signs stable. Blood pressure on the lower side although maintaining. Patient had a chest x-ray this morning which is currently pending with the possibility of thoracentesis on the left side with pulmonary today. Patient swelling slowly improving of the lower extremities and output is adequate. Encouraged oral protein intake with fluid restriction to 1200 mL daily. Ensures added to meals. Patient is having some crampy gas-like pains in the lower abdomen and had a very small semi-formed bowel movement yesterday per nursing staff. She states she feels she needs to go but feels slightly constipated. Will add Senokot. 10/02/2020 Patient is seen this morning and continues to be closely monitored. Patient did undergo left-sided thoracentesis with pulmonary with removal of approximately 550 mL's of fluid that was sent and is currently pending. Patient is currently maintained on IV Bumex and nephrology following closely. Anticoagulant has been resumed. Chest x-ray today shows continued effusion on the right with no pneumothorax noted. Patient is currently on 3 L of oxygen via nasal cannula between 95 and 100%. Patient sodium has improved and is currently 137 with a potassium of 4.0, BUN is 14 and creatinine is 0.54. Magnesium is 1.9. Liver fu nctions trending down. Patient is having some right shoulder discomfort today but does have full range of motion and denies any recent injury or trauma noted. 10/03/2020 Patient is seen this morning in follow-up and is being closely monitored. Multiple medical consultations following including pulmonary and nephrology. Patient recently underwent thoracentesis and analysis of fluids is currently pending. Patient underwent repeat chest x-ray today showing minimal left small to moderate right pleural effusion which is stable. Patient is diuresing and we'll transition to oral Bumex. Patient is to continue with fluid restrictions of 1200 mL's and continue to encourage oral intake and will continue with ensures 3 times daily. Patient needs continued encouragement she continues to have no appetite. Sodium today is 136 with a potassium of 4.4 current creatinine is 0.51 and magnesium is 1.8. Patient continues to have low blood pressures and is being closely monitored. No reports of abdominal discomfort and patient denies a bowel movement today. 10/04/2020 Patient is seen and evaluated in follow-up this morning and states she is continued to be weak and is in pain requesting something for pain. Patient's have been ordered. Patient was seen and evaluated by pulmonary and recently underwent thoracentesis. Per nursing staff patient had an episode of a small amount of emesis with some abdominal pain and KUB x-ray was ordered showing nonobstructive bowel gas pattern with mild stool burden with extensive sigmoid diverticulosis with residual oral contrast noted, an abnormal density along the left lateral margin of the upper abdomen possibly artifact, continued left renal calculus, focal left basilar obesity possible pleural effusion with adjacent atelectasis and/or consolidation. Patient's oral intake continues to be poor and instructed patient to encourage meals and ensures between meals. Continue with bowel regimen. Will repeat labs and continue to monitor vital signs closely. Case management and social work following as patient will be returning to [facility] once stabilized and discharged. 10/05/2020 Patient is seen and evaluated this morning and follow-up and continues to be quite weak although is willing and has been working with physical therapy. Patient is a 3 person assist. Patient's urine cultures continue to be pending right now and patient is maintained on IV ceftriaxone as urinalysis showed moderate blood, positive nitrates, large leukocytes. Hemoglobin is stable at 9.6 with no active bleeding noted. White blood count is 5.9. Patient is afebrile. Sodium is improved at 137 with a potassium of 4.4 and current crea tinine is 0.65. Had multiple episodes of low blood sugars and will continue to monitor Accu-Cheks before meals and at bedtime. Patient encouraged to increase oral intake as she has not been eating very well at all. Patient has no appetite and continues to have intermittent abdominal discomfort and feelings of constipation. Continue with bowel regimen. Will repeat a.m. labs and continue to monitor closely. Review of systems: Constitutional: Reports fatigue, no reports of fever, or chills Cardiovascular: No reports of chest pain or palpitations Respiratory: No reports of shortness of breath or cough GI: No reports of nausea, vomiting, reports one episode of emesis again this morning and mild abdominal discomfort, reports feelings of constipation : No reports of dysuria or retention, chronic indwelling Newell catheter Neurovascular: reports of weakness All medications have been reviewed Active Medications Acetaminophen (Acetaminophen Tab 325 Mg Tab) 650 mg PO Q4H PRN PRN Reason: Pain Last Admin: 10/04/20 02:42 Dose: 650 mg Documented by: Hydrocodone Bitart/Acetaminophen (Hydrocodone/Apap 5-325mg 1 Each Tab) 1 each PO Q6HR PRN PRN Reason: Pain Last Admin: 10/05/20 09:23 Dose: 1 each Documented by: Albuterol Sulfate (Albuterol Nebulized 2.5 Mg/3 Ml) 2.5 mg INHALATION RT-Q4H PRN PRN Reason: Shortness Of Breath Apixaban (Apixaban 5 Mg Tab) 5 mg PO BID [facility] Last Admin: 10/05/20 09:04 Dose: 5 mg Documented by: Aspirin (Aspirin 81 Mg) 81 mg PO DAILY [facility] Last Admin: 10/05/20 09:04 Dose: 81 mg Documented by: Atorvastatin Calcium (Atorvastatin 40 Mg Tab) 40 mg PO HS [facility] Last Admin: 10/04/20 20:38 Dose: 40 mg Documented by: Budesonide/Formoterol Fumarate (Symbicort 80-4.5 Mcg Inhaler) 2 puff INHALATION RT-BID [facility] Last Admin: 10/05/20 08:16 Dose: 2 puff Documented by: Bumetanide (Bumetanide 1 Mg Tab) 1 mg PO BID@0900,1600 [facility] Last Admin: 10/05/20 09:04 Dose: 1 mg Documented by: Calcium Carbonate/Glycine (Calcium Carbonate 500 Mg Chewable) 500 mg PO DAILY [facility] Last Admin: 10/05/20 09:04 Dose: 500 mg Documented by: Cholecalciferol (Cholecalciferol 25 Mcg (1000 Iu) Tablet) 25 mcg PO BID [facility] Last Admin: 10/05/20 11:08 Dose: 25 mcg Documented by: Ferrous Sulfate (Ferrous Sulfate 325 Mg Tab) 325 mg PO DAILY [facility] Last Admin: 10/05/20 11:08 Dose: 325 mg Documented by: Gabapentin (Gabapentin 300 Mg Cap) 300 mg PO BID [facility] Last Admin: 10/05/20 09:05 Dose: 300 mg Documented by: Ceftriaxone Sodium 1 gm/ (Sodium Chloride) 50 mls @ 100 mls/hr IVPB Q24H [facility] Last Admin: 10/04/20 20:39 Dose: 100 mls/hr Documented by: Ipratropium [place] (Ipratropium 0.5 Mg/2.5 Ml Nebu) 0.5 mg INHALATION RT-Q6H PRN PRN Reason: Shortness Of Breath Levothyroxine Sodium (Levothyroxine 75 Mcg Tab) 150 mcg PO DAILY@0630 [facility] Last Admin: 10/05/20 06:20 Dose: 150 mcg Documented by: Loperamide HCl (Loperamide 2 Mg Cap) 2 mg PO QID PRN PRN Reason: Diarrhea Last Admin: 10/02/20 18:34 Dose: 2 mg Documented by: Magnesium Oxide (Magnesium Oxide 400 Mg Tab) 400 mg PO BID [facility] Last Admin: 10/05/20 11:08 Dose: 400 mg Documented by: Melatonin (Melatonin 5 Mg Tablet) 5 mg PO HS [facility] Last Admin: 10/04/20 20:38 Dose: 5 mg Documented by: Methocarbamol (Methocarbamol 500 Mg Tab) 500 mg PO Q6H PRN PRN Reason: Muscle Spasm Last Admin: 10/02/20 16:13 Dose: 500 mg Documented by: Multivitamins (Multivitamins, Thera 1 Each Tab) 1 each PO DAILY [facility] Last Admin: 10/05/20 11:08 Dose: 1 each Documented by: Ondansetron HCl (Ondansetron 4 Mg/2 Ml Vial) 4 mg IVP Q6HR PRN PRN Reason: Nausea And Vomiting Last Admin: 10/05/20 09:06 Dose: 4 mg Documented by: Pantoprazole Sodium (Pantoprazole 40 Mg/10 Ml Vial) 40 mg IVP BID [facility] Last Admin: 10/05/20 09:06 Dose: 40 mg Documented by: Potassium Chloride (Potassium Chloride Er 20 Meq Tab.Er) 20 meq PO DAILY [facility] Last Admin: 10/05/20 11:08 Dose: 20 meq Documented by: Prednisolone Acetate (Prednisolone Acetate 1% Ophth Drops 5 Ml Btl) 1 drops RIGHT EYE BID [facility] Last Admin: 10/05/20 11:07 Dose: 1 drops Documented by: Senna (Sennosides 8.6 Mg Tab) 8.6 mg PO DAILY [facility] Last Admin: 10/05/20 09:05 Dose: 8.6 mg Documented by: Simethicone (Simethicone 80 Mg Chewable) 80 mg PO Q8H PRN PRN Reason: GAS Venlafaxine HCl (Venlafaxine Hcl Er 37.5 Mg Cap) 37.5 mg PO DAILY [facility] Last Admin: 10/05/20 09:05 Dose: 37.5 mg Documented by: Venlafaxine HCl (Venlafaxine Hcl Er 150 Mg Cap) 150 mg PO DAILY [facility] Last Admin: 10/05/20 09:05 Dose: 150 mg Documented by: Objective - Vital Signs Vital signs: Vital Signs Temp 97.5 F L 10/05/20 11:03 Pulse 99 10/05/20 11:03 Resp 16 10/05/20 11:03 BP 113/68 10/05/20 11:03 Pulse Ox 96 10/05/20 11:03 Intake & Output 10/04/20 10/05/20 10/05/20 18:59 06:59 18:59 Intake Total 944 50 120 Output Total 400 550 Balance 544 -500 120 Weight 87.5 kg Intake: Intake, IV Titration 50 Amount cefTRIAXone 1 gm In 50 Sodium Chloride 0.9% 50 ml @ 100 mls/hr IVPB Q24H [facility] Rx#:[id number] Oral 944 120 Output: Urine 400 550 Other: Voiding Method Indwelling Catheter Indwelling Catheter Indwelling Catheter # Bowel Movements 1 - Exam GENERAL:. BMI 37.9, laying in bed, awake, alert and oriented 3, pitting edema of lower extremities noted 2+, slightly improved from yesterday. Temp is 98.0F, pulse is 103, respirations are 16, blood pressure is 123/71, oxygen saturation is 96% on room air EYES: Pupils equal. Conjunctiva pale. HEENT: External appearance of nose and ears normal, oral cavity grossly normal. NECK: JVD not raised; masses not palpable. HEART: S1, S2 are muffled LUNGS: Respiratory rate normal; diminished breath sounds bilaterally with some scattered rhonchi noted ABDOMEN: Soft, obese, mild tenderness noted of the lower left and right quadrant on exam, no guarding rigidity. PSYCH: Alert and oriented x3 MUSCULAR skeletal: Evidence of OA, moderate diffuse weakness - Labs CBC & Chem 7: 10/05/20 08:07 10/05/20 08:07 Labs: Abnormal Lab Results - Last 24 Hours (Table) 10/04/20 10/04/20 10/05/20 Range/Units 06:42 16:00 05:59 RBC 3.25 L (3.80-5.40) m/uL Hgb 9.9 L (11.4-16.0) gm/dL Hct 31.6 L (34.0-46.0) % RDW 16.4 H (11.5-15.5) % BUN (7-17) mg/dL POC Glucose (mg/dL) 62 L (75-99) mg/dL Calcium (8.4-10.2) mg/dL Urine Appearance Turbid H (Clear) Urine Blood Moderate H (Negative) Urine Nitrite Positive H (Negative) Ur Leukocyte Esterase Large H (Negative) Urine RBC >182 H (0-5) /hpf Urine WBC 70 H (0-5) /hpf Urine WBC Clumps Occasional H (None) /hpf Calcium Oxalate Crystal Occasional H (None) /hpf Amorphous Sediment Rare H (None) /hpf Urine Bacteria Occasional H (None) /hpf Urine Mucus Rare H (None) /hpf 10/05/20 10/05/20 10/05/20 Range/Units 06:17 06:32 08:07 RBC (3.80-5.40) m/uL Hgb (11.4-16.0) gm/dL Hct (34.0-46.0) % RDW (11.5-15.5) % BUN 18 H (7-17) mg/dL POC Glucose (mg/dL) 56 L 63 L (75-99) mg/dL Calcium 7.6 L (8.4-10.2) mg/dL Urine Appearance (Clear) Urine Blood (Negative) Urine Nitrite (Negative) Ur Leukocyte Esterase (Negative) Urine RBC (0-5) /hpf Urine WBC (0-5) /hpf Urine WBC Clumps (None) /hpf Calcium Oxalate Crystal (None) /hpf Amorphous Sediment (None) /hpf Urine Bacteria (None) /hpf Urine Mucus (None) /hpf 10/05/20 10/05/20 Range/Units 08:07 11:58 RBC 3.14 L (3.80-5.40) m/uL Hgb 9.6 L (11.4-16.0) gm/dL Hct 29.9 L (34.0-46.0) % RDW 16.3 H (11.5-15.5) % BUN (7-17) mg/dL POC Glucose (mg/dL) 104 H (75-99) mg/dL Calcium (8.4-10.2) mg/dL Urine Appearance (Clear) Urine Blood (Negative) Urine Nitrite (Negative) Ur Leukocyte Esterase (Negative) Urine RBC (0-5) /hpf Urine WBC (0-5) /hpf Urine WBC Clumps (None) /hpf Calcium Oxalate Crystal (None) /hpf Amorphous Sediment (None) /hpf Urine Bacteria (None) /hpf Urine Mucus (None) /hpf Microbiology - Last 24 Hours (Table) 10/01/20 11:20 Gram Stain - Final Pleural Fluid Body Fluid Culture - Final 10/04/20 16:00 Urine Culture - Preliminary Urine,Voided Assessment and Plan Assessment: -Acute medical debility following her small bowel surgery. Patient having intermittent diarrhea. Improved. -Possible acute urinary tract infection secondary to indwelling Newell catheter -Bilateral pleural effusions as noted on CT status post left side thoracentesis -chronic cor pulmonale -Hyponatremia, improved -Hypothyroidism -Mild protein calorie malnutrition from decreased oral intake -Essential hypertension -Hyperlipidemia -Depression otherwise specified -obesity BMI 37.9 -Chronic Elevated right diaphragm-(SNIFF test was negative. No paradoxical movement noted.) -COPD in an ex-smoker Recommendations and discussion: Recommend to continue current medications, management, and symptomatic treatment. Multiple medical consultations following. Encouraged increased oral intake. Ensures added for protein. No reported bowel movements lately and patient did have one episode of emesis and KUB was ordered showing some mild stool burden and will continue with bowel regimen. Zofran added. Patient is having feelings of constipation. Due to multiple complex medical issues, prognosis is guarded. Further recommendations to follow. Case management also following as this patient will be returning to [facility] once stabilized and discharged. Possible discharge in 24-48 hours.
[2020-10-05 16:49] LABS: Glucose,Whole Blood 87 mg/dL (75-99)
[2020-10-05] MEDS: MELATONIN 5 MG TABLET PO SCH (20:13)
[2020-10-05] MEDS: ACETAMINOPHEN TAB 325 MG TAB PO PRN (20:14)
[2020-10-05] MEDS: ATORVASTATIN 40 MG TAB PO SCH (20:14)
[2020-10-05 20:17] LABS: Glucose,Whole Blood 111 mg/dL (75-99)
[2020-10-06 06:07] LABS: Glucose,Whole Blood 83 mg/dL (75-99)
[2020-10-06] MEDS: LEVOTHYROXINE 75 MCG TAB PO SCH (06:27)
[2020-10-06] MEDS: HYDROcodone/APAP 5-325MG 1 EACH TAB PO PRN ×3 (06:30→20:43)
[2020-10-06] MEDS: VENLAFAXINE HCL ER 37.5 MG CAP PO SCH (08:59)
[2020-10-06] MEDS: CHOLECALCIFEROL 25 MCG (1000 IU) TABLET PO SCH ×2 (08:59→20:31)
[2020-10-06] MEDS: POTASSIUM CHLORIDE ER 20 MEQ TAB.ER PO SCH (08:59)
[2020-10-06] MEDS: GABAPENTIN 300 MG CAP PO SCH ×2 (08:59→20:31)
[2020-10-06] MEDS: APIXABAN 5 MG TAB PO SCH ×2 (08:59→20:31)
[2020-10-06] MEDS: SENNOSIDES 8.6 MG TAB PO SCH (08:59)
[2020-10-06] MEDS: VENLAFAXINE HCL ER 150 MG CAP PO SCH (08:59)
[2020-10-06] MEDS: FERROUS SULFATE 325 MG TAB PO SCH (08:59)
[2020-10-06] MEDS: ASPIRIN 81 MG PO SCH (08:59)
[2020-10-06] MEDS: MULTIVITAMINS, THERA 1 EACH TAB PO SCH (08:59)
[2020-10-06] MEDS: CALCIUM CARBONATE 500 MG CHEWABLE PO SCH (08:59)
[2020-10-06] MEDS: PANTOPRAZOLE 40 MG/10 ML VIAL IVP SCH ×2 (08:59→20:31)
[2020-10-06] MEDS: MAGNESIUM OXIDE 400 MG TAB PO SCH ×2 (08:59→20:31)
[2020-10-06] MEDS: BUMETANIDE 1 MG TAB PO SCH ×2 (08:59→15:37)
[2020-10-06] MEDS: prednisoLONE ACETATE 1% OPHTH DROPS 5 ML BTL RIGHT EYE SCH ×2 (09:10→20:31)
[2020-10-06] MEDS: SYMBICORT 80-4.5 MCG INHALER INHALATION SCH ×2 (09:13→20:19)
--- NOTE | 2020-10-06 10:32 | P.PN ---
Subjective Progress Note Date: 10/06/20 This is a 74-year-old female patient who follows with Dr. Yan as her primary care provider. She is currently residing in an extended care facility. She has a history of hypothyroidism, hypertension, hyperlipidemia, depression, recent small bowel ischemia with bowel resection at [facility]. She is residing in a local custodial and was brought in on 09/27/2020 for complaints of generalized weakness, loose stools, poor appetite. CAT scan of the abdomen revealed fatty infiltration of the liver, unchanged. Mild abdominal ascites, unchanged periods sigmoid diverticulosis without diverticulitis. Rectal fecal impaction which was new. Large nonobstructing left renal calculus. Bilateral pleural effusions were noted and we were consulted for the same. An ultrasound of the chest was ordered. There is a small right-sided pleural effusion measuring 2.9 cm. A larger left pleural effusion measuring 8.3 cm. The patient has been anticoagulated on Eliquis which will be placed on hold. Possible thoracentesis tomorrow. She is seen today in consultation on the regular medical floor. Currently resting flat in bed. Awake and alert in no acute distress. Continue O2 saturations in the high 90s on 2 L/m per nasal cannula. She's afebrile. White count 4.3. Hemoglobin 9.8. Sodium 125. Potassium 3.9. Creatinine 0.56. ProBNP 513. Urine osmolality 353. Coronavirus not detected. She is continued on IV diuretics, albuterol, Symbicort. Albumin has been ordered. Nephrology and GI services are on the case. Progress note dated 10/01/2020. This is a 74-year-old female, who sees Dr. Yan as a primary. She currently resides in an extended care facility. She has a history of hypothyroidism, essential hypertension, hyperlipidemia, depression, recent small bowel ischemia, with bowel resection at [facility]. She is brought into the emergency department from the custodial on 09/27/2020, for complaints of generalized weakness, loose stools, and poor appetite. We were consulted because there is evidence of effusions, and today, we did a left-sided thoracentesis, and removed 550 mL of thin yellow fluid. It looks like heart failure fluid honestly but, the specimens were sent for evaluation. She tolerated the procedure well. The effusion on the right side was relatively small. Current laboratory data includes a sodium 132, potassium 3.5, chlorides 102, CO2 28, anion gap 2, BUN 17, and creatinine 0.51. TSH is 0.234 and free T4 is 3.46. Cortisol level was 8. The fluid had 104 RBCs, 65 nucleated cells, 4 PMNs, and 96 mononuclear cells. Post thoracentesis chest x-ray showed no pneumothorax, and a persistent small to moderate sized right pleural effusion. The left-sided pleural effusion is much improved. On today's evaluation of the 2020 the patient is being seen for a follow-up. As mentioned earlier, the patient has recent history of small bowel ischemia with bowel resection and the patient also has history of hypothyroidism hyp ertension and hyperlipidemia history of depression. The patient was in an extended care facility. She was having generalized weakness, loose stools and poor appetite. CAT scan of the abdomen revealed fatty infiltration of the liver and mild abdominal ascites and some sigmoid diverticulosis without diverticulitis. She also had rectal fecal impaction. There was large nonobstructing left renal calculus. Bilateral pleural effusion was also seen. The largest was on the left for which a thoracentesis was done and the fluid turned out to be a transudate with a very low fluid protein of 0.3 and the LDH was 48 and the cell count was also low at 65 WBCs. Post thoracentesis, the left-sided pleural effusion had a much diminished in size and there was still some right-sided pleural effusion present. The thyroid function tests were abnormal with a TSH of 0.234 and a TSH of 3.46 consistent with hyper thyroidism. LFTs are slightly abnormal with an AST of 104, ALT of 37 alk phos of 249 and a bilirubin of 1.2. On 10/03/2020, seeing the patient for a follow-up. 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 She did have some mild abdominal ascites and diverticulosis without diverticulitis. She also had a nonobstructive left renal calculus. She was found to have bilateral pleural effusion and oriented of draining the left-sided pleural effusion which improved the patient's overall pulmonary status and the fluid was essentially she has this. There is some residual right-sided pleural effusion for now. Her echocardiogram at shown a preserved LV function and the patient does not have any LV dysfunction. This was a limited echocardiogram that was done on 10/02/2020 and the patient a moderate pulmonary hypertension and ejection fraction of 55%. For now, the patient is on oxygen at 2 L per minute nasal cannula with a pulse ox of 99%. Her chest x-ray from 10/01/2020 showed a small to moderate-sized right-sided pleural effusion. Left-sided pleural effusion was adequately drained. The patient is on Bumex 1 mg and this has been switched to by mouth twice a day. She is on long-term articulation with Eliquis 5 mg by mouth twice a day. She is also on aspirin. No new complaints otherwise for now. In terms of her blood work, the patient has a BUN of 14 with a creatinine of 0.5. Sodium is at 136. On 10/04/2020, patient is being seen for a follow-up. She is resting comfortably in bed. Follow-up chest x-ray from yesterday showed a moderate- sized right-sided pleural effusion. She is post thoracentesis of the left lung. No effusion on the left as seen on the last chest x-ray. The patient is a negative fluid balance of 2.7 L negative for yesterday and she is headed towards a negative balance for today. He is on Bumex and she is receiving Bumex 1 mg by mouth twice a day. She is on anticoagulation with Eliquis 5 mg by mouth twice a day. She denies chest liters per minute nasal cannula. No worsening shortness of breath. She is diuresing well. The rest of the blood work and electrolytes from today are all within normal limits. Sodium is at 135 with potassium level of 4.7 and Lupe 15 and creatinine of 0.5. She is post bowel surgery for ischemia. On 10/05/2020, the patient is on room air oxygen. Pulse ox is 95% on room air oxygen. She is on Bumex 1 mg by mouth twice a day. Fluid balance has been negative and the patient's weight is down to 87 kg on today's evaluation. No respiratory distress. Her electrolytes show a sodium level of 137 with a potassium of 4.4. BUN and creatinine are both stable 18 and 0.65 respectively and the patient has no significant hypotension. BP is under good control. She is working with physical therapy for now. 10/06/2020 the patient remains on 1 mg Bumex twice a day. The patient is p roducing adequate amount of urine output while being on diuretics. Her weight is down trending for now. No respiratory distress. She is on room air oxygen with a pulse oxygen between 91-97%. As stated earlier, we do not see the need for thoracentesis. No new labs from today. Yesterday labs were noted and discussed. No active pulmonary issues and we are considering to sign off. Meanwhile, the patient was found to have enterococcus group D in her urine and the patient is currently covered with IV Rocephin. Her blood pressure is stable. No hypotension. She is able to tolerate the diuretics without any major difficulties. No nausea. No vomiting. No diarrhea. She is working with physical therapy although she is extremely limited in terms of her mobility and exercise capacity and she is also on Eliquis. Objective - Vital Signs Vital signs: Vital Signs Temp 97.4 F L 10/06/20 08:57 Pulse 55 L 10/06/20 08:57 Resp 18 10/06/20 08:57 BP 130/76 10/06/20 08:57 Pulse Ox 91 L 10/06/20 08:57 Intake & Output 10/05/20 10/06/20 10/06/20 18:59 06:59 18:59 Intake Total 360 120 Output Total 426 Balance 360 -306 Weight 74.5 kg Intake: Oral 360 120 Output: Urine 425 Stool 1 Other: Voiding Method Indwelling Catheter Indwelling Catheter Indwelling Catheter # Voids 0 # Bowel Movements 1 - Exam No acute distress, currently on her oxygen is on room air. No conversational dyspnea, or use of accessory muscles. HEENT examination is grossly unremarkable. Membranes are moist. Neck supple. Full range of motion. No adenopathy or thyromegaly. Neck veins are flat. Cardiovascular examination reveals regular rhythm rate. S1-S2 normal. No S3-S4 or murmur. Pulmonary examination reveals some basilar rhonchi and crackles. Dullness at the bases, more so on the left side than on the right. Abdomen soft. Bowel sounds are heard. No masses or tenderness noted. Extremities are intact. No edema. No cyanosis or clubbing. Skin without rash. Neurologic examination is prepared nonfocal. The patient does have diffuse muscle weakness. - Labs CBC & Chem 7: 10/05/20 08:07 10/05/20 08:07 Labs: Abnormal Lab Results - Last 24 Hours (Table) 10/05/20 10/05/20 Range/Units 11:58 20:15 POC Glucose (mg/dL) 104 H 111 H (75-99) mg/dL Microbiology - Last 24 Hours (Table) 10/04/20 16:00 Urine Culture - Preliminary Urine,Voided Group D Enterococcus 10/01/20 11:20 Gram Stain - Final Pleural Fluid Body Fluid Culture - Final Assessment and Plan Plan: 1 Shortness of breath, secondary to bilateral pleural effusions, left greater than right, status post left-sided thoracentesis on 10/01/2020. The fluid from the left lung was most consistent with a transudate with a low LDH and a low protein. Echocardiogram showed moderate concentric LVH with an ejection fraction of 50-55%, there is mild aortic stenosis with a peak gradient of 20 and no evidence of any significant pulmonary hypertension or any other valvular abnormalities. 2 Recent small bowel surgery, secondary to bowel ischemia, currently on Eliquis. This was an embolic event as the patient had a acute mesenteric ischemia secondary to embolism and the patient is demented on long-term anticoagulation with Eliquis. 3 History of hypertension. 4 Hyperlipidemia by history. 5 History of depression. 6 Obesity. 7 COPD. 8 History of chronic tobacco dependence. 9 Hypothyroidism. 10 Hyponatremia, improved and recovered 11 bilateral pleural effusion postthoracentesis on the left and the residual effusion on the right 12 enterococcal UTI and the patient is currently on IV Rocephin Plan: Continue Bumex daily the patient's body weight is down trending and she is able to maintain her diuretics without any major difficulties of hypotension. Monitor the fluid balance in the right-sided pleural effusion Remove the triple-lumen catheter in her right IJ, once the peripheral line is established Continue IV Rocephin regarding enterococcal urinary tract infection. The patient still has a Newell catheter in place. She was able to sit up on a chair today Currently on room air oxygen Incentive spirometer We'll follow as needed
--- NOTE | 2020-10-06 10:58 | P.PN ---
Subjective Patient is seen in follow-up for hyponatremia. Sodium level stable. She is maintained on oral Bumex. Still quite edematous. Nonoliguric. No vomiting or diarrhea. Hemodynamically stable. No active complaints. No changes overnight. Vital signs are stable. General: The patient appeared well nourished and normally developed. HEENT: Head exam is unremarkable. Neck is without jugular venous distension. LUNGS: Breath sounds decreased. HEART: Rate and Rhythm are regular. ABDOMEN: Soft, nontender. EXTREMITITES: 1-2+ edema. Objective - Vital Signs Vital signs: Vital Signs Temp 97.4 F L 10/06/20 08:57 Pulse 55 L 10/06/20 08:57 Resp 18 10/06/20 08:57 BP 130/76 10/06/20 08:57 Pulse Ox 91 L 10/06/20 08:57 Intake & Output 10/05/20 10/06/20 10/06/20 18:59 06:59 18:59 Intake Total 360 120 0 Output Total 426 250 Balance 360 -306 -250 Weight 74.5 kg Intake: Oral 360 120 0 Output: Urine 425 250 Stool 1 Other: Voiding Method Indwelling Catheter Indwelling Catheter Indwelling Catheter # Voids 0 # Bowel Movements 1 - Labs CBC & Chem 7: 10/05/20 08:07 10/05/20 08:07 Labs: Abnormal Lab Results - Last 24 Hours (Table) 10/05/20 10/05/20 Range/Units 11:58 20:15 POC Glucose (mg/dL) 104 H 111 H (75-99) mg/dL Microbiology - Last 24 Hours (Table) 10/04/20 16:00 Urine Culture - Preliminary Urine,Voided Group D Enterococcus 10/01/20 11:20 Gram Stain - Final Pleural Fluid Body Fluid Culture - Final Assessment and Plan Plan: Assessment: 1. Hypervolemic hyponatremia. Sodium level 137 as of yesterday. Urine sodium 19 and urine osmolality 353. Cortisol level normal. TSH a little on the lower side. 2. Volume overload. Improving with diuresis. 3. Acute on chronic diastolic CHF. 4. Severe protein calorie malnutrition with albumin of 1.3. Status post IV albumin. Improved. 5. Hypocalcemia secondary to hypoalbuminemia. Corrected calcium normal. 6. Hypokalemia from diuresis. Magnesium normal. Improved post replacement. Plan: 1200 mL fluid restriction. Encouraged oral intake, especially protein. Added ensure 3 times a day. Maintain oral Bumex. I will give a dose of Lasix 40 mg IV once this afternoon. Repeat electrolytes in the morning.
[2020-10-06 11:33] LABS: Glucose,Whole Blood 116 mg/dL (75-99)
[2020-10-06] MEDS ORDERED: FUROSEMIDE 10 MG/ML 4 ML VIAL IV ONE (13:00)
[2020-10-06 16:48] LABS: Glucose,Whole Blood 92 mg/dL (75-99)
[2020-10-06] MEDS: ATORVASTATIN 40 MG TAB PO SCH (20:31)
[2020-10-06] MEDS: MELATONIN 5 MG TABLET PO SCH (20:31)
--- NOTE | 2020-10-06 20:43 | P.PN ---
Progress Note - Text Progress Note Date: 10/06/20 Chief Complaint: Weak and tired History of presenting complaint: This is a pleasant 74-year-old patient of Dr. Dorian Yan. Resident of [facility]. Chronic stable medical conditions include hypertension, hyperlipidemia, depression, hypothyroid. 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 -small bowel resection was carried out. Patient was then transferred out to [facility]. Patient thinks a blood clot was removed . Readmitted in August of this year, with acute cor pulmonale, uncontrolled hypothyroid. patient was sent in from the [facility] following patient having 1 or 2 loose stools a day. Poor appetite. Swelling up. Very weak and tired. Last time patient had walked was about 2 weeks ago. Appetite is rather poor. She is extremely tired. No fever no chills. Hospital course: Admitted with acute medical debility, acute UTI secondary to Newell catheter, bilateral pleural effusions. Left-sided thoracentesis of 500 mL was carried out on October 01. Also being treated for hyponatremia-hypervolemic. Oral intake has been poor. Also severe protein calorie malnutrition. From poor oral intake. Albumin 1.3. Today-sitting up in a chair. Tired. Edema present. Has only been drinking some water. Breathing stable. She does want to eat a bit more. Review of systems: Was done for constitutional, cardiovascular, GI, pulmonary. relevant finding as above Active Medications Acetaminophen (Acetaminophen Tab 325 Mg Tab) 650 mg PO Q4H PRN PRN Reason: Pain Last Admin: 10/05/20 20:14 Dose: 650 mg Documented by: Hydrocodone Bitart/Acetaminophen (Hydrocodone/Apap 5-325mg 1 Each Tab) 1 each PO Q6HR PRN PRN Reason: Pain Last Admin: 10/06/20 12:47 Dose: 1 each Documented by: Albuterol Sulfate (Albuterol Nebulized 2.5 Mg/3 Ml) 2.5 mg INHALATION RT-Q4H PRN PRN Reason: Shortness Of Breath Apixaban (Apixaban 5 Mg Tab) 5 mg PO BID [facility] Last Admin: 10/06/20 20:31 Dose: 5 mg Documented by: Aspirin (Aspirin 81 Mg) 81 mg PO DAILY [facility] Last Admin: 10/06/20 08:59 Dose: 81 mg Documented by: Atorvastatin Calcium (Atorvastatin 40 Mg Tab) 40 mg PO HS [facility] Last Admin: 10/06/20 20:31 Dose: 40 mg Documented by: Budesonide/Formoterol Fumarate (Symbicort 80-4.5 Mcg Inhaler) 2 puff INHALATION RT-BID [facility] Last Admin: 10/06/20 20:19 Dose: 2 puff Documented by: Bumetanide (Bumetanide 1 Mg Tab) 1 mg PO BID@0900,1600 [facility] Last Admin: 10/06/20 15:37 Dose: 1 mg Documented by: Calcium Carbonate/Glycine (Calcium Carbonate 500 Mg Chewable) 500 mg PO DAILY [facility] Last Admin: 10/06/20 08:59 Dose: 500 mg Documented by: Cholecalciferol (Cholecalciferol 25 Mcg (1000 Iu) Tablet) 25 mcg PO BID [facility] Last Admin: 10/06/20 20:31 Dose: 25 mcg Documented by: Ferrous Sulfate (Ferrous Sulfate 325 Mg Tab) 325 mg PO DAILY [facility] Last Admin: 10/06/20 08:59 Dose: 325 mg Documented by: Gabapentin (Gabapentin 300 Mg Cap) 300 mg PO BID [facility] Last Admin: 10/06/20 20:31 Dose: 300 mg Documented by: Ceftriaxone Sodium 1 gm/ (Sodium Chloride) 50 mls @ 100 mls/hr IVPB Q24H [facility] Last Admin: 10/06/20 20:30 Dose: 100 mls/hr Documented by: Ipratropium [place] (Ipratropium 0.5 Mg/2.5 Ml Nebu) 0.5 mg INHALATION RT-Q6H PRN PRN Reason: Shortness Of Breath Levothyroxine Sodium (Levothyroxine 75 Mcg Tab) 150 mcg PO DAILY@0630 [facility] Last Admin: 10/06/20 06:27 Dose: 150 mcg Documented by: Loperamide HCl (Loperamide 2 Mg Cap) 2 mg PO QID PRN PRN Reason: Diarrhea Last Admin: 10/02/20 18:34 Dose: 2 mg Documented by: Magnesium Oxide (Magnesium Oxide 400 Mg Tab) 400 mg PO BID [facility] Last Admin: 10/06/20 20:31 Dose: 400 mg Documented by: Melatonin (Melatonin 5 Mg Tablet) 5 mg PO HS [facility] Last Admin: 10/06/20 20:31 Dose: 5 mg Documented by: Methocarbamol (Methocarbamol 500 Mg Tab) 500 mg PO Q6H PRN PRN Reason: Muscle Spasm Last Admin: 10/02/20 16:13 Dose: 500 mg Documented by: Multivitamins (Multivitamins, Thera 1 Each Tab) 1 each PO DAILY [facility] Last Admin: 10/06/20 08:59 Dose: 1 each Documented by: Ondansetron HCl (Ondansetron 4 Mg/2 Ml Vial) 4 mg IVP Q6HR PRN PRN Reason: Nausea And Vomiting Last Admin: 10/05/20 09:06 Dose: 4 mg Documented by: Pantoprazole Sodium (Pantoprazole 40 Mg/10 Ml Vial) 40 mg IVP BID [facility] Last Admin: 10/06/20 20:31 Dose: 40 mg Documented by: Potassium Chloride (Potassium Chloride Er 20 Meq Tab.Er) 20 meq PO DAILY [facility] Last Admin: 10/06/20 08:59 Dose: 20 meq Documented by: Prednisolone Acetate (Prednisolone Acetate 1% Ophth Drops 5 Ml Btl) 1 drops RIGHT EYE BID [facility] Last Admin: 10/06/20 20:31 Dose: 1 drops Documented by: Senna (Sennosides 8.6 Mg Tab) 8.6 mg PO DAILY [facility] Last Admin: 10/06/20 08:59 Dose: 8.6 mg Documented by: Simethicone (Simethicone 80 Mg Chewable) 80 mg PO Q8H PRN PRN Reason: GAS Venlafaxine HCl (Venlafaxine Hcl Er 37.5 Mg Cap) 37.5 mg PO DAILY [facility] Last Admin: 10/06/20 08:59 Dose: 37.5 mg Documented by: Venlafaxine HCl (Venlafaxine Hcl Er 150 Mg Cap) 150 mg PO DAILY [facility] Last Admin: 10/06/20 08:59 Dose: 150 mg Documented by: Past medical history to include: Hypertension, hyperlipidemia, depression, hypothyroid, small bowel ischemia, with resection and blood clots removed from blood supply to the small bowel at [facility]. Cor pulmonale. Social history: Currently at [facility]. Smoked for about 30 years stopped in 1999. Was a heavy smoker. Alcohol occasional. Physical examination: VITAL SIGNS: 97.9, 97, 18, 149/87, 98% on room air GENERAL:. Sitting up in a chair, awake, some edema EYES: Pupils equal. Conjunctiva pale. HEENT: External appearance of nose and ears normal, oral cavity grossly normal. NECK: JVD not raised; masses not palpable. HEART: First and second heart sounds are normal; mild edema. LUNGS: Respiratory rate normal; decreased breath sounds ABDOMEN: Soft, no tenderness, no guarding rigidity, liver spleen not palpable, no masses palpable. PSYCH: Alert and oriented x3; mood and affect tired MUSCULAR skeletal: Evidence of OA INVESTIGATIONS, reviewed in the clinical context: October 05: White count 5.9 hemoglobin 9.6 potassium 4.4 creatinine 0.65 October 02: Limited 2-D echo: Moderate pulmonary hypertension. EF greater than 55%. WBC 5.7 hemoglobin 11.6 platelets. 8 sodium 127 potassium 4.3 creatinine 0.71 AST 122 ALT 53 albumin 1.3 Previous study: [ 08/16/2020] 2-D echocardiogram-EF 50-55%, moderate concentric LVH, right ventricle mildly to moderately enlarged, Assessment and plan: -Acute medical debility following her small bowel surgery. Patient having intermittent diarrhea. Poor oral intake. No fever no chills. PTOT. Remains significant assistance -Acute on chronic cor pulmonale-responded to IV diuresis -Hypothyroid, continue Synthroid -Moderate protein calorie malnutrition from decreased oral intake. Advance diet. -Essential hypertension -Hyperlipidemia-on Lipitor -Depression otherwise specified, continue Effexor -Chronic Elevated right diaphragm-(SNIFF test was negative. No paradoxical movement noted.) -COPD in an ex-smoker, continue with bronchodilators -Secondary pulmonary hypertension due to COPD -Hypervolemic, hyponatremia. Getting diuresis -Normocytic anemia from anemia of chronic disease -Acute UTI from cystitis from group Denterococcus. Use IV Unasyn. DC ceftriaxone Had extensive discussion with the patient and the president nurse about her diet. We'll order shakes from the kitchen a soft additional diet.
[2020-10-06 21:04] LABS: Glucose,Whole Blood 95 mg/dL (75-99)
[2020-10-07] MEDS: AMPICILLIN-SULBACTAM 1.5 GM in SODIUM CHLORIDE 0.9% 50 ML IVPB SCH ×3 (05:25→21:23)
[2020-10-07] MEDS: HYDROcodone/APAP 5-325MG 1 EACH TAB PO PRN ×2 (05:27→20:03)
[2020-10-07] MEDS: LEVOTHYROXINE 75 MCG TAB PO SCH (05:28)
[2020-10-07] MEDS: SYMBICORT 80-4.5 MCG INHALER INHALATION SCH ×2 (08:23→19:16)
[2020-10-07 08:26] LABS: ALT 235 U/L (4-34); AST 484 U/L (14-36); African American GFR (CKD) >90 (>60 ml/min/1.73 sqM); Albumin 1.7 g/dL (3.5-5.0); Alkaline Phosphatase 388 U/L (38-126); Anion Gap 3 mmol/L; Blood Urea Nitrogen 21 mg/dL (7-17); Calcium 7.2 mg/dL (8.4-10.2); Carbon Dioxide 28 mmol/L (22-30); Chloride 98 mmol/L (98-107); Glucose 72 mg/dL (74-99); Magnesium 1.9 mg/dL (1.6-2.3); Non-African American GFR(CKD) >90 (>60 ml/min/1.73 sqM); Potassium 3.9 mmol/L (3.5-5.1); Sodium 129 mmol/L (137-145); Total Bilirubin 0.9 mg/dL (0.2-1.3); Total Protein 3.8 g/dL (6.3-8.2)
[2020-10-07] MEDS: PANTOPRAZOLE 40 MG/10 ML VIAL IVP SCH ×2 (10:06→21:24)
[2020-10-07] MEDS: BUMETANIDE 1 MG TAB PO SCH ×2 (10:07→16:05)
[2020-10-07] MEDS: ASPIRIN 81 MG PO SCH (10:07)
[2020-10-07] MEDS: CALCIUM CARBONATE 500 MG CHEWABLE PO SCH (10:07)
[2020-10-07] MEDS: GABAPENTIN 300 MG CAP PO SCH ×2 (10:07→21:24)
[2020-10-07] MEDS: MAGNESIUM OXIDE 400 MG TAB PO SCH ×2 (10:07→21:24)
[2020-10-07] MEDS: POTASSIUM CHLORIDE ER 20 MEQ TAB.ER PO SCH (10:08)
[2020-10-07] MEDS: APIXABAN 5 MG TAB PO SCH ×2 (10:08→21:24)
[2020-10-07] MEDS: SENNOSIDES 8.6 MG TAB PO SCH (10:08)
[2020-10-07] MEDS: VENLAFAXINE HCL ER 150 MG CAP PO SCH (10:08)
[2020-10-07] MEDS: MULTIVITAMINS, THERA 1 EACH TAB PO SCH (10:08)
[2020-10-07] MEDS: CHOLECALCIFEROL 25 MCG (1000 IU) TABLET PO SCH ×2 (10:08→21:24)
[2020-10-07] MEDS: VENLAFAXINE HCL ER 37.5 MG CAP PO SCH (10:08)
[2020-10-07] MEDS: FERROUS SULFATE 325 MG TAB PO SCH (10:08)
[2020-10-07] MEDS: prednisoLONE ACETATE 1% OPHTH DROPS 5 ML BTL RIGHT EYE SCH ×2 (10:09→22:01)
[2020-10-07] MEDS: diphenhydrAMINE 25 MG CAP PO PRN ×2 (10:13→20:03)
--- NOTE | 2020-10-07 12:17 | P.PN ---
Subjective Progress Note Date: 10/07/20 f/u for hyponatremia Objective - Vital Signs Vital signs: Vital Signs Temp 97.5 F L 10/07/20 10:05 Pulse 83 10/07/20 10:05 Resp 16 10/07/20 10:05 BP 118/67 10/07/20 10:05 Pulse Ox 98 10/07/20 10:05 Intake & Output 10/06/20 10/07/20 10/07/20 18:59 06:59 18:59 Intake Total 550 100 960 Output Total 250 Balance 300 100 960 Weight 74 kg Intake: Oral 550 100 960 Output: Urine 250 Other: Voiding Method Diaper Diaper Diaper Incontinent Incontinent Incontinent External Catheter External Catheter # Voids 1 2 - Exam no acute distress s1 s2 herd lungs clear edema - Labs CBC & Chem 7: 10/05/20 08:07 10/07/20 07:47 Labs: Abnormal Lab Results - Last 24 Hours (Table) 10/07/20 Range/Units 07:47 Sodium 129 L (137-145) mmol/L BUN 21 H (7-17) mg/dL Creatinine 0.51 L (0.52-1.04) mg/dL Glucose 72 L (74-99) mg/dL Calcium 7.2 L (8.4-10.2) mg/dL AST 484 H (14-36) U/L ALT 235 H (4-34) U/L Alkaline Phosphatase 388 H (38-126) U/L Total Protein 3.8 L (6.3-8.2) g/dL Albumin 1.7 L (3.5-5.0) g/dL Microbiology - Last 24 Hours (Table) 10/04/20 16:00 Urine Culture - Final Urine,Voided Enterococcus faecalis Assessment and Plan Assessment: 1. Hypervolemic hyponatremia 2. diastolic CHF 3. Volume overload 4. liver dysfunction Plan: 1. c/w diuretics, give 15 mg tolvaptan today 2. labs in am.
[2020-10-07] MEDS ORDERED: TOLVAPTAN 15 MG 1/2 TABLET PO ONE (14:00)
[2020-10-07 20:48] LABS: Glucose,Whole Blood 87 mg/dL (75-99)
[2020-10-07] MEDS: SIMETHICONE 80 MG CHEWABLE PO PRN (21:24)
[2020-10-07] MEDS: ATORVASTATIN 40 MG TAB PO SCH (21:24)
[2020-10-07] MEDS: MELATONIN 5 MG TABLET PO SCH (21:24)
--- NOTE | 2020-10-07 22:33 | P.PN ---
Progress Note - Text Progress Note Date: 10/07/20 Chief Complaint: Weak and tired History of presenting complaint: This is a pleasant 74-year-old patient of Dr. Dorian Yan. Resident of [facility]. Chronic stable medical conditions include hypertension, hyperlipidemia, depression, hypothyroid. 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 -small bowel resection was carried out. Patient was then transferred out to [facility]. Patient thinks a blood clot was removed . Readmitted in August of this year, with acute cor pulmonale, uncontrolled hypothyroid. patient was sent in from the [facility] following patient having 1 or 2 loose stools a day. Poor appetite. Swelling up. Very weak and tired. Last time patient had walked was about 2 weeks ago. Appetite is rather poor. She is extremely tired. No fever no chills. Hospital course: Admitted with acute medical debility, acute UTI secondary to Newell catheter, bilateral pleural effusions. Left-sided thoracentesis of 500 mL was carried out on October 01. Also being treated for hyponatremia-hypervolemic. Oral intake has been poor. Also severe protein calorie malnutrition. From poor oral intake. Albumin 1.3. Today-laying in bed. A bit more awake. More cheerful. Oral intake better. Review of systems: Was done for constitutional, cardiovascular, GI, pulmonary. relevant finding as above Active Medications Acetaminophen (Acetaminophen Tab 325 Mg Tab) 650 mg PO Q4H PRN PRN Reason: Pain Last Admin: 10/05/20 20:14 Dose: 650 mg Documented by: Hydrocodone Bitart/Acetaminophen (Hydrocodone/Apap 5-325mg 1 Each Tab) 1 each PO Q6HR PRN PRN Reason: Pain Last Admin: 10/07/20 20:03 Dose: 1 each Documented by: Albuterol Sulfate (Albuterol Nebulized 2.5 Mg/3 Ml) 2.5 mg INHALATION RT-Q4H PRN PRN Reason: Shortness Of Breath Apixaban (Apixaban 5 Mg Tab) 5 mg PO BID [facility] Last Admin: 10/07/20 21:24 Dose: 5 mg Documented by: Aspirin (Aspirin 81 Mg) 81 mg PO DAILY [facility] Last Admin: 10/07/20 10:07 Dose: 81 mg Documented by: Atorvastatin Calcium (Atorvastatin 40 Mg Tab) 40 mg PO HS [facility] Last Admin: 10/07/20 21:24 Dose: 40 mg Documented by: Budesonide/Formoterol Fumarate (Symbicort 80-4.5 Mcg Inhaler) 2 puff INHALATION RT-BID [facility] Last Admin: 10/07/20 19:16 Dose: 2 puff Documented by: Bumetanide (Bumetanide 1 Mg Tab) 1 mg PO BID@0900,1600 [facility] Last Admin: 10/07/20 16:05 Dose: 1 mg Documented by: Calcium Carbonate/Glycine (Calcium Carbonate 500 Mg Chewable) 500 mg PO DAILY [facility] Last Admin: 10/07/20 10:07 Dose: 500 mg Documented by: Cholecalciferol (Cholecalciferol 25 Mcg (1000 Iu) Tablet) 25 mcg PO BID [facility] Last Admin: 10/07/20 21:24 Dose: 25 mcg Documented by: Diphenhydramine HCl (Diphenhydramine 25 Mg Cap) 25 mg PO Q4H PRN PRN Reason: Allergy Symptoms Last Admin: 10/07/20 20:03 Dose: 25 mg Documented by: Ferrous Sulfate (Ferrous Sulfate 325 Mg Tab) 325 mg PO DAILY [facility] Last Admin: 10/07/20 10:08 Dose: 325 mg Documented by: Gabapentin (Gabapentin 300 Mg Cap) 300 mg PO BID [facility] Last Admin: 10/07/20 21:24 Dose: 300 mg Documented by: Ampicillin Sodium/Sulbactam (Sodium 1.5 gm/ Sodium Chloride) 50 mls @ 100 mls/hr IVPB Q8H [facility] Last Admin: 10/07/20 21:23 Dose: 100 mls/hr Documented by: Ipratropium [place] (Ipratropium 0.5 Mg/2.5 Ml Nebu) 0.5 mg INHALATION RT-Q6H PRN PRN Reason: Shortness Of Breath Levothyroxine Sodium (Levothyroxine 75 Mcg Tab) 150 mcg PO DAILY@0630 [facility] Last Admin: 10/07/20 05:28 Dose: 150 mcg Documented by: Loperamide HCl (Loperamide 2 Mg Cap) 2 mg PO QID PRN PRN Reason: Diarrhea Last Admin: 10/02/20 18:34 Dose: 2 mg Documented by: Magnesium Oxide (Magnesium Oxide 400 Mg Tab) 400 mg PO BID [facility] Last Admin: 10/07/20 21:24 Dose: 400 mg Documented by: Melatonin (Melatonin 5 Mg Tablet) 5 mg PO HS [facility] Last Admin: 10/07/20 21:24 Dose: 5 mg Documented by: Methocarbamol (Methocarbamol 500 Mg Tab) 500 mg PO Q6H PRN PRN Reason: Muscle Spasm Last Admin: 10/02/20 16:13 Dose: 500 mg Documented by: Multivitamins (Multivitamins, Thera 1 Each Tab) 1 each PO DAILY [facility] Last Admin: 10/07/20 10:08 Dose: 1 each Documented by: Ondansetron HCl (Ondansetron 4 Mg/2 Ml Vial) 4 mg IVP Q6HR PRN PRN Reason: Nausea And Vomiting Last Admin: 10/05/20 09:06 Dose: 4 mg Documented by: Pantoprazole Sodium (Pantoprazole 40 Mg/10 Ml Vial) 40 mg IVP BID [facility] Last Admin: 10/07/20 21:24 Dose: 40 mg Documented by: Potassium Chloride (Potassium Chloride Er 20 Meq Tab.Er) 20 meq PO DAILY [facility] Last Admin: 10/07/20 10:08 Dose: 20 meq Documented by: Prednisolone Acetate (Prednisolone Acetate 1% Ophth Drops 5 Ml Btl) 1 drops RIGHT EYE BID [facility] Last Admin: 10/07/20 22:01 Dose: 1 drops Documented by: Senna (Sennosides 8.6 Mg Tab) 8.6 mg PO DAILY [facility] Last Admin: 10/07/20 10:08 Dose: 8.6 mg Documented by: Simethicone (Simethicone 80 Mg Chewable) 80 mg PO Q8H PRN PRN Reason: GAS Last Admin: 10/07/20 21:24 Dose: 80 mg Documented by: Venlafaxine HCl (Venlafaxine Hcl Er 37.5 Mg Cap) 37.5 mg PO DAILY [facility] Last Admin: 10/07/20 10:08 Dose: 37.5 mg Documented by: Venlafaxine HCl (Venlafaxine Hcl Er 150 Mg Cap) 150 mg PO DAILY [facility] Last Admin: 10/07/20 10:08 Dose: 150 mg Documented by: Past medical history to include: Hypertension, hyperlipidemia, depression, hypothyroid, small bowel ischemia, with resection and blood clots removed from blood supply to the small bowel at [facility]. Cor pulmonale. Social history: Currently at [facility]. Smoked for about 30 years stopped in 1999. Was a heavy smoker. Alcohol occasional. Physical examination: VITAL SIGNS: 98.1, 93, 18, 110/73, 97% room air GENERAL:. Laying in bed, eating EYES: Pupils equal. Conjunctiva pale. HEENT: External appearance of nose and ears normal, oral cavity grossly normal. NECK: JVD not raised; masses not palpable. HEART: First and second heart sounds are normal; mild edema. LUNGS: Respiratory rate normal; decreased breath sounds ABDOMEN: Soft, no tenderness, no guarding rigidity, liver spleen not palpable, no masses palpable. PSYCH: Alert and oriented x3; mood and affect tired MUSCULAR skeletal: Evidence of OA INVESTIGATIONS, reviewed in the clinical context: October 07: Sodium 129 potassium 3.9 creatinine 0.5 bun AST 484 [id number] October 05: White count 5.9 hemoglobin 9.6 potassium 4.4 creatinine 0.65 October 02: Limited 2-D echo: Moderate pulmonary hypertension. EF greater than 55%. WBC 5.7 hemoglobin 11.6 platelets. 8 sodium 127 potassium 4.3 creatinine 0.71 AST 122 ALT 53 albumin 1.3 Previous study: [ 08/16/2020] 2-D echocardiogram-EF 50-55%, moderate concentric LVH, right ventricle mildly to moderately enlarged, Assessment and plan: -Acute medical debility following her small bowel surgery. Patient having intermittent diarrhea. Poor oral intake. No fever no chills. PTOT. Remains significant assistance -Acute on chronic cor pulmonale-responded to IV diuresis -Hypothyroid, continue Synthroid -Moderate protein calorie malnutrition from decreased oral intake. Advance diet. -Essential hypertension -Hyperlipidemia-on Lipitor -Depression otherwise specified, continue Effexor -Chronic Elevated right diaphragm-(SNIFF test was negative. No paradoxical movement noted.) -COPD in an ex-smoker, continue with bronchodilators -Secondary pulmonary hypertension due to COPD -Hypervolemic, hyponatremia. Getting diuresis -Normocytic anemia from anemia of chronic disease -Acute UTI from cystitis from group Denterococcus. Use IV Unasyn. DC ceftriaxone -Worsening hepatitis. Nonspecific DC Lipitor repeat labs Encourage oral intake. Stop Lipitor. Repeat LFTs.
[2020-10-08] MEDS: diphenhydrAMINE 25 MG CAP PO PRN ×3 (03:00→21:00)
[2020-10-08] MEDS: AMPICILLIN-SULBACTAM 1.5 GM in SODIUM CHLORIDE 0.9% 50 ML IVPB SCH ×3 (04:03→21:37)
[2020-10-08 06:28] LABS: Glucose,Whole Blood 87 mg/dL (75-99)
[2020-10-08] MEDS: LEVOTHYROXINE 75 MCG TAB PO SCH (06:28)
[2020-10-08 08:47] LABS: ALT 269 U/L (4-34); AST 544 U/L (14-36); African American GFR (CKD) >90 (>60 ml/min/1.73 sqM); Albumin 1.8 g/dL (3.5-5.0); Alkaline Phosphatase 433 U/L (38-126); Anion Gap 7 mmol/L; Blood Urea Nitrogen 18 mg/dL (7-17); Calcium 7.4 mg/dL (8.4-10.2); Carbon Dioxide 28 mmol/L (22-30); Chloride 99 mmol/L (98-107); Glucose 79 mg/dL (74-99); Non-African American GFR(CKD) >90 (>60 ml/min/1.73 sqM); Potassium 3.4 mmol/L (3.5-5.1); Sodium 134 mmol/L (137-145); Total Bilirubin 0.9 mg/dL (0.2-1.3); Total Protein 4.1 g/dL (6.3-8.2)
[2020-10-08] MEDS: SYMBICORT 80-4.5 MCG INHALER INHALATION SCH ×2 (08:57→20:26)
[2020-10-08] MEDS: BUMETANIDE 1 MG TAB PO SCH ×2 (09:04→18:04)
[2020-10-08] MEDS: ASPIRIN 81 MG PO SCH (09:04)
[2020-10-08] MEDS: SENNOSIDES 8.6 MG TAB PO SCH (09:04)
[2020-10-08] MEDS: VENLAFAXINE HCL ER 37.5 MG CAP PO SCH (09:04)
[2020-10-08] MEDS: CHOLECALCIFEROL 25 MCG (1000 IU) TABLET PO SCH ×2 (09:04→21:00)
[2020-10-08] MEDS: GABAPENTIN 300 MG CAP PO SCH ×2 (09:04→21:00)
[2020-10-08] MEDS: CALCIUM CARBONATE 500 MG CHEWABLE PO SCH (09:04)
[2020-10-08] MEDS: APIXABAN 5 MG TAB PO SCH ×2 (09:04→21:00)
[2020-10-08] MEDS: MULTIVITAMINS, THERA 1 EACH TAB PO SCH (09:04)
[2020-10-08] MEDS: POTASSIUM CHLORIDE ER 20 MEQ TAB.ER PO SCH (09:04)
[2020-10-08] MEDS: MAGNESIUM OXIDE 400 MG TAB PO SCH ×2 (09:04→21:00)
[2020-10-08] MEDS: FERROUS SULFATE 325 MG TAB PO SCH (09:04)
[2020-10-08] MEDS: VENLAFAXINE HCL ER 150 MG CAP PO SCH (09:05)
[2020-10-08] MEDS: prednisoLONE ACETATE 1% OPHTH DROPS 5 ML BTL RIGHT EYE SCH ×2 (09:05→21:01)
[2020-10-08] MEDS: SIMETHICONE 80 MG CHEWABLE PO PRN (09:16)
--- NOTE | 2020-10-08 11:25 | P.PN ---
Subjective Progress Note Date: 10/08/20 f/u for hyponatremia Objective - Vital Signs Vital signs: Vital Signs Temp 97.3 F L 10/08/20 09:00 Pulse 99 10/08/20 09:00 Resp 20 10/08/20 09:00 BP 129/84 10/08/20 09:00 Pulse Ox 97 10/08/20 09:00 Intake & Output 10/07/20 10/08/20 10/08/20 18:59 06:59 18:59 Intake Total 1440 500 Output Total 200 Balance 1240 500 Weight 74 kg 74.5 kg Intake: Oral 1440 500 Output: Urine 200 Other: Voiding Method Diaper Diaper Incontinent Incontinent External Catheter External Catheter # Voids 2 1 # Bowel Movements 1 - Exam no acute distress s1 s2 herd lungs clear edema - Labs CBC & Chem 7: 10/05/20 08:07 10/08/20 07:56 Labs: Abnormal Lab Results - Last 24 Hours (Table) 10/08/20 Range/Units 07:56 Sodium 134 L (137-145) mmol/L Potassium 3.4 L (3.5-5.1) mmol/L BUN 18 H (7-17) mg/dL Calcium 7.4 L (8.4-10.2) mg/dL AST 544 H (14-36) U/L ALT 269 H (4-34) U/L Alkaline Phosphatase 433 H (38-126) U/L Total Protein 4.1 L (6.3-8.2) g/dL Albumin 1.8 L (3.5-5.0) g/dL Assessment and Plan Assessment: 1. Hypervolemic hyponatremia 2. diastolic CHF 3. Volume overload 4. liver dysfunction Plan: 1. c/w diuretics, status post tolvapan yesterday, sodium better. 2. labs in am.
[2020-10-08 12:16] LABS: Glucose,Whole Blood 73 mg/dL (75-99)
[2020-10-08 17:02] LABS: Glucose,Whole Blood 125 mg/dL (75-99)
[2020-10-08] MEDS: MELATONIN 5 MG TABLET PO SCH (21:00)
--- NOTE | 2020-10-08 21:44 | P.PN ---
Progress Note - Text Progress Note Date: 10/08/20 Chief Complaint: Weak and tired History of presenting complaint: This is a pleasant 74-year-old patient of Dr. Dorian Yan. Resident of [facility]. Chronic stable medical conditions include hypertension, hyperlipidemia, depression, hypothyroid. 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 -small bowel resection was carried out. Patient was then transferred out to [facility]. Patient thinks a blood clot was removed . Readmitted in August of this year, with acute cor pulmonale, uncontrolled hypothyroid. patient was sent in from the [facility] following patient having 1 or 2 loose stools a day. Poor appetite. Swelling up. Very weak and tired. Last time patient had walked was about 2 weeks ago. Appetite is rather poor. She is extremely tired. No fever no chills. Hospital course: Admitted with acute medical debility, acute UTI secondary to Newell catheter, bilateral pleural effusions. Left-sided thoracentesis of 500 mL was carried out on October 01. Also being treated for hyponatremia-hypervolemic. Oral intake has been poor. Also severe protein calorie malnutrition. From poor oral intake. Albumin 1.3. Patient started to eat better off her diet was modified. Today-Laying in bed. Feeling better. Oral intake has improved. Review of systems: Was done for constitutional, cardiovascular, GI, pulmonary. relevant finding as above Active Medications Acetaminophen (Acetaminophen Tab 325 Mg Tab) 650 mg PO Q4H PRN PRN Reason: Pain Last Admin: 10/05/20 20:14 Dose: 650 mg Documented by: Hydrocodone Bitart/Acetaminophen (Hydrocodone/Apap 5-325mg 1 Each Tab) 1 each PO Q6HR PRN PRN Reason: Pain Last Admin: 10/07/20 20:03 Dose: 1 each Documented by: Albuterol Sulfate (Albuterol Nebulized 2.5 Mg/3 Ml) 2.5 mg INHALATION RT-Q4H PRN PRN Reason: Shortness Of Breath Apixaban (Apixaban 5 Mg Tab) 5 mg PO BID [facility] Last Admin: 10/08/20 21:00 Dose: 5 mg Documented by: Aspirin (Aspirin 81 Mg) 81 mg PO DAILY [facility] Last Admin: 10/08/20 09:04 Dose: 81 mg Documented by: Budesonide/Formoterol Fumarate (Symbicort 80-4.5 Mcg Inhaler) 2 puff INHALATION RT-BID [facility] Last Admin: 10/08/20 20:26 Dose: 2 puff Documented by: Bumetanide (Bumetanide 1 Mg Tab) 1 mg PO BID@0900,1600 [facility] Last Admin: 10/08/20 18:04 Dose: 1 mg Documented by: Calcium Carbonate/Glycine (Calcium Carbonate 500 Mg Chewable) 500 mg PO DAILY [facility] Last Admin: 10/08/20 09:04 Dose: 500 mg Documented by: Cholecalciferol (Cholecalciferol 25 Mcg (1000 Iu) Tablet) 25 mcg PO BID [facility] Last Admin: 10/08/20 21:00 Dose: 25 mcg Documented by: Diphenhydramine HCl (Diphenhydramine 25 Mg Cap) 25 mg PO Q4H PRN PRN Reason: Allergy Symptoms Last Admin: 10/08/20 21:00 Dose: 25 mg Documented by: Ferrous Sulfate (Ferrous Sulfate 325 Mg Tab) 325 mg PO DAILY [facility] Last Admin: 10/08/20 09:04 Dose: 325 mg Documented by: Gabapentin (Gabapentin 300 Mg Cap) 300 mg PO BID [facility] Last Admin: 10/08/20 21:00 Dose: 300 mg Documented by: Ampicillin Sodium/Sulbactam (Sodium 1.5 gm/ Sodium Chloride) 50 mls @ 100 mls/hr IVPB Q8H [facility] Last Admin: 10/08/20 21:37 Dose: 100 mls/hr Documented by: Ipratropium [place] (Ipratropium 0.5 Mg/2.5 Ml Nebu) 0.5 mg INHALATION RT-Q6H PRN PRN Reason: Shortness Of Breath Levothyroxine Sodium (Levothyroxine 75 Mcg Tab) 150 mcg PO DAILY@0630 [facility] Last Admin: 10/08/20 06:28 Dose: 150 mcg Documented by: Loperamide HCl (Loperamide 2 Mg Cap) 2 mg PO QID PRN PRN Reason: Diarrhea Last Admin: 10/02/20 18:34 Dose: 2 mg Documented by: Magnesium Oxide (Magnesium Oxide 400 Mg Tab) 400 mg PO BID [facility] Last Admin: 10/08/20 21:00 Dose: 400 mg Documented by: Melatonin (Melatonin 5 Mg Tablet) 5 mg PO [facility] Last Admin: 10/08/20 21:00 Dose: 5 mg Documented by: Methocarbamol (Methocarbamol 500 Mg Tab) 500 mg PO Q6H PRN PRN Reason: Muscle Spasm Last Admin: 10/02/20 16:13 Dose: 500 mg Documented by: Multivitamins (Multivitamins, Thera 1 Each Tab) 1 each PO DAILY [facility] Last Admin: 10/08/20 09:04 Dose: 1 each Documented by: Ondansetron HCl (Ondansetron 4 Mg/2 Ml Vial) 4 mg IVP Q6HR PRN PRN Reason: Nausea And Vomiting Last Admin: 10/05/20 09:06 Dose: 4 mg Documented by: Potassium Chloride (Potassium Chloride Er 20 Meq Tab.Er) 20 meq PO DAILY [facility] Last Admin: 10/08/20 09:04 Dose: 20 meq Documented by: Prednisolone Acetate (Prednisolone Acetate 1% Ophth Drops 5 Ml Btl) 1 drops RIGHT EYE BID [facility] Last Admin: 10/08/20 21:01 Dose: 1 drops Documented by: Senna (Sennosides 8.6 Mg Tab) 8.6 mg PO DAILY [facility] Last Admin: 10/08/20 09:04 Dose: 8.6 mg Documented by: Simethicone (Simethicone 80 Mg Chewable) 80 mg PO Q8H PRN PRN Reason: GAS Last Admin: 10/08/20 09:16 Dose: 80 mg Documented by: Venlafaxine HCl (Venlafaxine Hcl Er 37.5 Mg Cap) 37.5 mg PO DAILY [facility] Last Admin: 10/08/20 09:04 Dose: 37.5 mg Documented by: Venlafaxine HCl (Venlafaxine Hcl Er 150 Mg Cap) 150 mg PO DAILY [facility] Last Admin: 10/08/20 09:05 Dose: 150 mg Documented by: Past medical history to include: Hypertension, hyperlipidemia, depression, hypothyroid, small bowel ischemia, with resection and blood clots removed from blood supply to the small bowel at [facility]. Cor pulmonale. Social history: Currently at [facility]. Smoked for about 30 years stopped in 1999. Was a heavy smoker. Alcohol occasional. Physical examination: VITAL SIGNS: 97.4, 89, 18, 129 with 79, 96% room air GENERAL:. Propped up in bed, awake EYES: Pupils equal. Conjunctiva pale. HEENT: External appearance of nose and ears normal, oral cavity grossly normal. NECK: JVD not raised; masses not palpable. HEART: First and second heart sounds are normal; mild edema. LUNGS: Respiratory rate normal; decreased breath sounds ABDOMEN: Soft, no tenderness, no guarding rigidity, liver spleen not palpable, no masses palpable. PSYCH: Alert and oriented x3; mood and affect tired MUSCULAR skeletal: Evidence of OA INVESTIGATIONS, reviewed in the clinical context: October 08: Sodium 134 potassium 3.4 creatinine 0.5 AST 544 ALT 269 October 07: Sodium 129 potassium 3.9 creatinine 0.5 bun AST 484 ALT 235 October 05: White count 5.9 hemoglobin 9.6 potassium 4.4 creatinine 0.65 October 02: Limited 2-D echo: Moderate pulmonary hypertension. EF greater than 55%. WBC 5.7 hemoglobin 11.6 platelets. 8 sodium 127 potassium 4.3 creatinine 0.71 AST 122 ALT 53 albumin 1.3 Previous study: [ 08/16/2020] 2-D echocardiogram-EF 50-55%, moderate concentric LVH, right ventricle mildly to moderately enlarged, Assessment and plan: -Acute medical debility following her small bowel surgery. Patient having intermittent diarrhea. Poor oral intake. No fever no chills. PTOT. Remains significant assistance -Acute on chronic cor pulmonale-responded to IV diuresis -Hypothyroid, continue Synthroid -Moderate protein calorie malnutrition from decreased oral intake. Advance diet. -Essential hypertension -Hyperlipidemia-on Lipitor -Depression otherwise specified, continue Effexor -Chronic Elevated right diaphragm-(SNIFF test was negative. No paradoxical movement noted.) -COPD in an ex-smoker, continue with bronchodilators -Secondary pulmonary hypertension due to COPD -Hypervolemic, hyponatremia. Getting diuresis. Received Tolvamane, by nephrology -Normocytic anemia from anemia of chronic disease -Acute UTI from cystitis from group D enterococcus. Use IV Unasyn. DC ceftriaxone -Worsening hepatitis. Nonspecific DC Lipitor repeat labs Lipitor was discontinued yesterday. Repeat LFTs in the morning. Sodiums coming up. Depending on patient's LFTs will decide about patient's discharge
[2020-10-09] MEDS: diphenhydrAMINE 25 MG CAP PO PRN ×3 (03:54→19:50)
[2020-10-09] MEDS: AMPICILLIN-SULBACTAM 1.5 GM in SODIUM CHLORIDE 0.9% 50 ML IVPB SCH ×3 (05:01→22:36)
[2020-10-09] MEDS: LEVOTHYROXINE 75 MCG TAB PO SCH (05:02)
[2020-10-09] MEDS: SYMBICORT 80-4.5 MCG INHALER INHALATION SCH ×2 (07:21→20:13)
[2020-10-09] MEDS: VENLAFAXINE HCL ER 37.5 MG CAP PO SCH (08:31)
[2020-10-09] MEDS: prednisoLONE ACETATE 1% OPHTH DROPS 5 ML BTL RIGHT EYE SCH ×2 (08:31→21:16)
[2020-10-09] MEDS: BUMETANIDE 1 MG TAB PO SCH ×2 (08:31→16:11)
[2020-10-09] MEDS: FERROUS SULFATE 325 MG TAB PO SCH (08:31)
[2020-10-09] MEDS: MULTIVITAMINS, THERA 1 EACH TAB PO SCH (08:31)
[2020-10-09] MEDS: ASPIRIN 81 MG PO SCH (08:31)
[2020-10-09] MEDS: CHOLECALCIFEROL 25 MCG (1000 IU) TABLET PO SCH ×2 (08:31→21:15)
[2020-10-09] MEDS: MAGNESIUM OXIDE 400 MG TAB PO SCH ×2 (08:31→21:14)
[2020-10-09] MEDS: GABAPENTIN 300 MG CAP PO SCH ×2 (08:31→21:22)
[2020-10-09] MEDS: POTASSIUM CHLORIDE ER 20 MEQ TAB.ER PO SCH (08:31)
[2020-10-09] MEDS: SENNOSIDES 8.6 MG TAB PO SCH (08:31)
[2020-10-09] MEDS: VENLAFAXINE HCL ER 150 MG CAP PO SCH (08:31)
[2020-10-09] MEDS: APIXABAN 5 MG TAB PO SCH ×2 (08:31→21:14)
[2020-10-09] MEDS: CALCIUM CARBONATE 500 MG CHEWABLE PO SCH (08:31)
[2020-10-09 09:03] LABS: ALT 283 U/L (4-34); AST 580 U/L (14-36); African American GFR (CKD) >90 (>60 ml/min/1.73 sqM); Albumin 1.5 g/dL (3.5-5.0); Alkaline Phosphatase 379 U/L (38-126); Anion Gap 3 mmol/L; Blood Urea Nitrogen 15 mg/dL (7-17); Calcium 7.3 mg/dL (8.4-10.2); Carbon Dioxide 30 mmol/L (22-30); Chloride 104 mmol/L (98-107); Glucose 72 mg/dL (74-99); Non-African American GFR(CKD) >90 (>60 ml/min/1.73 sqM); Potassium 3.2 mmol/L (3.5-5.1); Sodium 137 mmol/L (137-145); Total Bilirubin 0.8 mg/dL (0.2-1.3); Total Protein 3.5 g/dL (6.3-8.2)
--- NOTE | 2020-10-09 16:11 | P.PN ---
Subjective Progress Note Date: 10/09/20 Principal diagnosis: Elevated LFTs Patient seen and examined lying in bed. She is without any complaints. Patient is post be discharged to [facility], however her serum transaminases continued to rise. Denies any abdominal pain, nausea, or vomiting. Objective - Vital Signs Vital signs: Vital Signs Temp 97.8 F 10/09/20 11:32 Pulse 75 10/09/20 13:20 Resp 18 10/09/20 13:20 BP 117/60 10/09/20 11:32 Pulse Ox 94 L 10/09/20 11:32 Intake & Output 10/08/20 10/09/20 10/09/20 18:59 06:59 18:59 Intake Total 1100 1188 361 Output Total 400 300 Balance 700 888 361 Weight 86 kg Intake: Oral 1100 1188 361 Output: Urine 400 300 Other: Voiding Method Diaper Diaper Diaper Incontinent Incontinent Incontinent External Catheter External Catheter External Catheter # Voids 1 # Bowel Movements 1 2 2 - Exam General appearance: The patient is alert, oriented, appears in no acute distress. Obese. HET: Head is normocephalic and atraumatic. Conjunctiva pink. Sclera anicteric. Neck: Supple without lymphadenopathy. Abdomen: Soft, obese, nontender, nondistended with bowel sounds. No guarding or rigidity. Extremities: Normal skin color and turgor. No pedal edema Skin: No rashes, no jaundice Neurological: No focal deficits. Alert and oriented 3. - Labs CBC & Chem 7: 10/05/20 08:07 10/09/20 07:36 Labs: Abnormal Lab Results - Last 24 Hours (Table) 10/08/20 10/09/20 Range/Units 17:01 07:36 Potassium 3.2 L (3.5-5.1) mmol/L Creatinine 0.42 L (0.52-1.04) mg/dL Glucose 72 L (74-99) mg/dL POC Glucose (mg/dL) 125 H (75-99) mg/dL Calcium 7.3 L (8.4-10.2) mg/dL AST 580 H (14-36) U/L ALT 283 H (4-34) U/L Alkaline Phosphatase 379 H (38-126) U/L Total Protein 3.5 L (6.3-8.2) g/dL Albumin 1.5 L (3.5-5.0) g/dL Microbiology - Last 24 Hours (Table) 10/01/20 11:20 Fungal Culture - Preliminary Pleural Fluid Assessment and Plan (1) Elevated LFTs Narrative/Plan: This is a 74-year-old female who was admitted for concerns for protein deficiency, diarrhea and had been noted to be hypotensive, hyponatremic and admitted with a urinary tract infection. The patient had been on Rocephin which was discontinued on October 07, she was also on atorvastatin 40 mg daily for which she had been on for some time. With these medications have been discontinued. The patient had a CT of the abdomen and pelvis on admission which did show fatty infiltrate of the liver, with small amount of ascites. The patient denies any previous diagnosis of liver disease, she denies alcohol use, and denies history of hepatitis. Liver ultrasound ordered as well as hepatitis panel. We are likely dealing with a medication-induced hepatitis, however hypoperfusion also needs to be considered due to patient having hypotensive events during this admission. Current Visit: Yes Status: Acute Code(s): R79.89 - OTHER SPECIFIED ABNORMAL FINDINGS OF BLOOD CHEMISTRY SNOMED Code(s): 709062873 (2) Diarrhea Narrative/Plan: Resolved Current Visit: No Status: Acute Code(s): R19.7 - DIARRHEA, UNSPECIFIED SNOMED Code(s): 90093976 (3) Short bowel syndrome Current Visit: Yes Status: Acute Code(s): K91.2 - POSTSURGICAL MALABSORPTIO N, NOT ELSEWHERE CLASSIFIED SNOMED Code(s): 41036528 (4) Urinary tract infection Narrative/Plan: Patient is currently on Unasyn Current Visit: No Status: Acute Code(s): N39.0 - URINARY TRACT INFECTION, SITE NOT SPECIFIED SNOMED Code(s): 39868467 Plan: Supportive care Agree with holding statin at this time Hepatitis panel ordered Daily CMP Diet as tolerated Liver ultrasound ordered Thank you for this consultation, we will continue to follow. Dr. Che I agree with the dictator's note, documented as a scribe by Faith Healy.
[2020-10-09] MEDS ORDERED: POTASSIUM CHLORIDE ER 20 MEQ TAB.ER PO STA (16:15)
--- NOTE | 2020-10-09 18:25 | PN ---
PROGRESS NOTE The patient is seen for followup for hyponatremia. She did receive a dose of tolvaptan, currently hypervolemic and maintained on Demadex. Serum sodium is up to 137 today. PHYSICAL EXAMINATION: Patient is comfortable. Blood pressure was 117/60, heart rate 75 per minute. She is afebrile. Examination of the heart S1, S2. Examination of the lungs, decreased breath sounds at bases. Abdomen is soft, nontender. Examination of lower extremities shows decreasing edema with some wrinkling of the skin noted as well. [employer] exam grossly intact. LAB: Show sodium 137, potassium 3.2, BUN 15, serum creatinine 0.42, CO2 is 30. ASSESSMENT: 1. Hyponatremia, hypervolemic, maintained on oral Bumex, currently improved, status post one dose of tolvaptan earlier. 2. Hypokalemia secondary to diuresis status post replacement. 3. Congestive heart failure, acute on top of chronic diastolic. PLAN: Continue with oral Bumex for now. Repeat labs in a.m. If patient is discharged, she will need close followup to monitor the serum sodium levels. MMODL / IJN: [id number] /
[2020-10-09 19:33] LABS: Hepatitis A Antibody IgM Non-Reactive (Non-Reactive); Hepatitis B Core IgM Non-Reactive (Non-Reactive); Hepatitis B Surface Antigen Non-Reactive (Non-Reactive); Hepatitis C IgG Antibody Non-Reactive (Non-Reactive)
--- NOTE | 2020-10-09 20:25 | P.PN ---
Progress Note - Text Progress Note Date: 10/09/20 Chief Complaint: Weak and tired History of presenting complaint: This is a pleasant 74-year-old patient of Dr. Dorian Yan. Resident of [facility]. Chronic stable medical conditions include hypertension, hyperlipidemia, depression, hypothyroid. 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 -small bowel resection was carried out. Patient was then transferred out to [facility]. Patient thinks a blood clot was removed . Readmitted in August of this year, with acute cor pulmonale, uncontrolled hypothyroid. patient was sent in from the [facility] following patient having 1 or 2 loose stools a day. Poor appetite. Swelling up. Very weak and tired. Last time patient had walked was about 2 weeks ago. Appetite is rather poor. She is extremely tired. No fever no chills. Hospital course: Admitted with acute medical debility, acute UTI secondary to Newell catheter, bilateral pleural effusions. Left-sided thoracentesis of 500 mL was carried out on October 01. Also being treated for hyponatremia-hypervolemic. Oral intake has been poor. Also severe protein calorie malnutrition. From poor oral intake. Albumin 1.3. Patient started to eat better off her diet was modified. LFTs have gone up. Lipitor discontinued. Today-oral intake is fair. LFTs are still up. GI consulted. Review of systems: Was done for constitutional, cardiovascular, GI, pulmonary. relevant finding as above Active Medications Acetaminophen (Acetaminophen Tab 325 Mg Tab) 650 mg PO Q4H PRN PRN Reason: Pain Last Admin: 10/05/20 20:14 Dose: 650 mg Documented by: Hydrocodone Bitart/Acetaminophen (Hydrocodone/Apap 5-325mg 1 Each Tab) 1 each PO Q6HR PRN PRN Reason: Pain Last Admin: 10/07/20 20:03 Dose: 1 each Documented by: Albuterol Sulfate (Albuterol Nebulized 2.5 Mg/3 Ml) 2.5 mg INHALATION RT-Q4H PRN PRN Reason: Shortness Of Breath Apixaban (Apixaban 5 Mg Tab) 5 mg PO BID ON LICENSE OF [facility] Last Admin: 10/09/20 08:31 Dose: 5 mg Documented by: Aspirin (Aspirin 81 Mg) 81 mg PO DAILY ON LICENSE OF [facility] Last Admin: 10/09/20 08:31 Dose: 81 mg Documented by: Budesonide/Formoterol Fumarate (Symbicort 80-4.5 Mcg Inhaler) 2 puff INHALATION RT-BID ON LICENSE OF [facility] Last Admin: 10/09/20 20:13 Dose: Not Given Documented by: Bumetanide (Bumetanide 1 Mg Tab) 1 mg PO BID@0900,1600 ON LICENSE OF [facility] Last Admin: 10/09/20 16:11 Dose: 1 mg Documented by: Calcium Carbonate/Glycine (Calcium Carbonate 500 Mg Chewable) 500 mg PO DAILY ON LICENSE OF [facility] Last Admin: 10/09/20 08:31 Dose: 500 mg Documented by: Cholecalciferol (Cholecalciferol 25 Mcg (1000 Iu) Tablet) 25 mcg PO BID ON LICENSE OF [facility] Last Admin: 10/09/20 08:31 Dose: 25 mcg Documented by: Diphenhydramine HCl (Diphenhydramine 25 Mg Cap) 25 mg PO Q4H PRN PRN Reason: Allergy Symptoms Last Admin: 10/09/20 19:50 Dose: 25 mg Documented by: Ferrous Sulfate (Ferrous Sulfate 325 Mg Tab) 325 mg PO DAILY ON LICENSE OF [facility] Last Admin: 10/09/20 08:31 Dose: 325 mg Documented by: Gabapentin (Gabapentin 300 Mg Cap) 300 mg PO BID ON LICENSE OF [facility] Last Admin: 10/09/20 08:31 Dose: 300 mg Documented by: Ampicillin Sodium/Sulbactam (Sodium 1.5 gm/ Sodium Chloride) 50 mls @ 100 mls/hr IVPB Q8H ON LICENSE OF [facility] Last Admin: 10/09/20 11:34 Dose: 100 mls/hr Documented by: Ipratropium Gray (Ipratropium 0.5 Mg/2.5 Ml Nebu) 0.5 mg INHALATION RT-Q6H PRN PRN Reason: Shortness Of Breath Levothyroxine Sodium (Levothyroxine 75 Mcg Tab) 150 mcg PO DAILY@0630 ON LICENSE OF [facility] Last Admin: 10/09/20 05:02 Dose: 150 mcg Documented by: Loperamide HCl (Loperamide 2 Mg Cap) 2 mg PO QID PRN PRN Reason: Diarrhea Last Admin: 10/02/20 18:34 Dose: 2 mg Documented by: Magnesium Oxide (Magnesium Oxide 400 Mg Tab) 400 mg PO BID ON LICENSE OF [facility] Last Admin: 10/09/20 08:31 Dose: 400 mg Documented by: Melatonin (Melatonin 5 Mg Tablet) 5 mg PO HS ON LICENSE OF [facility] Last Admin: 10/08/20 21:00 Dose: 5 mg Documented by: Methocarbamol (Methocarbamol 500 Mg Tab) 500 mg PO Q6H PRN PRN Reason: Muscle Spasm Last Admin: 10/02/20 16:13 Dose: 500 mg Documented by: Multivitamins (Multivitamins, Thera 1 Each Tab) 1 each PO DAILY ON LICENSE OF [facility] Last Admin: 10/09/20 08:31 Dose: 1 each Documented by: Ondansetron HCl (Ondansetron 4 Mg/2 Ml Vial) 4 mg IVP Q6HR PRN PRN Reason: Nausea And Vomiting Last Admin: 10/05/20 09:06 Dose: 4 mg Documented by: Potassium Chloride (Potassium Chloride Er 20 Meq Tab.Er) 20 meq PO DAILY ON LICENSE OF [facility] Last Admin: 10/09/20 08:31 Dose: 20 meq Documented by: Prednisolone Acetate (Prednisolone Acetate 1% Ophth Drops 5 Ml Btl) 1 drops RIGHT EYE BID ON LICENSE OF [facility] Last Admin: 10/09/20 08:31 Dose: 1 drops Documented by: Senna (Sennosides 8.6 Mg Tab) 8.6 mg PO DAILY ON LICENSE OF [facility] Last Admin: 10/09/20 08:31 Dose: Not Given Documented by: Simethicone (Simethicone 80 Mg Chewable) 80 mg PO Q8H PRN PRN Reason: GAS Last Admin: 10/08/20 09:16 Dose: 80 mg Documented by: Venlafaxine HCl (Venlafaxine Hcl Er 37.5 Mg Cap) 37.5 mg PO DAILY ON LICENSE OF [facility] Last Admin: 10/09/20 08:31 Dose: 37.5 mg Documented by: Venlafaxine HCl (Venlafaxine Hcl Er 150 Mg Cap) 150 mg PO DAILY ON LICENSE OF [facility] Last Admin: 10/09/20 08:31 Dose: 150 mg Documented by: Past medical history to include: Hypertension, hyperlipidemia, depression, hypothyroid, small bowel ischemia, with resection and blood clots removed from blood supply to the small bowel at [facility]. Cor pulmonale. Social history: Currently at [facility]. Smoked for about 30 years stopped in 1999. Was a heavy smoker. Alcohol occasional. Physical examination: VITAL SIGNS: 98, 91, 16, 121 with 64, 96% room air GENERAL:. Propped up in bed, awake EYES: Pupils equal. Conjunctiva pale. HEENT: External appearance of nose and ears normal, oral cavity grossly normal. NECK: JVD not raised; masses not palpable. HEART: First and second heart sounds are normal; mild edema. LUNGS: Respiratory rate normal; decreased breath sounds ABDOMEN: Soft, no tenderness, no guarding rigidity, liver spleen not palpable, no masses palpable. PSYCH: Alert and oriented x3; mood and affect tired MUSCULAR skeletal: Evidence of OA INVESTIGATIONS, reviewed in the clinical context: October 09: Potassium 3.2 creatinine 0.42 AST 58T ALT 283 Acute hepatitis panel-negative October 08: Sodium 134 potassium 3.4 creatinine 0.5 AST 544 ALT 269 October 07: Sodium 129 potassium 3.9 creatinine 0.5 bun AST 484 ALT 235 October 05: White count 5.9 hemoglobin 9.6 potassium 4.4 creatinine 0.65 October 02: Limited 2-D echo: Moderate pulmonary hypertension. EF greater than 55%. WBC 5.7 hemoglobin 11.6 platelets. 8 sodium 127 potassium 4.3 creatinine 0.71 AST 122 ALT 53 albumin 1.3 Previous study: [ 08/16/2020] 2-D echocardiogram-EF 50-55%, moderate concentric LVH, right ventricle mildly to moderately enlarged, Assessment and plan: -Acute medical debility following her small bowel surgery. Patient having intermittent diarrhea. Poor oral intake. No fever no chills. PTOT. Remains significant assistance -Acute on chronic cor pulmonale-responded to IV diuresis -Hypothyroid, continue Synthroid -Moderate protein calorie malnutrition from decreased oral intake. Advance diet. -Essential hypertension -Hyperlipidemia-on Lipitor -Depression otherwise specified, continue Effexor -Chronic Elevated right diaphragm-(SNIFF test was negative. No paradoxical movement noted.) -COPD in an ex-smoker, continue with bronchodilators -Secondary pulmonary hypertension due to COPD -Hypervolemic, hyponatremia. Getting diuresis. Received Tolvapton, by nephrology -Normocytic anemia from anemia of chronic disease -Acute UTI from cystitis from group D enterococcus. Use IV Unasyn. Changed to nitrofurantoin -Acute hepatitis. Could be a combination of ischemic and drug-induced from Lipitor. Lipitor has been discontinued. GI consulted.-Worsening Care was discussed with the patient. GI consulted. Repeat labs.
[2020-10-09] MEDS: MELATONIN 5 MG TABLET PO SCH (21:14)
[2020-10-09] MEDS: NITROFURANTOIN MONOHYD/M-CRYST 100 MG CAP PO SCH (21:15)
[2020-10-09] MEDS: HYDROcodone/APAP 5-325MG 1 EACH TAB PO PRN (21:32)
[2020-10-10] MEDS: LEVOTHYROXINE 75 MCG TAB PO SCH (06:30)
[2020-10-10 08:06] LABS: ALT 325 U/L (4-34); AST 576 U/L (14-36); African American GFR (CKD) >90 (>60 ml/min/1.73 sqM); Albumin 1.7 g/dL (3.5-5.0); Alkaline Phosphatase 425 U/L (38-126); Anion Gap 1 mmol/L; Blood Urea Nitrogen 17 mg/dL (7-17); Calcium 7.6 mg/dL (8.4-10.2); Carbon Dioxide 29 mmol/L (22-30); Chloride 103 mmol/L (98-107); Glucose 66 mg/dL (74-99); Non-African American GFR(CKD) >90 (>60 ml/min/1.73 sqM); Potassium 5.5 mmol/L (3.5-5.1); Sodium 133 mmol/L (137-145); Total Bilirubin 0.9 mg/dL (0.2-1.3); Total Protein 3.9 g/dL (6.3-8.2)
[2020-10-10] MEDS: SYMBICORT 80-4.5 MCG INHALER INHALATION SCH ×2 (08:25→20:22)
--- NOTE | 2020-10-10 08:38 | US ---
EXAMINATION TYPE: US liver DATE OF EXAM: 10/10/2020 COMPARISON: CT September 28, 2020 and older CTs. CLINICAL HISTORY: elevated LFTS. abn labs, large habitus, h/o bowel surgery EXAM MEASUREMENTS: Liver Length: 19.1 cm Gallbladder Wall: 0.2 cm CBD: 0.5 cm Right Kidney: 10.4 x 5.6 x 4.9 cm Pancreas: not seen due to bowel gas Liver: difficult to penetrate and slightly enlarged Gallbladder: possible sludge balls, no wall thickening Evidence for sonographic Augustine's sign: no CBD: wnl Right Kidney: wnl Suboptimal visualization of pancreas on the initial image saved, pancreas appeared within normal limi ts on recent CT. Marked heterogeneous hyperechoic appearance of liver correlates to marked fatty infi ltration on CTs. Suboptimal evaluation for focal masses on ultrasound. No surrounding ascites current ly. No intrahepatic or extra hepatic biliary dilatation. Gallbladder identified with ovoid nonshadowi ng 2.0 x 1.2 cm dependent lesion. No pericholecystic fluid or abnormal gallbladder wall thickening. L imited images right kidney show no hydronephrosis. IMPRESSION: Heterogeneity consistent with marked diffuse fatty infiltration is redemonstrated. No karthik rose marie dilatation noted. Greater than 1.0 cm intraluminal lesions without shadowing are concerning in ga llbladder, advise surgical consultation for possible greater than 1.0 cm polyp to consider cholecyste ctomy to rule out malignancy.
[2020-10-10] MEDS: VENLAFAXINE HCL ER 37.5 MG CAP PO SCH (08:45)
[2020-10-10] MEDS: APIXABAN 5 MG TAB PO SCH ×2 (08:45→20:24)
[2020-10-10] MEDS: VENLAFAXINE HCL ER 150 MG CAP PO SCH (08:45)
[2020-10-10] MEDS: SENNOSIDES 8.6 MG TAB PO SCH (08:45)
[2020-10-10] MEDS: POTASSIUM CHLORIDE ER 20 MEQ TAB.ER PO SCH (08:45)
[2020-10-10] MEDS: ASPIRIN 81 MG PO SCH (08:45)
[2020-10-10] MEDS: CALCIUM CARBONATE 500 MG CHEWABLE PO SCH (08:45)
[2020-10-10] MEDS: FERROUS SULFATE 325 MG TAB PO SCH (08:45)
[2020-10-10] MEDS: GABAPENTIN 300 MG CAP PO SCH ×2 (08:45→20:24)
[2020-10-10] MEDS: MULTIVITAMINS, THERA 1 EACH TAB PO SCH (08:45)
[2020-10-10] MEDS: MAGNESIUM OXIDE 400 MG TAB PO SCH ×2 (08:45→20:24)
[2020-10-10] MEDS: CHOLECALCIFEROL 25 MCG (1000 IU) TABLET PO SCH ×2 (08:45→20:24)
[2020-10-10] MEDS: prednisoLONE ACETATE 1% OPHTH DROPS 5 ML BTL RIGHT EYE SCH ×2 (08:46→20:24)
[2020-10-10] MEDS: NITROFURANTOIN MONOHYD/M-CRYST 100 MG CAP PO SCH ×2 (08:46→20:35)
[2020-10-10] MEDS: BUMETANIDE 1 MG TAB PO SCH ×2 (08:53→15:18)
--- NOTE | 2020-10-10 11:00 | P.PN ---
Subjective Progress Note Date: 10/10/20 Principal diagnosis: Elevated LFTs The patient is seen and examined lying in bed. She states she is feeling well. No acute changes through the night. She is denying any abdominal pain, nausea, or vomiting. Hepatitis panel was negative 3 for hepatitis A, B, and C. Liver transaminases remain elevated. Liver ultrasound shows heterogeneity consistent with marked diffuse fatty infiltration redemonstrated. No ductal dilation noted. Greater than 1.0 cm intraluminal lesions without shadowing are concerning and gallbladder, advise surgical consultation for possible greater than 1.0 cm polyp. Objective - Vital Signs Vital signs: Vital Signs Temp 97.9 F 10/10/20 08:43 Pulse 91 10/10/20 08:43 Resp 16 10/10/20 08:43 BP 113/66 10/10/20 08:43 Pulse Ox 100 10/10/20 08:43 Intake & Output 10/09/20 10/10/20 10/10/20 18:59 06:59 18:59 Intake Total 361 Output Total 550 Balance 361 -550 Weight 74 kg Intake: Oral 361 Output: Urine 550 Other: Voiding Method Diaper Diaper Diaper Incontinent Incontinent Incontinent External Catheter External Catheter External Catheter # Bowel Movements 2 - Exam General appearance: The patient is alert, oriented, appears in no acute distr ess. Obese. HET: Head is normocephalic and atraumatic. Conjunctiva pink. Sclera anicteric. Neck: Supple without lymphadenopathy. Abdomen: Soft, obese, nontender, nondistended with bowel sounds. No guarding or rigidity. Extremities: Normal skin color and turgor. No pedal edema Skin: No rashes, no jaundice Neurological: No focal deficits. Alert and oriented 3. - Labs CBC & Chem 7: 10/05/20 08:07 10/10/20 06:34 Labs: Abnormal Lab Results - Last 24 Hours (Table) 10/10/20 Range/Units 06:34 Sodium 133 L (137-145) mmol/L Potassium 5.5 H (3.5-5.1) mmol/L Creatinine 0.51 L (0.52-1.04) mg/dL Glucose 66 L (74-99) mg/dL Calcium 7.6 L (8.4-10.2) mg/dL AST 576 H (14-36) U/L ALT 325 H (4-34) U/L Alkaline Phosphatase 425 H (38-126) U/L Total Protein 3.9 L (6.3-8.2) g/dL Albumin 1.7 L (3.5-5.0) g/dL Microbiology - Last 24 Hours (Table) 10/01/20 11:20 Acid Fast Bacilli Smear - Final Pleural Fluid Acid Fast Bacilli Culture - Preliminary 10/01/20 11:20 Fungal Culture - Preliminary Pleural Fluid Assessment and Plan (1) Elevated LFTs Narrative/Plan: This is a 74-year-old female who was admitted for concerns for protein deficiency, diarrhea and had been noted to be hypotensive, hyponatremic and admitted with a urinary tract infection. The patient had been on Rocephin which was discontinued on October 07, she was also on atorvastatin 40 mg daily for which she had been on for some time. With these medications have been discontinued. The patient had a CT of the abdomen and pelvis on admission which did show fatty infiltrate of the liver, with small amount of ascites. The patient denies any previous diagnosis of liver disease, she denies alcohol use, and denies history of hepatitis. Liver ultrasound ordered as well as hepatitis panel. We are lik arthur dealing with a medication-induced hepatitis, however hypoperfusion also needs to be considered due to patient having hypotensive events during this admission. Hepatitis panel for A, B, and C are all negative. Liver ultrasound shows heterogeneity consistent with marked diffuse fatty infiltration which is redemonstrated. No ductal dilation noted. Greater than 1.0 cm intraluminal lesions without shadowing are concerning and gallbladder, advise surgical consultation for possible greater than 1.0 cm polyp. Gen. surgery consult ordered, patient requesting Dr. Amato. Current Visit: Yes Status: Acute Code(s): R79.89 - OTHER SPECIFIED ABNORMAL FINDINGS OF BLOOD CHEMISTRY SNOMED Code(s): 846953170 (2) Diarrhea Narrative/Plan: Resolved Current Visit: No Status: Acute Code(s): R19.7 - DIARRHEA, UNSPECIFIED SNOMED Code(s): 77858906 (3) Short bowel syndrome Current Visit: Yes Status: Acute Code(s): K91.2 - POSTSURGICAL MALABSORPTION, NOT ELSEWHERE CLASSIFIED SNOMED Code(s): 30004730 (4) Urinary tract infection Narrative/Plan: Patient is currently on Unasyn Current Visit: No Status: Acute Code(s): N39.0 - URINARY TRACT INFECTION, SITE NOT SPECIFIED SNOMED Code(s): 37216265 Plan: Supportive care Agree with holding statin at this time Hepatitis panel ordered and reviewed Daily CMP Diet as tolerated Liver ultrasound ordered and reviewed Gen. surgery consult ordered Thank you for this consultation, we will continue to follow. Dr. Che I agree with the dictator's note, documented as a scribe by Faith Healy.
[2020-10-10] MEDS ORDERED: SODIUM POLYSTYRENE SULFONATE 15 GM/60 ML BOTTLE PO STA (15:21)
--- NOTE | 2020-10-10 15:29 | P.GSCN ---
History of Present Illness Consult date: 10/10/20 Reason for Consult: Gallbladder lesion History of present illness: 74-year-old female known to our service. Patient underwent exploratory lapa rotomy in May where she was found to have evidence of ischemic small bowel. Underwent small bowel resection. Was transferred to [facility] following that and underwent embolectomy. Patient has had issues related to frequent loose stools and dehydration. Last seen by myself in July. CAT scan showed a section of terminal ileum between the ileocecal valve and the anastomotic site that is inflamed and somewhat strictured. Patient has been seen by [facility] again since that time. No surgery advised at this time given the short gut issues. During this hospital stay patient's liver enzymes have been significantly elevated. GI has been following. Recent ultrasound of the liver was performed. Significant fatty infiltration noted. There is a 2 x 1.2 cm dependent lesion in the gallbladder that is thought to represent polyp or stone. Patient's bowels have improved. She has usually 3-4 loose stools per day. She does sometimes have issues with constipation. Review of Systems The patient denies any acute changes in vision or hearing, no dysphagia or odynophagia, no chest pain or shortness of breath, no dysuria or hematuria, no headache, no runny nose, no rectal bleeding or melena, no unexplained weight loss Past Medical History Past Medical History: Eye Disorder, Hyperlipidemia, Hypertension, Renal Disease, Thyroid Disorder Additional Past Medical History / Comment(s): R eye mutliple surgeries for retinal tears-vision poor, hypothyroid, osteoporosis. Pt reports blood clot in bowel after surgery- received vascular surgical removal at [facility] History of Any Multi-Drug Resistant Organisms: None Reported Past Surgical History: Bowel Resection, Joint Replacement Additional Past Surgical History / Comment(s): Colonoscopy with last on 05/08/20, bilateral total knees, left ovary removed d/t cyst, bilateral eye cataract removals/lens implants, R eye multiple surgeries for retinal tears, bowel resection. Past Anesthesia/Blood Transfusion Reactions: No Reported Reaction Additional Past Anesthesia/Blood Transfusion Reaction / Comm: Difficulty getting to sleep, states she can be combative after surgery Past Psychological History: Anxiety, Depression Additional Psychological History / Comment(s): Pt resides alone. She is independent. Smoking Status: Former smoker Past Alcohol Use History: Rare Additional Past Alcohol Use History / Comment(s): Pt started smoking as a teen and quit in 1999. She was a heavy smoker. Past Drug Use History: None Reported - Past Family History Mother Family Medical History: No Reported History Additional Family Medical History / Comment(s): Mother did not go to the doctor much. Father History Unknown: Yes Family Medical History: AFIB, Vascular Disorder Additional Family Medical History / Comment(s): Father in his early 50s of a ruptured thoracic aneurysm. Medications and Allergies Home Medications Medication Instructions Recorded Confirmed Type Cholecalciferol [Vitamin D3 (25 1,000 unit PO BID 05/10/20 09/27/20 History Mcg = 1000 Iu)] Albuterol Sulfate [Albuterol 1 puff PO RT-Q4H PRN 07/28/20 09/27/20 History Sulfate Hfa] Apixaban [Eliquis] 5 mg PO BID 07/28/20 09/27/20 History Aspirin EC [Ecotrin Low Dose] 81 mg PO DAILY 07/28/20 09/27/20 History Calcium Carbonate 500 mg PO DAILY 07/28/20 09/27/20 History Ferrous Sulfate [Iron (65 MG 325 mg PO DAILY 07/28/20 09/27/20 History Elemental)] Loperamide [Imodium] 2 mg PO QID PRN 07/28/20 09/27/20 History Magnesium Oxide 400 mg PO BID 07/28/20 09/27/20 History Pantoprazole Sodium 40 mg PO DAILY 07/28/20 09/27/20 History Simethicone Chew [Mylicon Chew] 80 mg PO Q8H PRN 07/28/20 09/27/20 History ondansetron HCL [Zofran] 8 mg PO Q8HR PRN 07/28/20 09/27/20 History Spironolactone [Aldactone] 25 mg PO DAILY #30 tablet 08/17/20 09/27/20 Rx Acetaminophen [Tylenol Arthritis] 650 mg PO Q4H PRN 09/27/20 09/27/20 History Atorvastatin Calcium [Lipitor] 40 mg PO HS 09/27/20 09/27/20 History Banana Flake Packet 1 packet PO BID 09/27/20 09/27/20 History Bumetanide [BUMEX] 1 mg PO BID 09/27/20 09/27/20 History Fluticasone/Vilanterol [Breo 1 puff INHALATION RT-DAILY 09/27/20 09/27/20 History Ellipta 100-25 Mcg Inhaler] Ipratropium Nebulized [Atrovent 0.5 mg INHALATION RT-Q6H PRN 09/27/20 09/27/20 History Nebulized 0.2 MG/ML] Levothyroxine Sodium [Synthroid] 200 mcg PO DAILY 09/27/20 09/27/20 History Melatonin 5 mg PO HS 09/27/20 09/27/20 History Multivitamins, Thera [Multivitamin 1 tab PO DAILY 09/27/20 09/27/20 History (formulary)] Potassium Chloride ER [K-Dur 20] 20 meq PO DAILY 09/27/20 09/27/20 History methocarbamoL [Robaxin] 500 mg PO Q6H PRN 09/27/20 09/27/20 History prednisoLONE ACETATE 1% OPHTH 1 drops RIGHT EYE BID 09/27/20 09/27/20 History [Pred Forte 1%] Gabapentin 300 mg PO BID #12 cap 09/29/20 Rx Venlafaxine HCl ER [Effexor XR] 37.5 mg PO DAILY #10 cap 09/29/20 Rx Venlafaxine HCl ER [Effexor XR] 150 mg PO DAILY #10 cap 09/29/20 Rx Allergies Allergy/AdvReac Type Severity Reaction Status Date / Time Penicillins Allergy Intermediate Rash/Hives Verified 10/07/20 00:21 Sulfa (Sulfonamide Allergy Unknown Verified 09/27/20 18:43 Antibiotics) Surgical - Exam Vital Signs Temp Pulse Resp BP Pulse Ox 98 F 81 17 112/71 95 09/27/20 16:56 09/27/20 16:56 09/27/20 16:56 09/27/20 16:56 09/27/20 16:56 Abdomen: Soft, nontender, nondistended Results - Labs 10/05/20 08:07 10/10/20 06:34 Abnormal Lab Results - Last 24 Hours (Table) 10/10/20 Range/Units 06:34 Sodium 133 L (137-145) mmol/L Potassium 5.5 H (3.5-5.1) mmol/L Creatinine 0.51 L (0.52-1.04) mg/dL Glucose 66 L (74-99) mg/dL Calcium 7.6 L (8.4-10.2) mg/dL AST 576 H (14-36) U/L ALT 325 H (4-34) U/L Alkaline Phosphatase 425 H (38-126) U/L Total Protein 3.9 L (6.3-8.2) g/dL Albumin 1.7 L (3.5-5.0) g/dL Microbiology - Last 24 Hours (Table) 10/01/20 11:20 Acid Fast Bacilli Smear - Final Pleural Fluid Acid Fast Bacilli Culture - Preliminary 10/01/20 11:20 Fungal Culture - Preliminary Pleural Fluid Diabetes panel 10/10/20 Range/Units 06:34 Sodium 133 L (137-145) mmol/L Potassium 5.5 H (3.5-5.1) mmol/L Chloride 103 (98-107) mmol/L Carbon Dioxide 29 (22-30) mmol/L BUN 17 (7-17) mg/dL Creatinine 0.51 L (0.52-1.04) mg/dL Glucose 66 L (74-99) mg/dL Calcium 7.6 L (8.4-10.2) mg/dL AST 576 H (14-36) U/L ALT 325 H (4-34) U/L Alkaline Phosphatase 425 H (38-126) U/L Total Protein 3.9 L (6.3-8.2) g/dL Albumin 1.7 L (3.5-5.0) g/dL Calcium panel 10/10/20 Range/Units 06:34 Calcium 7.6 L (8.4-10.2) mg/dL Albumin 1.7 L (3.5-5.0) g/dL Pituitary panel 10/10/20 Range/Units 06:34 Sodium 133 L (137-145) mmol/L Potassium 5.5 H (3.5-5.1) mmol/L Chloride 103 (98-107) mmol/L Carbon Dioxide 29 (22-30) mmol/L BUN 17 (7-17) mg/dL Creatinine 0.51 L (0.52-1.04) mg/dL Glucose 66 L (74-99) mg/dL Calcium 7.6 L (8.4-10.2) mg/dL Adrenal panel 10/10/20 Range/Units 06:34 Sodium 133 L (137-145) mmol/L Potassium 5.5 H (3.5-5.1) mmol/L Chloride 103 (98-107) mmol/L Carbon Dioxide 29 (22-30) mmol/L BUN 17 (7-17) mg/dL Creatinine 0.51 L (0.52-1.04) mg/dL Glucose 66 L (74-99) mg/dL Calcium 7.6 L (8.4-10.2) mg/dL Total Bilirubin 0.9 (0.2-1.3) mg/dL AST 576 H (14-36) U/L ALT 325 H (4-34) U/L Alkaline Phosphatase 425 H (38-126) U/L Total Protein 3.9 L (6.3-8.2) g/dL Albumin 1.7 L (3.5-5.0) g/dL Assessment and Plan (1) Gallbladder anomaly Narrative/Plan: 74-year-old female with recent ultrasound showing possible stone or polyp in gallbladder. Patient asymptomatic. Discussed options of future elective cholecystectomy or further workup including MRI. Would hold off on any further workup or surgery at this time given the patient's comorbidities. We'll follow with you. Eventually plan outpatient follow-up in office. Current Visit: Yes Status: Acute Code(s): Q44.1 - OTHER CONGENITAL MALFORMATIONS OF GALLBLADDER SNOMED Code(s): 16474130
--- NOTE | 2020-10-10 17:43 | PN ---
PROGRESS NOTE Patient is seen for followup for hyponatremia. Her serum sodium is currently staying at 133 to 137 mEq/L. The patient is currently maintained on Bumex. She is doing fairly well. Denies any significant complaints. Her potassium was replaced today, and today it was high at 5.5. PHYSICAL EXAMINATION: Blood pressure is 126/72, heart rate 85 per minute. She is afebrile. EXAMINATION OF THE HEART: S1 and S2. EXAMINATION OF LUNGS: Decreased breath sounds at bases. ABDOMEN: Soft, non-tender. Examination of lower extremities shows edema trace bilaterally. [employer] exam is grossly intact. LABS: Sodium 133, potassium 5.5, chloride 103, BUN 17, creatinine 0.5. ASSESSMENT: 1. Hypervolemic hyponatremia, currently improved. Patient did receive a dose of tolvaptan as well. 2. Hypokalemia, status post replacement. Serum potassium is a bit higher today. I will discontinue her scheduled dose of potassium replacement. This should easily decrease, as her renal function is intact. 3. Congestive heart failure, acute on top of chronic, mostly diastolic. PLAN: Continue with the current dose of Bumex. Discontinue potassium supplementation. Repeat labs in a.m. MMODL / IJN: [id number] /
[2020-10-10] MEDS: MELATONIN 5 MG TABLET PO SCH (20:24)
--- NOTE | 2020-10-10 20:56 | P.PN ---
Progress Note - Text Progress Note Date: 10/10/20 Chief Complaint: Weak and tired History of presenting complaint: This is a pleasant 74-year-old patient of Dr. Dorian Yan. Resident of [facility]. Chronic stable medical conditions include hypertension, hyperlipidemia, depression, hypothyroid. 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 -small bowel resection was carried out. Patient was then transferred out to [facility]. Patient thinks a blood clot was removed . Readmitted in August of this year, with acute cor pulmonale, uncontrolled hypothyroid. patient was sent in from the [facility] following patient having 1 or 2 loose stools a day. Poor appetite. Swelling up. Very weak and tired. Last time patient had walked was about 2 weeks ago. Appetite is rather poor. She is extremely tired. No fever no chills. Hospital course: Admitted with acute medical debility, acute UTI secondary to Newell catheter, bilateral pleural effusions. Left-sided thoracentesis of 500 mL was carried out on October 01. Also being treated for hyponatremia-hypervolemic. Oral intake has been poor. Also severe protein calorie malnutrition. From poor oral intake. Albumin 1.3. Patient started to eat better off her diet was modified. LFTs have gone up. Lipitor discontinued. Acute hepatitis panel negative Today-oral intake fair. Seen by Dr. Galdamez from general surgery. Not for any intervention currently. She has no abdominal pain asymptomatic. Review of systems: Was done for constitutional, cardiovascular, GI, pulmonary. relevant finding as above Active Medications Acetaminophen (Acetaminophen Tab 325 Mg Tab) 650 mg PO Q4H PRN PRN Reason: Pain Last Admin: 10/05/20 20:14 Dose: 650 mg Documented by: Hydrocodone Bitart/Acetaminophen (Hydrocodone/Apap 5-325mg 1 Each Tab) 1 each PO Q6HR PRN PRN Reason: Pain Last Admin: 10/09/20 21:32 Dose: 1 each Documented by: Albuterol Sulfate (Albuterol Nebulized 2.5 Mg/3 Ml) 2.5 mg INHALATION RT-Q4H PRN PRN Reason: Shortness Of Breath Apixaban (Apixaban 5 Mg Tab) 5 mg PO BID [facility] Last Admin: 10/10/20 20:24 Dose: 5 mg Documented by: Aspirin (Aspirin 81 Mg) 81 mg PO DAILY [facility] Last Admin: 10/10/20 08:45 Dose: 81 mg Documented by: Budesonide/Formoterol Fumarate (Symbicort 80-4.5 Mcg Inhaler) 2 puff INHALATION RT-BID [facility] Last Admin: 10/10/20 20:22 Dose: Not Given Documented by: Bumetanide (Bumetanide 1 Mg Tab) 1 mg PO BID@0900,1600 [facility] Last Admin: 10/10/20 15:18 Dose: 1 mg Documented by: Calcium Carbonate/Glycine (Calcium Carbonate 500 Mg Chewable) 500 mg PO DAILY [facility] Last Admin: 10/10/20 08:45 Dose: 500 mg Documented by: Cholecalciferol (Cholecalciferol 25 Mcg (1000 Iu) Tablet) 25 mcg PO BID [facility] Last Admin: 10/10/20 20:24 Dose: 25 mcg Documented by: Diphenhydramine HCl (Diphenhydramine 25 Mg Cap) 25 mg PO Q4H PRN PRN Reason: Allergy Symptoms Last Admin: 10/09/20 19:50 Dose: 25 mg Documented by: Ferrous Sulfate (Ferrous Sulfate 325 Mg Tab) 325 mg PO DAILY [facility] Last Admin: 10/10/20 08:45 Dose: 325 mg Documented by: Gabapentin (Gabapentin 300 Mg Cap) 300 mg PO BID [facility] Last Admin: 10/10/20 20:24 Dose: 300 mg Documented by: Ipratropium [place] (Ipratropium 0.5 Mg/2.5 Ml Nebu) 0.5 mg INHALATION RT-Q6H PRN PRN Reason: Shortness Of Breath Levothyroxine Sodium (Levothyroxine 75 Mcg Tab) 150 mcg PO DAILY@0630 [facility] Last Admin: 10/10/20 06:30 Dose: 150 mcg Documented by: Loperamide HCl (Loperamide 2 Mg Cap) 2 mg PO QID PRN PRN Reason: Diarrhea Last Admin: 10/02/20 18:34 Dose: 2 mg Documented by: Magnesium Oxide (Magnesium Oxide 400 Mg Tab) 400 mg PO BID [facility] Last Admin: 10/10/20 20:24 Dose: 400 mg Documented by: Melatonin (Melatonin 5 Mg Tablet) 5 mg PO HS [facility] Last Admin: 10/10/20 20:24 Dose: 5 mg Documented by: Methocarbamol (Methocarbamol 500 Mg Tab) 500 mg PO Q6H PRN PRN Reason: Muscle Spasm Last Admin: 10/02/20 16:13 Dose: 500 mg Documented by: Multivitamins (Multivitamins, Thera 1 Each Tab) 1 each PO DAILY [facility] Last Admin: 10/10/20 08:45 Dose: 1 each Documented by: Nitrofurantoin Macrocrystals (Nitrofurantoin Monohyd/M-Cryst 100 Mg Cap) 100 mg PO BID [facility] Last Admin: 10/10/20 20:35 Dose: 100 mg Documented by: Ondansetron HCl (Ondansetron 4 Mg/2 Ml Vial) 4 mg IVP Q6HR PRN PRN Reason: Nausea And Vomiting Last Admin: 10/05/20 09:06 Dose: 4 mg Documented by: Prednisolone Acetate (Prednisolone Acetate 1% Ophth Drops 5 Ml Btl) 1 drops RIGHT EYE BID [facility] Last Admin: 10/10/20 20:24 Dose: 1 drops Documented by: Senna (Sennosides 8.6 Mg Tab) 8.6 mg PO DAILY [facility] Last Admin: 10/10/20 08:45 Dose: 8.6 mg Documented by: Simethicone (Simethicone 80 Mg Chewable) 80 mg PO Q8H PRN PRN Reason: GAS Last Admin: 10/08/20 09:16 Dose: 80 mg Documented by: Venlafaxine HCl (Venlafaxine Hcl Er 37.5 Mg Cap) 37.5 mg PO DAILY [facility] Last Admin: 10/10/20 08:45 Dose: 37.5 mg Documented by: Venlafaxine HCl (Venlafaxine Hcl Er 150 Mg Cap) 150 mg PO DAILY [facility] Last Admin: 10/10/20 08:45 Dose: 150 mg Documented by: Past medical history to include: Hypertension, hyperlipidemia, depression, hypothyroid, small bowel ischemia, with resection and blood clots removed from blood supply to the small bowel at [facility]. Cor pulmonale. Social history: Currently at [facility]. Smoked for about 30 years stopped in 1999. Was a heavy smoker. Alcohol occasional. Physical examination: VITAL SIGNS: 97.9, 88, 16, 114/59, 99% room air GENERAL:. Propped up in bed, awake EYES: Pupils equal. Conjunctiva pale. HEENT: External appearance of nose and ears normal, oral cavity grossly normal. NECK: JVD not raised; masses not palpable. HEART: First and second heart sounds are normal; mild edema. LUNGS: Respiratory rate normal; decreased breath sounds ABDOMEN: Soft, no tenderness, no guarding rigidity, liver spleen not palpable, no masses palpable. PSYCH: Alert and oriented x3; mood and affect tired MUSCULAR skeletal: Evidence of OA INVESTIGATIONS, reviewed in the clinical context: October 10: Potassium 5.5 creatinine 0.5 AST 576 ALT 325 total bilirubin 0.9 Liver ultrasound: Diffuse fatty liver. No CBD dilatation. 1 cm intraluminal lesion in the gallbladder. October 09: Potassium 3.2 creatinine 0.42 AST 58T ALT 283 Acute hepatitis panel-negative October 08: Sodium 134 potassium 3.4 creatinine 0.5 AST 544 ALT 269 October 07: Sodium 129 potassium 3.9 creatinine 0.5 bun AST 484 ALT 235 October 05: White count 5.9 hemoglobin 9.6 potassium 4.4 creatinine 0.65 October 02: Limited 2-D echo: Moderate pulmonary hypertension. EF greater than 55%. WBC 5.7 hemoglobin 11.6 platelets. 8 sodium 127 potassium 4.3 creatinine 0.71 AST 122 ALT 53 albumin 1.3 Previous study: [ 08/16/2020] 2-D echocardiogram-EF 50-55%, moderate concentric LVH, right ventricle mildly to moderately enlarged, Assessment and plan: -Acute medical debility following her small bowel surgery. Patient having intermittent diarrhea. Poor oral intake. No fever no chills. PTOT. Remains significant assistance -Acute on chronic cor pulmonale-responded to IV diuresis -Hypothyroid, continue Synthroid -Moderate protein calorie malnutrition from decreased oral intake. Advance diet. -Essential hypertension -Hyperlipidemia-on Lipitor -Depression otherwise specified, continue Effexor -Chronic Elevated right diaphragm-(SNIFF test was negative. No paradoxical movement noted.) -COPD in an ex-smoker, continue with bronchodilators -Secondary pulmonary hypertension due to COPD -Hypervolemic, hyponatremia. Getting diuresis. Received Tolvapton, by nephrology -Normocytic anemia from anemia of chronic disease -Acute UTI from cystitis from group D enterococcus. Use IV Unasyn. Changed to nitrofurantoin -Acute hepatitis. Could be a combination of ischemic and drug-induced from Lipitor. Lipitor has been discontinued. non-obstructive patent. Seen by Dr. Galdamez from general surgery. Not for intervention currently. Tylenol supplements discontinued -Possibly nonalcoholic fatty liver disease Care was discussed with the patient. GI consulted. Repeat labs.
[2020-10-11] MEDS: LEVOTHYROXINE 75 MCG TAB PO SCH (06:11)
[2020-10-11] MEDS: SYMBICORT 80-4.5 MCG INHALER INHALATION SCH ×2 (08:22→20:01)
[2020-10-11] MEDS: GABAPENTIN 300 MG CAP PO SCH ×2 (08:53→19:46)
[2020-10-11] MEDS: CALCIUM CARBONATE 500 MG CHEWABLE PO SCH (08:53)
[2020-10-11] MEDS: FERROUS SULFATE 325 MG TAB PO SCH ×2 (08:53→11:07)
[2020-10-11] MEDS: NITROFURANTOIN MONOHYD/M-CRYST 100 MG CAP PO SCH ×3 (08:53→19:46)
[2020-10-11] MEDS: ASPIRIN 81 MG PO SCH (08:54)
[2020-10-11] MEDS: MULTIVITAMINS, THERA 1 EACH TAB PO SCH ×2 (08:54→11:07)
[2020-10-11] MEDS: VENLAFAXINE HCL ER 150 MG CAP PO SCH (08:54)
[2020-10-11] MEDS: CHOLECALCIFEROL 25 MCG (1000 IU) TABLET PO SCH ×2 (08:54→19:45)
[2020-10-11] MEDS: APIXABAN 5 MG TAB PO SCH ×2 (08:54→19:45)
[2020-10-11] MEDS: SENNOSIDES 8.6 MG TAB PO SCH (08:54)
[2020-10-11] MEDS: VENLAFAXINE HCL ER 37.5 MG CAP PO SCH (08:54)
[2020-10-11] MEDS: MAGNESIUM OXIDE 400 MG TAB PO SCH ×3 (08:54→19:46)
[2020-10-11] MEDS: prednisoLONE ACETATE 1% OPHTH DROPS 5 ML BTL RIGHT EYE SCH (08:55)
[2020-10-11 09:05] LABS: ALT 307 U/L (4-34); AST 490 U/L (14-36); African American GFR (CKD) >90 (>60 ml/min/1.73 sqM); Albumin 1.5 g/dL (3.5-5.0); Alkaline Phosphatase 369 U/L (38-126); Anion Gap 5 mmol/L; Blood Urea Nitrogen 17 mg/dL (7-17); Calcium 7.3 mg/dL (8.4-10.2); Carbon Dioxide 28 mmol/L (22-30); Chloride 99 mmol/L (98-107); Glucose 88 mg/dL (74-99); Non-African American GFR(CKD) >90 (>60 ml/min/1.73 sqM); Potassium 3.8 mmol/L (3.5-5.1); Sodium 132 mmol/L (137-145); Total Bilirubin 0.6 mg/dL (0.2-1.3); Total Protein 3.6 g/dL (6.3-8.2)
--- NOTE | 2020-10-11 10:43 | P.PN ---
Subjective Progress Note Date: 10/11/20 Principal diagnosis: Elevated LFTs Patient is seen and examined lying in bed. No acute changes through the night she denies any abdominal pain, nausea, or vomiting. Liver enzymes are starting to trend down. Surgery is on consult and will follow as an outpatient. Patient had hyperkalemia and was given Kayexalate and had several episodes of diarrhea. Objective - Vital Signs Vital signs: Vital Signs Temp 97.9 F 10/11/20 08:00 Pulse 89 10/11/20 08:00 Resp 18 10/11/20 08:00 BP 84/55 10/11/20 08:00 Pulse Ox 98 10/11/20 08:00 Intake & Output 10/10/20 10/11/20 10/11/20 18:59 06:59 18:59 Intake Total 2040 240 Output Total 300 3700 Balance 1740 -3700 240 Weight 74 kg 74.5 kg Intake: Oral 2040 240 Output: Urine 300 200 Stool 3500 Other: Voiding Method Diaper Diaper Diaper Incontinent Incontinent Incontinent External Catheter External Catheter External Catheter # Voids 1 # Bowel Movements 2 - Exam General appearance: The patient is alert, oriented, appears in no acute distress. Obese. HET: Head is normocephalic and atraumatic. Conjunctiva pink. Sclera anicteric. Neck: Supple without lymphadenopathy. Abdomen: Soft, obese, nontender, nondistended with bowel sounds. No guarding or rigidity. Extremities: Normal skin color and turgor. No pedal edema Skin: No rashes, no jaundice Neurological: No focal deficits. Alert and oriented 3. - Labs CBC & Chem 7: 10/05/20 08:07 10/11/20 08:01 Labs: Abnormal Lab Results - Last 24 Hours (Table) 10/11/20 Range/Units 08:01 Sodium 132 L (137-145) mmol/L Creatinine 0.48 L (0.52-1.04) mg/dL Calcium 7.3 L (8.4-10.2) mg/dL AST 490 H (14-36) U/L ALT 307 H (4-34) U/L Alkaline Phosphatase 369 H (38-126) U/L Total Protein 3.6 L (6.3-8.2) g/dL Albumin 1.5 L (3.5-5.0) g/dL Assessment and Plan (1) Elevated LFTs Narrative/Plan: This is a 74-year-old female who was admitted for concerns for protein deficiency, diarrhea and had been noted to be hypotensive, hyponatremic and admitted with a urinary tract infection. The patient had been on Rocephin which was discontinued on October 07, she was also on atorvastatin 40 mg daily for which she had been on for some time. With these medications have been discontinued. The patient had a CT of the abdomen and pelvis on admission which did show fatty infiltrate of the liver, with small amount of ascites. The patient denies any previous diagnosis of liver disease, she denies alcohol use, and denies history of hepatitis. Liver ultrasound ordered as well as hepatitis panel. We are likely dealing with a medication-induced hepatitis, however hypoperfusion also needs to be considered due to patient having hypotensive events during this admission. Hepatitis panel for A, B, and C are all negative. Liver ultrasound shows heterogeneity consistent with marked diffuse fatty infiltration which is redemonstrated. No ductal dilation noted. Greater than 1.0 cm intraluminal l esions without shadowing are concerning and gallbladder, advise surgical consultation for possible greater than 1.0 cm polyp. Gen. surgery consult ordered, patient requesting Dr. Amato. Current Visit: Yes Status: Acute Code(s): R79.89 - OTHER SPECIFIED ABNORMAL FINDINGS OF BLOOD CHEMISTRY SNOMED Code(s): 154129642 (2) Diarrhea Narrative/Plan: We'll add FiberCon, continue Imodium as needed. Current Visit: No Status: Acute Code(s): R19.7 - DIARRHEA, UNSPECIFIED SNOMED Code(s): 00242950 (3) Short bowel syndrome Current Visit: Yes Status: Acute Code(s): K91.2 - POSTSURGICAL MALABSORPTION, NOT ELSEWHERE CLASSIFIED SNOMED Code(s): 25237103 (4) Urinary tract infection Narrative/Plan: Patient is currently on Unasyn Current Visit: No Status: Acute Code(s): N39.0 - URINARY TRACT INFECTION, SITE NOT SPECIFIED SNOMED Code(s): 53463511 Plan: Supportive care Agree with holding statin at this time Hepatitis panel ordered and reviewed Daily CMP Diet as tolerated Liver ultrasound ordered and reviewed Gen. surgery consult ordered Continue Imodium as needed Will add FiberCon for stool bulking Patient will need outpatient follow-up with gastroenterology to monitor liver enzymes Thank you for this consultation, patient may be discharged home from a gastroenterology standpoint with follow-up in the outpatient setting. Dr. Che I agree with the dictator's note, documented as a scribe by Faith Healy.
[2020-10-11] MEDS: LOPERAMIDE 2 MG CAP PO PRN ×2 (11:06→19:46)
[2020-10-11] MEDS: BUMETANIDE 1 MG TAB PO SCH ×2 (11:07→17:34)
--- NOTE | 2020-10-11 14:35 | PN ---
PROGRESS NOTE Patient is seen for followup for hyponatremia which is mostly hypervolemic. Her serum sodium has been staying around 134-132 mEq/L. The patient is being diuresed. She is maintained on Bumex. Her weight however is slightly higher than yesterday. A 24-hour urine output documented at 4 L. PHYSICAL EXAMINATION: On examination today, patient is comfortable, not in any acute distress. Blood pressure 103/64, heart rate 86 per minute. She is afebrile. EXAMINATION OF THE HEART: S1, S2. EXAMINATION OF THE LUNGS: Bilateral breath sounds are heard. Abdomen is soft, obese, nontender. Examination of lower extremities shows edema 1+ bilaterally. FI[employer]ING [employer] exam grossly intact. LABS: Labs show sodium of 132, potassium 3.8, serum creatinine 0.48, albumin 1.5. ASSESSMENT: 1. Hypervolemic hyponatremia, stable and patient is maintained on Bumex. 2. Diarrhea with history of short-bowel syndrome. 3. Urinary tract infection with urine culture growing Enterococcus faecalis. 4. Malnutrition with severe hypoalbuminemia contributing to the edema. No evidence of proteinuria. PLAN: Continue with Bumex. If sodium drops further, I will increase the Bumex or give her a dose of tolvaptan. MMODL / IJN: [id number] /
[2020-10-11] MEDS: methocarbamoL 500 MG TAB PO PRN (18:18)
--- NOTE | 2020-10-11 18:42 | P.PN ---
Subjective Progress Note Date: 10/11/20 Principal diagnosis: Abnormal gallbladder Patient having diarrhea today. No abdominal pain. No nausea or vomiting. Objective - Vital Signs Vital signs: Vital Signs Temp 98.1 F 10/11/20 16:21 Pulse 89 10/11/20 16:21 Resp 16 10/11/20 16:21 BP 122/58 10/11/20 16:21 Pulse Ox 93 L 10/11/20 16:21 Intake & Output 10/10/20 10/11/20 10/11/20 18:59 06:59 18:59 Intake Total 2040 1520 Output Total 300 3700 3500 Balance 1740 -3700 -1980 Weight 74 kg 74.5 kg Intake: Oral 2040 1520 Output: Urine 300 200 Stool 3500 3500 Other: Voiding Method Diaper Diaper Diaper Incontinent Incontinent Incontinent External Catheter External Catheter External Catheter # Voids 1 1 # Bowel Movements 2 - Exam Abdomen: Soft, nondistended, nontender - Labs CBC & Chem 7: 10/05/20 08:07 10/11/20 08:01 Labs: Abnormal Lab Results - Last 24 Hours (Table) 10/11/20 Range/Units 08:01 Sodium 132 L (137-145) mmol/L Creatinine 0.48 L (0.52-1.04) mg/dL Calcium 7.3 L (8.4-10.2) mg/dL AST 490 H (14-36) U/L ALT 307 H (4-34) U/L Alkaline Phosphatase 369 H (38-126) U/L Total Protein 3.6 L (6.3-8.2) g/dL Albumin 1.5 L (3.5-5.0) g/dL Assessment and Plan (1) Gallbladder anomaly Narrative/Plan: Patient still with intermittent diarrhea. Recommend holding all stool softeners. Patient seems to be requesting stool softeners intermittently when she has not moved her bowels. Unless the patient is uncomfortable and crampy would hold off on those medications unless absolutely necessary. Outpatient follow-up to discuss gallbladder issues. Current Visit: Yes Status: Acute Code(s): Q44.1 - OTHER CONGENITAL MALFORMATIONS OF GALLBLADDER SNOMED Code(s): 15594282
[2020-10-11] MEDS: MELATONIN 5 MG TABLET PO SCH (19:46)
--- NOTE | 2020-10-11 20:20 | P.PN ---
Progress Note - Text Progress Note Date: 10/11/20 Chief Complaint: Weak and tired History of presenting complaint: This is a pleasant 74-year-old patient of Dr. Dorian Yan. Resident of [facility]. Chronic stable medical conditions include hypertension, hyperlipidemia, depression, hypothyroid. 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 -small bowel resection was carried out. Patient was then transferred out to [facility]. Patient thinks a blood clot was removed . Readmitted in August of this year, with acute cor pulmonale, uncontrolled hypothyroid. patient was sent in from the [facility] following patient having 1 or 2 loose stools a day. Poor appetite. Swelling up. Very weak and tired. Last time patient had walked was about 2 weeks ago. Appetite is rather poor. She is extremely tired. No fever no chills. Hospital course: Admitted with acute medical debility, acute UTI secondary to Newell catheter, bilateral pleural effusions. Left-sided thoracentesis of 500 mL was carried out on October 01. Also being treated for hyponatremia-hypervolemic. Oral intake has been poor. Also severe protein calorie malnutrition. From poor oral intake. Albumin 1.3. Patient started to eat better off her diet was modified. LFTs have gone up. Lipitor discontinued. Acute hepatitis panel negative. Seen by Dr. Galdamez from general surgery. Not for any intervention currently Today-Oral intake fair. Having some diarrhea today. No abdominal pain. Slight improvement and LFTs. Review of systems: Was done for constitutional, cardiovascular, GI, pulmonary. relevant finding as above Active Medications Albuterol Sulfate (Albuterol Nebulized 2.5 Mg/3 Ml) 2.5 mg INHALATION RT-Q4H PRN PRN Reason: Shortness Of Breath Apixaban (Apixaban 5 Mg Tab) 5 mg PO BID [facility] Last Admin: 10/11/20 19:45 Dose: 5 mg Documented by: Aspirin (Aspirin 81 Mg) 81 mg PO DAILY [facility] Last Admin: 10/11/20 08:54 Dose: 81 mg Documented by: Budesonide/Formoterol Fumarate (Symbicort 80-4.5 Mcg Inhaler) 2 puff INHALATION RT-BID [facility] Last Admin: 10/11/20 20:01 Dose: Not Given Documented by: Bumetanide (Bumetanide 1 Mg Tab) 1 mg PO BID@0900,1600 [facility] Last Admin: 10/11/20 17:34 Dose: 1 mg Documented by: Calcium Carbonate/Glycine (Calcium Carbonate 500 Mg Chewable) 500 mg PO DAILY [facility] Last Admin: 10/11/20 08:53 Dose: 500 mg Documented by: Calcium Polycarbophil (Calcium Polycarbophil 625 Mg Tab) 625 mg PO DAILY [facility] Last Admin: 10/11/20 12:34 Dose: 625 mg Documented by: Cholecalciferol (Cholecalciferol 25 Mcg (1000 Iu) Tablet) 25 mcg PO BID [facility] Last Admin: 10/11/20 19:45 Dose: 25 mcg Documented by: Diphenhydramine HCl (Diphenhydramine 25 Mg Cap) 25 mg PO Q4H PRN PRN Reason: Allergy Symptoms Last Admin: 10/09/20 19:50 Dose: 25 mg Documented by: Ferrous Sulfate (Ferrous Sulfate 325 Mg Tab) 325 mg PO DAILY [facility] Last Admin: 10/11/20 11:07 Dose: 325 mg Documented by: Gabapentin (Gabapentin 300 Mg Cap) 300 mg PO BID [facility] Last Admin: 10/11/20 19:46 Dose: 300 mg Documented by: Ipratropium [place] (Ipratropium 0.5 Mg/2.5 Ml Nebu) 0.5 mg INHALATION RT-Q6H PRN PRN Reason: Shortness Of Breath Levothyroxine Sodium (Levothyroxine 75 Mcg Tab) 150 mcg PO DAILY@0630 [facility] Last Admin: 10/11/20 06:11 Dose: 150 mcg Documented by: Loperamide HCl (Loperamide 2 Mg Cap) 2 mg PO QID PRN PRN Reason: Diarrhea Last Admin: 10/11/20 19:46 Dose: 2 mg Documented by: Magnesium Oxide (Magnesium Oxide 400 Mg Tab) 400 mg PO BID [facility] Last Admin: 10/11/20 19:46 Dose: 400 mg Documented by: Melatonin (Melatonin 5 Mg Tablet) 5 mg PO HS [facility] Last Admin: 10/11/20 19:46 Dose: 5 mg Documented by: Methocarbamol (Methocarbamol 500 Mg Tab) 500 mg PO Q6H PRN PRN Reason: Muscle Spasm Last Admin: 10/11/20 18:18 Dose: 500 mg Documented by: Multivitamins (Multivitamins, Thera 1 Each Tab) 1 each PO DAILY [facility] Last Admin: 10/11/20 11:07 Dose: 1 each Documented by: Nitrofurantoin Macrocrystals (Nitrofurantoin Monohyd/M-Cryst 100 Mg Cap) 100 mg PO BID [facility] Last Admin: 10/11/20 19:46 Dose: 100 mg Documented by: Ondansetron HCl (Ondansetron 4 Mg/2 Ml Vial) 4 mg IVP Q6HR PRN PRN Reason: Nausea And Vomiting Last Admin: 10/05/20 09:06 Dose: 4 mg Documented by: Prednisolone Acetate (Prednisolone Acetate 1% Ophth Drops 5 Ml Btl) 1 drops RIGHT EYE BID [facility] Last Admin: 10/11/20 08:55 Dose: 1 drops Documented by: Simethicone (Simethicone 80 Mg Chewable) 80 mg PO Q8H PRN PRN Reason: GAS Last Admin: 10/08/20 09:16 Dose: 80 mg Documented by: Venlafaxine HCl (Venlafaxine Hcl Er 37.5 Mg Cap) 37.5 mg PO DAILY [facility] Last Admin: 10/11/20 08:54 Dose: 37.5 mg Documented by: Venlafaxine HCl (Venlafaxine Hcl Er 150 Mg Cap) 150 mg PO DAILY [facility] Last Admin: 10/11/20 08:54 Dose: 150 mg Documented by: Past medical history to include: Hypertension, hyperlipidemia, depression, hypothyroid, small bowel ischemia, with resection and blood clots removed from blood supply to the small bowel at [facility]. Cor pulmonale. Social history: Currently at [facility]. Smoked for about 30 years stopped in 1999. Was a heavy smoker. Alcohol occasional. Physical examination: VITAL SIGNS: 97.9, 89, 18, 84 x 55, 98% room air GENERAL:. Propped up in bed, awake EYES: Pupils equal. Conjunctiva pale. HEENT: External appearance of nose and ears normal, oral cavity grossly normal. NECK: JVD not raised; masses not palpable. HEART: First and second heart sounds are normal; mild edema. LUNGS: Respiratory rate normal; decreased breath sounds ABDOMEN: Soft, no tenderness, no guarding rigidity, liver spleen not palpable, no masses palpable. PSYCH: Alert and oriented x3; mood and affect tired MUSCULAR skeletal: Evidence of OA INVESTIGATIONS, reviewed in the clinical context: October 11: WBC 132 potassium 3.8 AST 490 ALT 307 October 10: Potassium 5.5 creatinine 0.5 AST 576 ALT 325 total bilirubin 0.9 Liver ultrasound: Diffuse fatty liver. No CBD dilatation. 1 cm intraluminal lesion in the gallbladder. October 09: Potassium 3.2 creatinine 0.42 AST 58T ALT 283 Acute hepatitis panel-negative October 08: Sodium 134 potassium 3.4 creatinine 0.5 AST 544 ALT 269 October 07: Sodium 129 potassium 3.9 creatinine 0.5 bun AST 484 ALT 235 October 05: White count 5.9 hemoglobin 9.6 potassium 4.4 creatinine 0.65 October 02: Limited 2-D echo: Moderate pulmonary hypertension. EF greater than 55%. WBC 5.7 hemoglobin 11.6 platelets. 8 sodium 127 potassium 4.3 creatinine 0.71 AST 122 ALT 53 albumin 1.3 Previous study: [ 08/16/2020] 2-D echocardiogram-EF 50-55%, moderate concentric LVH, right ventricle mildly to moderately enlarged, Assessment and plan: -Acute medical debility following her small bowel surgery. Patient having intermittent diarrhea. Poor oral intake. No fever no chills. PTOT. Remains significant assistance -Acute on chronic cor pulmonale-responded to IV diuresis -Hypothyroid, continue Synthroid -Moderate protein calorie malnutrition from decreased oral intake. Advance diet. -Essential hypertension -Hyperlipidemia-on Lipitor -Depression otherwise specified, continue Effexor -Chronic Elevated right diaphragm-(SNIFF test was negative. No paradoxical movement noted.) -COPD in an ex-smoker, continue with bronchodilators -Secondary pulmonary hypertension due to COPD -Hypervolemic, hyponatremia. Getting diuresis. Received Tolvapton, by nephrology -Normocytic anemia from anemia of chronic disease -Acute UTI from cystitis from group D enterococcus. Use IV Unasyn. Changed to nitrofurantoin -Acute hepatitis. Could be a combination of ischemic and drug-induced from Lipitor. Lipitor has been discontinued. non-obstructive patent. Seen by Dr. Galdamez from general surgery. Not for intervention currently. Tylenol supplements discontinued -Possibly nonalcoholic fatty liver disease -Acute diarrhea. Rule out C. diff. Stool ordered for C. diff. LFTs continued to improve and possible discharge in next 1-2 days.
[2020-10-12 00:01] VITALS: RESP 16
[2020-10-12 03:43] VITALS: TEMP 97.8
[2020-10-12] MEDS: LEVOTHYROXINE 75 MCG TAB PO SCH (06:07)
[2020-10-12] MEDS: SYMBICORT 80-4.5 MCG INHALER INHALATION SCH ×2 (07:27→19:47)
[2020-10-12] MEDS: GABAPENTIN 300 MG CAP PO SCH (08:40)
[2020-10-12] MEDS: MULTIVITAMINS, THERA 1 EACH TAB PO SCH (08:40)
[2020-10-12] MEDS: CHOLECALCIFEROL 25 MCG (1000 IU) TABLET PO SCH (08:40)
[2020-10-12] MEDS: ASPIRIN 81 MG PO SCH (08:40)
[2020-10-12] MEDS: CALCIUM CARBONATE 500 MG CHEWABLE PO SCH (08:40)
[2020-10-12] MEDS: APIXABAN 5 MG TAB PO SCH (08:40)
[2020-10-12] MEDS: FERROUS SULFATE 325 MG TAB PO SCH (08:40)
[2020-10-12] MEDS: MAGNESIUM OXIDE 400 MG TAB PO SCH (08:40)
[2020-10-12] MEDS: BUMETANIDE 1 MG TAB PO SCH (08:40)
[2020-10-12] MEDS: VENLAFAXINE HCL ER 150 MG CAP PO SCH (08:41)
[2020-10-12] MEDS: prednisoLONE ACETATE 1% OPHTH DROPS 5 ML BTL RIGHT EYE SCH (08:41)
[2020-10-12] MEDS: NITROFURANTOIN MONOHYD/M-CRYST 100 MG CAP PO SCH (08:41)
[2020-10-12] MEDS: VENLAFAXINE HCL ER 37.5 MG CAP PO SCH (08:41)
[2020-10-12] MEDS: LOPERAMIDE 2 MG CAP PO PRN (08:47)
[2020-10-12 09:23] VITALS: PULSE 90
[2020-10-12 09:36] LABS: ALT 270 U/L (4-34); AST 369 U/L (14-36); African American GFR (CKD) >90 (>60 ml/min/1.73 sqM); Albumin 1.5 g/dL (3.5-5.0); Alkaline Phosphatase 323 U/L (38-126); Anion Gap 4 mmol/L; Blood Urea Nitrogen 16 mg/dL (7-17); Calcium 7.1 mg/dL (8.4-10.2); Carbon Dioxide 26 mmol/L (22-30); Chloride 100 mmol/L (98-107); Glucose 80 mg/dL (74-99); Non-African American GFR(CKD) >90 (>60 ml/min/1.73 sqM); Sodium 130 mmol/L (137-145); Total Bilirubin 0.7 mg/dL (0.2-1.3); Total Protein 3.6 g/dL (6.3-8.2)
[2020-10-12 09:42] LABS: Potassium 3.8 mmol/L (3.5-5.1)
[2020-10-12 13:13] VITALS: BMI 28.7
--- NOTE | 2020-10-12 14:47 | P.DS ---
Providers Date of admission: 09/27/20 16:39 Expected date of discharge: 10/12/20 Attending physician: Mamadou Perkins Consults: 09/29/20 16:27 Consult Physician Stat Consulting Provider: Astrid Mota Consult Reason/Comments: hyponatremia Do you want consulting provider notified?: Yes 09/29/20 16:38 Consult Physician Urgent Consulting Provider: Larry Farris Consult Reason/Comments: bilateral pleural effusions Do you want consulting provider notified?: Yes 10/09/20 12:59 Consult Physician Routine Consulting Provider: Dana Patton Consult Reason/Comments: acut hepatitis Do you want consulting provider notified?: Yes 10/10/20 09:55 Consult Physician Urgent Consulting Provider: Deniz Amato Consult Reason/Comments: abnormal liver US, GB with shadowing lesion, elevated LFTS Do you want consulting provider notified?: Yes Primary care physician: Stated None Hospital Course: Chief Complaint: Weak and tired History of presenting complaint: This is a pleasant 74-year-old patient of Dr. Dorian Yan. Resident of [facility]. Chronic stable medical conditions include hypertension, hyperlipidemia, depression, hypothyroid. 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 -small bowel resection was carried out. Patient was then transferred out to [facility]. Patient thinks a blood clot was removed . Readmitted in August of this year, with acute cor pulmonale, uncontrolled hypothyroid. patient was sent in from the [facility] following patient having 1 or 2 loose stools a day. Poor appetite. Swelling up. Very weak and tired. Last time patient had walked was about 2 weeks ago. Appetite is rather poor. She is extremely tired. No fever no chills. Hospital course: Admitted with acute medical debility, acute UTI secondary to Newell catheter, bilateral pleural effusions. Left-sided thoracentesis of 500 mL was carried out on October 01. Also being treated for hyponatremia-hypervolemic. Oral intake has been poor. Also severe protein calorie malnutrition. From poor oral intake. Albumin 1.3. Patient started to eat better after her diet was modified. LFTs have gone up. Lipitor discontinued. Acute hepatitis panel negative. Seen by Dr. Galdamez from general surgery. Not for any intervention currently. Dr. Galdamez with follow-up as an outpatient. LFTs started to come down. Today-patient feeling well. Oral intake fair. No abdominal pain. Consultation: Dr. Galdamez from surgery Dr. Mota and partners from nephrology Dr. Duque chief from GI Dr. Mosher and partners from pulmonary Past medical history to include: Hypertension, hyperlipidemia, depression, hypothyroid, small bowel ischemia, with resection and blood clots removed from blood supply to the small bowel at [facility]. Cor pulmonale. Social history: Currently at [facility]. Smoked for about 30 years stopped in 1999. Was a heavy smoker. Alcohol occasional. Physical examination: VITAL SIGNS: 97.8, 90, 16, 92/60, 96% room air GENERAL:. Propped up in bed, awake EYES: Pupils equal. Conjunctiva pale. HEENT: External appearance of nose and ears normal, oral cavity grossly normal. NECK: JVD not raised; masses not palpable. HEART: First and second heart sounds are normal; mild edema. LUNGS: Respiratory rate normal; decreased breath sounds ABDOMEN: Soft, no tenderness, no guarding rigidity, liver spleen not palpable, no masses palpable. PSYCH: Alert and oriented x3; mood and affect tired MUSCULAR skeletal: Evidence of OA INVESTIGATIONS, reviewed in the clinical context: October 12: Potassium 3.8 creatinine 0.38 AST 369 ALT 270 albumin 1.5 Liver ultrasound: Diffuse fatty liver. No CBD dilatation. 1 cm intraluminal lesion in the gallbladder. October 09: Potassium 3.2 creatinine 0.42 AST 58T ALT 283 Acute hepatitis panel-negative October 07: Sodium 129 potassium 3.9 creatinine 0.5 bun AST 484 ALT 235 October 05: White count 5.9 hemoglobin 9.6 potassium 4.4 creatinine 0.65 October 02: Limited 2-D echo: Moderate pulmonary hypertension. EF greater than 55%. WBC 5.7 hemoglobin 11.6 platelets. 8 sodium 127 potassium 4.3 creatinine 0.71 AST 122 ALT 53 albumin 1.3 Previous study: [ 08/16/2020] 2-D echocardiogram-EF 50-55%, moderate concentric LVH, right ventricle mildly to moderately enlarged, Assessment and plan: -Acute medical debility following her small bowel surgery. Patient having intermittent diarrhea. Poor oral intake. No fever no chills. PTOT. Improved -Acute on chronic cor pulmonale-responded to IV diuresis -Hypothyroid, continue Synthroid -Moderate protein calorie malnutrition from decreased oral intake. Advance diet. -Essential hypertension -Hyperlipidemia-on Lipitor -Depression otherwise specified, continue Effexor -Chronic Elevated right diaphragm-(SNIFF test was negative. No paradoxical movement noted.) -COPD in an ex-smoker, continue with bronchodilators -Secondary pulmonary hypertension due to COPD -Hypervolemic, hyponatremia. Getting diuresis. Received Tolvapton, by nephrology -Normocytic anemia from anemia of chronic disease -Acute UTI from cystitis from group D enterococcus. Use IV Unasyn. Changed to nitrofurantoin -Acute hepatitis. Could be a combination of ischemic and drug-induced from Lipitor. Lipitor has been discontinued. non-obstructive patent. Seen by Dr. Galdamez from general surgery. Not for intervention currently. Tylenol supplements discontinued -Possibly nonalcoholic fatty liver disease Disposition: [facility] Plan - Discharge Summary Discharge Rx Participant: Yes New Discharge Prescriptions: New Nitrofurantoin Monohyd/M-Cryst [Macrobid] 100 mg PO BID #6 cap Continue Cholecalciferol [Vitamin D3 (25 Mcg = 1000 Iu)] 1,000 unit PO BID ondansetron HCL [Zofran] 8 mg PO Q8HR PRN PRN Reason: Nausea And Vomiting Simethicone Chew [Mylicon Chew] 80 mg PO Q8H PRN PRN Reason: GAS Pantoprazole Sodium 40 mg PO DAILY Magnesium Oxide 400 mg PO BID Loperamide [Imodium] 2 mg PO QID PRN PRN Reason: Diarrhea Ferrous Sulfate [Iron (65 MG Elemental)] 325 mg PO DAILY Calcium Carbonate 500 mg PO DAILY Apixaban [Eliquis] 5 mg PO BID Aspirin EC [Ecotrin Low Dose] 81 mg PO DAILY Albuterol Sulfate [Albuterol Sulfate Hfa] 1 puff PO RT-Q4H PRN PRN Reason: Shortness Of Breath Spironolactone [Aldactone] 25 mg PO DAILY #30 tablet prednisoLONE ACETATE 1% OPHTH [Pred Forte 1%] 1 drops RIGHT EYE BID Potassium Chloride ER [K-Dur 20] 20 meq PO DAILY methocarbamoL [Robaxin] 500 mg PO Q6H PRN PRN Reason: Muscle Spasm Multivitamins, Thera [Multivitamin (formulary)] 1 tab PO DAILY Melatonin 5 mg PO HS Ipratropium Nebulized [Atrovent Nebulized 0.2 MG/ML] 0.5 mg INHALATION RT-Q6H PRN PRN Reason: Shortness Of Breath Fluticasone/Vilanterol [Breo Ellipta 100-25 Mcg Inhaler] 1 puff INHALATION RT-DAILY Banana Flake Packet 1 packet PO BID Atorvastatin Calcium [Lipitor] 40 mg PO HS Acetaminophen [Tylenol Arthritis] 650 mg PO Q4H PRN PRN Reason: Shortness Of Breath Levothyroxine Sodium [Synthroid] 200 mcg PO DAILY Venlafaxine HCl ER [Effexor XR] 150 mg PO DAILY #10 cap Venlafaxine HCl ER [Effexor XR] 37.5 mg PO DAILY #10 cap Changed Gabapentin 300 mg PO BID #12 cap Bumetanide [BUMEX] 2 mg PO BID #0 Discharge Medication List Cholecalciferol [Vitamin D3 (25 Mcg = 1000 Iu)] 1,000 unit PO BID 05/10/20 [History] Albuterol Sulfate [Albuterol Sulfate Hfa] 1 puff PO RT-Q4H PRN 07/28/20 [History] Apixaban [Eliquis] 5 mg PO BID 07/28/20 [History] Aspirin EC [Ecotrin Low Dose] 81 mg PO DAILY 07/28/20 [History] Calcium Carbonate 500 mg PO DAILY 07/28/20 [History] Ferrous Sulfate [Iron (65 MG Elemental)] 325 mg PO DAILY 07/28/20 [History] Loperamide [Imodium] 2 mg PO QID PRN 07/28/20 [History] Magnesium Oxide 400 mg PO BID 07/28/20 [History] Pantoprazole Sodium 40 mg PO DAILY 07/28/20 [History] Simethicone Chew [Mylicon Chew] 80 mg PO Q8H PRN 07/28/20 [History] ondansetron HCL [Zofran] 8 mg PO Q8HR PRN 07/28/20 [History] Spironolactone [Aldactone] 25 mg PO DAILY #30 tablet 08/17/20 [Rx] Acetaminophen [Tylenol Arthritis] 650 mg PO Q4H PRN 09/27/20 [History] Atorvastatin Calcium [Lipitor] 40 mg PO HS 09/27/20 [History] Banana Flake Packet 1 packet PO BID 09/27/20 [History] Fluticasone/Vilanterol [Breo Ellipta 100-25 Mcg Inhaler] 1 puff INHALATION RT- DAILY 09/27/20 [History] Ipratropium Nebulized [Atrovent Nebulized 0.2 MG/ML] 0.5 mg INHALATION RT-Q6H PRN 09/27/20 [History] Levothyroxine Sodium [Synthroid] 200 mcg PO DAILY 09/27/20 [History] Melatonin 5 mg PO HS 09/27/20 [History] Multivitamins, Thera [Multivitamin (formulary)] 1 tab PO DAILY 09/27/20 [History] Potassium Chloride ER [K-Dur 20] 20 meq PO DAILY 09/27/20 [History] methocarbamoL [Robaxin] 500 mg PO Q6H PRN 09/27/20 [History] prednisoLONE ACETATE 1% OPHTH [Pred Forte 1%] 1 drops RIGHT EYE BID 09/27/20 [History] Gabapentin 300 mg PO BID #12 cap 09/29/20 [Rx] Venlafaxine HCl ER [Effexor XR] 37.5 mg PO DAILY #10 cap 09/29/20 [Rx] Venlafaxine HCl ER [Effexor XR] 150 mg PO DAILY #10 cap 09/29/20 [Rx] Bumetanide [BUMEX] 2 mg PO BID #0 10/12/20 [Rx] Nitrofurantoin Monohyd/M-Cryst [Macrobid] 100 mg PO BID #6 cap 10/12/20 [Rx] Follow up Appointment(s)/Referral(s): Dorian Yan MD [REFERRING] - 1-2 Days Sheri Elizondo NPC [Nurse Practitioner] - 1 Week Ambulatory/Diagnostic Orders: Basic Metabolic Panel [LAB.AMB] Time Frame: 3 Days, Location: None Selected Activity/Diet/Wound Care/Special Instructions: Patient is going to [facility] Activity as tolerated Continue current dysphasia 2 ground diet with fluid restrictions of 1500 mL per day CMP - 3 days Continue Imodium as needed for diarrhea Can resume Questran twice daily as needed if diarrhea persists Discharge Disposition: TRANSFER TO SNF/ECF
--- NOTE | 2020-10-12 15:14 | PN ---
PROGRESS NOTE Patient is seen for followup for hyponatremia. The patient is currently doing well. She denies any significant complaints. She denies any shortness of breath. She is maintained on Bumex. Her sodium is slowly decreasing. It is at 130 today. PHYSICAL EXAMINATION: On examination today, blood pressure is 92 to 89 mmHg systolic, heart rate 90 per minute. She is afebrile. EXAMINATION OF THE HEART: S1, S2. Lower extremities show significant edema. BLEMISH REMOVER exam is grossly intact. LABS: Labs show sodium 130, potassium 3.8, chloride 100, BUN 16, serum creatinine 0.38. ASSESSMENT: 1. Hypervolemic hyponatremia continue with Bumex. The dose will be increased to 2 mg twice a day. The patient is advised regarding maintaining fluid restriction. 2. Urinary tract infection with urine culture growing Enterococcus faecalis. 3. Malnutrition with severe hypoalbuminemia contributing to the edema with no evidence of proteinuria. PLAN: Increase Bumex to 2 mg twice a day. Maintain fluid restriction. MMODL / IJN: [id number] /
[2020-10-12] MEDS ORDERED: BUMETANIDE 1 MG TAB PO SCH (16:00)
[2020-10-12 17:54] VITALS: BP 110/59
--- NOTE | 2020-10-12 19:35 | P.PN ---
Subjective Progress Note Date: 10/12/20 Principal diagnosis: Abnormal gallbladder Patient doing well today. Her diarrhea has improved somewhat. She is being discharged today she states. No pain. Objective - Vital Signs Vital signs: Vital Signs Temp 97.8 F 10/12/20 03:40 Pulse 90 10/12/20 17:54 Resp 16 10/12/20 17:54 BP 110/59 10/12/20 17:54 Pulse Ox 98 10/12/20 17:54 Intake & Output 10/12/20 10/12/20 10/13/20 06:59 18:59 06:59 Intake Total 720 680 Output Total 3500 Balance 720 -2820 Weight 73.5 kg 73.5 kg Intake: Oral 720 680 Output: Stool 3500 Other: Voiding Method Diaper Diaper # Voids 1 1 # Bowel Movements 2 1 - Exam Abdomen: Soft, nontender, nondistended - Labs CBC & Chem 7: 10/05/20 08:07 10/12/20 08:06 Labs: Abnormal Lab Results - Last 24 Hours (Table) 10/12/20 Range/Units 08:06 Sodium 130 L (137-145) mmol/L Creatinine 0.38 L (0.52-1.04) mg/dL Calcium 7.1 L (8.4-10.2) mg/dL AST 369 H (14-36) U/L ALT 270 H (4-34) U/L Alkaline Phosphatase 323 H (38-126) U/L Total Protein 3.6 L (6.3-8.2) g/dL Albumin 1.5 L (3.5-5.0) g/dL Assessment and Plan (1) Gallbladder anomaly Narrative/Plan: Patient seems to be doing better. If discharged follow-up in office in 2-4 weeks to further discuss gallbladder issues. Continue diet. Continue holding stool softeners. Current Visit: Yes Status: Acute Code(s): Q44.1 - OTHER CONGENITAL MALFORMATIONS OF GALLBLADDER SNOMED Code(s): 25583018
--- NOTE | 2020-10-13 12:35 | CDI ---
Documentation Clarification Form Date: 10/13/2020 12:17:00 PM From: Harriet Ma Phone: If you have a question about this query, please contact Teodora Herndon, Screening Representative at [phone] between 8am and 5pm. Admit Date: 09/27/2020 04:39:00 PM Patient Name: Elsa Sylvester Visit Number: [id number] Discharge Date: 10/12/2020 08:02:00 PM ATTENTION: The Clinical Documentation Specialists (CDI) and [facility] Coding Staff appreciate your assistance in clarifying documentation. Please respond to the clarification below the line at the bottom and electronically sign. The CDI & [facility] Coding staff will review the response and follow-up if needed. Please note: Queries are made part of the Legal Health Record. If you have any questions, please contact the author of this message via ITS. Dr. Mamadou Perkins Conflicting documentation has been found in the medical record: Per [facility] hospital course Severe PC malnutrition is documented. In Assessment and Plan in [facility], Moderate PC malnutrition is documented. In H and P mild PC malnutrition is documented. Please clarify the severity of the patient's PC malnutrition. History/Risk Factors: Short gut syndrome, decreased oral intake, diarrhea, hypoalbuminemia Treatment: Advance Diet In your opinion, what is the most clinically appropriate diagnosis for this patient? Severe PC malnutrition Moderate PC malnutrition Mild PC malnutrition Other explanation of clinical findings Unable to determine (no explanation for clinical findings) Mild protein calorie malnutrition MTDD
== END 2020-10-12 20:02 | DRG 391 ==
LOC: 4SSUR 16:39 → 3SCARD 09-30 02:27
PROVIDERS: ADMIT Hospitalist; ATTEND Hospitalist
PROC: 0W9B3ZX Drainage of Left Pleural Cavity, Percutaneous Approach, Diagnostic (ICD-10-PCS; principal; 2020-10-01)
DX: K91.2 Postsurgical malabsorption, not elsewhere classified (principal); I26.09 Other pulmonary embolism with acute cor pulmonale; T83.511A Infection and inflammatory reaction due to indwelling urethral catheter, initial encounter; I50.33 Acute on chronic diastolic (congestive) heart failure; E87.1 Hypo-osmolality and hyponatremia; B17.9 Acute viral hepatitis, unspecified; I31.3 Pericardial effusion (noninflammatory); J91.8 Pleural effusion in other conditions classified elsewhere; J98.11 Atelectasis; K55.9 Vascular disorder of intestine, unspecified; R18.8 Other ascites; Q44.1 Other congenital malformations of gallbladder; E44.1 Mild protein-calorie malnutrition; Z20.822 Contact with and (suspected) exposure to COVID-19; Y84.6 Urinary catheterization as the cause of abnormal reaction of the patient, or of later complication, without mention of misadventure at the time of the procedure; T50.2X5A Adverse effect of carbonic-anhydrase inhibitors, benzothiadiazides and other diuretics, initial encounter; N30.90 Cystitis, unspecified without hematuria; B95.2 Enterococcus as the cause of diseases classified elsewhere; D63.8 Anemia in other chronic diseases classified elsewhere; E03.9 Hypothyroidism, unspecified; E66.9 Obesity, unspecified; E78.5 Hyperlipidemia, unspecified; E83.51 Hypocalcemia; E87.5 Hyperkalemia; E87.6 Hypokalemia; F32.9 Major depressive disorder, single episode, unspecified; F41.9 Anxiety disorder, unspecified; I11.0 Hypertensive heart disease with heart failure; I27.23 Pulmonary hypertension due to lung diseases and hypoxia; I27.29 Other secondary pulmonary hypertension; I48.91 Unspecified atrial fibrillation; J44.9 Chronic obstructive pulmonary disease, unspecified; K56.41 Fecal impaction; K57.30 Diverticulosis of large intestine without perforation or abscess without bleeding; K76.0 Fatty (change of) liver, not elsewhere classified; M81.0 Age-related osteoporosis without current pathological fracture; N20.0 Calculus of kidney; Z79.01 Long term (current) use of anticoagulants; Z79.82 Long term (current) use of aspirin; Z79.890 Hormone replacement therapy; Z79.899 Other long term (current) drug therapy; Z86.711 Personal history of pulmonary embolism; Z87.891 Personal history of nicotine dependence; Z90.49 Acquired absence of other specified parts of digestive tract; Z90.721 Acquired absence of ovaries, unilateral; Z96.653 Presence of artificial knee joint, bilateral; Z98.42 Cataract extraction status, left eye; Z98.41 Cataract extraction status, right eye; Z96.1 Presence of intraocular lens; Z88.0 Allergy status to penicillin; Z88.2 Allergy status to sulfonamides; Z68.37 Body mass index [BMI] 37.0-37.9, adult; E88.09 Other disorders of plasma-protein metabolism, not elsewhere classified; Z60.2 Problems related to living alone; Z82.49 Family history of ischemic heart disease and other diseases of the circulatory system; T46.6X5A Adverse effect of antihyperlipidemic and antiarteriosclerotic drugs, initial encounter; J98.6 Disorders of diaphragm
CPT/HCPCS: 71045; 71046; 71260; 74018; 74177; 76604; 76705; 80048; 80053; 80074; 81001; 82533; 82945; 83615; 83735; 83880; 83930; 83935; 84157; 84295; 84300; 84439; 84443; 85025; 85027; 87070; 87077; 87086; 87102; 87116; 87186; 87205; 87206; 87252; 87328; 87329; 87496; 87498; 87502; 87529; 87634; 87635; 87798; 88108; 88305; 89050; 93308; 94640; 94760

== ENCOUNTER 2020-11-16 12:34 | Inpatient (IN) | payer MEDICARE ==
[2020-11-16] MEDS ORDERED: PANTOPRAZOLE 40 MG/10 ML VIAL IVP STA (12:51)
--- NOTE | 2020-11-16 13:14 | ED ---
General Adult HPI - General Chief complaint: Recheck/Abnormal Lab/Rx Stated complaint: Liver Failure Time Seen by Provider: 11/16/20 12:44 Source: patient, EMS, RN notes reviewed Mode of arrival: EMS Limitations: no limitations - History of Present Illness Initial comments: Patient is a pleasant 75-year-old female presenting to the emergency department with concerns for liver failure. Patient reportedly had recent blood work showing elevated ammonia and INR. Patient denies any known history of liver disease. History and records provided are limited. Patient states she has been scratching her skin recently however does not feel itchy is unclear why she is doing this. Patient states she may be slightly confused however also believes this is fairly chronic for her. Patient has been having some occasional abdominal cramping. No bloating. No significant history of alcohol use. - Related Data Home Medications Medication Instructions Recorded Confirmed Cholecalciferol [Vitamin D3 (25 25 mcg PO BID@1200,1700 05/10/20 11/16/20 Mcg = 1000 Iu)] Albuterol Sulfate [Albuterol 1 puff INHALATION RT-Q4H PRN 07/28/20 11/16/20 Sulfate Hfa] Apixaban [Eliquis] 5 mg PO BID@0700,2100 07/28/20 11/16/20 Aspirin EC [Ecotrin Low Dose] 81 mg PO DAILY@0700 07/28/20 11/16/20 Calcium Carbonate 500 mg PO DAILY@0700 07/28/20 11/16/20 Ferrous Sulfate [Iron (65 MG 325 mg PO DAILY@1700 07/28/20 11/16/20 Elemental)] Loperamide [Imodium] 2 mg PO Q6H PRN 07/28/20 11/16/20 Magnesium Oxide 400 mg PO BID@1200,1700 07/28/20 11/16/20 Pantoprazole Sodium 40 mg PO HS 07/28/20 11/16/20 ondansetron HCL [Zofran] 8 mg PO Q8HR PRN 07/28/20 11/16/20 Banana Flake Packet 1 packet PO Q12H PRN 09/27/20 11/16/20 Fluticasone/Vilanterol [Breo 1 puff INHALATION RT-DAILY@0700 09/27/20 11/16/20 Ellipta 100-25 Mcg Inhaler] Levothyroxine Sodium [Synthroid] 200 mcg PO HS 09/27/20 11/16/20 Melatonin 5 mg PO HS 09/27/20 11/16/20 Multivitamins, Thera [Multivitamin 1 tab PO DAILY@1200 09/27/20 11/16/20 (formulary)] Potassium Chloride ER [K-Dur 20] 20 meq PO DAILY@0700 09/27/20 11/16/20 methocarbamoL [Robaxin] 500 mg PO Q6H PRN 09/27/20 11/16/20 prednisoLONE ACETATE 1% OPHTH 1 drop RIGHT EYE BID@0700,2100 09/27/20 11/16/20 [Pred Forte 1%] Acetaminophen Tab [Tylenol] 650 mg PO Q4H PRN 11/16/20 11/16/20 Bumetanide [BUMEX] 1 mg PO BID@0700,1300 11/16/20 11/16/20 Docusate [Colace] 100 mg PO Q48H 11/16/20 11/16/20 Gabapentin 300 mg PO BID@0700,2100 11/16/20 11/16/20 Ipratropium-Albuterol Nebulize 3 ml INHALATION RT-QID PRN 11/16/20 11/16/20 [Duoneb 0.5 mg-3 mg/3 ml Soln] Liquical 30 ml PO BID@0700,1700 11/16/20 11/16/20 Mag Hydrox/Aluminum Hyd/Simeth 10 ml PO Q4H PRN 11/16/20 11/16/20 [Mylanta Maximum Strength Liq] Mirtazapine [Remeron] 15 mg PO HS 11/16/20 11/16/20 Simethicone 80 mg PO Q8H PRN 11/16/20 11/16/20 Spironolactone [Aldactone] 25 mg PO DAILY@0700 11/16/20 11/16/20 Venlafaxine HCl ER [Effexor XR] 37.5 mg PO DAILY@0700 11/16/20 11/16/20 Venlafaxine HCl ER [Effexor XR] 150 mg PO DAILY@0700 11/16/20 11/16/20 Allergies Allergy/AdvReac Type Severity Reaction Status Date / Time Penicillins Allergy Intermediate Rash/Hives Verified 11/16/20 13:18 Sulfa (Sulfonamide Allergy Unknown Verified 11/16/20 13:18 Antibiotics) Review of Systems ROS Statement: Those systems with pertinent positive or pertinent negative responses have been documented in the HPI. ROS Other: All systems not noted in ROS Statement are negative. Constitutional: Denies: fever Eyes: Denies: eye pain ENT: Denies: ear pain Respiratory: Denies: cough Cardiovascular: Denies: chest pain Endocrine: Denies: fatigue Gastrointestinal: Reports: as per HPI Genitourinary: Denies: dysuria Musculoskeletal: Denies: back pain Neurological: Reports: as per HPI. Denies: headache Past Medical History Past Medical History: Eye Disorder, Hyperlipidemia, Hypertension, Renal Disease, Thyroid Disorder Additional Past Medical History / Comment(s): R eye mutliple surgeries for retinal tears-vision poor, hypothyroid, osteoporosis. Pt reports blood clot in bowel after surgery- received vascular surgical removal at [facility] History of Any Multi-Drug Resistant Organisms: None Reported Past Surgical History: Bowel Resection, Joint Replacement Additional Past Surgical History / Comment(s): Colonoscopy with last on 05/08/20, bilateral total knees, left ovary removed d/t cyst, bilateral eye cataract removals/lens implants, R eye multiple surgeries for retinal tears, bowel resect ion. Past Anesthesia/Blood Transfusion Reactions: No Reported Reaction Additional Past Anesthesia/Blood Transfusion Reaction / Comment(s): Difficulty getting to sleep, states she can be combative after surgery Past Psychological History: Anxiety, Depression Smoking Status: Former smoker Past Alcohol Use History: Rare Past Drug Use History: None Reported - Past Family History Mother Family Medical History: No Reported History Additional Family Medical History / Comment(s): Mother did not go to the doctor much. Father History Unknown: Yes Family Medical History: AFIB, Vascular Disorder Additional Family Medical History / Comment(s): Father in his early 50s of a ruptured thoracic aneurysm. General Exam Limitations: no limitations General appearance: alert, in no apparent distress Head exam: Present: normocephalic Eye exam: Present: normal appearance, PERRL. Absent: scleral icterus ENT exam: Present: mucous membranes dry Neck exam: Present: normal inspection Respiratory exam: Present: normal lung sounds bilaterally Cardiovascular Exam: Present: regular rate, normal rhythm GI/Abdominal exam: Present: soft. Absent: distended, tenderness, guarding, rebound, rigid, organomegaly Extremities exam: Present: normal inspection Neurological exam: Present: alert Psychiatric exam: Present: normal affect, normal mood Skin exam: Present: other (Patient does have several areas of ecchymosis diffusely, in various sizes.) Course Vital Signs 11/16/20 12:39 Temperature 97.4 F L Pulse Rate 91 Respiratory 18 Rate Blood Pressure 105/69 O2 Sat by Pulse 98 Oximetry Medical Decision Making - Medical Decision Making Case was discussed Dr. Yan was very familiar with this patient and worried about impending liver failure secondary to changes with testing, patient becoming emotional and somewhat delirious and picking at her skin. She would like patient admitted with GI consult. Case was discussed with Dr. Perkins, who will admit. Patient updated. - Lab Data Result diagrams: 11/16/20 13:29 11/16/20 13:27 Lab Results 11/16/20 11/16/20 11/16/20 Range/Units 13:27 13:27 13:27 WBC (3.8-10.6) k/uL RBC (3.80-5.40) m/uL Hgb (11.4-16.0) gm/dL Hct (34.0-46.0) % MCV (80.0-100.0) fL MCH (25.0-35.0) pg MCHC (31.0-37.0) g/dL RDW (11.5-15.5) % Plt Count (150-450) k/uL MPV Neutrophils % % Lymphocytes % % Monocytes % % Eosinophils % % Basophils % % Neutrophils # (1.3-7.7) k/uL Lymphocytes # (1.0-4.8) k/uL Monocytes # (0-1.0) k/uL Eosinophils # (0-0.7) k/uL Basophils # (0-0.2) k/uL Anisocytosis PT 25.1 H (9.0-12.0) sec INR 2.6 H (<1.2) APTT 29.6 (22.0-30.0) sec Sodium 129 L (137-145) mmol/L Potassium 4.2 (3.5-5.1) mmol/L Chloride 102 (98-107) mmol/L Carbon Dioxide 24 (22-30) mmol/L Anion Gap 3 mmol/L BUN 29 H (7-17) mg/dL Creatinine 0.73 (0.52-1.04) mg/dL Est GFR (CKD-EPI)AfAm >90 (>60 ml/min/1.73 sqM) Est GFR (CKD-EPI)NonAf 82 (>60 ml/min/1.73 sqM) Glucose 70 L (74-99) mg/dL Calcium 7.2 L (8.4-10.2) mg/dL Total Bilirubin 0.8 (0.2-1.3) mg/dL AST 57 H (14-36) U/L ALT 28 (4-34) U/L Alkaline Phosphatase 206 H (38-126) U/L Ammonia 60 H (<30) umol/L Total Protein 3.9 L (6.3-8.2) g/dL Albumin 1.5 L (3.5-5.0) g/dL Amylase <30 L (30-110) U/L Lipase <10 L (23-300) U/L 11/16/20 Range/Units 13:29 WBC 7.2 (3.8-10.6) k/uL RBC 3.37 L (3.80-5.40) m/uL Hgb 9.9 L (11.4-16.0) gm/dL Hct 30.8 L (34.0-46.0) % MCV 91.4 (80.0-100.0) fL MCH 29.5 (25.0-35.0) pg MCHC 32.3 (31.0-37.0) g/dL RDW 17.6 H (11.5-15.5) % Plt Count 458 H (150-450) k/uL MPV 7.6 Neutrophils % 53 % Lymphocytes % 40 % Monocytes % 5 % Eosinophils % 1 % Basophils % 0 % Neutrophils # 3.8 (1.3-7.7) k/uL Lymphocytes # 2.8 (1.0-4.8) k/uL Monocytes # 0.4 (0-1.0) k/uL Eosinophils # 0.1 (0-0.7) k/uL Basophils # 0.0 (0-0.2) k/uL Anisocytosis Slight PT (9.0-12.0) sec INR (<1.2) APTT (22.0-30.0) sec Sodium (137-145) mmol/L Potassium (3.5-5.1) mmol/L Chloride (98-107) mmol/L Carbon Dioxide (22-30) mmol/L Anion Gap mmol/L BUN (7-17) mg/dL Creatinine (0.52-1.04) mg/dL Est GFR (CKD-EPI)AfAm (>60 ml/min/1.73 sqM) Est GFR (CKD-EPI)NonAf (>60 ml/min/1.73 sqM) Glucose (74-99) mg/dL Calcium (8.4-10.2) mg/dL Total Bilirubin (0.2-1.3) mg/dL AST (14-36) U/L ALT (4-34) U/L Alkaline Phosphatase (38-126) U/L Ammonia (<30) umol/L Total Protein (6.3-8.2) g/dL Albumin (3.5-5.0) g/dL Amylase (30-110) U/L Lipase (23-300) U/L Disposition Clinical Impression: Liver failure Disposition: ADMITTED IP TO THIS HOSP Is patient prescribed a controlled substance at d/c from ED?: No Referrals: Dorian Yan MD [Primary Care Provider] - 1-2 days Decision Time: 15:19
--- NOTE | 2020-11-16 14:15 | XR ---
KUB history: Abdominal pain Frontal KUB submitted on 2 images correlation to prior KUB 10/04/2020, CT 09/28/2020 There vascular calcifications within the pelvis. Degenerative disc changes are present in the visuali zed spine. There is a calcification present in the left upper quadrant which may be superimposed over the left renal pelvis or left left kidney similar to prior exam measuring 18 mm in greatest diameter . No evident bowel obstruction or pneumoperitoneum. IMPRESSION: Left-sided nephrolithiasis.
[2020-11-16 14:32] LABS: INR 2.6 (<1.2); Partial Thromboplastin Time 29.6 sec (22.0-30.0); Prothrombin Time 25.1 sec (9.0-12.0)
[2020-11-16 14:38] LABS: ALT 28 U/L (4-34); AST 57 U/L (14-36); African American GFR (CKD) >90 (>60 ml/min/1.73 sqM); Albumin 1.5 g/dL (3.5-5.0); Alkaline Phosphatase 206 U/L (38-126); Amylase <30 U/L (30-110); Anion Gap 3 mmol/L; Blood Urea Nitrogen 29 mg/dL (7-17); Calcium 7.2 mg/dL (8.4-10.2); Carbon Dioxide 24 mmol/L (22-30); Chloride 102 mmol/L (98-107); Glucose 70 mg/dL (74-99); Lipase <10 U/L (23-300); Non-African American GFR(CKD) 82 (>60 ml/min/1.73 sqM); Potassium 4.2 mmol/L (3.5-5.1); Sodium 129 mmol/L (137-145); Total Bilirubin 0.8 mg/dL (0.2-1.3); Total Protein 3.9 g/dL (6.3-8.2)
[2020-11-16 14:39] LABS: Anisocytosis Slight; Basophils % (A) 0 %; Eosinophils # (A) 0.1 k/uL (0-0.7); Eosinophils % (A) 1 %; HCT 30.8 % (34.0-46.0); HGB 9.9 gm/dL (11.4-16.0); Lymphocytes # (A) 2.8 k/uL (1.0-4.8); Lymphocytes % (A) 40 %; MCH 29.5 pg (25.0-35.0); MCHC 32.3 g/dL (31.0-37.0); MCV 91.4 fL (80.0-100.0); Mean Platelet Volume 7.6; Monocytes # (A) 0.4 k/uL (0-1.0); Monocytes % (A) 5 %; Neutrophils # (A) 3.8 k/uL (1.3-7.7); Neutrophils % (A) 53 %; Platelet Count 458 k/uL (150-450); RBC 3.37 m/uL (3.80-5.40); RDW 17.6 % (11.5-15.5); WBC 7.2 k/uL (3.8-10.6)
[2020-11-16] MEDS ORDERED: NALOXONE 0.4 MG/ML 1 ML VIAL IV PRN (15:19)
[2020-11-16] MEDS ORDERED: LACTULOSE 20 GM/30 ML CUP PO SCH (15:30)
[2020-11-16] MEDS ORDERED: ONDANSETRON 4 MG TAB PO PRN (16:42)
[2020-11-16] MEDS ORDERED: methocarbamoL 500 MG TAB PO PRN (16:42)
[2020-11-16] MEDS ORDERED: ALBUTEROL HFA INHALER INHALATION PRN (16:42)
[2020-11-16] MEDS ORDERED: ACETAMINOPHEN TAB 325 MG TAB PO PRN (16:42)
--- NOTE | 2020-11-16 17:06 | P.HPIM ---
History of Present Illness H&P Date: 11/16/20 Chief Complaint: Tired History of presenting complaint: This is a pleasant 75-year-old patient of Dr. Dorian Yan. Chronic stable medical conditions include hypertension, hyperlipidemia, depression, hypothyroid. 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 Full-thickness necrosis noted in a patchy manner. Area proximal distal to that also ischemic appearance-small bowel resection was carried out. Patient was then transferred out to [facility]. Dr. Galdamez with the surgical nicotine. Patient thinks a blood clot was removed from the blood supply to the bowels. Patient now presents from the rehab center feeling weak and tired. Able to only take 2-3 steps Has not been eating. Denies any fever or chills. Feels really dry. Voice is really weak. Tired. No shortness of breath. Discussed scattered bruising. Is on eliquis. Review of systems: GEN.: Tired, decreased appetite EYES: None HEENT: None NECK: None RESPIRATORY: None CARDIOVASCULAR: None GASTROINTESTINAL: As above GENITOURINARY: None MUSCULOSKELETAL: joint pains LYMPHATICS: None HEMATOLOGICAL: Diffuse bruising PSYCHIATRY: None NEUROLOGICAL: None Past medical history to include: Hypertension, hyperlipidemia, depression, hypothyroid, small bowel ischemia, with resection and blood clots removed from blood supply to the small bowel at [facility] Social history: At rehab. Smoked for about 30 years stopped in 1999. Was a heavy smoker. Alcohol occasional. Physical examination: VITAL SIGNS: 97.4, 91, 18, 105/69, 98% room air GENERAL:. BMI 35.4, laying in bed, tired. EYES: Pupils equal. Conjunctiva pale HEENT: External appearance of nose and ears normal, oral cavity dry NECK: JVD not raised; masses not palpable. HEART: First and second heart sounds are normal; no edema. LUNGS: Respiratory rate normal; clear to auscultation. ABDOMEN: Soft, no tenderness, no guarding rigidity, liver spleen not palpable, no masses palpable. PSYCH: Awake, able to answer questions, more affect a bit low DERMATOLOGICAL: Diffuse bruising. MUSCULAR skeletal: Evidence of OA INVESTIGATIONS, reviewed in the clinical context: WBC 7.2 hemoglobin 9.9 platelets 458 pro time 25.1 potassium 4.2 sodium 129 creatinine 0.73 ammonia 60 albumin 1.5 2-D echocardiogram-EF 50-55%, moderate concentric LVH, right ventricle mildly to moderately enlarged, borderline pulmonary arterial hypertension Assessment and plan: -Clinical dehydration from poor oral intake Start IV fluids. Hold off diuretics for now -Acute on chronic medical debility PTOT -chronic cor pulmonale Follow clinically -Hypothyroid Continue with Synthroid -Essential hypertension Follow blood pressure -Hyperlipidemia -Chronic insomnia Continue with Remeron -Depression otherwise specified Continue Effexor -obesity BMI 35.4 Follow-up with outpatient -Elevated right diaphragm-SNIFF test was negative. No paradoxical movement noted. -History of small bowel ischemia with resection and history of blood clots been removed. Continue eliquis Care was discussed with the patient. Questions answered. Given the complexity and severity of patient's condition expect the patient to be in the hospital at least for 2 overnights Past Medical History Past Medical History: Eye Disorder, Hyperlipidemia, Hypertension, Renal Disease, Thyroid Disorder Additional Past Medical History / Comment(s): R eye mutliple surgeries for retinal tears-vision poor, hypothyroid, osteoporosis. Pt reports blood clot in bowel after surgery- received vascular surgical removal at [facility] History of Any Multi-Drug Resistant Organisms: None Reported Past Surgical History: Bowel Resection, Joint Replacement Additional Past Surgical History / Comment(s): Colonoscopy with last on 05/08/20, bilateral total knees, left ovary removed d/t cyst, bilateral eye cataract removals/lens implants, R eye multiple surgeries for retinal tears, bowel resection. Past Anesthesia/Blood Transfusion Reactions: No Reported Reaction Additional Past Anesthesia/Blood Transfusion Reaction / Comment(s): Difficulty getting to sleep, states she can be combative after surgery Past Psychological History: Anxiety, Depression Smoking Status: Former smoker Past Alcohol Use History: Rare Past Drug Use History: None Reported - Past Family History Mother Family Medical History: No Reported History Additional Family Medical History / Comment(s): Mother did not go to the doctor much. Father History Unknown: Yes Family Medical History: AFIB, Vascular Disorder Additional Family Medical History / Comment(s): Father in his early 50s of a ruptured thoracic aneurysm. Medications and Allergies Home Medications Medication Instructions Recorded Confirmed Type Cholecalciferol [Vitamin D3 (25 25 mcg PO BID@1200,1700 05/10/20 11/16/20 History Mcg = 1000 Iu)] Albuterol Sulfate [Albuterol 1 puff INHALATION RT-Q4H PRN 07/28/20 11/16/20 History Sulfate Hfa] Apixaban [Eliquis] 5 mg PO BID@0700,2100 07/28/20 11/16/20 History Aspirin EC [Ecotrin Low Dose] 81 mg PO DAILY@0700 07/28/20 11/16/20 History Calcium Carbonate 500 mg PO DAILY@0700 07/28/20 11/16/20 History Ferrous Sulfate [Iron (65 MG 325 mg PO DAILY@1700 07/28/20 11/16/20 History Elemental)] Loperamide [Imodium] 2 mg PO Q6H PRN 07/28/20 11/16/20 History Magnesium Oxide 400 mg PO BID@1200,1700 07/28/20 11/16/20 History Pantoprazole Sodium 40 mg PO HS 07/28/20 11/16/20 History ondansetron HCL [Zofran] 8 mg PO Q8HR PRN 07/28/20 11/16/20 History Banana Flake Packet 1 packet PO Q12H PRN 09/27/20 11/16/20 History Fluticasone/Vilanterol [Breo 1 puff INHALATION RT-DAILY@0700 09/27/20 11/16/20 History Ellipta 100-25 Mcg Inhaler] Levothyroxine Sodium [Synthroid] 200 mcg PO HS 09/27/20 11/16/20 History Melatonin 5 mg PO HS 09/27/20 11/16/20 History Multivitamins, Thera [Multivitamin 1 tab PO DAILY@1200 09/27/20 11/16/20 History (formulary)] Potassium Chloride ER [K-Dur 20] 20 meq PO DAILY@0700 09/27/20 11/16/20 History methocarbamoL [Robaxin] 500 mg PO Q6H PRN 09/27/20 11/16/20 History prednisoLONE ACETATE 1% OPHTH 1 drop RIGHT EYE BID@0700,2100 09/27/20 11/16/20 History [Pred Forte 1%] Acetaminophen Tab [Tylenol] 650 mg PO Q4H PRN 11/16/20 11/16/20 History Bumetanide [BUMEX] 1 mg PO BID@0700,1300 11/16/20 11/16/20 History Docusate [Colace] 100 mg PO Q48H 11/16/20 11/16/20 History Gabapentin 300 mg PO BID@0700,2100 11/16/20 11/16/20 History Ipratropium-Albuterol Nebulize 3 ml INHALATION RT-QID PRN 11/16/20 11/16/20 History [Duoneb 0.5 mg-3 mg/3 ml Soln] Liquical 30 ml PO BID@0700,1700 11/16/20 11/16/20 History Mag Hydrox/Aluminum Hyd/Simeth 10 ml PO Q4H PRN 11/16/20 11/16/20 History [Mylanta Maximum Strength Liq] Mirtazapine [Remeron] 15 mg PO HS 11/16/20 11/16/20 History Simethicone 80 mg PO Q8H PRN 11/16/20 11/16/20 History Spironolactone [Aldactone] 25 mg PO DAILY@0700 11/16/20 11/16/20 History Venlafaxine HCl ER [Effexor XR] 37.5 mg PO DAILY@0700 11/16/20 11/16/20 History Venlafaxine HCl ER [Effexor XR] 150 mg PO DAILY@0700 11/16/20 11/16/20 History Allergies Allergy/AdvReac Type Severity Reaction Status Date / Time Penicillins Allergy Intermediate Rash/Hives Verified 11/16/20 13:18 Sulfa (Sulfonamide Allergy Unknown Verified 11/16/20 13:18 Antibiotics) Physical Exam Vitals: Vital Signs Temp Pulse Resp BP Pulse Ox 11/16/20 12:39 97.4 F L 91 18 105/69 98 Intake and Output 11/16/20 11/16/20 11/16/20 06:59 14:59 22:59 Other: Weight 90.718 kg Results CBC & Chem 7: 11/16/20 13:29 11/16/20 13:27 Labs: Abnormal Lab Results - Last 24 Hours (Table) 11/16/20 11/16/20 11/16/20 Range/Units 13:27 13:27 13:27 RBC (3.80-5.40) m/uL Hgb (11.4-16.0) gm/dL Hct (34.0-46.0) % RDW (11.5-15.5) % Plt Count (150-450) k/uL PT 25.1 H (9.0-12.0) sec INR 2.6 H (<1.2) Sodium 129 L (137-145) mmol/L BUN 29 H (7-17) mg/dL Glucose 70 L (74-99) mg/dL Calcium 7.2 L (8.4-10.2) mg/dL AST 57 H (14-36) U/L Alkaline Phosphatase 206 H (38-126) U/L Ammonia 60 H (<30) umol/L Total Protein 3.9 L (6.3-8.2) g/dL Albumin 1.5 L (3.5-5.0) g/dL Amylase <30 L (30-110) U/L Lipase <10 L (23-300) U/L 11/16/20 Range/Units 13:29 RBC 3.37 L (3.80-5.40) m/uL Hgb 9.9 L (11.4-16.0) gm/dL Hct 30.8 L (34.0-46.0) % RDW 17.6 H (11.5-15.5) % Plt Count 458 H (150-450) k/uL PT (9.0-12.0) sec INR (<1.2) Sodium (137-145) mmol/L BUN (7-17) mg/dL Glucose (74-99) mg/dL Calcium (8.4-10.2) mg/dL AST (14-36) U/L Alkaline Phosphatase (38-126) U/L Ammonia (<30) umol/L Total Protein (6.3-8.2) g/dL Albumin (3.5-5.0) g/dL Amylase (30-110) U/L Lipase (23-300) U/L
[2020-11-16 17:19] LABS: Amorphous Sediment,Urine Rare /hpf; Appearance,Urine Cloudy (Clear); Bacteria,Urine Occasional /hpf; Bilirubin,Urine Negative (Negative); Blood,Urine Large (Negative); Color,Urine Yellow; Glucose,Urine (UA) Negative (Negative); Ketones,Urine Negative (Negative); Leukocyte Esterase,Urine Large (Negative); Mucus,Urine Rare /hpf; Nitrite,Urine Negative (Negative); PH, Urine 6.5 (5.0-8.0); Protein,Urine Negative (Negative); RBC,Urine 149 /hpf (0-5); Specific Gravity,Urine 1.007 (1.001-1.035); Squamous Epithelial Cell,Urine 1 /hpf (0-4); Urobilinogen,Urine <2.0 mg/dL (<2.0); WBC,Urine 72 /hpf (0-5)
[2020-11-16] MEDS: SODIUM CHLORIDE 0.9% 1,000 ML IV SCH (20:05)
[2020-11-16] MEDS: MIRTAZAPINE 15 MG TAB PO SCH (20:31)
[2020-11-16] MEDS: LEVOTHYROXINE 100 MCG TAB PO SCH (20:31)
[2020-11-16] MEDS: PANTOPRAZOLE 40 MG TABLET PO SCH (20:32)
[2020-11-16] MEDS: APIXABAN 5 MG TAB PO SCH (20:32)
[2020-11-16] MEDS: prednisoLONE ACETATE 1% OPHTH DROPS 5 ML BTL RIGHT EYE SCH (20:32)
[2020-11-16] MEDS: GABAPENTIN 300 MG CAP PO SCH (20:32)
[2020-11-16] MEDS: SIMETHICONE 80 MG CHEWABLE PO PRN (20:55)
[2020-11-16] MEDS ORDERED: MELATONIN 5 MG TABLET PO SCH (21:00)
[2020-11-17 05:53] LABS: ALT 25 U/L (4-34); AST 47 U/L (14-36); African American GFR (CKD) >90 (>60 ml/min/1.73 sqM); Albumin 1.4 g/dL (3.5-5.0); Albumin/Globulin Ratio 0.7; Alkaline Phosphatase 183 U/L (38-126); Anion Gap 3 mmol/L; Blood Urea Nitrogen 27 mg/dL (7-17); Calcium 7.1 mg/dL (8.4-10.2); Carbon Dioxide 25 mmol/L (22-30); Chloride 102 mmol/L (98-107); Globulin 2.1 g/dL; Glucose 68 mg/dL (74-99); Magnesium 1.8 mg/dL (1.6-2.3); Non-African American GFR(CKD) 84 (>60 ml/min/1.73 sqM); Potassium 3.7 mmol/L (3.5-5.1); Sodium 130 mmol/L (137-145); Total Bilirubin 0.8 mg/dL (0.2-1.3); Total Protein 3.5 g/dL (6.3-8.2)
[2020-11-17] MEDS ORDERED: SPIRONOLACTONE 25 MG TAB PO SCH (07:00)
[2020-11-17] MEDS: ASPIRIN 81 MG PO SCH (07:28)
[2020-11-17] MEDS: APIXABAN 5 MG TAB PO SCH ×2 (07:29→20:50)
[2020-11-17] MEDS: prednisoLONE ACETATE 1% OPHTH DROPS 5 ML BTL RIGHT EYE SCH ×2 (07:29→20:50)
[2020-11-17] MEDS: SODIUM CHLORIDE 0.9% 1,000 ML IV SCH ×2 (07:30→19:22)
[2020-11-17] MEDS: VENLAFAXINE HCL ER 37.5 MG CAP PO SCH (07:30)
[2020-11-17] MEDS: VENLAFAXINE HCL ER 150 MG CAP PO SCH (07:30)
[2020-11-17] MEDS: SYMBICORT 80-4.5 MCG INHALER INHALATION SCH ×2 (08:21→20:18)
[2020-11-17] MEDS ORDERED: PANTOPRAZOLE 40 MG/10 ML VIAL IV SCH (09:00)
[2020-11-17 09:33] LABS: INR 2.03 (0.90-1.11); Prothrombin Time 21.1 sec (9.9-11.9)
[2020-11-17] MEDS ORDERED: LACTULOSE 20 GM/30 ML CUP PO ONE (09:48)
[2020-11-17] MEDS: SIMETHICONE 80 MG CHEWABLE PO PRN (11:16)
[2020-11-17] MEDS: MULTIVITAMINS, THERA 1 EACH TAB PO SCH (11:41)
[2020-11-17] MEDS ORDERED: MAGNESIUM CITRATE 296 ML BOTTLE PO ONE (11:53)
[2020-11-17] MEDS: LEVOFLOXACIN 500 MG TAB PO SCH (13:21)
--- NOTE | 2020-11-17 16:25 | CONS ---
CONSULTATION DATE OF DICTATION: 11/17/2020 REASON FOR CONSULTATION: Elevated LFTs. HISTORY OF PRESENT ILLNESS: The patient is a 75-year-old pleasant white female with history of hypertension, hyperlipidemia, anxiety, depression, hypothyroidism, status post small bowel ischemia in April of 2020 requiring small bowel resection at [facility]. She was transferred from rehab because she was having some altered mental status, feeling weak and tired and apparently was noted to have an elevated ammonia level. She went to the emergency room and subsequently was diagnosed with recurrent urinary tract infection and was admitted to the hospital for further evaluation. During this hospitalization she was noted to have mild coagulopathy, but patient has been on Eliquis. She also was noted to have mild elevation of serum transaminases, and hence we are consulted in regard to this issue. The patient's daughter is at the bedside. No history of chronic liver disease in the past. No history of jaundice or hepatitis before. During her last hospitalization for UTI in September of this year she was noted to have elevated serum transaminases with ALT and AST in the range of 500 and 300. She did have hepatitis serologies for A, B and C done. Her serum transaminases gradually improved and she was subsequently discharged home. During this hospitalization her ALT and AST are in the range of 70s with slightly elevated alkaline phosphatase, but bilirubin is within normal limits. The patient denies any abdominal pain. No nausea, no vomiting. PAST MEDICAL HISTORY: Significant for hypertension, hyperlipidemia, anxiety, depression, hypothyroidism, recurrent urinary tract infections. PAST SURGICAL HISTORY: Small bowel resection secondary to small bowel ischemia in April of 2020. History of bilateral total knee, left ovary removed, bilateral cataract surgeries, right eye multiple surgeries. MEDICATIONS: Medications at home include vitamin D3, albuterol, Eliquis, Ecotrin, Imodium, magnesium oxide, pantoprazole, Zofran, Breo Ellipta, Synthroid, multivitamin, Robaxin, K-Dur, Colace, Bumex, Tylenol, Maalox, Remeron, simethicone, Aldactone, Effexor. ALLERGIES: PENICILLIN, SULFA. SOCIAL HISTORY: Former smoker. No alcohol use. FAMILY HISTORY: Mother unremarkable. Father coronary artery disease. REVIEW OF SYSTEMS: CARDIOPULMONARY: No chest pain or shortness of breath. GENITOURINARY: NEUROLOGY: Altered mental status. ENT/VISION: Unremarkable. CONSTITUTIONAL: No recent weight loss. No fever, chills, night sweats. HEMATOLOGY: Unremarkable. PSYCHIATRIC: History of anxiety, depression. PHYSICAL EXAMINATION: Blood pressure is 104/52, pulse rate 92, temperature 98.6. HEENT examination unremarkable. Conjunctivae pink. Sclerae anicteric. Oral cavity no lesions. NECK: No JVD or lymph node enlargement. CHEST: Clear to auscultation. HEART: Regular rate and rhythm. ABDOMEN: Soft. Bowel sounds are positive. No organomegaly. EXTREMITIES: No pedal edema. NEUROLOGIC: Alert and oriented x3. No focal deficits. LABS: WBC 7.2, hemoglobin 9.9, platelets 453. INR 2.6. AST 57, ALT 28, alkaline phosphatase 206. Ammonia 60. Today AST and ALT are 47 and 25, respectively. Alkaline phosphatase is 183. Coronavirus PCR is negative. Urinalysis shows large leukocyte esterase. Cultures are still pending. IMPRESSION: 1. Mild elevation of serum transaminases and elevated alkaline phosphatase which has significantly improved compared to the prior hospitalization in September of this year, at which time her serum transaminases were much more elevated. Hepatitis serologies for A, B and C at that time were negative. At this time possibility of chronic liver disease cannot be excluded, though unlikely. 2. Elevated ammonia level of 60 in this patient with no history of chronic liver disease. 3. Coagulopathy secondary to Eliquis. 4. Recurrent urinary tract infection, on broad-spectrum antibiotics. RECOMMENDATIONS: 1. Will do workup for chronic liver disease. 2. Monitor ammonia level closely. 3. Clinically no evidence of liver failure at this present time. 4. Continue with antibiotics for urinary tract infection. 5. Will follow with you closely. Thank you for this consultation. MMODL / IJN: [id number] /
[2020-11-17] MEDS: PANTOPRAZOLE 40 MG TABLET PO SCH (20:50)
[2020-11-17] MEDS: MIRTAZAPINE 15 MG TAB PO SCH (20:50)
[2020-11-17] MEDS: LEVOTHYROXINE 100 MCG TAB PO SCH (20:50)
[2020-11-17] MEDS: GABAPENTIN 300 MG CAP PO SCH (20:50)
--- NOTE | 2020-11-17 23:41 | P.PN ---
Progress Note - Text Progress Note Date: 11/17/20 Chief Complaint: Tired History of presenting complaint: This is a pleasant 75-year-old patient of Dr. Dorian Yan. Chronic stable medical conditions include hypertension, hyperlipidemia, depression, hypothyroid. 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 Full-thickness necrosis noted in a patchy manner. Area proximal distal to that also ischemic appearance-small bowel resection was carried out. Patient was then transferred out to [facility]. Dr. Galdamez with the surgical nicotine. Patient thinks a blood clot was removed from the blood supply to the bowels. Patient now presents from the rehab center feeling weak and tired. Able to only take 2-3 steps Has not been eating. Denies any fever or chills. Feels really dry. Voice is really weak. Tired. No shortness of breath. scattered bruising. Is on eliquis. Admitted with dehydration, acute medical debility. Diuretics with temporary held. IV hydration. Acute UTI Today: Patient more awake. Feels a bit better. Feels slightly stronger. Started to eat better. Started on Levaquin for acute UTI Review of systems: Was done for constitutional, cardiovascular, GI, pulmonary. relevant finding as above Active Medications Acetaminophen (Acetaminophen Tab 325 Mg Tab) 650 mg PO Q4H PRN PRN Reason: Pain Last Admin: 11/16/20 22:35 Dose: 650 mg Documented by: Albuterol/Ipratropium (Ipratropium-Albuterol 3 Ml Neb) 3 ml INHALATION RT-QID PRN PRN Reason: Shortness Of Breath Apixaban (Apixaban 5 Mg Tab) 5 mg PO BID@0700,2100 [facility] Last Admin: 11/17/20 20:50 Dose: 5 mg Documented by: Aspirin (Aspirin 81 Mg) 81 mg PO DAILY@0700 [facility] Last Admin: 11/17/20 07:28 Dose: 81 mg Documented by: Budesonide/Formoterol Fumarate (Symbicort 80-4.5 Mcg Inhaler) 2 puff INHALATION RT-BID [facility] Last Admin: 11/17/20 20:18 Dose: 2 puff Documented by: Gabapentin (Gabapentin 300 Mg Cap) 300 mg PO HS [facility] Last Admin: 11/17/20 20:50 Dose: 300 mg Documented by: Sodium Chloride (Saline 0.9%) 1,000 mls @ 75 mls/hr IV .[id number] [facility] Last Admin: 11/17/20 19:22 Dose: 75 mls/hr Documented by: Levofloxacin (Levofloxacin 500 Mg Tab) 500 mg PO Q24H [facility] Last Admin: 11/17/20 13:21 Dose: 500 mg Documented by: Levothyroxine Sodium (Levothyroxine 100 Mcg Tab) 200 mcg PO [facility] Last Admin: 11/17/20 20:50 Dose: 200 mcg Documented by: Methocarbamol (Methocarbamol 500 Mg Tab) 500 mg PO Q6H PRN PRN Reason: Muscle Spasm Mirtazapine (Mirtazapine 15 Mg Tab) 15 mg PO [facility] Last Admin: 11/17/20 20:50 Dose: 15 mg Documented by: Multivitamins (Multivitamins, Thera 1 Each Tab) 1 each PO DAILY@1200 [facility] Last Admin: 11/17/20 11:41 Dose: 1 each Documented by: Naloxone HCl (Naloxone 0.4 Mg/Ml 1 Ml Vial) 0.2 mg IV Q2M PRN PRN Reason: Opioid Reversal Ondansetron HCl (Ondansetron 4 Mg Tab) 8 mg PO Q8HR PRN PRN Reason: Nausea And Vomiting Pantoprazole Sodium (Pantoprazole 40 Mg Tablet) 40 mg PO [facility] Last Admin: 11/17/20 20:50 Dose: 40 mg Documented by: Polyethylene Glycol (Polyethylene Glycol 3350 17 Gm Powd.Pack) 17 gm PO DAILY [facility] Prednisolone Acetate (Prednisolone Acetate 1% Ophth Drops 5 Ml Btl) 1 drops RIGHT EYE BID@0700,2100 [facility] Last Admin: 11/17/20 20:50 Dose: 1 drops Documented by: Simethicone (Simethicone 80 Mg Chewable) 80 mg PO Q8H PRN PRN Reason: gas/bloating Last Admin: 11/17/20 11:16 Dose: 80 mg Documented by: Venlafaxine HCl (Venlafaxine Hcl Er 37.5 Mg Cap) 37.5 mg PO DAILY@0700 [facility] Last Admin: 11/17/20 07:30 Dose: 37.5 mg Documented by: Venlafaxine HCl (Venlafaxine Hcl Er 150 Mg Cap) 150 mg PO DAILY@0700 [facility] Last Admin: 11/17/20 07:30 Dose: 150 mg Documented by: Past medical history to include: Hypertension, hyperlipidemia, depression, hypothyroid, small bowel ischemia, with resection and blood clots removed from blood supply to the small bowel at [facility] Social history: At rehab. Smoked for about 30 years stopped in 1999. Was a heavy smoker. Alcohol occasional. Physical examination: VITAL SIGNS: 98.6, 92, 16, 104/52, 98% room air GENERAL:. BMI 35.4, laying in bed, more awake today. EYES: Pupils equal. Conjunctiva pale HEENT: External appearance of nose and ears normal, oral cavity dry NECK: JVD not raised; masses not palpable. HEART: First and second heart sounds are normal; no edema. LUNGS: Respiratory rate normal; clear to auscultation. ABDOMEN: Soft, no tenderness, no guarding rigidity, liver spleen not palpable, no masses palpable. PSYCH: Awake, able to answer questions, more affect a bit low DERMATOLOGICAL: Diffuse bruising. MUSCULAR skeletal: Evidence of OA INVESTIGATIONS, reviewed in the clinical context: November 17: Potassium 3.7 creatinine 0.7 to WBC 7.2 hemoglobin 9.9 platelets 458 pro time 25.1 potassium 4.2 sodium 129 creatinine 0.73 ammonia 60 albumin 1.5 2-D echocardiogram-EF 50-55%, moderate concentric LVH, right ventricle mildly to moderately enlarged, borderline pulmonary arterial hypertension Assessment and plan: -Clinical dehydration from poor oral intake Start IV fluids. Hold off diuretics for now -Acute on chronic medical debility PTOT -chronic cor pulmonale Follow clinically -Hypothyroid Continue with Synthroid -Essential hypertension Follow blood pressure -Hyperlipidemia -Chronic insomnia Continue with Remeron -Depression otherwise specified Continue Effexor -obesity BMI 35.4 Follow-up with outpatient -Elevated right diaphragm-SNIFF test was negative. No paradoxical movement noted. -History of small bowel ischemia with resection and history of blood clots been removed. Continue eliquis -Acute UTI with cystitis Started on Levaquin Care was discussed with the patient. Spoke to the case resolution specialist. Patient a lot have a bed available until Friday at the rehab place.
[2020-11-18] MEDS: ASPIRIN 81 MG PO SCH (07:57)
[2020-11-18] MEDS: VENLAFAXINE HCL ER 150 MG CAP PO SCH (07:57)
[2020-11-18] MEDS: VENLAFAXINE HCL ER 37.5 MG CAP PO SCH (07:58)
[2020-11-18] MEDS: prednisoLONE ACETATE 1% OPHTH DROPS 5 ML BTL RIGHT EYE SCH ×2 (07:58→19:29)
[2020-11-18] MEDS: IPRATROPIUM-ALBUTEROL 3 ML NEB INHALATION PRN ×3 (08:44→20:51)
[2020-11-18] MEDS: SYMBICORT 80-4.5 MCG INHALER INHALATION SCH ×2 (08:44→20:52)
[2020-11-18 09:13] LABS: Protein, Total 3.2 g/dL (6.2-8.2)
[2020-11-18 09:27] LABS: % Iron Saturation 42.64 (12.00-45.00); African American GFR (CKD) 104.8 (60.0-200.0); Albumin 1.5 g/dL (3.80-4.90); Albumin/Globulin Ratio 0.79 (1.60-3.17); Anion Gap 8.7 mmol/L (4.00-12.00); BUN/Creat Ratio 38.33 Ratio (12.00-20.00); Carbon Dioxide 19.3 mmol/L (21.6-31.8); Globulin 1.9 g/dL (1.6-3.3); Non-African American GFR(CKD) 90.4 (60.0-200.0); Total Bilirubin 0.6 mg/dL (0.2-1.2); Total Protein 3.4 g/dL (6.2-8.2)
[2020-11-18] MEDS: APIXABAN 5 MG TAB PO SCH ×2 (10:21→19:29)
--- NOTE | 2020-11-18 11:17 | PN ---
PROGRESS NOTE DATE OF SERVICE: 11/18/2020 INTERVAL HISTORY: The patient is a 75-year-old pleasant white female seen on followup today. She is doing much better. Admitted to hospital with recurrent UTI on broad-spectrum antibiotics. She was seen on consultation yesterday because of mild elevation of serum transaminases as well as elevated ammonia level. Yesterday ammonia was 60, today it is 90. However, the patient does not have any altered mental status. In fact, she is feeling better. She denies any abdominal pain, nausea, vomiting. No fever, chills, or night sweats. PHYSICAL EXAMINATION: GENERAL: She appears comfortable. No apparent distress. VITAL SIGNS: Stable. Blood pressure 99/67, pulse rate 70, temperature 97.8. HEENT: Examination unremarkable. Conjunctivae are pink. Sclerae anicteric. Oral cavity no lesions. NECK: No JVD or lymph node enlargement. CHEST: Clear to auscultation. HEART: Regular rate and rhythm. ABDOMEN: Soft, bowel sounds are positive. It was nontender, nondistended. EXTREMITIES: No pedal edema noted. SKIN: No rashes. NEURO: She is alert and oriented x3. No focal deficits. LABS: From today, blood sugar 67, BUN and creatinine are 23 and 0.6 respectively. AST 53, ALT 32, alkaline phosphatase 181, ammonia 90. INR is pending. IMPRESSION: 1. Altered mental status with elevated ammonia level. Rule out hepatic encephalopathy. We will start her on oral lactulose. 2. Mild elevation of serum transaminases for the last 2-3 months duration. Workup for chronic liver disease in progress. 3. Recurrent urinary tract infection, on broad-spectrum antibiotics. RECOMMENDATIONS: 1. Start oral lactulose 20 g 3 times daily so that she can be titrated to have 3-4 bowel movements daily. 2. Await rest of the workup for chronic liver disease. 3. Advance diet as tolerated. 4. Continue with Eliquis. 5. We will follow labs closely. Thank you for this consultation. MMODL / IJN: [id number] /
[2020-11-18 12:27] LABS: Alpha Fetoprotein, Tumor Mkr <2.5 ng/mL (0.0-7.9)
[2020-11-18] MEDS: LACTULOSE 20 GM/30 ML CUP PO SCH ×3 (12:59→22:06)
[2020-11-18] MEDS: polyethylene glycoL 3350 17 GM POWD.PACK PO SCH (12:59)
[2020-11-18] MEDS: MULTIVITAMINS, THERA 1 EACH TAB PO SCH (13:38)
[2020-11-18] MEDS: LEVOFLOXACIN 500 MG TAB PO SCH (13:38)
[2020-11-18] MEDS: SODIUM CHLORIDE 0.9% 1,000 ML IV SCH (13:41)
[2020-11-18] MEDS: LEVOTHYROXINE 100 MCG TAB PO SCH (19:28)
[2020-11-18] MEDS: MIRTAZAPINE 15 MG TAB PO SCH (19:29)
[2020-11-18] MEDS: PANTOPRAZOLE 40 MG TABLET PO SCH (19:29)
[2020-11-18] MEDS: GABAPENTIN 300 MG CAP PO SCH (19:29)
--- NOTE | 2020-11-18 23:13 | P.PN ---
Progress Note - Text Progress Note Date: 11/18/20 Chief Complaint: Tired History of presenting complaint: This is a pleasant 75-year-old patient of Dr. Dorian Yan. Chronic stable medical conditions include hypertension, hyperlipidemia, depression, hypothyroid. 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 Full-thickness necrosis noted in a patchy manner. Area proximal distal to that also ischemic appearance-small bowel resection was carried out. Patient was then transferred out to [facility]. Dr. Galdamez with the surgical nicotine. Patient thinks a blood clot was removed from the blood supply to the bowels. Patient now presents from the rehab center feeling weak and tired. Able to only take 2-3 steps Has not been eating. Denies any fever or chills. Feels really dry. Voice is really weak. Tired. No shortness of breath. scattered bruising. Is on eliquis. Admitted with dehydration, acute medical debility. Diuretics with temporary held. IV hydration. Acute UTI on Levaquin. Today: Feeling better today. Oral intake improving. More cheerful. Daughter the bedside. Less tired. Review of systems: Was done for constitutional, cardiovascular, GI, pulmonary. relevant finding as above Active Medications Acetaminophen (Acetaminophen Tab 325 Mg Tab) 650 mg PO Q4H PRN PRN Reason: Pain Last Admin: 11/16/20 22:35 Dose: 650 mg Documented by: Albuterol/Ipratropium (Ipratropium-Albuterol 3 Ml Neb) 3 ml INHALATION RT-QID PRN PRN Reason: Shortness Of Breath Last Admin: 11/18/20 20:51 Dose: 3 ml Documented by: Apixaban (Apixaban 5 Mg Tab) 5 mg PO BID@0700,2100 [facility] Last Admin: 11/18/20 19:29 Dose: 5 mg Documented by: Aspirin (Aspirin 81 Mg) 81 mg PO DAILY@0700 [facility] Last Admin: 11/18/20 07:57 Dose: 81 mg Documented by: Budesonide/Formoterol Fumarate (Symbicort 80-4.5 Mcg Inhaler) 2 puff INHALATION RT-BID [facility] Last Admin: 11/18/20 20:52 Dose: 2 puff Documented by: Gabapentin (Gabapentin 300 Mg Cap) 300 mg PO HS [facility] Last Admin: 11/18/20 19:29 Dose: 300 mg Documented by: Sodium Chloride (Saline 0.9%) 1,000 mls @ 75 mls/hr IV .[id number] [facility] Last Admin: 11/18/20 13:41 Dose: 75 mls/hr Documented by: Lactulose (Lactulose 20 Gm/30 Ml Cup) 20 gm PO TID [facility] Last Admin: 11/18/20 22:06 Dose: 20 gm Documented by: Levofloxacin (Levofloxacin 500 Mg Tab) 500 mg PO Q24H [facility] Last Admin: 11/18/20 13:38 Dose: 500 mg Documented by: Levothyroxine Sodium (Levothyroxine 100 Mcg Tab) 200 mcg PO [facility] Last Admin: 11/18/20 19:28 Dose: 200 mcg Documented by: Methocarbamol (Methocarbamol 500 Mg Tab) 500 mg PO Q6H PRN PRN Reason: Muscle Spasm Mirtazapine (Mirtazapine 15 Mg Tab) 15 mg PO [facility] Last Admin: 11/18/20 19:29 Dose: 15 mg Documented by: Multivitamins (Multivitamins, Thera 1 Each Tab) 1 each PO DAILY@1200 [facility] Last Admin: 11/18/20 13:38 Dose: 1 each Documented by: Naloxone HCl (Naloxone 0.4 Mg/Ml 1 Ml Vial) 0.2 mg IV Q2M PRN PRN Reason: Opioid Reversal Ondansetron HCl (Ondansetron 4 Mg Tab) 8 mg PO Q8HR PRN PRN Reason: Nausea And Vomiting Pantoprazole Sodium (Pantoprazole 40 Mg Tablet) 40 mg PO [facility] Last Admin: 11/18/20 19:29 Dose: 40 mg Documented by: Polyethylene Glycol (Polyethylene Glycol 3350 17 Gm Powd.Pack) 17 gm PO DAILY [facility] Last Admin: 11/18/20 12:59 Dose: Not Given Documented by: Prednisolone Acetate (Prednisolone Acetate 1% Ophth Drops 5 Ml Btl) 1 drops RIGHT EYE BID@0700,2100 [facility] Last Admin: 11/18/20 19:29 Dose: 1 drops Documented by: Simethicone (Simethicone 80 Mg Chewable) 80 mg PO Q8H PRN PRN Reason: gas/bloating Last Admin: 11/17/20 11:16 Dose: 80 mg Documented by: Venlafaxine HCl (Venlafaxine Hcl Er 37.5 Mg Cap) 37.5 mg PO DAILY@0700 [facility] Last Admin: 11/18/20 07:58 Dose: 37.5 mg Documented by: Venlafaxine HCl (Venlafaxine Hcl Er 150 Mg Cap) 150 mg PO DAILY@0700 [facility] Last Admin: 11/18/20 07:57 Dose: 150 mg Documented by: Past medical history to include: Hypertension, hyperlipidemia, depression, hypothyroid, small bowel ischemia, with resection and blood clots removed from blood supply to the small bowel at [facility] Social history: At rehab. Smoked for about 30 years stopped in 1999. Was a heavy smoker. Alcohol occasional. Physical examination: VITAL SIGNS: 97.7, 70, 16, 94 x 56, 98% room air GENERAL:. BMI 35.4, laying in bed, more comfortable today EYES: Pupils equal. Conjunctiva pale HEENT: External appearance of nose and ears normal, oral cavity dry NECK: JVD not raised; masses not palpable. HEART: First and second heart sounds are normal; no edema. LUNGS: Respiratory rate normal; clear to auscultation. ABDOMEN: Soft, no tenderness, no guarding rigidity, liver spleen not palpable, no masses palpable. PSYCH: AO 3, more cheerful DERMATOLOGICAL: Diffuse bruising. MUSCULAR skeletal: Evidence of OA INVESTIGATIONS, reviewed in the clinical context: November 18: Potassium 4 creatinine 0.6 sodium 133 Urine culture: Proteus mirabilis November 17: Potassium 3.7 creatinine 0.7 to WBC 7.2 hemoglobin 9.9 platelets 458 pro time 25.1 potassium 4.2 sodium 129 creatinine 0.73 ammonia 60 albumin 1.5 2-D echocardiogram-EF 50-55%, moderate concentric LVH, right ventricle mildly to moderately enlarged, borderline pulmonary arterial hypertension Assessment and plan: -Clinical dehydration from poor oral intake Start IV fluids. Hold off diuretics for now -Acute on chronic medical debility PTOT -chronic cor pulmonale Follow clinically -Hypothyroid Continue with Synthroid -Essential hypertension Follow blood pressure -Hyperlipidemia -Chronic insomnia Continue with Remeron -Depression otherwise specified Continue Effexor -obesity BMI 35.4 Follow-up with outpatient -Elevated right diaphragm-SNIFF test was negative. No paradoxical movement noted. -History of small bowel ischemia with resection and history of blood clots been removed. Continue eliquis -Acute UTI with cystitis, from Proteus mirabilis Resistant to Levaquin-changed to amoxicillin Care was discussed with the patient daughter the bedside. Prognosis guarded. Return to the ECF on Friday.
[2020-11-18] MEDS ORDERED: diphenhydrAMINE 50 MG CAP PO PRN (23:47)
[2020-11-19] MEDS ORDERED: methylPREDNISolone SOD SUCCI 40 MG/ML 1 ML VIAL IV PRN
[2020-11-19] MEDS: diphenhydrAMINE 25 MG CAP PO PRN ×3 (00:44→17:29)
[2020-11-19] MEDS: AMOXICILLIN 250 MG CAP PO SCH ×4 (00:44→23:14)
[2020-11-19 04:31] LABS: Glucose,Whole Blood 93 mg/dL (75-99)
[2020-11-19] MEDS: IPRATROPIUM-ALBUTEROL 3 ML NEB INHALATION PRN (07:30)
[2020-11-19] MEDS: SYMBICORT 80-4.5 MCG INHALER INHALATION SCH ×2 (07:30→20:24)
[2020-11-19] MEDS: ASPIRIN 81 MG PO SCH (09:14)
[2020-11-19] MEDS: APIXABAN 5 MG TAB PO SCH ×2 (09:14→20:26)
[2020-11-19] MEDS: VENLAFAXINE HCL ER 150 MG CAP PO SCH (09:15)
[2020-11-19] MEDS: prednisoLONE ACETATE 1% OPHTH DROPS 5 ML BTL RIGHT EYE SCH ×2 (09:15→20:26)
[2020-11-19] MEDS: VENLAFAXINE HCL ER 37.5 MG CAP PO SCH (09:16)
[2020-11-19] MEDS: polyethylene glycoL 3350 17 GM POWD.PACK PO SCH (09:16)
[2020-11-19] MEDS: LACTULOSE 20 GM/30 ML CUP PO SCH ×3 (09:16→23:15)
[2020-11-19] MEDS: SODIUM CHLORIDE 0.9% 1,000 ML IV SCH ×3 (09:21→21:56)
--- NOTE | 2020-11-19 10:07 | PN ---
PROGRESS NOTE DATE OF SERVICE: 11/19/2020 INTERVAL HISTORY: Patient is a 75-year-old pleasant white female admitted to the hospital with acute UTI. She was noted to have mild elevation of serum transaminases and an elevated ammonia level. She was started on lactulose yesterday and this morning she is complaining of severe diarrhea. She had about 4 or 5 loose bowel movements with cramping and lower abdominal pain. She denies any nausea, vomiting. Overall she states that she is feeling better. PHYSICAL EXAMINATION: GENERAL: She appears comfortable. No apparent distress. VITAL SIGNS: Stable. Blood pressure 94/56, pulse rate 70, temperature 97.7. HEENT: Examination unremarkable. Conjunctivae are pink. Sclerae anicteric. Oral cavity no lesions. NECK: No JVD or lymph node enlargement. CHEST: Clear to auscultation. HEART: Regular rate and rhythm. ABDOMEN: Soft, bowel sounds are positive, no organomegaly. EXTREMITIES: No pedal edema. NEURO: She is alert and oriented x3. No focal deficits. LABS: From yesterday, basic metabolic panel is within normal limits. AST is 53, ALT is 32, T bilirubin is normal. Alkaline phosphatase is 181. Serum iron 55, TIBC 129, iron saturation 42.6%. Rest of the workup for chronic liver disease is pending. IMPRESSION: 1. Mild elevation of serum transaminases. Hepatitis serologies for A, B and C are negative. Workup for chronic liver disease in progress. LFTs remained stable. 2. Acute urinary tract infection, on broad-spectrum antibiotics. 3. Elevated ammonia level, possible hepatic encephalopathy. Presently on oral lactulose and patient developed diarrhea. Currently the lactulose will be readjusted. RECOMMENDATIONS: 1. Continue with antibiotics. 2. Decrease lactulose to 20 cc twice daily and titrate so that she has 3-4 bowel movements daily. 3. Await rest of the workup for chronic liver disease. 4. We will follow with you closely. Thank you for this consultation. MMODL / IJN: [id number] /
[2020-11-19 10:17] LABS: Ceruloplasmin 12.5 mg/dL (20.0-60.0)
[2020-11-19] MEDS: MULTIVITAMINS, THERA 1 EACH TAB PO SCH (12:16)
[2020-11-19] MEDS: LEVOTHYROXINE 100 MCG TAB PO SCH (20:25)
[2020-11-19] MEDS: GABAPENTIN 300 MG CAP PO SCH (20:25)
[2020-11-19] MEDS: PANTOPRAZOLE 40 MG TABLET PO SCH (20:25)
[2020-11-19] MEDS: MIRTAZAPINE 15 MG TAB PO SCH (20:26)
--- NOTE | 2020-11-19 22:54 | P.PN ---
Progress Note - Text Progress Note Date: 11/19/20 Chief Complaint: Tired History of presenting complaint: This is a pleasant 75-year-old patient of Dr. Dorian Yan. Chronic stable medical conditions include hypertension, hyperlipidemia, depression, hypothyroid. 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 Full-thickness necrosis noted in a patchy manner. Area proximal distal to that also ischemic appearance-small bowel resection was carried out. Patient was then transferred out to [facility]. Dr. Galdamez with the surgical nicotine. Patient thinks a blood clot was removed from the blood supply to the bowels. Patient now presents from the rehab center feeling weak and tired. Able to only take 2-3 steps Has not been eating. Denies any fever or chills. Feels really dry. Voice is really weak. Tired. No shortness of breath. scattered bruising. Is on eliquis. Admitted with dehydration, acute medical debility. Diuretics with temporary held. IV hydration. Acute UTI on Levaquin. Today: Laying in bed. Comfortable. Oral intake fair. Feels better. Review of systems: Was done for constitutional, cardiovascular, GI, pulmonary. relevant finding as above Active Medications Acetaminophen (Acetaminophen Tab 325 Mg Tab) 650 mg PO Q4H PRN PRN Reason: Pain Last Admin: 11/16/20 22:35 Dose: 650 mg Documented by: Albuterol/Ipratropium (Ipratropium-Albuterol 3 Ml Neb) 3 ml INHALATION RT-QID P RN PRN Reason: Shortness Of Breath Last Admin: 11/19/20 07:30 Dose: 3 ml Documented by: Amoxicillin (Amoxicillin 250 Mg Cap) 250 mg PO Q8HR [facility] Last Admin: 11/19/20 17:29 Dose: 250 mg Documented by: Apixaban (Apixaban 5 Mg Tab) 5 mg PO BID@0700,2100 [facility] Last Admin: 11/19/20 20:26 Dose: 5 mg Documented by: Aspirin (Aspirin 81 Mg) 81 mg PO DAILY@0700 [facility] Last Admin: 11/19/20 09:14 Dose: 81 mg Documented by: Budesonide/Formoterol Fumarate (Symbicort 80-4.5 Mcg Inhaler) 2 puff INHALATION RT-BID [facility] Last Admin: 11/19/20 20:24 Dose: 2 puff Documented by: Diphenhydramine HCl (Diphenhydramine 25 Mg Cap) 50 mg PO QID PRN PRN Reason: Allergic Reaction Last Admin: 11/19/20 17:29 Dose: 50 mg Documented by: Gabapentin (Gabapentin 300 Mg Cap) 300 mg PO [facility] Last Admin: 11/19/20 20:25 Dose: 300 mg Documented by: Sodium Chloride (Saline 0.9%) 1,000 mls @ 75 mls/hr IV .[id number] [facility] Last Admin: 11/19/20 21:56 Dose: 75 mls/hr Documented by: Lactulose (Lactulose 20 Gm/30 Ml Cup) 20 gm PO TID [facility] Last Admin: 11/19/20 15:18 Dose: Not Given Documented by: Levothyroxine Sodium (Levothyroxine 100 Mcg Tab) 200 mcg PO [facility] Last Admin: 11/19/20 20:25 Dose: 200 mcg Documented by: Methocarbamol (Methocarbamol 500 Mg Tab) 500 mg PO Q6H PRN PRN Reason: Muscle Spasm Methylprednisolone Sodium Succinate (Methylprednisolone Sod Succi 40 Mg/Ml 1 Ml Vial) 20 mg IV Q8HR PRN PRN Reason: Allergic Reaction Mirtazapine (Mirtazapine 15 Mg Tab) 15 mg PO [facility] Last Admin: 11/19/20 20:26 Dose: 15 mg Documented by: Multivitamins (Multivitamins, Thera 1 Each Tab) 1 each PO DAILY@1200 [facility] Last Admin: 11/19/20 12:16 Dose: 1 each Documented by: Naloxone HCl (Naloxone 0.4 Mg/Ml 1 Ml Vial) 0.2 mg IV Q2M PRN PRN Reason: Opioid Reversal Ondansetron HCl (Ondansetron 4 Mg Tab) 8 mg PO Q8HR PRN PRN Reason: Nausea And Vomiting Last Admin: 11/19/20 17:55 Dose: 8 mg Documented by: Pantoprazole Sodium (Pantoprazole 40 Mg Tablet) 40 mg PO [facility] Last Admin: 11/19/20 20:25 Dose: 40 mg Documented by: Polyethylene Glycol (Polyethylene Glycol 3350 17 Gm Powd.Pack) 17 gm PO DAILY [facility] Last Admin: 11/19/20 09:16 Dose: Not Given Documented by: Prednisolone Acetate (Prednisolone Acetate 1% Ophth Drops 5 Ml Btl) 1 drops RIGHT EYE BID@0700,2100 [facility] Last Admin: 11/19/20 20:26 Dose: 1 drops Documented by: Simethicone (Simethicone 80 Mg Chewable) 80 mg PO Q8H PRN PRN Reason: gas/bloating Last Admin: 11/17/20 11:16 Dose: 80 mg Documented by: Venlafaxine HCl (Venlafaxine Hcl Er 37.5 Mg Cap) 37.5 mg PO DAILY@0700 [facility] Last Admin: 11/19/20 09:16 Dose: 37.5 mg Documented by: Venlafaxine HCl (Venlafaxine Hcl Er 150 Mg Cap) 150 mg PO DAILY@0700 [facility] Last Admin: 11/19/20 09:15 Dose: 150 mg Documented by: Past medical history to include: Hypertension, hyperlipidemia, depression, hypothyroid, small bowel ischemia, with resection and blood clots removed from blood supply to the small bowel at [facility] Social history: At rehab. Smoked for about 30 years stopped in 1999. Was a heavy smoker. Alcohol occasional. Physical examination: VITAL SIGNS: 98, 59, 16, 108/71, 96% room air GENERAL:. Laying in bed, comfortable EYES: Pupils equal. Conjunctiva pale HEENT: External appearance of nose and ears normal, oral cavity dry NECK: JVD not raised; masses not palpable. HEART: First and second heart sounds are normal; no edema. LUNGS: Respiratory rate normal; clear to auscultation. ABDOMEN: Soft, no tenderness, no guarding rigidity, liver spleen not palpable, no masses palpable. PSYCH: AO 3, mood and affect normal DERMATOLOGICAL: Diffuse bruising. MUSCULAR skeletal: Evidence of OA INVESTIGATIONS, reviewed in the clinical context: November 18: Potassium 4 creatinine 0.6 sodium 133 Urine culture: Proteus mirabilis November 17: Potassium 3.7 creatinine 0.7 to WBC 7.2 hemoglobin 9.9 platelets 458 pro time 25.1 potassium 4.2 sodium 129 creatinine 0.73 ammonia 60 albumin 1.5 2-D echocardiogram-EF 50-55%, moderate concentric LVH, right ventricle mildly to moderately enlarged, borderline pulmonary arterial hypertension Assessment and plan: -Clinical dehydration from poor oral intake Start IV fluids. Hold off diuretics for now -Acute on chronic medical debility PTOT -chronic cor pulmonale Follow clinically -Hypothyroid Continue with Synthroid -Essential hypertension Follow blood pressure -Hyperlipidemia -Chronic insomnia Continue with Remeron -Depression otherwise specified Continue Effexor -obesity BMI 35.4 Follow-up with outpatient -Elevated right diaphragm-SNIFF test was negative. No paradoxical movement noted. -History of small bowel ischemia with resection and history of blood clots been removed. Continue eliquis -Acute UTI with cystitis, from Proteus mirabilis Resistant to Levaquin-changed to amoxicillin Patient doing much better. Should be able to return to ECF tomorrow. DC IV fluids. Tolerating amoxicillin well
[2020-11-20] MEDS: diphenhydrAMINE 25 MG CAP PO PRN ×3 (01:47→16:39)
[2020-11-20] MEDS: ASPIRIN 81 MG PO SCH (07:50)
[2020-11-20] MEDS: VENLAFAXINE HCL ER 37.5 MG CAP PO SCH (07:51)
[2020-11-20] MEDS: VENLAFAXINE HCL ER 150 MG CAP PO SCH (07:51)
[2020-11-20] MEDS: APIXABAN 5 MG TAB PO SCH (07:51)
[2020-11-20] MEDS: prednisoLONE ACETATE 1% OPHTH DROPS 5 ML BTL RIGHT EYE SCH (07:51)
[2020-11-20] MEDS: polyethylene glycoL 3350 17 GM POWD.PACK PO SCH (07:51)
[2020-11-20] MEDS: LACTULOSE 20 GM/30 ML CUP PO SCH (07:52)
[2020-11-20] MEDS: AMOXICILLIN 250 MG CAP PO SCH ×2 (08:29→16:39)
[2020-11-20] MEDS: SYMBICORT 80-4.5 MCG INHALER INHALATION SCH (09:32)
[2020-11-20 12:24] VITALS: BP 102/57; PULSE 94; RESP 17; TEMP 97.6
--- NOTE | 2020-11-20 13:41 | P.PN ---
Subjective Progress Note Date: 11/20/20 Principal diagnosis: elevated LFTS, ammonia Jeff clifton 75-year-old female who was admitted to the hospital with acute UTI. She was noted to have mild elevation of serum transaminases and an elevated ammonia level. She was started on lactulose however was having severe diarrhea up to 4-5 loose bowel movements with cramping. She is denying any nausea or vomiting. Today she states she is feeling much better, lactulose had been decreased to 20 mg twice a day and she only had 2 bowel movements. Lab is been unable to collect any blood as stated having difficulty finding a pain. Patient is refusing at this point. Objective - Vital Signs Vital signs: Vital Signs Temp 98.2 F 11/20/20 05:00 Pulse 103 H 11/20/20 05:00 Resp 16 11/20/20 05:00 BP 117/76 11/20/20 05:00 Pulse Ox 95 11/20/20 05:00 Intake & Output 11/19/20 11/20/20 11/20/20 18:59 06:59 18:59 Other: Voiding Method Diaper Diaper # Voids 1 2 # Bowel Movements 3 3 - Exam General appearance: The patient is alert, oriented, appears in no acute distress. HET: Head is normocephalic and atraumatic. Conjunctiva pink. Sclera anicteric. Neck: Supple without lymphadenopathy. Abdomen: Soft, nontender, nondistended with bowel sounds. No guarding or rigidity. Extremities: Normal skin color and turgor. No pedal edema Skin: No rashes, no jaundice. [place] has multiple scabs on her face and upper extremities from where she is picking. Neurological: No focal deficits. Alert and oriented 3. - Labs CBC & Chem 7: 11/16/20 13:29 11/18/20 06:02 Labs: Abnormal Lab Results - Last 24 Hours (Table) 11/17/20 Range/Units 05:13 Jwfos-7-Crbdsoitxua 89.0 L (99.0-242.0) mg/dL Ceruloplasmin 12.5 L (20.0-60.0) mg/dL Assessment and Plan (1) Elevated LFTs Narrative/Plan: Patient with mild elevation of serum transaminases. Hepatitis serologies for A, B, and C were negative. Workup for chronic liver disease is in progress negative to date. LFTs remained stable. Current Visit: No Status: Acute Code(s): R79.89 - OTHER SPECIFIED ABNORMAL FINDINGS OF BLOOD CHEMISTRY SNOMED Code(s): 070589770 (2) Chronic liver disease Current Visit: Yes Status: Acute Code(s): K76.9 - LIVER DISEASE, UNSPECIFIED SNOMED Code(s): 359349391 (3) Urinary tract infection Current Visit: No Status: Acute Code(s): N39.0 - URINARY TRACT INFECTION, SITE NOT SPECIFIED SNOMED Code(s): 92943585 Plan: . May continue with antibiotics 2. Decrease lactulose to 20 mL twice daily and titrate so that she has 3-4 bowel movements daily 3. The rest of the workup for chronic liver disease The patient may be discharged home from gastroenterology standpoint with follow- up in 1-[address] Meir Patton I agree with the dictator's note, documented as a scribe by Faith Healy.
[2020-11-20] MEDS: MULTIVITAMINS, THERA 1 EACH TAB PO SCH (14:15)
--- NOTE | 2020-11-20 15:21 | P.DS ---
Providers Date of admission: 11/16/20 15:19 Expected date of discharge: 11/20/20 Attending physician: Mamadou Perkins Consults: 11/16/20 15:20 Consult Physician Urgent Consulting Provider: Dana Patton Consult Reason/Comments: Impending liver failure Do you want consulting provider notified?: Yes Primary care physician: Dorian Yan [facility] Course: Chief Complaint: Tired History of presenting complaint: This is a pleasant 75-year-old patient of Dr. Dorian Yan. Chronic stable medical conditions include hypertension, hyperlipidemia, depression, hypothyroid. 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 Full-thickness necrosis noted in a patchy manner. Area proximal distal to that also ischemic appearance-small bowel resection was carried out. Patient was then transferred out to [facility]. Dr. Galdamez with the surgical nicotine. Patient thinks a blood clot was removed from the blood supply to the bowels. Patient now presents from the rehab center feeling weak and tired. Able to only take 2-3 steps Has not been eating. Denies any fever or chills. Feels really dry. Voice is really weak. Tired. No shortness of breath. scattered bruising. Is on eliquis. Admitted with dehydration, acute medical debility. Diuretics temporary held. IV hydration. Acute UTI from Proteus mirabilis-antibody changed to amoxicillin. Patient also has hyper-ammonemia, from chronic liver disease 1 which is undetermined. It was discussed with Dr. Meir Patton. She'll follow the patient further the office. In the meantime patient is to take lactulose to titrate to one or 2 bowel movements a day. Patient overall prognosis is guarded due to multiple medical problems. Informed be in appropriate to proceed to palliative care and hospice at some point if her condition continues to deteriorate. Today: Care was discussed at length with the patient with Dr. Meir Patton. Qu estions were answered. We will do a Mauricio wraps.. Patient is far more awake. Communicating. Understands. I also spoke to patient's family doctor Dr. Yan. And given updated about patient's condition. Including guarded prognosis and the fact that only so much can be done, but the costal multiple comorbidities. She had multiple attempts at blood draw today and unsuccessfully. Discussion and discharge planning more than 35 minutes Consultation: Dr. Meir Patton from GI Past medical history to include: Hypertension, hyperlipidemia, depression, hypothyroid, small bowel ischemia, with resection and blood clots removed from blood supply to the small bowel at [facility] Social history: At rehab. Smoked for about 30 years stopped in 1999. Was a heavy smoker. Alcohol occasional. Physical examination: VITAL SIGNS: 98.2, 103, 16, 117/76, 95% room air GENERAL:. Laying in bed, awake EYES: Pupils equal. Conjunctiva pale NECK: JVD not raised; masses not palpable. HEART: First and second heart sounds are normal; mild edema. LUNGS: Respiratory rate normal; clear to auscultation. ABDOMEN: Soft, no tenderness, no guarding rigidity, liver spleen not palpable, no masses palpable. PSYCH: AO 3, mood and affect normal DERMATOLOGICAL: Diffuse bruising. MUSCULAR skeletal: Evidence of OA INVESTIGATIONS, reviewed in the clinical context: November 18: Potassium 4 creatinine 0.6 sodium 133 Urine culture: Proteus mirabilis November 17: Potassium 3.7 creatinine 0.7 to WBC 7.2 hemoglobin 9.9 platelets 458 pro time 25.1 potassium 4.2 sodium 129 creatinine 0.73 ammonia 60 albumin 1.5 2-D echocardiogram-EF 50-55%, moderate concentric LVH, right ventricle mildly to moderately enlarged, borderline pulmonary arterial hypertension Assessment and plan: -Clinical dehydration from poor oral intake Initial hydration. Now diuretics resumed at a lower dose -Acute on Hepatic encephalopathy from chronic liver disease-further workup as an outpatient by Dr. Meir Patton Use lactulose to titrate to one or 2 bowel movements a day -Acute on chronic medical debility PTOT -chronic cor pulmonale Follow clinically -Hypothyroid Continue with Synthroid -Essential hypertension Follow blood pressure -Chronic insomnia Continue with Remeron -Depression otherwise specified Continue Effexor -obesity BMI 35.4 Follow-up with outpatient -Elevated right diaphragm-SNIFF test was negative. No paradoxical movement noted. -History of small bowel ischemia with resection and history of blood clots been removed. 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 and decreased oral intake Supplement diet Disposition: [facility] facility Plan - Discharge Summary Discharge Rx Participant: No New Discharge Prescriptions: No Action Cholecalciferol [Vitamin D3 (25 Mcg = 1000 Iu)] 25 mcg PO BID@1200,1700 ondansetron HCL [Zofran] 8 mg PO Q8HR PRN PRN Reason: Nausea And Vomiting Pantoprazole Sodium 40 mg PO HS Magnesium Oxide 400 mg PO BID@1200,1700 Loperamide [Imodium] 2 mg PO Q6H PRN PRN Reason: Diarrhea Ferrous Sulfate [Iron (65 MG Elemental)] 325 mg PO DAILY@1700 Calcium Carbonate 500 mg PO DAILY@0700 Apixaban [Eliquis] 5 mg PO BID@0700,2100 Aspirin EC [Ecotrin Low Dose] 81 mg PO DAILY@0700 Albuterol Sulfate [Albuterol Sulfate Hfa] 1 puff INHALATION RT-Q4H PRN PRN Reason: Shortness Of Breath prednisoLONE ACETATE 1% OPHTH [Pred Forte 1%] 1 drop RIGHT EYE BID@0700,2100 Potassium Chloride ER [K-Dur 20] 20 meq PO DAILY@0700 methocarbamoL [Robaxin] 500 mg PO Q6H PRN PRN Reason: Muscle Spasm Multivitamins, Thera [Multivitamin (formulary)] 1 tab PO DAILY@1200 Melatonin 5 mg PO HS Fluticasone/Vilanterol [Breo Ellipta 100-25 Mcg Inhaler] 1 puff INHALATION RT-DAILY@0700 Banana Flake Packet 1 packet PO Q12H PRN PRN Reason: Diarrhea Levothyroxine Sodium [Synthroid] 200 mcg PO HS Liquical 30 ml PO BID@0700,1700 Acetaminophen Tab [Tylenol] 650 mg PO Q4H PRN PRN Reason: Pain Docusate [Colace] 100 mg PO Q48H Simethicone 80 mg PO Q8H PRN PRN Reason: gas/bloating Gabapentin 300 mg PO BID@0700,2100 Spironolactone [Aldactone] 25 mg PO DAILY@0700 Ipratropium-Albuterol Nebulize [Duoneb 0.5 mg-3 mg/3 ml Soln] 3 ml INHALATION RT-QID PRN PRN Reason: Shortness Of Breath Mag Hydrox/Aluminum Hyd/Simeth [Mylanta Maximum Strength Liq] 10 ml PO Q4H PRN PRN Reason: Indigestion Mirtazapine [Remeron] 15 mg PO HS Bumetanide [BUMEX] 1 mg PO BID@0700,1300 Venlafaxine HCl ER [Effexor XR] 150 mg PO DAILY@0700 Venlafaxine HCl ER [Effexor XR] 37.5 mg PO DAILY@0700 Discharge Medication List Cholecalciferol [Vitamin D3 (25 Mcg = 1000 Iu)] 25 mcg PO BID@1200,1700 05/10/20 [History] Albuterol Sulfate [Albuterol Sulfate Hfa] 1 puff INHALATION RT-Q4H PRN 07/28/20 [History] Apixaban [Eliquis] 5 mg PO BID@0700,209907/28/20 [History] Aspirin EC [Ecotrin Low Dose] 81 mg PO DAILY@0700 07/28/20 [History] Calcium Carbonate 500 mg PO DAILY@0700 07/28/20 [History] Ferrous Sulfate [Iron (65 MG Elemental)] 325 mg PO DAILY@1700 07/28/20 [History] Loperamide [Imodium] 2 mg PO Q6H PRN 07/28/20 [History] Magnesium Oxide 400 mg PO BID@1200,1700 07/28/20 [History] Pantoprazole Sodium 40 mg PO HS 07/28/20 [History] ondansetron HCL [Zofran] 8 mg PO Q8HR PRN 07/28/20 [History] Banana Flake Packet 1 packet PO Q12H PRN 09/27/20 [History] Fluticasone/Vilanterol [Breo Ellipta 100-25 Mcg Inhaler] 1 puff INHALATION RT- DAILY@0700 09/27/20 [History] Levothyroxine Sodium [Synthroid] 200 mcg PO HS 09/27/20 [History] Melatonin 5 mg PO HS 09/27/20 [History] Multivitamins, Thera [Multivitamin (formulary)] 1 tab PO DAILY@1200 09/27/20 [History] Potassium Chloride ER [K-Dur 20] 20 meq PO DAILY@0700 09/27/20 [History] methocarbamoL [Robaxin] 500 mg PO Q6H PRN 09/27/20 [History] prednisoLONE ACETATE 1% OPHTH [Pred Forte 1%] 1 drop RIGHT EYE BID@0700,2100 09/27/20 [History] Acetaminophen Tab [Tylenol] 650 mg PO Q4H PRN 11/16/20 [History] Bumetanide [BUMEX] 1 mg PO BID@0700,1300 11/16/20 [History] Docusate [Colace] 100 mg PO Q48H 11/16/20 [History] Gabapentin 300 mg PO BID@0700,2100 11/16/20 [History] Ipratropium-Albuterol Nebulize [Duoneb 0.5 mg-3 mg/3 ml Soln] 3 ml INHALATION RT-QID PRN 11/16/20 [History] Liquical 30 ml PO BID@0700,1700 11/16/20 [History] Mag Hydrox/Aluminum Hyd/Simeth [Mylanta Maximum Strength Liq] 10 ml PO Q4H PRN 11/16/20 [History] Mirtazapine [Remeron] 15 mg PO HS 11/16/20 [History] Simethicone 80 mg PO Q8H PRN 11/16/20 [History] Spironolactone [Aldactone] 25 mg PO DAILY@0700 11/16/20 [History] Venlafaxine HCl ER [Effexor XR] 37.5 mg PO DAILY@0700 11/16/20 [History] Venlafaxine HCl ER [Effexor XR] 150 mg PO DAILY@0700 11/16/20 [History] Follow up Appointment(s)/Referral(s): Dorian Yan MD [Primary Care Provider] - 1-2 days Sheri Elizondo NPC [Nurse Practitioner] - 2 Weeks
[2020-11-22 12:39] LABS: Albumin 1.31 g/dL (3.80-4.90); Gamma Globulin 0.76 g/dL (0.70-1.50)
== END 2020-11-20 19:00 | DRG 442 ==
LOC: EC 12:34 → 5NMEDONC 15:19
PROVIDERS: ADMIT Hospitalist; ATTEND Hospitalist
DX: K72.00 Acute and subacute hepatic failure without coma (principal); D68.9 Coagulation defect, unspecified; K55.9 Vascular disorder of intestine, unspecified; K91.2 Postsurgical malabsorption, not elsewhere classified; Z16.23 Resistance to quinolones and fluoroquinolones; Z20.822 Contact with and (suspected) exposure to COVID-19; B96.4 Proteus (mirabilis) (morganii) as the cause of diseases classified elsewhere; E03.9 Hypothyroidism, unspecified; E66.9 Obesity, unspecified; E78.5 Hyperlipidemia, unspecified; E86.0 Dehydration; E88.09 Other disorders of plasma-protein metabolism, not elsewhere classified; F32.9 Major depressive disorder, single episode, unspecified; F41.9 Anxiety disorder, unspecified; F51.04 Psychophysiologic insomnia; Z98.42 Cataract extraction status, left eye; Z98.41 Cataract extraction status, right eye; Z90.721 Acquired absence of ovaries, unilateral; Z96.653 Presence of artificial knee joint, bilateral; I10 Essential (primary) hypertension; I27.81 Cor pulmonale (chronic); M81.0 Age-related osteoporosis without current pathological fracture; N30.90 Cystitis, unspecified without hematuria; Z68.35 Body mass index [BMI] 35.0-35.9, adult; Z79.01 Long term (current) use of anticoagulants; Z79.82 Long term (current) use of aspirin; Z79.890 Hormone replacement therapy; Z79.899 Other long term (current) drug therapy; Z82.49 Family history of ischemic heart disease and other diseases of the circulatory system; Z86.718 Personal history of other venous thrombosis and embolism; Z87.440 Personal history of urinary (tract) infections; Z87.891 Personal history of nicotine dependence; Z96.1 Presence of intraocular lens; R53.81 Other malaise; Z90.49 Acquired absence of other specified parts of digestive tract; Z88.0 Allergy status to penicillin; Z88.2 Allergy status to sulfonamides
CPT/HCPCS: 36415; 74018; 80053; 81001; 82103; 82105; 82140; 82150; 82390; 83516; 83540; 83550; 83690; 83735; 84165; 85025; 85610; 85730; 87077; 87086; 87186; 87635; 94640; 96374; 99285